=== PATIENT | male | born 1965 | race Caucasian/White ===

== ENCOUNTER → 2017-01-09 | Outpatient (CLI) | payer MEDICARE, OTHER ==
--- NOTE | 2017-01-10 13:53 | XR ---
EXAMINATION TYPE: XR chest 2V DATE OF EXAM: 01/09/2017 COMPARISON: NONE HISTORY: Shortness of breath TECHNIQUE: Frontal and lateral views of the chest are obtained. FINDINGS: Scattered senescent parenchymal changes noted. Hyperinflation compatible with COPD. No evidence for infiltrate. No evidence for atelectasis. Heart size is stable. Mediastinal structures are stable and grossly unremarkable. No evidence for hilar prominence. Degenerative changes dorsal spine. IMPRESSION: 1. No evidence for acute pulmonary disease.
== END | disposition home or self-care (01) ==
LOC: RADXRMAIN 16:45
PROVIDERS: ATTEND Physician Assistant
DX: R06.02 Shortness of breath (principal)
CPT/HCPCS: 71020

== ENCOUNTER → 2017-01-21 | Outpatient (CLI) | payer MEDICARE, OTHER ==
--- NOTE | 2017-01-21 09:43 | US ---
EXAMINATION TYPE: US carotid duplex BILAT DATE OF EXAM: 01/21/2017 COMPARISON: NONE CLINICAL HISTORY: G42.909 migraine. Borderline HTN EXAM MEASUREMENTS: RIGHT: Peak Systolic Velocity (PSV) cm/sec ----- Right CCA: 117.4 ----- Right ICA: 86.7 ----- Right ECA: 116.2 ICA/CCA ratio: 0.7 RIGHT: End Diastole cm/sec ----- Right CCA: 36.5 ----- Right ICA: 29.7 ----- Right ECA: 19.2 LEFT: Peak Systolic Velocity (PSV) cm/sec ----- Left CCA: 103.1 ----- Left ICA: 90.2 ----- Left ECA: 86.7 ICA/CCA ratio: 0.9 LEFT: End Diastole cm/sec ----- Left CCA: 24.1 ----- Left ICA: 30.7 ----- Left ECA: 19.3 VERTEBRALS (direction of flow): Right Vertebral: Antegrade Left Vertebral: Antegrade Rhythm: Normal No wall thickening, significant stenosis, elevated velocities or plaque seen. IMPRESSION: 1. No evidence of hemodynamically significant stenosis within either carotid system. 2. Symmetrically prominent peak systolic velocities likely relate to underlying hypertension.
--- NOTE | 2017-01-21 10:25 | ECHOS ---
STRESS ECHOCARDIOGRAM INDICATIONS: Palpitations. MEDICATIONS:: Metformin, BP medications. BASELINE HEART RATE: 81 BASELINE BLOOD PRESSURE: 105/61 MAXIMUM HEART RATE: 145 MAXIMUM BLOOD PRESSURE: 189/69 85% MPHR: 145 100% MPHR: 170 METS: 9.1 MAXIMUM STAGE REACHED: 3 TOTAL EXERCISE TIME: 7:30 CLINICAL INFORMATION: Baseline EKG showed sinus rhythm, normal axis, normal intervals. Patient exercised on Jam protocol for a total of 7-1/2 minutes achieving 9 METs, 85% of predicted maximum heart rate without chest pain or diagnostic ST-segment depression. Baseline echo shows normal left ventricular size, wall motion, and systolic function. Post-exercise, there is normal hypodynamic response to all segments of myocardium noted. CONCLUSION: 1. Above average exercise tolerance. 2. Negative stress test by EKG criteria. 3. Negative stress echo. MMODL / IJN: [id number] /
== END | disposition home or self-care (01) ==
LOC: RADUSMAIN 08:55
PROVIDERS: ATTEND Family Medicine
DX: R00.2 Palpitations (principal); G43.909 Migraine, unspecified, not intractable, without status migrainosus
CPT/HCPCS: 93017; 93350; 93880

== ENCOUNTER → 2017-01-24 | Outpatient (CLI) | payer MEDICARE, OTHER ==
--- NOTE | 2017-01-24 13:46 | MR ---
EXAMINATION TYPE: MR brain wo/w con DATE OF EXAM: 01/24/2017 COMPARISON: NONE HISTORY: migraine TECHNIQUE: Multiplanar, multisequence images of the brain and brainstem is performed without and with IV contras t, utilizing 9.5 mL intravenous Gadavist . FINDINGS: Diffusion weighted images demonstrate no evidence of a recent infarct or other diffusion ab normality. There is no extra-axial fluid collection or significant white matter signal abnormality. The ventricular system and cisternal spaces are normal in size and appearance. The brain volume is age appropriate. Midline structures demonstrate normal morphology. The craniocervical junction appears within normal limits. Post contrast images demonstrate no abnormal enhancement. 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 White matter: There are couple areas of abnormal signal within the white matter which are nonspecific and measure less than 5 mm. IMPRESSION: 1. Minimal nonspecific white matter changes can be seen with migraine headaches. Other etiologies inc luding remote microvascular ischemia or demyelinating disease not entirely excluded correlate clinica lly. 2. No enhancing mass. Small pineal gland cyst measuring 1 cm.
== END | disposition home or self-care (01) ==
LOC: RADMRIMAIN 12:19
PROVIDERS: ATTEND Physician Assistant
DX: R90.82 White matter disease, unspecified (principal); E34.8 Other specified endocrine disorders
CPT/HCPCS: 70553; A9581

== ENCOUNTER → 2017-01-30 | Outpatient (CLI) | payer MEDICARE, OTHER ==
--- NOTE | 2017-01-30 12:31 | XR ---
Cervical spine HISTORY: Neck pain, migraine headaches Excuse of the cervical spine correlated to prior exam 12/14/2014 There is no significant interval change. Cervical vertebral bodies show stable height, alignment, and bone mineralization. There is multilevel spondylosis. Loss of lordosis may be due to muscle spasm. P revertebral soft tissues are normal. Loss of disc height C3-4, C6-7. Foraminal encroachment not hickey ed significantly. IMPRESSION: Stable degenerative disc disease. MRI may be of benefit.
== END | disposition home or self-care (01) ==
LOC: RADXRMAIN 10:23
PROVIDERS: ATTEND Physician Assistant
DX: M50.30 Other cervical disc degeneration, unspecified cervical region (principal)
CPT/HCPCS: 72050

== ENCOUNTER → 2017-02-27 | Outpatient (CLI) | payer MEDICARE, OTHER ==
--- NOTE | 2017-02-27 10:20 | XR ---
EXAMINATION TYPE: XR knee complete LT DATE OF EXAM: 02/27/2017 COMPARISON: NONE HISTORY: Knee pain TECHNIQUE: Three-view left knee FINDINGS: No radiopaque foreign bodies are evident. Joint spaces are preserved. No joint effusion is evident. There is an anterior superior patellar spur. Superficial soft tissues are unremarkable. IMPRESSION: 1. Normal three-view left knee
== END ==
LOC: RADXRMAIN 08:49
PROVIDERS: ATTEND Physician Assistant
DX: M25.562 Pain in left knee (principal)

== ENCOUNTER → 2017-06-08 | Outpatient (CLI) | payer MEDICARE, OTHER | END | disposition home or self-care (01) | LOC: LABWHC1 12:36 | PROVIDERS: ATTEND Physician Assistant | DX: Z01.818 Encounter for other preprocedural examination (principal) | CPT/HCPCS: 93005 ==

== ENCOUNTER → 2017-08-25 | Outpatient (CLI) | payer MEDICARE, OTHER ==
--- NOTE | 2017-08-25 14:20 | MR ---
EXAMINATION TYPE: MR lumbar spine wo con DATE OF EXAM: 08/25/2017 1:48 PM COMPARISON: NONE HISTORY: Low back pain Multiplanar, MultiSpin echo imaging of the lumbar spine was performed. L1-L2: Normal disc appearance without desiccation. No herniation, protrusion or disc bulging. No ca nal stenosis is present. Foramina are patent bilaterally. L2-L3: There is evidence of mild disc desiccation. Posterocentral disc bulge without herniation. Mild effacement ventral thecal sac. No evidence for central stenosis or foraminal encroachment. Ventral a nd dorsal spur formation noted. L3-L4: There is evidence of mild disc desiccation. Posterocentral disc bulge without herniation. Mild effacement ventral thecal sac. No evidence for central stenosis or foraminal encroachment. L4-L5: There is evidence of mild disc desiccation. Posterocentral disc bulge without herniation. Mild effacement ventral thecal sac. No evidence for central stenosis or foraminal encroachment. L5-S1: Extensive artifact from prior surgical intervention. There is limited evaluation of this level . Lumbar segments are intact. No paraspinal masses are identified. Conus medullaris has a normal appe arance. IMPRESSION: 1. Postoperative change at L5-S1 with extensive artifact resulting in nondiagnostic evaluation at thi s level. 2. Degenerative disc disease as discussed with disc bulging. No susanna herniation or central stenosis.
== END | disposition home or self-care (01) ==
LOC: RADMRIMAIN 13:08
PROVIDERS: ATTEND Psychiatry & Neurology Neurology
DX: M51.36 Other intervertebral disc degeneration, lumbar region (principal); M51.26 Other intervertebral disc displacement, lumbar region; Z98.890 Other specified postprocedural states
CPT/HCPCS: 72148

== ENCOUNTER → 2017-09-28 | Outpatient (CLI) | payer MEDICARE, OTHER ==
--- NOTE | 2017-09-28 14:45 | XR ---
EXAMINATION TYPE: XR cervical spine limited DATE OF EXAM: 09/28/2017 COMPARISON: NONE HISTORY: Spondylosis with radiculopathy TECHNIQUE: 4 view cervical spine. Odontoid is limited with overlying occiput. FINDINGS: Anterior cervical fusion C3-C7 is evident. Disc space place. Posterior spinal lamellar line is intact. Vertebral body alignment is normal. Vertebral body heights appear preserved. IMPRESSION: 1. Postsurgical changes.
== END | disposition home or self-care (01) ==
LOC: RADXRMAIN 14:21
PROVIDERS: ATTEND Neurological Surgery
DX: M47.22 Other spondylosis with radiculopathy, cervical region (principal)
CPT/HCPCS: 72040

== ENCOUNTER → 2017-10-07 | Outpatient (CLI) | payer MEDICARE, OTHER ==
--- NOTE | 2017-10-07 10:35 | CT ---
EXAMINATION TYPE: CT lumbar spine wo con DATE OF EXAM: 10/07/2017 COMPARISON: Correlation MRI 09/04/2017 HISTORY: 52-year-old male Low back pain TECHNIQUE: Contiguous axial scanning of the lumbar spine without IV contrast. Coronal and sagittal re constructions performed. CT DLP: 1030.5 mGycm Automated exposure control for dose reduction was used. FINDINGS: Low density of the liver compatible with fatty infiltration. No prevertebral or paravertebral soft ti ssue abnormality otherwise seen. Vertebral body heights are preserved. Trace grade 1 retrolisthesis at L4-L5. Mild multilevel degenerative disc disease characterized by romero iable minimal disc interspace narrowing and endplate spondylosis. Bulging disks are better demonstrat ed on the patient's recent MRI. L5-S1 intervertebral disc prosthesis is present. The prosthesis appears appropriately positioned. Mild facet arthropathy mid to lower lumbar spine. At L4-L5 and L5-S1, there is bilateral moderate neuroforaminal stenosis suggested. Assessment of the spinal canal at the L5-S1 level is limited due to extensive streak artifact from th e patient's prosthesis. Otherwise, no susanna canal compromise appreciated at the other levels. IMPRESSION: 1. NO VERTEBRAL COMPRESSION COLLAPSE. THERE IS MILD FACET ARTHROPATHY MID TO LOWER LUMBAR SPINE WITH TRACE GRADE 1 RETROLISTHESIS AT L4-L5. 2. INTERVERTEBRAL DISC PROSTHESIS AT L5-S1 APPEARS APPROPRIATELY POSITIONED. 3. MILD MULTILEVEL DEGENERATIVE DISC DISEASE. BULGING DISCS WERE BETTER DEMONSTRATED ON THE PATIENT'S RECENT MRI. 4. MODERATE BILATERAL NEUROFORAMINAL NARROWING AT L4-L5 AND L5-S1.
== END | disposition home or self-care (01) ==
LOC: RADCTMAIN 09:19
PROVIDERS: ATTEND Psychiatry & Neurology Pain Medicine
DX: M99.73 Connective tissue and disc stenosis of intervertebral foramina of lumbar region (principal); M51.26 Other intervertebral disc displacement, lumbar region; M51.36 Other intervertebral disc degeneration, lumbar region; M46.96 Unspecified inflammatory spondylopathy, lumbar region
CPT/HCPCS: 72131

== ENCOUNTER → 2017-10-14 | Outpatient (CLI) | payer MEDICARE, OTHER ==
--- NOTE | 2017-10-14 13:12 | US ---
EXAMINATION TYPE: US abdomen complete DATE OF EXAM: 10/14/2017 COMPARISON: CT lumbar spine one week ago. CLINICAL HISTORY: R10.84 ABD PAIN,RUQ PAIN R10.11. Difficult and limited exam due to overlying bowel gas EXAM MEASUREMENTS: Liver Length: 18.2 cm Gallbladder Wall: 0.2 cm CBD: 0.4 cm Spleen: 10.7 cm Right Kidney: 11.4 x 5.1 x 5.6 cm Left Kidney: 11.5 x 5.2 x 5.0 cm Pancreas: Obscured by bowel gas Liver: Enlarged, attenuating. Coarse echotexture Gallbladder: Two echogenic, non-shadowing areas visualized. These do not move upon rolling patient- possible polyps vs other. Largest measuring 0.3 cm Evidence for sonographic Jeffers's sign: No CBD: wnl as visualized, distal portion obscured by bowel gas Spleen: wnl Right Kidney: No hydronephrosis or masses seen Left Kidney: No hydronephrosis or masses seen Upper IVC: Limited visualization due to overlying bowel gas, visualized portions wnl Abd Aorta: Limited visualization due to overlying bowel gas, visualized portions show some atheroscl erotic changes without AAA. Visualized pancreas is heterogeneous without mass or ductal dilatation. Marked heterogeneous hyperech oic appearance of liver consistent with fatty infiltration correlates with recent CT. No ductal dilat ation is seen. Evaluation for focal masses suboptimal due to marked heterogeneity. Gallbladder is seen without shadowing mobile gallstones. There are suspected 2 3 mm polyps along the periphery. Visualized portion of both kidneys show no hydronephrosis or suspicious masses. Spleen is normal in size. IMPRESSION: Suboptimal study, marked diffuse fatty infiltration of liver is redemonstrated. No suspic ious acute finding is seen to account for patient's symptoms.
== END | disposition home or self-care (01) ==
LOC: RADUSWWP 11:17
PROVIDERS: ATTEND Family Medicine
DX: K76.0 Fatty (change of) liver, not elsewhere classified (principal)
CPT/HCPCS: 76700

== ENCOUNTER → 2017-10-20 | Outpatient (CLI) | payer MEDICARE, OTHER ==
[2017-10-16 16:43] VITALS: BMI 32.5
[2017-10-20 14:05] VITALS: BP 137/89; PULSE 79; RESP 16
--- NOTE | 2017-10-20 15:13 | P.HPIM ---
History of Present Illness H&P Date: 10/20/17 52-year-old male who presents as a new patient to the [facility] pain clinic. Patient presents with a chief complaint of low back pain. Patient is currently status post an ACDF of C3 to C7 on 09/01/2017. Patient also has a history of an anterior disc replacement L5-S1. This was done by surgeon at [place]. R[facility]. Patient since his lumbar disc replacement has had pain in his left hip radiating into his groin and down his leg into his knee. He has not had any interventions with regards to the pain, and was sent to us by Dr. Uriel Beyer for a series of sacroiliac joint injections. I reviewed the patient's MRI that showed postsurgical changes at L5-S1, and artifact which makes it difficult to evaluate at that level. Patient is not take any pain medication, and states that he does not want to. Patient states that his pain is a 6 out of 10 in severity located in his left lower buttock area, radiating into his groin into his thigh into his knee he states that he is limited mobility because of the pain. States it's worse with prolonged sitting or standing. I discussed with the patient sacroiliac joint injection the risks and benefits. Patient understands and is willing to undergo the procedure the next available date. 14 point review of systems negative except as mentioned per HPI Physical exam Vital signs: Reviewed and stable Gen.: Alert and oriented 3 no acute distress HEENT: Atraumatic normocephalic Respiratory: Nonlabored X cardiac: Regular rate and rhythm no murmurs Lumber spine = normal moter stegnth lower extremities ,thigh and legs .4/5 deep tendon reflexes : Diminished bilaterally Knee Jerk , normal ankle Jerk . lumber facet Loading Test negative straight leg raising test negative bilaterally Derrick test positive on the left SI joint tenderness on the left Neurologic: Diminished sensation in the distal lower extremities digits 1 through 5 bilaterally Psychiatric: Mood and affect appropriate Past Medical History Past Medical History: Diabetes Mellitus, Hypertension, Musculoskeletal Disorder , Osteoarthritis (OA) Additional Past Medical History / Comment(s): lower back pain, herniated disc History of Any Multi-Drug Resistant Organisms: None Reported Past Surgical History: Back Surgery, Orthopedic Surgery Additional Past Surgical History / Comment(s): cervical fusion, rotator cuff repair right Past Anesthesia/Blood Transfusion Reactions: No Reported Reaction Past Psychological History: No Psychological Hx Reported Smoking Status: Never smoker Past Alcohol Use History: None Reported Past Drug Use History: None Reported - Past Family History Mother Family Medical History: No Reported History Medications and Allergies Home Medications Medication Instructions Recorded Confirmed Type Glimepiride [Amaryl] 2 mg PO AC-BRKFST 06/30/17 10/20/17 History sitaGLIPtin [Januvia] 100 mg PO DAILY 06/30/17 10/20/17 History Fenofibrate 160 mg PO DAILY 10/16/17 10/20/17 History Hydrochlorothiazide [Hydrodiuril] 25 mg PO DAILY 10/16/17 10/20/17 History QUEtiapine [SEROquel] 100 mg PO HS 10/16/17 10/20/17 History Sertraline [Zoloft] 25 mg PO DAILY 10/16/17 10/20/17 History metFORMIN HCL [Glucophage] 1,000 mg PO BID 10/16/17 10/20/17 History Allergies Allergy/AdvReac Type Severity Reaction Status Date / Time No Known Allergies Allergy Verified 10/16/17 16:46 Physical Exam Vitals: Vital Signs Pulse Resp BP Pulse Ox 10/20/17 13:55 79 16 137/89 94 L Assessment and Plan Assessment: Assessment: 1. Lumbar degenerative disc disease 2. Lumbosacral spondylosis 3. Cervical radiculopathy 4. Chronic postsurgical pain Plan: 1. Medications: No medications prescribed his visit 2. Investigation: maps reviewed and appropriate, no UDS required is no opiates are being prescribed today 3. Procedures: Will schedule for next available left sacroiliac joint steroid injection
== END | disposition home or self-care (01) ==
LOC: PNWHC3 13:00
PROVIDERS: ATTEND Anesthesiology
DX: M51.36 Other intervertebral disc degeneration, lumbar region (principal); M47.817 Spondylosis without myelopathy or radiculopathy, lumbosacral region; I10 Essential (primary) hypertension; E11.9 Type 2 diabetes mellitus without complications; M54.12 Radiculopathy, cervical region; G89.28 Other chronic postprocedural pain; Z79.899 Other long term (current) drug therapy; Z79.84 Long term (current) use of oral hypoglycemic drugs
CPT/HCPCS: 99211

== ENCOUNTER 2017-11-12 06:09 | Day surgery (SDC) | payer MEDICARE, OTHER ==
[2017-11-06 14:29] VITALS: BMI 32.3
[2017-11-12 06:34] VITALS: RESP 16; TEMP 97.9
[2017-11-12] MEDS: LACTATED RINGERS 1,000 ML IV SCH ×2 (06:47→07:03)
[2017-11-12 06:50] LABS: Glucose,Whole Blood 124 mg/dL (75-99)
--- NOTE | 2017-11-12 07:02 | P.PCN ---
Date of Procedure: 11/12/17 Surgeon: Silvano Eagle Description of Procedure: Preoperative diagnoses: left sacroilitis Postoperative diagnoses: left sacroilitis. Procedure: left sacroiliac joint steroid injection under fluoroscopic guidance. Surgeon: Silvano Eagle MD Anesthesia: IV sedation per hospital guidelines EBL: None Procedure indication: The patient had a history of severe chronic low back pain , diagnosed with sacroiliitis and sacroiliac joint pain who presents today for left sacroiliac joint injection. Procedure description: The patient was seen and identified in the preoperative holding area, risks and benefits and alternative of the procedure and possible complications discussed with the patient, and he agreed with the preceding, patient signed the consent, an IV was started, and vital signs were monitored and were stable throughout the procedure, patient was placed in the prone position or table and the lumbosacral area was prepped and draped with a sterile fashion, vital signs were closely monitored during the procedure, the fluoroscopy camera was placed in the contralateral oblique view on the right sacroiliac joint and the lower part of the joint was identified a 2 mL then a 25 -gauge Quincke-type spinal needle advanced slowly under fluoroscopy and placed in the posterior and inferior border of the right sacroiliac joint, placement confirmed with AP and lateral view, and after appropriate needle placement confirmed and after negative aspiration for heme and CSF and there was , 3 ml of Marcaine 0.5% and 40 mg of Kenalog injected after negative aspiration, no paresthesia during the injection, no resistance to injection, and the needle was removed. The entire same procedure was repeated for the left sacroiliac joint Patient tolerated the procedure well without any complication. The patient returned to supine position after the back was cleaned and a Band- Aid applied, the patient transported to recovery room in stable condition and he was monitored for 30 minutes before he was discharged home and then patient was reexamined before going home and patient was discharged in stable condition and patient will follow up with the pain clinic in a few weeks. The patient is a diabetic. I've counseled him that his blood sugar may elevate after this procedure. He should monitor this closely and make appropriate changes to his medical management. He has questions regarding this should contact his managing physician.
[2017-11-12] MEDS ORDERED: IV FLUID CONTINUATION 1,000 ML IV ONE (07:22)
[2017-11-12 07:25] VITALS: PULSE 69
[2017-11-12 07:46] VITALS: BP 119/84
--- NOTE | 2017-11-12 08:08 | FL ---
EXAMINATION TYPE: FL guided pain mgmt statistic DATE OF EXAM: 11/12/2017 HISTORY: Pain Dr. Eagle supervised use of sandra for a lt side si joint steroid inj. 1 sec fluoro and 1 paper images
== END 2017-11-12 07:58 | disposition home or self-care (01) ==
LOC: ORPAIN 06:09
PROVIDERS: ATTEND Pain Medicine Pain Medicine
DX: G89.28 Other chronic postprocedural pain (principal); M46.1 Sacroiliitis, not elsewhere classified; M51.36 Other intervertebral disc degeneration, lumbar region; M47.817 Spondylosis without myelopathy or radiculopathy, lumbosacral region; M54.12 Radiculopathy, cervical region; E11.9 Type 2 diabetes mellitus without complications; I10 Essential (primary) hypertension; M19.90 Unspecified osteoarthritis, unspecified site; Z79.84 Long term (current) use of oral hypoglycemic drugs; Z79.899 Other long term (current) drug therapy; Z98.1 Arthrodesis status
CPT/HCPCS: G0260; J3301; 27096

== ENCOUNTER 2017-11-24 06:23 | Day surgery (SDC) | payer MEDICARE, OTHER ==
[2017-11-17 09:45] VITALS: BMI 32.3
[~2017-11-24 06:23] MED LIST: LACTATED RINGERS 1,000 ML IV SCH
[2017-11-24 07:37] VITALS: RESP 16; TEMP 98.2
[2017-11-24] MEDS ORDERED: LIDOCAINE 1% 20 ML VIAL (10MG/ML) FOR IV START INTRADERMA ONE (07:53)
[2017-11-24 07:59] LABS: Glucose,Whole Blood 143 mg/dL (75-99)
--- NOTE | 2017-11-24 08:18 | P.PCN ---
Date of Procedure: 11/24/17 Surgeon: Hui Shukla Pathology: none sent Condition: stable Disposition: PACU Description of Procedure: Preoperative diagnoses= 1-left sacroiliitis. 2 left sacroiliac joint dysfunction. Postoperative diagnoses= same as preoperative diagnosis. Procedure= bilateral sacroiliac joint steroid injection under fluoroscopic guidance. 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 Procedure description= the patient was seen and identified in the preoperative holding area, risks and benefits and alternative of the procedure and possible complications discussed with the patient, patient signed the consent. an IV was started, and vital signs were monitored and were stable throughout the procedure , patient was placed in the prone position or table and the lumbosacral area was prepped and draped with a sterile fashion, vital signs were closely monitored during the procedure.The left sacroiliac joint was identified on the AP view of fluoroscopy then the C-arm was tilted to the right oblique position to superimpose the anterior and posterior joint lines on each other and to have a unified joint line with the target point at the inferior one third of this line. I used 22-gauge 3-1/2 inch Quincke spinal needle for this procedure and after getting into the sacroiliac joint I injected 40 mg of Depo-Medrol +2.5 MLS of Ropivacaine 0.5%. The patient tolerated procedure well. The patient returned to supine position after the back was cleaned and a Band- Aid applied, the patient transported to recovery room in stable condition and he was monitored for 30 minutes before he was discharged home and then patient was reexamined before going home and patient was discharged in stable condition and patient will follow up with the pain clinic in a few weeks
[2017-11-24] MEDS ORDERED: IV FLUID CONTINUATION 1,000 ML IV ONE (08:19)
[2017-11-24 08:33] VITALS: BP 137/81; PULSE 60
--- NOTE | 2017-11-24 13:55 | FL ---
Fluoroscopy HISTORY: Pain 6 seconds fluoroscopy time supplied to the referring clinician. 1 intraoperative C-arm images docume nt the procedure. See dictated report from anesthesia.
== END 2017-11-24 08:46 | disposition home or self-care (01) ==
LOC: ORPAIN 06:23
PROVIDERS: ATTEND Anesthesiology
DX: G89.29 Other chronic pain (principal); M46.1 Sacroiliitis, not elsewhere classified; M46.97 Unspecified inflammatory spondylopathy, lumbosacral region; M96.1 Postlaminectomy syndrome, not elsewhere classified; E11.9 Type 2 diabetes mellitus without complications; I10 Essential (primary) hypertension
CPT/HCPCS: G0260; J1030; 27096

== ENCOUNTER → 2018-01-01 | Outpatient (CLI) | payer MEDICARE, OTHER | END | disposition home or self-care (01) | LOC: LABWHC1 09:26 | PROVIDERS: ATTEND Psychiatry & Neurology Pain Medicine | DX: R51 Headache (principal) | CPT/HCPCS: 36415; 82565; 84520 ==

== ENCOUNTER → 2018-01-21 | Outpatient (CLI) | payer MEDICARE, OTHER ==
--- NOTE | 2018-01-21 21:40 | MR ---
EXAMINATION TYPE: MR brain wo/w con DATE OF EXAM: 01/21/2018 COMPARISON: 01/24/2017 HISTORY: MS, headache CONTRAST: Performed utilizing 9 mL intravenous Gadavist gadolinium contrast. TECHNIQUE: Multiplanar, multisequence imaging of the brain is performed on a 3.0 Lilia magnet. Demye linating disease protocol with additional Sagittal Flair sequence is performed. Study is performed wi thin 24 hours of arrival to the hospital. FINDINGS: T2 White Matter Lesions Present : Yes Approximate Number of Lesions: Multiple scattered, probably on the right. Locations Identified : There is a new lesion within the right posterior lateral centrum semiovale thi s may be pulsation artifact. Series 501 image 7. Faint increased signal is near the right cerebral peduncle. There are several uptake white matter changes through the subcortical right temporal lobe, inferior r ight parietal lobe, within the lateral aspect of the right basal ganglion within subcortical trilobar region and within subcortical parietal occipital and frontal lobes on the right. Few scattered punct ate areas are on the left. Size of Largest Lesion(s): 1. 0.5 x 0.3 x 0.3 cm. Location: Right frontal lobe subcortical white matter Sequence 501 Image 18 ( axial) and Sequence 601 Image 25 (sagittal). Enhancing Lesion(s) Present: No Change from Prior: Punctate subcortical white matter changes are increased from comparison. The largest subcortical righ t frontal lobe changes stable. Diffusion-weighted imaging is performed. No abnormal hyperintensity is present to suggest an acute i ntracranial infarct or acute ischemic change. Ventricles and sulci are appropriate for the patient age. There are no abnormal extra-axial fluid collections. The ventricular system and cisternal spaces are normal in size and appearance. The brain volume is age appropriate. The craniocervical junction edin ears within normal limits. The dural venous sinuses appear patent. No abnormal enhancement is present on post contrast images. . Paranasal sinuses and mild mucosal thickening within ethmoid air cells. Remaining paranasal sinuses a nd mastoid air cells are clear. IMPRESSION: 1. A few punctate white matter changes in the subcortical regions predominantly on the right are new . The largest subcortical white matter change in the right frontal lobe is stable in size from prior study discussed above.
== END ==
LOC: RADMRIMAIN 06:25
PROVIDERS: ATTEND Psychiatry & Neurology Neurology
DX: R90.89 Other abnormal findings on diagnostic imaging of central nervous system (principal); R51 Headache
CPT/HCPCS: 70553; A9581

== ENCOUNTER 2018-02-13 11:54 | Observation (INO) | payer MEDICARE, OTHER ==
[2018-02-13] MEDS ORDERED: MORPHINE SULFATE 4 MG/ML SYRINGE IVP STA (13:00)
[2018-02-13] MEDS ORDERED: SODIUM CHLORIDE 0.9% 1,000 ML IV ONE (13:00)
--- NOTE | 2018-02-13 13:06 | ED ---
Chest Pain HPI - General Chief Complaint: Chest Pain Stated Complaint: Migraine, dementia Time Seen by Provider: 02/13/18 12:44 Source: patient, family Mode of arrival: ambulatory Limitations: no limitations - History of Present Illness Initial Comments: 52-year-old male presenting with chest pain, headache, incontinence. Patient states he was hunting at 9:30 AM this morning when he developed severe sharp chest pressure radiating down his left arm and up the left side of his neck that was accompanied by generalized severe headache and diaphoresis. He states he then had incontinence of his bladder in his bowels. Denies any saddle anesthesia. He states currently the VUONG has resolved but the chest pain is still present. He denies any history of aortic aneurysm or dissection. He denies any history of NE and states he had a normal stress test last year. Patient and significant other states that he was recently diagnosed with dementia and started on Aricept. They state for the past one week he has had VUONG that are worse than his normal VUONG. They are accompanied by blurry vision, occur spontaneously, resolve spontaneously, and are exacerbated by light. - Related Data Home Medications Medication Instructions Recorded Confirmed sitaGLIPtin [Januvia] 100 mg PO DAILY 06/30/17 02/13/18 Fenofibrate 160 mg PO BID 10/16/17 02/13/18 Hydrochlorothiazide [Hydrodiuril] 25 mg PO DAILY 10/16/17 02/13/18 metFORMIN HCL [Glucophage] 1,000 mg PO BID 10/16/17 02/13/18 Bisoprolol-Hctz 5-6.25 mg [Ziac 1 tab PO DAILY 02/13/18 02/13/18 5-6.25 MG] Donepezil [Aricept] 5 mg PO DAILY 02/13/18 02/13/18 Glimepiride [Amaryl] 4 mg PO BID 02/13/18 02/13/18 QUEtiapine [SEROquel] 150 mg PO HS 02/13/18 02/13/18 Sertraline HCl [Zoloft] 50 mg PO TID 02/13/18 02/13/18 Allergies Allergy/AdvReac Type Severity Reaction Status Date / Time No Known Allergies Allergy Verified 02/13/18 14:15 Review of Systems ROS Statement: Those systems with pertinent positive or pertinent negative responses have been documented in the HPI. Review of Systems Constitutional: Denies fever, chills Eyes: Denies change in vision, Denies pain Ears, nose, mouth, throat: Denies headaches, Denies sore throat Cardiovascular: Positive chest pain. Denies palpitations Respiratory: Denies shortness of breath, Denies cough Gastrointestinal: Denies abdominal pain. Denies nausea, vomiting, diarrhea. Positive incontinence Genitourinary: Denies hematuria, Denies infections Musculoskeletal: Denies pain, Denies swelling Integumentary: Denies rash Neurological: Positive headache, focal weakness, focal numbness Psychiatric: Denies anxiety, Denies depression Hematologic/Lymphatic: Denies easy bleeding or bruising ROS Other: All systems not noted in ROS Statement are negative. Past Medical History Past Medical History: Dementia, Diabetes Mellitus, Hyperlipidemia, Hypertension Additional Past Medical History / Comment(s): back pain History of Any Multi-Drug Resistant Organisms: None Reported Past Surgical History: Back Surgery, Cholecystectomy, Orthopedic Surgery Additional Past Surgical History / Comment(s): C3-C7 WITH HARDWARE. DISC REPLACED IN LOWER BACK. RT ROTATOR CUFF REPAIR Past Anesthesia/Blood Transfusion Reactions: No Reported Reaction Past Psychological History: No Psychological Hx Reported, Anxiety, Depression Smoking Status: Never smoker Past Alcohol Use History: None Reported Past Drug Use History: None Reported - Past Family History Mother Family Medical History: No Reported History Father Family Medical History: Cancer, Deep Vein Thrombosis (DVT) General Exam - General Exam Comments Initial Comments: General: Awake, alert, No acute Distress HENT: Normocephalic. Atraumatic Eyes: PERRL. EOMI. No scleral icterus. Visual treviño intact. No injected conjunctiva Neck: Full ROM Chest/Lungs: Clear to auscultation bilaterally. No wheezing, rhonchi, or rales Cardiac: Regular rate, rhythm. No murmurs or rubs. 2+ radial pulses bilaterally. No abdominal or carotid bruit. Abdomen/GI: Soft, nontender, nondistended. No rebound, guarding, or rigidity. Musculoskeletal: Full ROM Skin: Warm, dry, intact Neurologic: A/Ox3, no weakness, no abnormal gait, no coordination deficit. Finger to nose intact. No pronator drift. Decreased sensation of left trigeminal nerve Limitations: no limitations Course Vital Signs 02/13/18 02/13/18 02/13/18 12:23 14:27 15:17 Temperature 98.4 F Pulse Rate 69 67 67 Respiratory 16 18 16 Rate Blood Pressure 124/80 123/81 130/72 O2 Sat by Pulse 95 98 96 Oximetry Chest Pain MDM - MDM 52 yoM presenting with chest pain, incontinence and near syncope. On initial exam the patient is awake, alert, and in NAD. VSS. His laboratory workup reveals elevated kidney function but otherwise was negative. CT head and CTA negative for acute process. On reevaluation the chest pain had resolved. She was having no worsening back pain, trouble urinating, saddle anesthesia. Low likelihood the patient's symptoms are secondary to cauda equina syndrome. Patient did have a negative stress test last year however his HEART score is 4. At this time he requires telemetry observation and evaluation by cardiology. I spoke with Dr. Huang who is agreeable to admission with cardiology on consult. Patient is currently stable for transfer to floor. Disposition Clinical Impression: Chest pain at rest Disposition: ADMITTED IP TO THIS HOSP Referrals: Kvng Huang Jr, [Primary Care Provider] - 1-2 days Decision Date: 02/13/18 Decision Time: 15:37
[2018-02-13 13:26] LABS: Basophils # (A) 0.1 k/uL (0-0.2); Basophils % (A) 1 %; Eosinophils # (A) 0.4 k/uL (0-0.7); Eosinophils % (A) 4 %; HCT 38.3 % (39.0-53.0); HGB 12.4 gm/dL (13.0-17.5); Lymphocytes # (A) 1.5 k/uL (1.0-4.8); Lymphocytes % (A) 16 %; MCH 27.8 pg (25.0-35.0); MCHC 32.5 g/dL (31.0-37.0); MCV 85.5 fL (80.0-100.0); Mean Platelet Volume 7.5; Monocytes # (A) 0.5 k/uL (0-1.0); Monocytes % (A) 5 %; Neutrophils % (A) 74 %; Platelet Count 334 k/uL (150-450); RBC 4.48 m/uL (4.30-5.90); RDW 13.4 % (11.5-15.5); WBC 9.5 k/uL (3.8-10.6)
[2018-02-13 13:34] LABS: Calcium 9.5 mg/dL (8.4-10.2); Potassium 3.6 mmol/L (3.5-5.1)
--- NOTE | 2018-02-13 13:40 | XR ---
EXAMINATION TYPE: XR chest 2V DATE OF EXAM: 02/13/2018 HISTORY: Pain. REFERENCE: Previous study dated 01/09/2017. FINDINGS: There has been an interval ACDF in the lower cervical spine. The heart is mildly enlarged. The lungs are clear. Pleural spaces are clear. IMPRESSION: 1. NO ACUTE INTRATHORACIC ABNORMALITY. 2. MILD CARDIOMEGALY. 3. POSTSURGICAL CHANGE.
--- NOTE | 2018-02-13 14:13 | CT ---
EXAMINATION TYPE: CT brain wo con DATE OF EXAM: 02/13/2018 COMPARISON: None HISTORY: Papilledema CT DLP: 1152.4 mGycm Automated exposure control for dose reduction was used. FINDINGS: Ventricles of normal size. There is no mass effect nor midline shift. There is no sign of intracrania l hemorrhage. Calvarium is intact. There is no evidence of cerebral edema. IMPRESSION: NEGATIVE CT SCAN OF THE BRAIN.
[2018-02-13 14:53] LABS: Appearance,Urine Clear (Clear); Bilirubin,Urine Negative (Negative); Blood,Urine Negative (Negative); Color,Urine Yellow; Glucose,Urine (UA) Negative (Negative); Ketones,Urine Negative (Negative); Leukocyte Esterase,Urine Negative (Negative); Nitrite,Urine Negative (Negative); PH, Urine 6.5 (5.0-8.0); Protein,Urine Negative (Negative); Specific Gravity,Urine 1.033 (1.001-1.035); Urobilinogen,Urine <2.0 mg/dL (<2.0)
--- NOTE | 2018-02-13 15:17 | CT ---
EXAMINATION TYPE: CT angio thor/abd pel aorta DATE OF EXAM: 02/13/2018 COMPARISON: None HISTORY: Chest pain, syncope and incontinence CT DLP: 1951.7 mGycm. Automated Exposure Control for Dose Reduction was Utilized. CONTRAST: CT scan of the thorax, abdomen and pelvis is performed without and with IV Contrast, patient injected with 100 ml mL of Isovue 370. FINDINGS: There are 3-D post processed images. The lungs are clear of infiltrate. There is no pleural effusion. There is no pericardial effusion. Th ere is fatty infiltration of the liver. There is no renal calculus. There is no intestinal wall thick ening. There are no dilated loops. There is no mesenteric edema or adenopathy. There is no retroperit butler adenopathy. There are clips from cholecystectomy. Thoracic aorta has normal size. There is no aneurysm or dissection. There is patency of the celiac ar geena and the superior mesenteric artery. There is bilateral patency of the renal arteries. There is b ilateral patency of the common internal and external iliac arteries. There is metal artifact from rupali temo at L5-S1. There is bilateral patency of the femoral arteries. There is no evidence of aneurysm o r dissection. There is no evidence of stenosis. Bladder distends smoothly. There is no pelvic mass. Thoracic and lumbar vertebra appear intact. There is no inguinal hernia. Stomach appears normal. IMPRESSION: Normal CT angiogram of the chest abdomen pelvis. Fatty infiltration of the liver.
[2018-02-13 15:30] LABS: Amphetamine Screen,Urine Not Detected (NotDetected); Barbiturate Screen,Urine Not Detected (NotDetected); Benzodiazepines Screen,Urine Not Detected (NotDetected); Cocaine Screen,Urine Not Detected (NotDetected); Methadone Screen, Urine Not Detected (NotDetected); Opiate Screen,Urine Not Detected (NotDetected); Oxycodone Screen, Urine Not Detected (NotDetected); Phencyclidine Screen,Urine Not Detected (NotDetected); Tricyclic Antidepressant,Urine Not Detected (NotDetected); Urn Cannabinoid Scrn Not Detected (NotDetected)
[2018-02-13] MEDS ORDERED: IBUPROFEN 400 MG TAB PO PRN (15:37)
[2018-02-13] MEDS ORDERED: ACETAMINOPHEN TAB 325 MG TAB PO PRN (15:37)
[2018-02-13] MEDS ORDERED: traMADol 50 MG TAB PO PRN (15:37)
[2018-02-13] MEDS ORDERED: BISACODYL 5 MG TABLET.DR PO PRN (15:37)
[2018-02-13] MEDS ORDERED: NALOXONE 0.4 MG/ML 1 ML VIAL IV PRN (15:37)
[2018-02-13] MEDS ORDERED: ONDANSETRON 4 MG/2 ML VIAL IVP PRN (15:37)
[2018-02-13] MEDS ORDERED: ASPIRIN 325 MG TAB PO STA (15:43)
[2018-02-13] MEDS: SERTRALINE 50 MG TAB PO SCH ×2 (16:51→22:45)
[2018-02-13 16:52] LABS: Glucose,Whole Blood 75 mg/dL (75-99)
[2018-02-13] MEDS: GLIMEPIRIDE 4 MG TAB PO SCH (18:17)
[2018-02-13] MEDS: metFORMIN 500 MG TAB PO SCH (18:59)
[2018-02-13] MEDS: MORPHINE SULFATE 4 MG/ML SYRINGE IV PRN (19:03)
[2018-02-13] MEDS: QUEtiapine 50 MG TAB PO SCH (21:38)
[2018-02-14 03:09] LABS: Basophils % (A) 1 %; Eosinophils # (A) 0.4 k/uL (0-0.7); Eosinophils % (A) 6 %; HCT 37.5 % (39.0-53.0); HGB 12.2 gm/dL (13.0-17.5); Lymphocytes % (A) 30 %; MCH 28.6 pg (25.0-35.0); MCHC 32.5 g/dL (31.0-37.0); MCV 87.9 fL (80.0-100.0); Mean Platelet Volume 8.3; Monocytes # (A) 0.5 k/uL (0-1.0); Monocytes % (A) 7 %; Neutrophils # (A) 3.6 k/uL (1.3-7.7); Neutrophils % (A) 55 %; Platelet Count 285 k/uL (150-450); RBC 4.27 m/uL (4.30-5.90); RDW 13.6 % (11.5-15.5); WBC 6.6 k/uL (3.8-10.6)
[2018-02-14 03:31] LABS: Calcium 8.9 mg/dL (8.4-10.2); Potassium 3.7 mmol/L (3.5-5.1)
[2018-02-14] MEDS: MORPHINE SULFATE 4 MG/ML SYRINGE IV PRN ×3 (06:39→20:54)
[2018-02-14] MEDS: SERTRALINE 50 MG TAB PO SCH ×3 (08:47→20:54)
[2018-02-14] MEDS: DONEPEZIL 5 MG TAB PO SCH (08:47)
[2018-02-14] MEDS: metFORMIN 500 MG TAB PO SCH (08:47)
[2018-02-14] MEDS: FENOFIBRATE 160 MG TAB PO SCH (08:47)
[2018-02-14] MEDS: LINAGLIPTIN 5 MG TABLET PO SCH (08:47)
[2018-02-14] MEDS: GLIMEPIRIDE 4 MG TAB PO SCH ×2 (08:47→20:24)
[2018-02-14] MEDS: BISOPROLOL-HCTZ 5-6.25 MG 1 EACH TAB PO SCH (08:47)
[2018-02-14] MEDS ORDERED: ALPRAZolam 0.25 MG TAB PO PRN (08:48)
[2018-02-14] MEDS ORDERED: NITROGLYCERIN SL TABS 0.4 MG TAB SUBLINGUAL PRN (08:48)
[2018-02-14] MEDS ORDERED: ALPRAZolam 0.5 MG TAB PO PRN (08:48)
[2018-02-14] MEDS ORDERED: SODIUM CHLORIDE 0.9% 1,000 ML in EMPTY BAG 1 BAG IV ONE (08:48)
[2018-02-14] MEDS ORDERED: HEPARIN SODIUM,PORCINE 5,000 UNIT/ML 1 ML VIAL IV PRN (08:49)
[2018-02-14] MEDS ORDERED: HEPARIN SODIUM,PORCINE 5,000 UNIT/ML 1 ML VIAL IV ONE (08:49)
[2018-02-14] MEDS ORDERED: HEPARIN SOD,PORK IN 0.45% NACL 25,000 UNIT in 0.45% NACL 1 500ML.BAG IV SCH (09:00)
[2018-02-14] MEDS ORDERED: HYDROCHLOROTHIAZIDE 25 MG TAB PO SCH (09:00)
--- NOTE | 2018-02-14 09:21 | CONS ---
CONSULTATION ATTENDING DOCTOR: Dr. Huang Mr. Menezes is a 52-year-old male with no prior documented history of coronary artery disease who presented to the emergency room with symptoms of headache, subsequent neck, left side of the chest and left arm discomfort that occurred while he was walking back from his [place]. His discomfort persisted. At the time of my evaluation, he has minimal discomfort that is worse at times with palpation of the chest. He has occasional dizziness. No palpitation. Occasional peripheral edema. He has a history of cervical fusion done in August. He has no prior documented history of coronary disease or recent cardiac workup. His coronary risk factors are remarkable for the history of diabetes, hypertension, hyperlipidemia, family history of premature coronary disease. He is usually active physically and has no similar symptoms. MEDICATION: At home include: Ziac 5-6.5 mg daily, Aricept, fenofibrate 160 mg daily, glimepiride, hydrochlorothiazide 25 mg daily, Seroquel, Zoloft, metformin 1 gram twice a day and Januvia. REVIEW OF SYSTEMS: RESPIRATORY system: He has dyspnea on exertion. No recent wheezing or cough. GI system: No recent GI bleeding. No peptic ulcer disease. system: No dysuria or hematuria. Nervous system: No history of stroke or seizure. PHYSICAL EXAMINATION: 52-year-old male, alert, oriented, in no apparent distress. Blood pressure 115/80 with a heart rate in 60s. HEAD: Normocephalic. Eyes: Sclerae anicteric. Neck: Good carotid upstroke. No bruit. No jugular venous distension. Lungs clear to auscultation. Heart is regular rate and rhythm S1, S2. No S3. No S4. No murmur or rub. ABDOMEN: Soft, nontender. Positive bowel sounds. No megaly. EXTREMITIES: No edema. Intact distal pulses. LAB DATA: BUN and creatinine 26 and 1.29, hemoglobin 12.2. Potassium 3.7. Troponin less than 0.012 for 3 samples. NT proBNP of 34. EKG revealed a sinus mechanism with no acute ST-segment changes. Chest x-ray shows no evidence of infiltrate. IMPRESSION: 1. Chest discomfort of unclear etiology in a patient with multiple risk factors. The possibility of coronary artery disease cannot be excluded. 2. Hypertension. 3. Hyperlipidemia. 4. Diabetes mellitus. 5. Abnormal renal function of unknown duration. RECOMMENDATION: I will heparinize the patient. An echocardiogram with Doppler will be obtained. I will recommend to proceed with coronary angiography that will be done tomorrow. We will hydrate the patient and depending on his progress, further recommendations will be made. Those findings and recommendations were discussed with the patient and his family and are in full understanding and agreement. MMFARAZL / IJN: [id number] /
[2018-02-14] MEDS: ATORVASTATIN 40 MG TAB PO SCH (09:42)
[2018-02-14] MEDS: ASPIRIN 81 MG PO SCH (09:42)
--- NOTE | 2018-02-14 09:44 | P.HPIM ---
History of Present Illness H&P Date: 02/14/18 Chief Complaint: Chest pain 52-year-old male presenting with chest pain headache incontinence well-known to the practice. Patient said it was hunting approximately 9:30 AM this yesterday morning developed sharp chest pressure rating down is left arm and upper left side of the neck accompanied with generalized severe headache and diaphoresis. He stated then he had incontinence of bladder and bowel sounds. Patient stated on evaluation in the emergency room he still had chest pain and headache but denied any history of nausea vomiting. Patient was recently diagnosed with early dementia and started on low-dose Aricept did complain of blurred vision occasional headache exacerbated by light Review of Systems Constitutional: Reports as per HPI, Reports sweats Ears, nose, mouth and throat: Reports as per HPI, Reports headache, Reports vertigo Cardiovascular: Reports chest pain, Reports high blood pressure Respiratory: Reports as per HPI Gastrointestinal: Reports nausea Genitourinary: Reports as per HPI, Reports incontinence Musculoskeletal: Reports as per HPI Integumentary: Reports as per HPI Neurological: Reports memory loss Psychiatric: Reports as per HPI, Reports difficulty concentrating, Reports memory loss Past Medical History Past Medical History: Dementia, Diabetes Mellitus, Hyperlipidemia, Hypertension Additional Past Medical History / Comment(s): back pain History of Any Multi-Drug Resistant Organisms: None Reported Past Surgical History: Back Surgery, Cholecystectomy, Orthopedic Surgery Additional Past Surgical History / Comment(s): C3-C7 WITH HARDWARE. DISC REPLACED IN LOWER BACK. RT ROTATOR CUFF REPAIR Past Anesthesia/Blood Transfusion Reactions: No Reported Reaction Past Psychological History: No Psychological Hx Reported, Anxiety, Depression Smoking Status: Never smoker Past Alcohol Use History: None Reported Past Drug Use History: None Reported - Past Family History Mother Family Medical History: No Reported History Father Family Medical History: Cancer, Deep Vein Thrombosis (DVT) Medications and Allergies Home Medications Medication Instructions Recorded Confirmed Type sitaGLIPtin [Januvia] 100 mg PO DAILY 06/30/17 02/13/18 History Fenofibrate 160 mg PO BID 10/16/17 02/13/18 History Hydrochlorothiazide [Hydrodiuril] 25 mg PO DAILY 10/16/17 02/13/18 History metFORMIN HCL [Glucophage] 1,000 mg PO BID 10/16/17 02/13/18 History Bisoprolol-Hctz 5-6.25 mg [Ziac 1 tab PO DAILY 02/13/18 02/13/18 History 5-6.25 MG] Donepezil [Aricept] 5 mg PO DAILY 02/13/18 02/13/18 History Glimepiride [Amaryl] 4 mg PO BID 02/13/18 02/13/18 History QUEtiapine [SEROquel] 150 mg PO HS 02/13/18 02/13/18 History Sertraline HCl [Zoloft] 50 mg PO TID 02/13/18 02/13/18 History Allergies Allergy/AdvReac Type Severity Reaction Status Date / Time No Known Allergies Allergy Verified 02/13/18 14:15 Physical Exam Osteopathic Statement: *. No significant issues noted on an osteopathic structural exam other than those noted in the History and Physical/Consult. Vitals: Vital Signs Temp Pulse Resp BP Pulse Ox 02/14/18 08:00 63 116/81 95 02/14/18 07:00 70 119/92 93 L 02/14/18 06:30 97.7 F 71 16 119/92 94 L 02/14/18 05:00 53 L 16 115/81 96 02/14/18 04:30 60 115/81 93 L 02/14/18 04:00 53 L 108/73 94 L 02/14/18 03:30 56 L 108/73 96 02/14/18 03:00 55 L 108/76 89 L 02/14/18 02:30 55 L 16 108/76 96 02/14/18 02:00 54 L 110/74 97 02/14/18 01:30 55 L 110/74 92 L 02/14/18 01:00 58 L 111/80 94 L 02/14/18 00:30 110/69 02/14/18 00:00 58 L 12 114/71 90 L 02/13/18 23:46 62 18 114/71 95 02/13/18 23:30 63 15 114/71 95 02/13/18 23:00 60 14 118/74 95 02/13/18 22:30 59 L 12 118/74 93 L 02/13/18 22:00 60 11 L 133/90 95 02/13/18 21:30 25 H 133/90 93 L 02/13/18 21:00 56 L 12 126/91 96 02/13/18 20:56 98.3 F 71 18 126/91 97 10/27/18 20:30 59 L 10 L 126/91 93 L 02/13/18 20:00 62 16 123/87 96 02/13/18 19:30 64 16 123/87 94 L 02/13/18 19:00 58 L 18 125/89 96 02/13/18 18:59 97.7 F 60 18 125/89 97 02/13/18 18:30 64 15 125/89 95 02/13/18 18:00 61 16 122/102 96 02/13/18 17:30 65 19 122/102 96 02/13/18 17:05 63 18 117/73 97 02/13/18 17:00 73 14 117/78 95 02/13/18 16:30 61 15 123/87 96 02/13/18 16:00 61 134/95 97 02/13/18 15:30 64 130/78 97 02/13/18 15:17 67 16 130/72 96 02/13/18 15:00 63 119/76 94 L 02/13/18 14:30 123/81 96 02/13/18 14:27 67 18 123/81 98 02/13/18 13:30 68 121/77 98 02/13/18 13:00 64 123/79 98 02/13/18 12:58 13 96 02/13/18 12:23 98.4 F 69 16 124/80 95 General: [Patient awake, alert and oriented times 3. Patient in no acute distress.] HEENT: [PERRL. EOMI. No pharyngeal erythema or exudate.] Neck: [No adenopathy.] Cardiac: [Heart regular in rate and rhythm. No S3. No S4. No clicks, rubs. No murmur.] Lungs: [Clear to auscultation bilaterally.] Abdomen: [No mass. No organomegaly. Bowel sounds presnt and normoactive in all 4 quadrants.] Extremes: [No edema no cyanosis no claudication normal pulses] : [] Musculoskeletal: [No joint erythema, edema or tenderness.] Skin: [No rash.] Neurologic: [No lateralizing deficits. CN II - XII grossly intact.] Lymphatic: [No adenopathy.] Results CBC & Chem 7: 02/14/18 01:30 02/14/18 01:30 Labs: Abnormal Lab Results - Last 24 Hours (Table) 02/13/18 02/13/18 02/14/18 Range/Units 13:10 13:10 01:30 RBC 4.27 L (4.30-5.90) m/uL Hgb 12.4 L 12.2 L (13.0-17.5) gm/dL Hct 38.3 L 37.5 L (39.0-53.0) % BUN 29 H (9-20) mg/dL Creatinine 1.33 H (0.66-1.25) mg/dL Glucose 165 H (74-99) mg/dL 02/14/18 Range/Units 01:30 RBC (4.30-5.90) m/uL Hgb (13.0-17.5) gm/dL Hct (39.0-53.0) % BUN 26 H (9-20) mg/dL Creatinine 1.29 H (0.66-1.25) mg/dL Glucose 146 H (74-99) mg/dL Thrombosis Risk Factor Assmnt - DVT/VTE Prophylaxis DVT/VTE Prophylaxis: Pharmacologic Prophylaxis ordered Assessment and Plan (1) Incontinence of urine Current Visit: Yes Status: Acute Code(s): R32 - UNSPECIFIED URINARY INCONTINENCE SNOMED Code(s): 353637587 (2) Incontinence of bowel Current Visit: Yes Status: Acute Code(s): R15.9 - FULL INCONTINENCE OF FECES SNOMED Code(s): 38995735 (3) Chest pain at rest Current Visit: Yes Status: Acute Code(s): R07.9 - CHEST PAIN, UNSPECIFIED SNOMED Code(s): 5030341 Plan: Cardiology consult for chest pain Hypertension controlled Type 2 diabetes controlled Negative stress test 1 year ago, waiting on cardiology evaluation Troponins 2 negative Time with Patient: Greater than 30
[2018-02-14 10:00] LABS: Basophils # (A) 0.1 k/uL (0-0.2); Basophils % (A) 1 %; Eosinophils # (A) 0.4 k/uL (0-0.7); Eosinophils % (A) 6 %; HCT 37.2 % (39.0-53.0); HGB 11.9 gm/dL (13.0-17.5); Lymphocytes # (A) 1.4 k/uL (1.0-4.8); Lymphocytes % (A) 22 %; MCV 87.5 fL (80.0-100.0); Monocytes # (A) 0.3 k/uL (0-1.0); Monocytes % (A) 4 %; Neutrophils # (A) 4.2 k/uL (1.3-7.7); Neutrophils % (A) 66 %; Platelet Count 291 k/uL (150-450); RBC 4.25 m/uL (4.30-5.90); RDW 13.7 % (11.5-15.5); WBC 6.3 k/uL (3.8-10.6)
[2018-02-14 10:13] LABS: INR 1.1 (<1.2); Prothrombin Time 10.6 sec (9.0-12.0)
[2018-02-14 10:14] LABS: Cholesterol 195 mg/dL (<200); HDL Cholesterol 35 mg/dL (40-60); LDL Cholesterol,Calculated 100 mg/dL (0-99); Triglycerides 300 mg/dL (<150)
[2018-02-14 10:30] LABS: Partial Thromboplastin Time 21.6 sec (22.0-30.0)
[2018-02-14 11:56] LABS: Glucose,Whole Blood 112 mg/dL (75-99)
[2018-02-14 17:28] LABS: Glucose,Whole Blood 99 mg/dL (75-99)
[2018-02-14 20:23] LABS: Glucose,Whole Blood 143 mg/dL (75-99)
[2018-02-14] MEDS: QUEtiapine 50 MG TAB PO SCH (21:51)
[2018-02-15] MEDS ORDERED: ASPIRIN 325 MG TAB PO ONE (06:00)
[2018-02-15] MEDS ORDERED: ATORVASTATIN 80 MG TAB PO ONE (06:00)
[2018-02-15] MEDS: MORPHINE SULFATE 4 MG/ML SYRINGE IV PRN ×2 (06:07→10:31)
[2018-02-15 06:40] LABS: Glucose,Whole Blood 105 mg/dL (75-99)
[2018-02-15 07:17] VITALS: TEMP 98.2
[2018-02-15] MEDS: ATORVASTATIN 40 MG TAB PO SCH (08:30)
[2018-02-15] MEDS: ASPIRIN 81 MG PO SCH (08:30)
[2018-02-15] MEDS ORDERED: VERAPAMIL 2.5 MG/ML 2 ML AMP ONE (08:50)
[2018-02-15] MEDS ORDERED: LIDOCAINE 1% INJ 10MG/ML (20 ML MDV) ONE (08:50)
[2018-02-15] MEDS ORDERED: fentaNYL (PF) 50 MCG/ML 2 ML AMP ONE (08:51)
[2018-02-15] MEDS ORDERED: HEPARIN SODIUM 1,000 UN/ML (10ML VL) ONE (08:56)
[2018-02-15] MEDS ORDERED: fentaNYL (PF) 50 MCG/ML 2 ML AMP IVP ONE (09:26)
[2018-02-15] MEDS ORDERED: LIDOCAINE 1% (PF) 10MG/ML VIAL SQ ONE (09:30)
[2018-02-15] MEDS ORDERED: VERAPAMIL SYRINGE (5 MG/10 ML) INTRAARTER ONE (09:32)
--- NOTE | 2018-02-15 09:32 | ECHOF ---
Referral Reason:cp MEASUREMENTS -------- HEIGHT: 175.3 cm WEIGHT: 99.3 kg BP: 112/73 RVIDd: 2.7 cm (< 3.3) IVSd: 1.4 cm (0.6 - 1.1) LVIDd: 3.9 cm (3.9 - 5.3) LVPWd: 1.3 cm (0.6 - 1.1) IVSs: 1.8 cm LVIDs: 2.5 cm LVPWs: 1.6 cm LA Diam: 3.7 cm (2.7 - 3.8) LAESV Index (A-L): 33.91 ml/m Ao Diam: 3.5 cm (2.0 - 3.7) AV Cusp: 2.4 cm (1.5 - 2.6) EPSS: 0.4 cm MV E Tom: 0.80 m/s MV DecT: 253 ms MV A Tom: 0.77 m/s MV E/A Ratio: 1.05 RAP: 5.00 mmHg RVSP: 32.11 mmHg MV EF SLOPE: 87.40 mm/s (70 - 150) MV EXCURSION: 1.97 cm (> 18.000) FINDINGS -------- Sinus rhythm. This was a technically adequate study. The left ventricular size is normal. There is moderate concentric left ventricular hypertrophy. O verall left ventricular systolic function is normal with, an EF between 55 - 60 %. The right ventricle is normal in size. LA is midly dilated 29-33ml/m2. The right atrium is normal in size. There is mild aortic valve sclerosis. Mild mitral annular calcification present. There is trace mitral regurgitation. Mild tricuspid regurgitation present. Right ventricular systolic pressure is normal at < 35 mmHg. There is no pulmonic regurgitation present. The aortic root size is normal. Normal inferior vena cava with normal inspiratory collapse consistent with estimated right atrial pre ssure of 5 mmHg. There is no pericardial effusion. CONCLUSIONS -------- 1. Sinus rhythm. 2. This was a technically adequate study. 3. The left ventricular size is normal. 4. There is moderate concentric left ventricular hypertrophy. 5. Overall left ventricular systolic function is normal with, an EF between 55 - 60 %. 6. The right ventricle is normal in size. 7. LA is midly dilated 29-33ml/m2. 8. The right atrium is normal in size. 9. There is mild aortic valve sclerosis. 10. Mild mitral annular calcification present. 11. There is trace mitral regurgitation. 12. Mild tricuspid regurgitation present. 13. Right ventricular systolic pressure is normal at < 35 mmHg. 14. There is no pulmonic regurgitation present. 15. The aortic root size is normal. 16. Normal inferior vena cava with normal inspiratory collapse consistent with estimated right atrial pressure of 5 mmHg. 17. There is no pericardial effusion. THERAPEUTIC RADIOLOGIST: CLARI Cintron
[2018-02-15] MEDS ORDERED: IV FLUID CONTINUATION 1,000 ML IV ONE (09:33)
[2018-02-15] MEDS ORDERED: IOPAMIDOL-370 125ML BTL INJ ONE (09:44)
[2018-02-15] MEDS ORDERED: RX INFO: IV CONTRAST WAS GIVEN 1 EACH MISC MISCELLANE PRN (09:52)
[2018-02-15 09:55] LABS: Basophils # (A) 0.1 k/uL (0-0.2); Basophils % (A) 1 %; Eosinophils # (A) 0.4 k/uL (0-0.7); Eosinophils % (A) 6 %; HCT 34.4 % (39.0-53.0); HGB 11.6 gm/dL (13.0-17.5); Lymphocytes # (A) 1.6 k/uL (1.0-4.8); Lymphocytes % (A) 25 %; MCH 29.4 pg (25.0-35.0); MCHC 33.9 g/dL (31.0-37.0); MCV 86.8 fL (80.0-100.0); Mean Platelet Volume 7.5; Monocytes # (A) 0.4 k/uL (0-1.0); Monocytes % (A) 6 %; Neutrophils # (A) 3.9 k/uL (1.3-7.7); Neutrophils % (A) 61 %; Platelet Count 289 k/uL (150-450); RBC 3.96 m/uL (4.30-5.90); RDW 13.4 % (11.5-15.5); WBC 6.4 k/uL (3.8-10.6)
[2018-02-15 09:56] LABS: Calcium 8.6 mg/dL (8.4-10.2)
[2018-02-15] MEDS ORDERED: SODIUM CHLORIDE 0.9% 1,000 ML IV SCH (10:00)
[2018-02-15] MEDS: GLIMEPIRIDE 4 MG TAB PO SCH (10:23)
[2018-02-15] MEDS: SERTRALINE 50 MG TAB PO SCH ×2 (10:23→16:07)
[2018-02-15] MEDS: FENOFIBRATE 160 MG TAB PO SCH (10:23)
[2018-02-15] MEDS: LINAGLIPTIN 5 MG TABLET PO SCH (10:23)
[2018-02-15] MEDS: BISOPROLOL-HCTZ 5-6.25 MG 1 EACH TAB PO SCH (10:23)
[2018-02-15] MEDS: DONEPEZIL 5 MG TAB PO SCH (10:23)
[2018-02-15 10:31] VITALS: RESP 14
[2018-02-15 11:57] LABS: Glucose,Whole Blood 151 mg/dL (75-99)
[2018-02-15 13:55] VITALS: BP 111/69
[2018-02-15 13:56] VITALS: PULSE 85
--- NOTE | 2018-02-15 14:08 | P.DS ---
Providers Date of admission: 02/13/18 15:38 Expected date of discharge: 02/15/18 Attending physician: Kvng Huang Consults: 02/13/18 15:39 Consult Physician Routine Consulting Provider: Steffen Reis Consult Reason/Comments: chest pain Do you want consulting provider notified?: Yes Primary care physician: [facility] Course: 52-year-old male who presented to the emergency room with a chief complaint of chest pain. The patient was admitted to the observation unit and cardiology was consulted. Troponins were negative 3. Lipid panel revealed triglycerides 300. Cholesterol 195. LDL 100. HDL 35. Echocardiogram was completed revealing ejection fraction between 55 and 60%, mild tricuspid regurgitation, and trace mitral regurgitation. CT of the brain was completed which was negative. Chest x-ray was negative for an acute process. It did reveal mild cardiomegaly. CTA of the chest, abdomen, and pelvis was normal per radiology dictation. The patient underwent cardiac catheterization on 2017. No intervention was performed. The patient was cleared for discharge from a cardiac standpoint. He is to follow up on an outpatient basis. He was started on aspirin 81 mg daily and Lipitor 40 mg daily per cardiology. DISCHARGE DIAGNOSIS: Chest pain, present on admission, troponins negative 3, status post cardiac catheterization with no intervention performed Diabetes mellitus, type II Hypertension Hyperlipidemia History of dementia Obesity: BMI 32.4 Nurse practitioner note has been reviewed by physician. Signing provider agrees with the documented findings, assessment, and plan of care. Plan - Discharge Summary Discharge Rx Participant: No New Discharge Prescriptions: New Aspirin 81 mg PO DAILY #30 chew Atorvastatin [Lipitor] 40 mg PO DAILY #30 tab Continue sitaGLIPtin [Januvia] 100 mg PO DAILY metFORMIN HCL [Glucophage] 1,000 mg PO BID Hydrochlorothiazide [Hydrodiuril] 25 mg PO DAILY Fenofibrate 160 mg PO DAILY QUEtiapine [SEROquel] 150 mg PO HS Glimepiride [Amaryl] 4 mg PO BID Sertraline HCl [Zoloft] 50 mg PO TID Donepezil [Aricept] 5 mg PO DAILY Bisoprolol-Hctz 5-6.25 mg [Ziac 5-6.25 MG] 1 tab PO DAILY Discharge Medication List sitaGLIPtin [Januvia] 100 mg PO DAILY 06/30/17 [History] Fenofibrate 160 mg PO DAILY 10/16/17 [History] Hydrochlorothiazide [Hydrodiuril] 25 mg PO DAILY 10/16/17 [History] metFORMIN HCL [Glucophage] 1,000 mg PO BID 10/16/17 [History] Bisoprolol-Hctz 5-6.25 mg [Ziac 5-6.25 MG] 1 tab PO DAILY 02/13/18 [History] Donepezil [Aricept] 5 mg PO DAILY 02/13/18 [History] Glimepiride [Amaryl] 4 mg PO BID 02/13/18 [History] QUEtiapine [SEROquel] 150 mg PO HS 02/13/18 [History] Sertraline HCl [Zoloft] 50 mg PO TID 02/13/18 [History] Aspirin 81 mg PO DAILY #30 chew 02/15/18 [Rx] Atorvastatin [Lipitor] 40 mg PO DAILY #30 tab 02/15/18 [Rx] Follow up Appointment(s)/Referral(s): Nusrat Johnson MD [STAFF PHYSICIAN] - 02/24/18 3:30 pm Kvng Huang Jr, DO [Primary Care Provider] - 1 Week Discharge Disposition: HOME SELF-CARE
--- NOTE | 2018-02-15 15:30 | CC ---
CARDIAC CATHETERIZATION REPORT Mr. Menezes is a 52-year-old male with known history of hypertension, hyperlipidemia, diabetes mellitus, strong family history of premature coronary artery disease who has been complaining of episode of chest discomfort radiating to the left arm that persisted. His EKG and cardiac enzyme were unremarkable. Because of his multiple risk factors and presentation, recommendation made regarding cardiac catheterization. The procedure, risks and complications were discussed with the patient who is in full understanding and agreement. PROCEDURE: Patient was brought to the lab director in a fasting semi-sedated state after receiving fentanyl and Benadryl and achieving moderate conscious sedated state. Using Xylocaine anesthesia and Seldinger technique, a 6-Afghan sheath was introduced in the right radial artery. Selective right and left coronary angiography were performed using 5- Afghan 3.5 bend right and left Christiano catheter, multiple views of the coronary artery including michelle-axial views were obtained. Following that, a 5-Afghan tight pigtail catheter was introduced in the left ventricle and a 30 degree CARBONE view of the left ventricle was obtained. Following that, catheter and sheaths were removed. Hemostasis was obtained with deployment of an TR band. There was no immediate complication. Patient is returned to his room in stable condition. Of note, patient received 5000 units of intravenous heparin as well as intra-arterial verapamil. FINDINGS: LEFT MAIN: This is a large-sized vessel, bifurcating into left circumflex, left anterior descending artery. Left main coronary artery has no evidence of high-grade stenosis. LEFT ANTERIOR DESCENDING ARTERY: This is a large-sized vessel, reaching toward the apex with a wraparound apex segment, giving rise to a large proximal diagonal branch. The left anterior descending artery and its branches have no evidence of obstructive coronary artery disease. LEFT CIRCUMFLEX: This is a nondominant vessel, giving rise to a small obtuse marginal branch. The left circumflex as well as branches have no evidence of obstructive coronary artery disease. RIGHT CORONARY ARTERY: This is a large dominant vessel, bifurcating distally into PDA and posterolateral segment branches. The right coronary artery as well as it branches have no evidence of obstructive coronary disease. LEFT VENTRICULOGRAM: Left ventriculogram was performed in 30 degree CARBONE view and revealed normal left ventricular size and systolic function, ejection fraction 60%. There was arrhythmia induced mitral regurgitation. HEMODYNAMICS: There was no gradient across the aortic valve. The left ventricular end- diastolic pressure was 26-30 mmHg. CONCLUSION: 1. Normal coronary arteries. 2. Elevated left ventricular end-diastolic pressure with normal left ventricular size and systolic function. RECOMMENDATION: In view of finding anatomy, I recommend continue medical therapy with aggressive risk modification that has been initiated. Those findings and recommendation were discussed with the patient, who is in full understanding and agreement. Duration of procedure is 21 minutes. MMODL / IJN: [id number] /
== END 2018-02-15 16:06 | disposition home or self-care (01) ==
LOC: EC 11:54 → 1SOBS 15:38
PROVIDERS: ADMIT Family Medicine; ATTEND Family Medicine
DX: R07.89 Other chest pain (principal); E78.5 Hyperlipidemia, unspecified; R15.9 Full incontinence of feces; H53.8 Other visual disturbances; R94.4 Abnormal results of kidney function studies; R06.00 Dyspnea, unspecified; R60.0 Localized edema; R42 Dizziness and giddiness; R61 Generalized hyperhidrosis; R55 Syncope and collapse; R51 Headache; F03.90 Unspecified dementia, unspecified severity, without behavioral disturbance, psychotic disturbance, mood disturbance, and anxiety; E66.9 Obesity, unspecified; E11.9 Type 2 diabetes mellitus without complications; Z68.32 Body mass index [BMI] 32.0-32.9, adult; I11.9 Hypertensive heart disease without heart failure; R32 Unspecified urinary incontinence; M54.9 Dorsalgia, unspecified; Z79.84 Long term (current) use of oral hypoglycemic drugs; Z79.899 Other long term (current) drug therapy; Z90.49 Acquired absence of other specified parts of digestive tract; Z80.9 Family history of malignant neoplasm, unspecified; Z82.49 Family history of ischemic heart disease and other diseases of the circulatory system; Z98.1 Arthrodesis status
CPT/HCPCS: 99285; 96375 ×2; 96361 ×2; 96376 ×7; 96365; 96366 ×2; 36415; 93005; 93306; 93458; 85379; 83880; 80061; 80048 ×3; 84484 ×2; 85025 ×3; 85610; 85730; 81003; 80306; 71046; 70450; 71275; 74174; G0378 ×3; C1894; C1769; J2270 ×3; J1644 ×3; J3010; J2001; Q9967 ×2

== ENCOUNTER 2018-03-01 17:35 | Emergency (ER) | payer MEDICARE, OTHER ==
[2018-03-01 17:56] VITALS: RESP 18
[2018-03-01] MEDS ORDERED: SODIUM CHLORIDE 0.9% 1,000 ML IV STA (18:22)
[2018-03-01] MEDS ORDERED: FAMOTIDINE 20 MG/2 ML VIAL IV STA (18:38)
[2018-03-01] MEDS ORDERED: ONDANSETRON 4 MG/2 ML VIAL IVP STA (18:38)
--- NOTE | 2018-03-01 18:39 | ED ---
Nausea/Vomiting/Diarrhea HPI - General Chief complaint: Nausea/Vomiting/Diarrhea Stated complaint: abd pain Time Seen by Provider: 03/01/18 18:22 Source: patient, RN notes reviewed Mode of arrival: ambulatory Limitations: no limitations - History of Present Illness Initial comments: 52-year-old male presents emergency Department with multiple complaints. Patient primary complaint nausea vomiting abdominal pain. Patient states that every time he eats he vomits it feels like it's in her vomit. Patient states he has pain epigastric region. Patient did admit that he had his cold or taken out in October. Patient states that he's had no change in bowel habits denies any diarrhea, constipation, melena and she is a. Patient states that he was recently hospitalized for chest pain and which she had a full evaluation with cardiology and told that he had no blockages. Patient denies any current shortness of breath. Patient also complains of ongoing chronic headaches. Patient states that he has been referred to Dr. Solitario neurology for possible dementia has had recent memory changes. Patient states that he did fall on his head 5 days ago and is concerned because he has worsening headaches. Patient states that he also has been having' blackout spells" . Patient states that he usually stands up states he starts walking and gets very dizzy and states that "but never completely passes out. - Related Data Home Medications Medication Instructions Recorded Confirmed sitaGLIPtin [Januvia] 100 mg PO DAILY 06/30/17 03/01/18 Fenofibrate 160 mg PO DAILY 10/16/17 03/01/18 Hydrochlorothiazide [Hydrodiuril] 25 mg PO DAILY 10/16/17 03/01/18 metFORMIN HCL [Glucophage] 1,000 mg PO BID 10/16/17 03/01/18 Bisoprolol-Hctz 5-6.25 mg [Ziac 1 tab PO DAILY 02/13/18 03/01/18 5-6.25 MG] Donepezil [Aricept] 5 mg PO DAILY 02/13/18 03/01/18 Glimepiride [Amaryl] 4 mg PO BID 02/13/18 03/01/18 QUEtiapine [SEROquel] 150 mg PO HS 02/13/18 03/01/18 Atorvastatin [Lipitor] 40 mg PO HS 03/01/18 03/01/18 Sertraline [Zoloft] 200 mg PO DAILY 03/01/18 03/01/18 Previous Rx's Medication Instructions Recorded Aspirin 81 mg PO DAILY #30 chew 02/15/18 Ondansetron Odt [Zofran Odt] 4 mg PO Q8HR PRN #10 tab 03/01/18 Allergies Allergy/AdvReac Type Severity Reaction Status Date / Time No Known Allergies Allergy Verified 03/01/18 21:15 Review of Systems ROS Statement: Those systems with pertinent positive or pertinent negative responses have been documented in the HPI. ROS Other: All systems not noted in ROS Statement are negative. Past Medical History Past Medical History: Dementia, Diabetes Mellitus, Hyperlipidemia, Hypertension Additional Past Medical History / Comment(s): back pain History of Any Multi-Drug Resistant Organisms: None Reported Past Surgical History: Back Surgery, Cholecystectomy, Orthopedic Surgery Additional Past Surgical History / Comment(s): C3-C7 WITH HARDWARE. DISC REPLACED IN LOWER BACK. RT ROTATOR CUFF REPAIR Past Anesthesia/Blood Transfusion Reactions: No Reported Reaction Past Psychological History: Anxiety, Depression Smoking Status: Never smoker Past Alcohol Use History: None Reported Past Drug Use History: None Reported - Past Family History Mother Family Medical History: No Reported History Father Family Medical History: Cancer, Deep Vein Thrombosis (DVT) General Exam Limitations: no limitations General appearance: alert, in no apparent distress Head exam: Present: atraumatic, normocephalic, normal inspection Eye exam: Present: normal appearance, PERRL, EOMI. Absent: scleral icterus, conjunctival injection, periorbital swelling ENT exam: Present: normal exam, normal oropharynx, mucous membranes moist, TM's normal bilaterally, normal external ear exam Neck exam: Present: normal inspection, full ROM. Absent: tenderness, meningismus, lymphadenopathy Respiratory exam: Present: normal lung sounds bilaterally. Absent: respiratory distress, wheezes, rales, rhonchi, stridor Cardiovascular Exam: Present: regular rate, normal rhythm, normal heart sounds. Absent: systolic murmur, diastolic murmur, rubs, gallop, clicks GI/Abdominal exam: Present: soft, tenderness (Mild epigastric), normal bowel sounds. Absent: distended, guarding, rebound, rigid Extremities exam: Present: normal inspection, full ROM, normal capillary refill. Absent: tenderness, pedal edema, joint swelling, calf tenderness Neurological exam: Present: alert, oriented X3, CN II-XII intact, reflexes normal, other (Finger to nose intact bilaterally without over shooting). Absent : motor sensory deficit Skin exam: Present: warm, dry, intact, normal color. Absent: rash Course Vital Signs 03/01/18 03/01/18 03/01/18 17:54 18:53 20:00 Temperature 98.5 F Pulse Rate 78 67 Pulse Rate [ 78 Sitting] Pulse Rate [ 87 Standing] Pulse Rate [ 72 Supine] Respiratory 18 Rate Blood Pressure 133/86 125/79 Blood Pressure 133/98 [Sitting] Blood Pressure 138/102 [Standing] Blood Pressure 133/94 [Supine] O2 Sat by Pulse 96 99 Oximetry Medical Decision Making - Medical Decision Making 52-year-old male presented for multiple complaints. Patient has acute pancreatitis he was hydrated pain is improved at this time. We discussed clear liquid diet and follow-up with GI. Patient also has had chronic headaches, recent fall CT was obtained which showed no abnormality. Patient also complained of near syncopal episodes no he's had extensive cardiac workup, CT was negative for his fall he has no electrolyte imbalances. He was hydrated in feels better he has no current symptoms here. - Lab Data Result diagrams: 03/01/18 18:44 03/01/18 18:44 Lab Results 03/01/18 03/01/18 03/01/18 Range/Units 18:44 18:44 18:44 WBC 11.6 H (3.8-10.6) k/uL RBC 4.70 (4.30-5.90) m/uL Hgb 13.2 (13.0-17.5) gm/dL Hct 40.3 (39.0-53.0) % MCV 85.6 (80.0-100.0) fL MCH 28.1 (25.0-35.0) pg MCHC 32.8 (31.0-37.0) g/dL RDW 13.5 (11.5-15.5) % Plt Count 388 (150-450) k/uL Neutrophils % 70 % Lymphocytes % 19 % Monocytes % 5 % Eosinophils % 3 % Basophils % 1 % Neutrophils # 8.2 H (1.3-7.7) k/uL Lymphocytes # 2.2 (1.0-4.8) k/uL Monocytes # 0.6 (0-1.0) k/uL Eosinophils # 0.4 (0-0.7) k/uL Basophils # 0.1 (0-0.2) k/uL PT 10.1 (9.0-12.0) sec INR 1.0 (<1.2) APTT 21.4 L (22.0-30.0) sec Sodium 139 (137-145) mmol/L Potassium 3.7 (3.5-5.1) mmol/L Chloride 100 (98-107) mmol/L Carbon Dioxide 28 (22-30) mmol/L Anion Gap 11 mmol/L BUN 28 H (9-20) mg/dL Creatinine 1.38 H (0.66-1.25) mg/dL Est GFR (CKD-EPI)AfAm 68 (>60 ml/min/1.73 sqM) Est GFR (CKD-EPI)NonAf 59 (>60 ml/min/1.73 sqM) Glucose 199 H (74-99) mg/dL Calcium 9.8 (8.4-10.2) mg/dL Total Bilirubin 0.3 (0.2-1.3) mg/dL AST 38 (17-59) U/L ALT 41 (21-72) U/L Alkaline Phosphatase 44 (38-126) U/L Troponin I (0.000-0.034) ng/mL Total Protein 7.6 (6.3-8.2) g/dL Albumin 4.5 (3.5-5.0) g/dL Amylase 39 (30-110) U/L Lipase 664 H (23-300) U/L Urine Color Urine Appearance (Clear) Urine pH (5.0-8.0) Ur Specific Karval (1.001-1.035) Urine Protein (Negative) Urine Glucose (UA) (Negative) Urine Ketones (Negative) Urine Blood (Negative) Urine Nitrite (Negative) Urine Bilirubin (Negative) Urine Urobilinogen (<2.0) mg/dL Ur Leukocyte Esterase (Negative) 03/01/18 03/01/18 Range/Units 18:44 19:05 WBC (3.8-10.6) k/uL RBC (4.30-5.90) m/uL Hgb (13.0-17.5) gm/dL Hct (39.0-53.0) % MCV (80.0-100.0) fL MCH (25.0-35.0) pg MCHC (31.0-37.0) g/dL RDW (11.5-15.5) % Plt Count (150-450) k/uL Neutrophils % % Lymphocytes % % Monocytes % % Eosinophils % % Basophils % % Neutrophils # (1.3-7.7) k/uL Lymphocytes # (1.0-4.8) k/uL Monocytes # (0-1.0) k/uL Eosinophils # (0-0.7) k/uL Basophils # (0-0.2) k/uL PT (9.0-12.0) sec INR (<1.2) APTT (22.0-30.0) sec Sodium (137-145) mmol/L Potassium (3.5-5.1) mmol/L Chloride (98-107) mmol/L Carbon Dioxide (22-30) mmol/L Anion Gap mmol/L BUN (9-20) mg/dL Creatinine (0.66-1.25) mg/dL Est GFR (CKD-EPI)AfAm (>60 ml/min/1.73 sqM) Est GFR (CKD-EPI)NonAf (>60 ml/min/1.73 sqM) Glucose (74-99) mg/dL Calcium (8.4-10.2) mg/dL Total Bilirubin (0.2-1.3) mg/dL AST (17-59) U/L ALT (21-72) U/L Alkaline Phosphatase (38-126) U/L Troponin I <0.012 (0.000-0.034) ng/mL Total Protein (6.3-8.2) g/dL Albumin (3.5-5.0) g/dL Amylase (30-110) U/L Lipase (23-300) U/L Urine Color Yellow Urine Appearance Clear (Clear) Urine pH 6.0 (5.0-8.0) Ur Specific Karval 1.023 (1.001-1.035) Urine Protein Trace H (Negative) Urine Glucose (UA) Trace H (Negative) Urine Ketones Negative (Negative) Urine Blood Negative (Negative) Urine Nitrite Negative (Negative) Urine Bilirubin Negative (Negative) Urine Urobilinogen 2.0 (<2.0) mg/dL Ur Leukocyte Esterase Negative (Negative) - EKG Data EKG Comments: EKG performed at 18:50 normal sinus rhythm with rate of 76 MI 184 QRS 96 QTC is QTC 44/454 Disposition Clinical Impression: Acute pancreatitis, Frequent headaches Disposition: HOME SELF-CARE Condition: Stable Instructions: Pancreatitis (ED) Additional Instructions: Please return to the Emergency Department if symptoms worsen or any other concerns. Prescriptions: Ondansetron Odt [Zofran Odt] 4 mg PO Q8HR PRN #10 tab PRN Reason: Nausea Is patient prescribed a controlled substance at d/c from ED?: No Referrals: Kvng Huang Jr, [Primary Care Provider] - 1-2 days Time of Disposition: 21:31
[2018-03-01 19:13] LABS: Albumin 4.5 g/dL (3.5-5.0); Calcium 9.8 mg/dL (8.4-10.2); Potassium 3.7 mmol/L (3.5-5.1); Total Bilirubin 0.3 mg/dL (0.2-1.3); Total Protein 7.6 g/dL (6.3-8.2)
[2018-03-01 19:18] LABS: Appearance,Urine Clear (Clear); Bilirubin,Urine Negative (Negative); Blood,Urine Negative (Negative); Color,Urine Yellow; Glucose,Urine (UA) Trace (Negative); Ketones,Urine Negative (Negative); Leukocyte Esterase,Urine Negative (Negative); Nitrite,Urine Negative (Negative); Protein,Urine Trace (Negative); Specific Gravity,Urine 1.023 (1.001-1.035)
[2018-03-01 19:18] LABS: Prothrombin Time 10.1 sec (9.0-12.0)
[2018-03-01 19:21] LABS: Basophils # (A) 0.1 k/uL (0-0.2); Basophils % (A) 1 %; Eosinophils # (A) 0.4 k/uL (0-0.7); Eosinophils % (A) 3 %; HCT 40.3 % (39.0-53.0); HGB 13.2 gm/dL (13.0-17.5); Lymphocytes # (A) 2.2 k/uL (1.0-4.8); Lymphocytes % (A) 19 %; MCH 28.1 pg (25.0-35.0); MCHC 32.8 g/dL (31.0-37.0); MCV 85.6 fL (80.0-100.0); Mean Platelet Volume 7.4; Monocytes # (A) 0.6 k/uL (0-1.0); Monocytes % (A) 5 %; Neutrophils # (A) 8.2 k/uL (1.3-7.7); Neutrophils % (A) 70 %; Platelet Count 388 k/uL (150-450); RDW 13.5 % (11.5-15.5); WBC 11.6 k/uL (3.8-10.6)
[2018-03-01 19:54] LABS: Partial Thromboplastin Time 21.4 sec (22.0-30.0)
--- NOTE | 2018-03-01 20:49 | CT ---
EXAMINATION TYPE: CT brain wo con DATE OF EXAM: 03/01/2018 COMPARISON: Prior CT brain 02/13/2018 HISTORY: Headache and dizziness. CT DLP: 1214.4 mGycm Automated exposure control for dose reduction was used. Helical imaging through the brain. FINDINGS: There is no hemorrhage or hydrocephalus. Brain density is normal. Mild cortical atrophy is stable. Ca lvarium is intact. Paranasal sinuses and mastoid air cells as visualized are normal. IMPRESSION: NO ACUTE ABNORMALITY.
[2018-03-01 21:46] VITALS: BP 120/83; PULSE 70; TEMP 98.1
== END 2018-03-01 21:45 | disposition home or self-care (01) ==
LOC: EC 17:35
DX: K85.90 Acute pancreatitis without necrosis or infection, unspecified (principal); R51 Headache; R42 Dizziness and giddiness; R55 Syncope and collapse; E11.9 Type 2 diabetes mellitus without complications; E78.5 Hyperlipidemia, unspecified; I10 Essential (primary) hypertension; F03.90 Unspecified dementia, unspecified severity, without behavioral disturbance, psychotic disturbance, mood disturbance, and anxiety; F32.9 Major depressive disorder, single episode, unspecified; F41.9 Anxiety disorder, unspecified; Z79.84 Long term (current) use of oral hypoglycemic drugs; Z79.899 Other long term (current) drug therapy; Z90.49 Acquired absence of other specified parts of digestive tract
CPT/HCPCS: 36415; 93005; 80053; 82150; 83690; 84484; 85025; 85610; 85730; 81003; 70450; 99284; 96374; 96375; 96361; J2405

== ENCOUNTER 2018-12-19 13:21 | Emergency (ER) | payer MEDICARE, OTHER ==
[2018-12-19 13:31] VITALS: RESP 18
--- NOTE | 2018-12-19 13:46 | ED ---
General Adult HPI - General Chief complaint: Extremity Injury, Upper Stated complaint: Shoulder pain Time Seen by Provider: 12/19/18 13:32 Source: patient, RN notes reviewed Mode of arrival: ambulatory Limitations: no limitations - History of Present Illness Initial comments: Patient is a pleasant 53-year-old male presenting to the emergency Department with complaints of left shoulder discomfort. Onset of symptoms was 2 months ago. Symptoms started after raking. Symptoms have slowly progressed since that time. Patient states it is now becoming difficult to even raise his arm senior care to the head. Discomfort is greatly increased with movement. No weakness. No loss of sensation. No other area of pain or concern. Patient denies any chest discomfort or difficulty in breathing. Patient does have history of rotator cuff problems of his right shoulder many years ago however that felt somewhat different. - Related Data Home Medications Medication Instructions Recorded Confirmed sitaGLIPtin [Januvia] 100 mg PO DAILY 06/30/17 12/19/18 Fenofibrate 160 mg PO DAILY 10/16/17 12/19/18 Hydrochlorothiazide [Hydrodiuril] 25 mg PO DAILY 10/16/17 12/19/18 metFORMIN HCL [Glucophage] 1,000 mg PO BID 10/16/17 12/19/18 Bisoprolol-Hctz 5-6.25 mg [Ziac 1 tab PO DAILY 02/13/18 12/19/18 5-6.25 MG] Glimepiride [Amaryl] 4 mg PO BID 02/13/18 12/19/18 QUEtiapine [SEROquel] 150 mg PO HS 02/13/18 12/19/18 Atorvastatin [Lipitor] 40 mg PO HS 03/01/18 12/19/18 Sertraline [Zoloft] 200 mg PO DAILY 03/01/18 12/19/18 Previous Rx's Medication Instructions Recorded Aspirin 81 mg PO DAILY #30 chew 02/15/18 Ibuprofen [Motrin] 600 mg PO Q6HR PRN #20 tab 12/19/18 Allergies Allergy/AdvReac Type Severity Reaction Status Date / Time No Known Allergies Allergy Verified 12/19/18 13:57 Review of Systems ROS Statement: Those systems with pertinent positive or pertinent negative responses have been documented in the HPI. ROS Other: All systems not noted in ROS Statement are negative. Constitutional: Denies: fever Eyes: Denies: eye pain ENT: Denies: ear pain Respiratory: Denies: cough, dyspnea Cardiovascular: Denies: chest pain Endocrine: Denies: fatigue Gastrointestinal: Denies: abdominal pain Genitourinary: Denies: dysuria Musculoskeletal: Reports: as per HPI, arthralgia. Denies: back pain Skin: Denies: rash Neurological: Denies: weakness Past Medical History Past Medical History: Dementia, Diabetes Mellitus, Hyperlipidemia, Hypertension Additional Past Medical History / Comment(s): back pain History of Any Multi-Drug Resistant Organisms: None Reported Past Surgical History: Back Surgery, Cholecystectomy, Orthopedic Surgery Additional Past Surgical History / Comment(s): C3-C7 WITH HARDWARE. DISC REPLACED IN LOWER BACK. RT ROTATOR CUFF REPAIR Past Anesthesia/Blood Transfusion Reactions: No Reported Reaction Past Psychological History: Anxiety, Depression Smoking Status: Never smoker Past Alcohol Use History: None Reported Past Drug Use History: None Reported - Past Family History Mother Family Medical History: No Reported History Father Family Medical History: Cancer, Deep Vein Thrombosis (DVT) General Exam Limitations: no limitations General appearance: alert, in no apparent distress Head exam: Present: atraumatic Eye exam: Present: normal appearance Neck exam: Present: normal inspection. Absent: tenderness Respiratory exam: Present: normal lung sounds bilaterally Cardiovascular Exam: Present: regular rate, normal rhythm Expanded Peripheral pulses: 2+: Radial (L) GI/Abdominal exam: Present: soft. Absent: tenderness Extremities exam: Present: tenderness (Mild tenderness left shoulder), normal capillary refill, other (No arm swelling. No color change.). Absent: full ROM (Pain with active and passive range of motion. Patient is able to abduct only to 90.) Back exam: Present: normal inspection Neurological exam: Present: alert. Absent: motor sensory deficit (Limited by range of motion testing the left shoulder due to pain) Psychiatric exam: Present: normal affect, normal mood Skin exam: Present: normal color. Absent: rash Course Vital Signs 12/19/18 13:28 Temperature 97.9 F Pulse Rate 97 Respiratory 18 Rate Blood Pressure 154/80 O2 Sat by Pulse 98 Oximetry Medical Decision Making - Medical Decision Making Patient reevaluated and updated. - Radiology Data Radiology results: image reviewed (Shoulder x-ray reveals no acute process) Disposition Clinical Impression: Shoulder pain Disposition: HOME SELF-CARE Condition: Stable Instructions (If sedation given, give patient instructions): Arthralgia (ED), Shoulder Pain (ED) Additional Instructions: Please follow-up with orthopedics in the next couple days for recheck. U will need further evaluation, possible MRI, possible physical therapy. Continue Motrin as needed. Return for increased pain, weakness, arm swelling, chest pain or difficulty breathing, worsening symptoms or other concerns. Motrin 600 prescription sent to [facility] Prescriptions: Ibuprofen [Motrin] 600 mg PO Q6HR PRN #20 tab PRN Reason: Pain Is patient prescribed a controlled substance at d/c from ED?: No Referrals: Kvng Huang Jr, DO [Primary Care Provider] - 1-2 days Ravi Rodríguez MD [STAFF PHYSICIAN] - 1-2 days Time of Disposition: 14:45
--- NOTE | 2018-12-19 14:34 | XR ---
EXAMINATION TYPE: XR shoulder complete LT DATE OF EXAM: 12/19/2018 1:51 PM CLINICAL HISTORY: Pain TECHNIQUE: 3 views of the left shoulder. COMPARISON: None. FINDINGS: No fracture. Glenohumeral and acromioclavicular joints are congruent. Mild to moderate acromioclavicu lar joint degenerative changes. The joint space is maintained. Incidental postsurgical changes consistent with cervical ACDF. IMPRESSION: No fracture or malalignment.
[2018-12-19] MEDS ORDERED: ACET/COD 300 MG/30 MG STARTER PACK 6 TAB BTL PO STA (14:38)
[2018-12-19] MEDS ORDERED: KETOROLAC 60 MG/2 ML VIAL IM STA (14:39)
[2018-12-19 15:06] VITALS: BP 145/89; PULSE 76; TEMP 98.9
== END 2018-12-19 15:06 | disposition home or self-care (01) ==
LOC: EC 13:21
DX: M25.512 Pain in left shoulder (principal); S49.92XA Unspecified injury of left shoulder and upper arm, initial encounter; E11.9 Type 2 diabetes mellitus without complications; E78.5 Hyperlipidemia, unspecified; I10 Essential (primary) hypertension; F41.9 Anxiety disorder, unspecified; F31.9 Bipolar disorder, unspecified; Z79.84 Long term (current) use of oral hypoglycemic drugs; Z79.899 Other long term (current) drug therapy; Z98.890 Other specified postprocedural states; X58.XXXA Exposure to other specified factors, initial encounter; Y93.H1 Activity, digging, shoveling and raking
CPT/HCPCS: 73030; 96372; 99283; J1885

== ENCOUNTER 2019-03-13 16:50 | Emergency (ER) | payer MEDICARE, OTHER ==
[2019-03-13 17:38] VITALS: RESP 18; TEMP 98.2
[2019-03-13] MEDS ORDERED: KETOROLAC 30 MG/ML 1 ML VIAL IM STA (17:50)
--- NOTE | 2019-03-13 17:57 | ED ---
General Adult HPI - General Chief complaint: Extremity Problem,Nontraumatic Stated complaint: left shoulder pain Time Seen by Provider: 03/13/19 17:47 Source: patient, RN notes reviewed Mode of arrival: ambulatory Limitations: no limitations - History of Present Illness Initial comments: 53-year-old male with a past medical history of diabetes mellitus, hyperlipidemia, hypertension, back surgery presents to the emergency department for left shoulder pain. Patient has had the shoulder pain for months. States he injured his shoulder when he was using a rake several months ago. States that it seems to be worsening and it is now painful to the move or lift. Denies weakness in the arm or hand. States he has not spoken with his doctor about this.Patient has no other complaints at this time including shortness of breath, chest pain, abdominal pain, nausea or vomiting, headache, or visual changes. - Related Data Home Medications Medication Instructions Recorded Confirmed sitaGLIPtin [Januvia] 100 mg PO DAILY 06/30/17 12/19/18 Fenofibrate 160 mg PO DAILY 10/16/17 12/19/18 Hydrochlorothiazide [Hydrodiuril] 25 mg PO DAILY 10/16/17 12/19/18 metFORMIN HCL [Glucophage] 1,000 mg PO BID 10/16/17 12/19/18 Bisoprolol-Hctz 5-6.25 mg [Ziac 1 tab PO DAILY 02/13/18 12/19/18 5-6.25 MG] Glimepiride [Amaryl] 4 mg PO BID 02/13/18 12/19/18 QUEtiapine [SEROquel] 150 mg PO HS 02/13/18 12/19/18 Atorvastatin [Lipitor] 40 mg PO HS 03/01/18 12/19/18 Sertraline [Zoloft] 200 mg PO DAILY 03/01/18 12/19/18 Previous Rx's Medication Instructions Recorded Aspirin 81 mg PO DAILY #30 chew 02/15/18 Ibuprofen [Motrin] 600 mg PO Q6HR PRN #20 tab 12/19/18 Allergies Allergy/AdvReac Type Severity Reaction Status Date / Time No Known Allergies Allergy Verified 03/13/19 17:39 Review of Systems ROS Statement: Those systems with pertinent positive or pertinent negative responses have been documented in the HPI. ROS Other: All systems not noted in ROS Statement are negative. Past Medical History Past Medical History: Dementia, Diabetes Mellitus, Hyperlipidemia, Hypertension Additional Past Medical History / Comment(s): back pain History of Any Multi-Drug Resistant Organisms: None Reported Past Surgical History: Back Surgery, Cholecystectomy, Orthopedic Surgery Additional Past Surgical History / Comment(s): C3-C7 WITH HARDWARE. DISC REPLACED IN LOWER BACK. RT ROTATOR CUFF REPAIR Past Anesthesia/Blood Transfusion Reactions: No Reported Reaction Past Psychological History: Anxiety, Depression Smoking Status: Never smoker Past Alcohol Use History: None Reported Past Drug Use History: None Reported - Past Family History Mother Family Medical History: No Reported History Father Family Medical History: Cancer, Deep Vein Thrombosis (DVT) General Exam Limitations: no limitations General appearance: alert, in no apparent distress Head exam: Present: atraumatic, normocephalic, normal inspection Eye exam: Present: normal appearance, PERRL, EOMI. Absent: scleral icterus, conjunctival injection, periorbital swelling ENT exam: Present: normal exam, normal oropharynx, mucous membranes moist, TM's normal bilaterally, normal external ear exam (She has a polyp noted in the right external auditory canal with cerumen impaction. States he has an appointment with his doctor to discuss this in one week.) Neck exam: Present: normal inspection, full ROM. Absent: tenderness, meningismus, lymphadenopathy Respiratory exam: Present: normal lung sounds bilaterally. Absent: respiratory distress, wheezes, rales, rhonchi, stridor Cardiovascular Exam: Present: regular rate, normal rhythm, normal heart sounds. Absent: systolic murmur, diastolic murmur, rubs, gallop, clicks Extremities exam: Present: tenderness (Tenderness over the generalized left shoulder worse along the superior aspect.), normal capillary refill (cap refill less than 2 seconds in the left upper extremity, radial pulse 2+.), other (And station intact the left upper extremity. Playground Official strength 5 out of 5.). Absent: full ROM (She has about 30 flexion and abduction of the left shoulder.), joint swelling (No significant edema noted of the left shoulder.) Course Vital Signs 03/13/19 17:35 Temperature 98.2 F Pulse Rate 89 Respiratory 18 Rate Blood Pressure 143/88 O2 Sat by Pulse 96 Oximetry Medical Decision Making - Medical Decision Making X-ray of the left shoulder did show acromioclavicular joint arthropathy without interval change. She does have tenderness over the before meals joint. Patient however is having increased limitation in range of motion. I discussed with patient that he needs to see orthopedics. Discussed risk of frozen shoulder and that he needs to keep moving his shoulder to loosen it up. Discussed that he may need physical therapy. Patient was not given a sling because of this. He will return here if he has any worsening symptoms. Disposition Clinical Impression: AC joint arthropathy, Shoulder pain, left Disposition: HOME SELF-CARE Condition: Good Instructions (If sedation given, give patient instructions): Shoulder Pain (ED) Additional Instructions: 50 Tylenol for pain. Make sure to keep moving shoulder to try to increase range of motion. Follow-up with orthopedics as soon as possible. Return here to the emergency department if you have any worsening symptoms. Is patient prescribed a controlled substance at d/c from ED?: No Referrals: Kvng Huang Jr, DO [Primary Care Provider] - 1-2 days Norman Jeffers MD [STAFF PHYSICIAN] - 1-2 days Time of Disposition: 19:01
--- NOTE | 2019-03-13 18:14 | XR ---
Left shoulder HISTORY: Pain 3 views of left shoulder correlated prior exam 12/19/2018 There is no interval change. IMPRESSION: Acromioclavicular joint arthropathy.
[2019-03-13 19:11] VITALS: BP 142/97; PULSE 83
== END 2019-03-13 19:11 | disposition home or self-care (01) ==
LOC: EC 16:50
DX: M19.012 Primary osteoarthritis, left shoulder (principal); E11.9 Type 2 diabetes mellitus without complications; E78.5 Hyperlipidemia, unspecified; I10 Essential (primary) hypertension; F03.90 Unspecified dementia, unspecified severity, without behavioral disturbance, psychotic disturbance, mood disturbance, and anxiety; F41.9 Anxiety disorder, unspecified; F32.9 Major depressive disorder, single episode, unspecified; Z79.84 Long term (current) use of oral hypoglycemic drugs; Z79.899 Other long term (current) drug therapy
CPT/HCPCS: 73030; 99283; 96372; J1885

== ENCOUNTER 2019-03-24 13:40 | Observation (INO) | payer MEDICARE, OTHER ==
--- NOTE | 2019-03-24 14:39 | ED ---
General Adult HPI - General Chief complaint: Chest Pain Stated complaint: Chest pain, arm & neck pain Time Seen by Provider: 03/24/19 14:31 Source: patient, RN notes reviewed Mode of arrival: ambulatory Limitations: no limitations - History of Present Illness Initial comments: 53-year-old male with a past medical history of dementia, diabetes, hyperlipi demia, hypertension presents to the emergency department for left sided anterior chest pain. Patient states that this happened at approximately 12:30 or about 2 hours prior to arrival. Patient states there is a sharp pain in his chest that radiates to his back and his left shoulder. Patient states he has had shoulder pain for the past few months but this feels different. Patient states that he has also felt lightheaded on and off for the past month and has been getting "black spots" in his vision. States that about 3 days ago he passed out while in the shower. Patient denies headache. Denies shortness of breath. Does state that the sharp chest pain worsens with deep breathing. Denies any recent cough. Patient has no other complaints at this time including shortness of breath,abdominal pain, nausea or vomiting, headache, or visual changes. - Related Data Home Medications Medication Instructions Recorded Confirmed sitaGLIPtin [Januvia] 100 mg PO DAILY 06/30/17 12/19/18 Fenofibrate 160 mg PO DAILY 10/16/17 12/19/18 Hydrochlorothiazide [Hydrodiuril] 25 mg PO DAILY 10/16/17 12/19/18 metFORMIN HCL [Glucophage] 1,000 mg PO BID 10/16/17 12/19/18 Bisoprolol-Hctz 5-6.25 mg [Ziac 1 tab PO DAILY 02/13/18 12/19/18 5-6.25 MG] Glimepiride [Amaryl] 4 mg PO BID 02/13/18 12/19/18 QUEtiapine [SEROquel] 150 mg PO HS 02/13/18 12/19/18 Atorvastatin [Lipitor] 40 mg PO HS 03/01/18 12/19/18 Sertraline [Zoloft] 200 mg PO DAILY 03/01/18 12/19/18 Previous Rx's Medication Instructions Recorded Aspirin 81 mg PO DAILY #30 chew 02/15/18 Ibuprofen [Motrin] 600 mg PO Q6HR PRN #20 tab 12/19/18 Allergies Allergy/AdvReac Type Severity Reaction Status Date / Time No Known Allergies Allergy Verified 03/24/19 13:44 Review of Systems ROS Statement: Those systems with pertinent positive or pertinent negative responses have been documented in the HPI. ROS Other: All systems not noted in ROS Statement are negative. Past Medical History Past Medical History: Dementia, Diabetes Mellitus, Hyperlipidemia, Hypertension Additional Past Medical History / Comment(s): back pain History of Any Multi-Drug Resistant Organisms: None Reported Past Surgical History: Back Surgery, Cholecystectomy, Orthopedic Surgery Additional Past Surgical History / Comment(s): C3-C7 WITH HARDWARE. DISC REPLACED IN LOWER BACK. RT ROTATOR CUFF REPAIR Past Anesthesia/Blood Transfusion Reactions: No Reported Reaction Past Psychological History: Anxiety, Depression Smoking Status: Never smoker Past Alcohol Use History: None Reported Past Drug Use History: None Reported - Past Family History Mother Family Medical History: No Reported History Father Family Medical History: Cancer, Deep Vein Thrombosis (DVT) General Exam Limitations: no limitations General appearance: alert, in no apparent distress Head exam: Present: atraumatic, normocephalic, normal inspection Eye exam: Present: normal appearance, PERRL, EOMI. Absent: scleral icterus, conjunctival injection, periorbital swelling ENT exam: Present: normal exam, mucous membranes moist Neck exam: Present: normal inspection, full ROM. Absent: tenderness, meningismus, lymphadenopathy Respiratory exam: Present: normal lung sounds bilaterally. Absent: respiratory distress, wheezes, rales, rhonchi, stridor Cardiovascular Exam: Present: regular rate, normal rhythm, normal heart sounds. Absent: systolic murmur, diastolic murmur, rubs, gallop, clicks GI/Abdominal exam: Present: soft, normal bowel sounds. Absent: distended, tenderness, guarding, rebound, rigid Extremities exam: Present: normal capillary refill (Radial pulses 2+ in upper extremities bilaterally, equal bilaterally.) Neurological exam: Present: alert Course Vital Signs 03/24/19 03/24/19 13:43 14:35 Temperature 98.1 F Pulse Rate 93 83 Respiratory 20 18 Rate Blood Pressure 161/94 140/93 O2 Sat by Pulse 98 98 Oximetry - Reevaluation(s) Reevaluation #1: 03/24/19 14:39 Patient had a cardiac catheterization on 02/04/2019 that showed elevated left ventricular end diastolic pressure with normal left ventricular ventricular size. Normal coronary arteries. EKG Findings - EKG Comments: EKG Findings:: 88 ventricular rate, MS interval 164, QRS duration 92, QTC 452, normal sinus rhythm Medical Decision Making - Medical Decision Making Patient had a thoracic aorta CT on January 2018 that showed a normal CT of the chest abdomen and pelvis. 53-year-old male with a past medical history of hyperlipidemia, hypertension, NIDDM presents to the emergency department for sharp left sided chest pain. This does radiate to the left shoulder and back. Patient states this started just prior to arrival. Patient states breathing worsens this pain. Seems pleuritic in nature. Vitals are stable. CBC unremarkable. CMP does show evidence of dehydration with mild hyperglycemia. Troponin is negative. X-ray shows no acute cardiopulmonary process. EKG unremarkable, compared to previous EKG from 2018. Patient is noted to have had a negative heart catheterization and CT angios in January 2018 for similar symptoms. Patient initially presented with a 9 out of 10 pain, was given morphine and pain did improve to a 4. Dr. Miller spoke with Dr. Hogan about keeping patient for trending troponin and ACS rule out does agree to admit patient. - Lab Data Result diagrams: 03/24/19 14:30 03/24/19 14:30 Lab Results 03/24/19 03/24/19 03/24/19 Range/Units 14:30 14:30 14:30 WBC 10.6 (3.8-10.6) k/uL RBC 4.94 (4.30-5.90) m/uL Hgb 14.5 (13.0-17.5) gm/dL Hct 40.8 (39.0-53.0) % MCV 82.6 (80.0-100.0) fL MCH 29.3 (25.0-35.0) pg MCHC 35.5 (31.0-37.0) g/dL RDW 13.4 (11.5-15.5) % Plt Count 283 (150-450) k/uL Neutrophils % 68 % Lymphocytes % 24 % Monocytes % 5 % Eosinophils % 1 % Basophils % 1 % Neutrophils # 7.2 (1.3-7.7) k/uL Lymphocytes # 2.5 (1.0-4.8) k/uL Monocytes # 0.5 (0-1.0) k/uL Eosinophils # 0.2 (0-0.7) k/uL Basophils # 0.1 (0-0.2) k/uL PT 10.2 (9.0-12.0) sec INR 0.9 (<1.2) APTT 23.4 (22.0-30.0) sec D-Dimer 0.34 (<0.60) mg/L FEU Sodium 139 (137-145) mmol/L Potassium 4.2 (3.5-5.1) mmol/L Chloride 104 (98-107) mmol/L Carbon Dioxide 25 (22-30) mmol/L Anion Gap 10 mmol/L BUN 23 H (9-20) mg/dL Creatinine 0.99 (0.66-1.25) mg/dL Est GFR (CKD-EPI)AfAm >90 (>60 ml/min/1.73 sqM) Est GFR (CKD-EPI)NonAf 87 (>60 ml/min/1.73 sqM) Glucose 162 H (74-99) mg/dL Calcium 9.7 (8.4-10.2) mg/dL Total Bilirubin 0.8 (0.2-1.3) mg/dL AST 31 (17-59) U/L ALT 39 (21-72) U/L Alkaline Phosphatase 85 (38-126) U/L Troponin I (0.000-0.034) ng/mL Total Protein 8.0 (6.3-8.2) g/dL Albumin 4.7 (3.5-5.0) g/dL 03/24/19 Range/Units 14:30 WBC (3.8-10.6) k/uL RBC (4.30-5.90) m/uL Hgb (13.0-17.5) gm/dL Hct (39.0-53.0) % MCV (80.0-100.0) fL MCH (25.0-35.0) pg MCHC (31.0-37.0) g/dL RDW (11.5-15.5) % Plt Count (150-450) k/uL Neutrophils % % Lymphocytes % % Monocytes % % Eosinophils % % Basophils % % Neutrophils # (1.3-7.7) k/uL Lymphocytes # (1.0-4.8) k/uL Monocytes # (0-1.0) k/uL Eosinophils # (0-0.7) k/uL Basophils # (0-0.2) k/uL PT (9.0-12.0) sec INR (<1.2) APTT (22.0-30.0) sec D-Dimer (<0.60) mg/L FEU Sodium (137-145) mmol/L Potassium (3.5-5.1) mmol/L Chloride (98-107) mmol/L Carbon Dioxide (22-30) mmol/L Anion Gap mmol/L BUN (9-20) mg/dL Creatinine (0.66-1.25) mg/dL Est GFR (CKD-EPI)AfAm (>60 ml/min/1.73 sqM) Est GFR (CKD-EPI)NonAf (>60 ml/min/1.73 sqM) Glucose (74-99) mg/dL Calcium (8.4-10.2) mg/dL Total Bilirubin (0.2-1.3) mg/dL AST (17-59) U/L ALT (21-72) U/L Alkaline Phosphatase (38-126) U/L Troponin I <0.012 (0.000-0.034) ng/mL Total Protein (6.3-8.2) g/dL Albumin (3.5-5.0) g/dL When compared to previous EKG there are: no significant change (03/01/18) Disposition Clinical Impression: Chest pain, Hyperglycemia Disposition: ADMITTED IP TO THIS HOSP Condition: Fair Is patient prescribed a controlled substance at d/c from ED?: No Referrals: Kvng Huang Jr, DO [Primary Care Provider] - 1-2 days Time of Disposition: 16:25
[2019-03-24] MEDS ORDERED: MORPHINE SULFATE 4 MG/ML SYRINGE IVP STA (14:43)
[2019-03-24] MEDS ORDERED: ASPIRIN 81 MG PO STA (14:43)
[2019-03-24] MEDS ORDERED: SODIUM CHLORIDE 0.9% 500 ML 500 ML IV STA (14:43)
[2019-03-24 15:05] LABS: ALT 39 U/L (21-72); AST 31 U/L (17-59); African American GFR (CKD) >90 (>60 ml/min/1.73 sqM); Albumin 4.7 g/dL (3.5-5.0); Alkaline Phosphatase 85 U/L (38-126); Anion Gap 10 mmol/L; Blood Urea Nitrogen 23 mg/dL (9-20); Calcium 9.7 mg/dL (8.4-10.2); Carbon Dioxide 25 mmol/L (22-30); Chloride 104 mmol/L (98-107); Glucose 162 mg/dL (74-99); Non-African American GFR(CKD) 87 (>60 ml/min/1.73 sqM); Potassium 4.2 mmol/L (3.5-5.1); Sodium 139 mmol/L (137-145); Total Bilirubin 0.8 mg/dL (0.2-1.3)
[2019-03-24 15:07] LABS: D-Dimer 0.34 mg/L FEU (<0.60); INR 0.9 (<1.2); Partial Thromboplastin Time 23.4 sec (22.0-30.0); Prothrombin Time 10.2 sec (9.0-12.0)
[2019-03-24 15:09] LABS: Basophils # (A) 0.1 k/uL (0-0.2); Basophils % (A) 1 %; Eosinophils # (A) 0.2 k/uL (0-0.7); Eosinophils % (A) 1 %; HCT 40.8 % (39.0-53.0); HGB 14.5 gm/dL (13.0-17.5); Lymphocytes # (A) 2.5 k/uL (1.0-4.8); Lymphocytes % (A) 24 %; MCH 29.3 pg (25.0-35.0); MCHC 35.5 g/dL (31.0-37.0); MCV 82.6 fL (80.0-100.0); Mean Platelet Volume 8.2; Monocytes # (A) 0.5 k/uL (0-1.0); Monocytes % (A) 5 %; Neutrophils # (A) 7.2 k/uL (1.3-7.7); Neutrophils % (A) 68 %; Platelet Count 283 k/uL (150-450); RBC 4.94 m/uL (4.30-5.90); RDW 13.4 % (11.5-15.5); WBC 10.6 k/uL (3.8-10.6)
--- NOTE | 2019-03-24 15:44 | XR ---
EXAMINATION TYPE: XR chest 2V DATE OF EXAM: 03/24/2019 COMPARISON: 02/13/2018 HISTORY: Left-sided chest pain and arm pain TECHNIQUE: Frontal and lateral views of the chest are obtained. FINDINGS: There is no focal air space opacity, pleural effusion, or pneumothorax seen. The cardiac silhouette size is enlarged although appears smaller than the prior, likely technique. The osseous structures are intact. Cervical fusion device is partially visualized. IMPRESSION: No acute cardiopulmonary process.
[2019-03-24] MEDS ORDERED: NITROGLYCERIN SL TABS 0.4 MG TAB SUBLINGUAL PRN (16:19)
[2019-03-24] MEDS ORDERED: MORPHINE SULFATE 4 MG/ML SYRINGE IVP PRN (16:21)
[2019-03-24 20:58] LABS: Glucose,Whole Blood 175 mg/dL (75-99)
[2019-03-24] MEDS ORDERED: ATORVASTATIN 20 MG TAB PO SCH (21:15)
[2019-03-24] MEDS ORDERED: QUEtiapine 200 MG TAB PO SCH (21:15)
[2019-03-24] MEDS: LINAGLIPTIN 5 MG TABLET PO SCH (22:07)
[2019-03-24] MEDS: SERTRALINE 100 MG TAB PO SCH (22:25)
[2019-03-24] MEDS: METHOCARBAMOL 500 MG TAB PO SCH (22:26)
[2019-03-24] MEDS: ACETAMINOPHEN TAB 325 MG TAB PO PRN (22:26)
[2019-03-24] MEDS: INSULIN ASPART (NovoLOG) 100 UNIT/ML VIAL SQ SCH (23:13)
[2019-03-24] MEDS: amLODIPine 5 MG TAB PO SCH (23:13)
[2019-03-25 05:42] LABS: Cholesterol 285 mg/dL (<200); HDL Cholesterol 37 mg/dL (40-60); LDL Cholesterol,Calculated 176 mg/dL (0-99); Triglycerides 362 mg/dL (<150)
[2019-03-25 06:32] LABS: Glucose,Whole Blood 135 mg/dL (75-99)
[2019-03-25] MEDS: GLIMEPIRIDE 4 MG TAB PO SCH (07:19)
[2019-03-25] MEDS: LEVOTHYROXINE 25 MCG TAB PO SCH (07:19)
[2019-03-25] MEDS: INSULIN ASPART (NovoLOG) 100 UNIT/ML VIAL SQ SCH ×4 (07:19→20:44)
[2019-03-25] MEDS: metFORMIN 500 MG TAB PO SCH ×2 (07:19→17:41)
[2019-03-25] MEDS ORDERED: INSULIN ASPART (NovoLOG) 100 UNIT/ML VIAL SQ SCH (07:30)
--- NOTE | 2019-03-25 08:13 | P.CRDCN ---
History of Present Illness Consult date: 03/25/19 Requesting physician: Kvng Huang Jr Consult reason: chest pain Chief complaint: Chest pain, syncope History of present illness: This is a 53-year-old gentleman with history of hypertension, diabetes, hyperlipidemia, nonsmoker, who underwent a cardiac catheterization one year ago which did not reveal any obstructive coronary artery disease. He presents to the hospital on this occasion with symptoms that started as cramping in his left hand with pain radiating up the left arm, and into his chest. He does state that he was short of breath, diaphoretic, nauseated at the time. He continues his morning to complain of it helped pressure in his chest. Patient also states that over the past one month he has had 4 episodes where he sees black spots and then passes out. He gets extremely dizzy before these episodes. He did not go to seek medical attention for any of these episodes. Blood pressure 140/78 with a heart rate of 70, 96 on room air. White blood cell count 10.6, hemoglobin 14.5, platelet count 283. D-dimer 0.34. Sodium 139, potassium 4.2, BUN 23, creatinine 0.9. Troponins have been negative 3. Cholesterol 285, triglycerides 362, LDL 176, HDL 37. EKG shows normal sinus rhythm acute changes. Chest x-ray does not reveal any acute pulmonary process. Past Medical History Past Medical History: Chest Pain / Angina, Dementia, Diabetes Mellitus, Hyperlipidemia, Hypertension, Syncope Additional Past Medical History / Comment(s): back pain History of Any Multi-Drug Resistant Organisms: None Reported Past Surgical History: Back Surgery, Cholecystectomy, Orthopedic Surgery Additional Past Surgical History / Comment(s): C3-C7 WITH HARDWARE. DISC REPLACED IN LOWER BACK. RT ROTATOR CUFF REPAIR Past Anesthesia/Blood Transfusion Reactions: No Reported Reaction Smoking Status: Never smoker - Past Family History Mother Family Medical History: No Reported History Father Family Medical History: Coronary Artery Disease (CAD), Diabetes Mellitus, Deep Vein Thrombosis (DVT) Additional Family Medical History / Comment(s): paternal grandmother also had diabetes Sister(s) Family Medical History: Congestive Heart Failure (CHF) Medications and Allergies Home Medications Medication Instructions Recorded Confirmed Type sitaGLIPtin [Januvia] 100 mg PO DAILY 06/30/17 03/24/19 History metFORMIN HCL [Glucophage] 1,000 mg PO BID 10/16/17 03/24/19 History Bisoprolol-Hctz 5-6.25 mg [Ziac 1 tab PO DAILY 02/13/18 03/24/19 History 5-6.25 MG] Glimepiride [Amaryl] 8 mg PO DAILY 02/13/18 03/24/19 History Sertraline [Zoloft] 200 mg PO DAILY 03/01/18 03/24/19 History Ibuprofen [Motrin] 600 mg PO Q6HR PRN #20 tab 12/19/18 03/24/19 Rx Atorvastatin [Lipitor] 20 mg PO HS 03/24/19 03/24/19 History Ergocalciferol [Vitamin D2] 50,000 unit PO WE 03/24/19 03/24/19 History Insulin Glargine [Lantus] 20 unit SQ HS 03/24/19 03/24/19 History Levothyroxine Sodium [Synthroid] 25 mcg PO DAILY 03/24/19 03/24/19 History Methocarbamol [Robaxin] 500 mg PO TID 03/24/19 03/24/19 History QUEtiapine [SEROquel] 200 mg PO HS 03/24/19 03/24/19 History Allergies Allergy/AdvReac Type Severity Reaction Status Date / Time No Known Allergies Allergy Verified 03/24/19 22:47 Physical Exam Vitals: Vital Signs Temp Pulse Pulse Resp BP BP Pulse Ox 03/25/19 04:00 98.4 F 77 17 141/79 96 03/25/19 00:00 98.6 F 81 17 138/80 95 03/24/19 20:10 98.5 F 78 18 157/75 95 03/24/19 18:48 98.2 F 77 18 142/84 94 L 03/24/19 18:25 98.0 F 87 18 139/89 100 03/24/19 16:26 98.1 F 75 17 141/90 98 03/24/19 14:35 83 18 140/93 98 03/24/19 13:43 98.1 F 93 20 161/94 98 Intake and Output 03/24/19 03/25/19 03/25/19 22:59 06:59 14:59 Other: Voiding Method Toilet Toilet # Voids 1 1 Weight 92.533 kg 91.4 kg PHYSICAL EXAMINATION: GENERAL: 53-year-old gentleman in no acute distress at the time of my examination HEENT: Head is atraumatic, normocephalic. Pupils equal, round. Sclera anicteric. Conjunctiva are clear. Mucous membranes of the mouth are moist. Neck is supple. There is no elevated jugular venous pressure. No carotid bruit is heard. HEART EXAMINATION: Heart S1, S2 normal. No murmur or gallop heard. CHEST EXAMINATION: Lungs are clear to auscultation and precussion. No chest wall tenderness is noted on palpation or with deep breathing. ABDOMEN: Soft, nontender. Bowel sounds are heard. No organomegaly noted. EXTREMITIES: 2+ peripheral pulses with no evidence of peripheral edema and no calf tenderness noted. NEUROLOGIC patient is awake, alert and oriented 3 . . Results 03/24/19 14:30 03/24/19 14:30 Cardiac Enzymes 03/24/19 03/24/19 03/24/19 Range/Units 14:30 14:30 21:09 AST 31 (17-59) U/L Troponin I <0.012 <0.012 (0.000-0.034) ng/mL 03/25/19 Range/Units 05:19 AST (17-59) U/L Troponin I <0.012 (0.000-0.034) ng/mL Coagulation 03/24/19 Range/Units 14:30 PT 10.2 (9.0-12.0) sec APTT 23.4 (22.0-30.0) sec Lipids 03/25/19 Range/Units 05:19 Triglycerides 362 H (<150) mg/dL Cholesterol 285 H (<200) mg/dL HDL Cholesterol 37 L (40-60) mg/dL CBC 03/24/19 Range/Units 14:30 WBC 10.6 (3.8-10.6) k/uL RBC 4.94 (4.30-5.90) m/uL Hgb 14.5 (13.0-17.5) gm/dL Hct 40.8 (39.0-53.0) % Plt Count 283 (150-450) k/uL Comprehensive Metabolic Panel 03/24/19 Range/Units 14:30 Sodium 139 (137-145) mmol/L Potassium 4.2 (3.5-5.1) mmol/L Chloride 104 (98-107) mmol/L Carbon Dioxide 25 (22-30) mmol/L BUN 23 H (9-20) mg/dL Creatinine 0.99 (0.66-1.25) mg/dL Glucose 162 H (74-99) mg/dL Calcium 9.7 (8.4-10.2) mg/dL AST 31 (17-59) U/L ALT 39 (21-72) U/L Alkaline Phosphatase 85 (38-126) U/L Total Protein 8.0 (6.3-8.2) g/dL Albumin 4.7 (3.5-5.0) g/dL Current Medications Generic Name Dose Route Start Last Admin Trade Name Freq PRN Reason Stop Dose Admin Acetaminophen 650 mg 03/24/19 21:17 03/24/19 22:26 Tylenol Tab PO 650 mg Q6HR PRN Administration Fever and/ or Pain Amlodipine Besylate 5 mg 03/24/19 22:30 03/24/19 23:13 Norvasc PO 5 mg DAILY MAREN Administration Aspirin 325 mg 03/25/19 09:00 Aspirin PO DAILY [facility] Atorvastatin Calcium 20 mg 03/24/19 21:15 03/24/19 22:25 Lipitor PO 20 mg HS MAREN Administration Bisoprolol Fumarate 1 each 03/25/19 09:00 Ziac 5-6.25 PO DAILY [facility] Ergocalciferol 50,000 unit 03/30/19 09:00 Vitamin D2 PO WE [facility] Glimepiride 8 mg 03/25/19 07:30 03/25/19 07:19 Amaryl PO Not Given AC-BRKFST [facility] Insulin Aspart 0 unit 03/24/19 22:29 03/25/19 07:19 Novolog SQ Not Given ACHS [facility] Protocol Insulin Detemir 20 unit 03/25/19 21:00 Levemir SQ HS [facility] Levothyroxine Sodium 25 mcg 03/25/19 06:30 03/25/19 07:19 Synthroid PO Not Given DAILY@0630 [facility] Linagliptin 5 mg 03/24/19 21:15 03/24/19 22:07 Tradjenta PO Not Given DAILY [facility] Metformin HCl 1,000 mg 03/25/19 07:30 03/25/19 07:19 Glucophage PO Not Given BID-W/MEALS [facility] Methocarbamol 500 mg 03/24/19 22:00 12/05/19 22:26 Robaxin PO 500 mg TID MAREN Administration Nitroglycerin 0.4 mg 03/24/19 16:19 Nitrostat SUBLINGUAL Q5M PRN Chest Pain Quetiapine Fumarate 200 mg 03/24/19 21:15 03/24/19 22:25 Seroquel PO 200 mg HS MAREN Administration Sertraline HCl 200 mg 03/24/19 21:15 03/24/19 22:25 Zoloft PO 200 mg DAILY MAREN Administration Intake and Output 03/24/19 03/25/19 03/25/19 22:59 06:59 14:59 Other: Voiding Method Toilet Toilet # Voids 1 1 Weight 92.533 kg 91.4 kg 03/24/19 14:30 03/24/19 14:30 EKG Interpretations (text) EKG shows normal sinus rhythm with no acute changes. Assessment and Plan Plan: Assessment and plan #1 atypical chest pain, troponins negative 3, EKG shows normal sinus rhythm with no acute changes. Patient did undergo a cardiac catheterization in January 2018 which revealed normal coronary arteries. #2 hypertension #3 diabetes #4 hyperlipidemia #5 syncopal episodes preceded by dizziness and black spots in the eyes Plan We will obtain an echocardiogram with Doppler study. Decrease aspirin to 81 mg daily, increase Lipitor to 80 mg daily, add lisinopril to his medication regime. We may recommend a monitor on discharge. We will also check orthostatic heart rate and blood pressure every shift. From our perspective he should be able to be discharged home later today to follow-up with Dr. Johnson in the office post discharge. DNP note has been reviewed, I agree with a documented findings and plan of care. Patient was seen and examined.
[2019-03-25 08:37] VITALS: RESP 18
[2019-03-25] MEDS ORDERED: ASPIRIN 325 MG TAB PO SCH (09:00)
[2019-03-25] MEDS: BISOPROLOL-HCTZ 5-6.25 MG 1 EACH TAB PO SCH (10:03)
[2019-03-25] MEDS: LISINOPRIL 5 MG TAB PO SCH (10:03)
[2019-03-25] MEDS: METHOCARBAMOL 500 MG TAB PO SCH ×3 (10:03→20:43)
[2019-03-25] MEDS: LINAGLIPTIN 5 MG TABLET PO SCH (10:04)
[2019-03-25] MEDS: amLODIPine 5 MG TAB PO SCH (10:04)
[2019-03-25] MEDS: ASPIRIN 81 MG PO SCH (10:04)
[2019-03-25] MEDS: SERTRALINE 100 MG TAB PO SCH (10:04)
--- NOTE | 2019-03-25 10:53 | ECHOF ---
Referral Reason:chest pain MEASUREMENTS -------- HEIGHT: 175.3 cm WEIGHT: 91.2 kg BP: 123/83 RVIDd: 2.8 cm (< 3.3) IVSd: 1.2 cm (0.6 - 1.1) LVIDd: 4.3 cm (3.9 - 5.3) LVPWd: 1.3 cm (0.6 - 1.1) IVSs: 1.9 cm LVIDs: 2.7 cm LVPWs: 1.7 cm LA Diam: 3.3 cm (2.7 - 3.8) LAESV Index (A-L): 16.78 ml/m Ao Diam: 3.3 cm (2.0 - 3.7) AV Cusp: 2.3 cm (1.5 - 2.6) MV EXCURSION: 17.310 mm (> 18.000) MV EF SLOPE: 60 mm/s (70 - 150) EPSS: 0.4 cm MV E Tom: 0.71 m/s MV DecT: 273 ms MV A Tom: 0.81 m/s MV E/A Ratio: 0.87 RAP: 5.00 mmHg RVSP: 23.88 mmHg FINDINGS -------- Sinus rhythm. This was a technically good study. The left ventricular size is normal. There is mild concentric left ventricular hypertrophy. Overa ll left ventricular systolic function is normal with, an EF between 60 - 65 %. The right ventricle is normal in size. Normal LA size by volume 22+/-6 ml/m2. The right atrium is normal in size. Interatrial and interventricular septum intact. The aortic valve is trileaflet and appears structurally normal. There is trace mitral regurgitation. Mild tricuspid regurgitation present. Right ventricular systolic pressure is normal at < 35 mmHg. Trace/mild (physiologic) pulmonic regurgitation. The aortic root size is normal. Normal inferior vena cava with normal inspiratory collapse consistent with estimated right atrial pre ssure of 5 mmHg. There is no pericardial effusion. CONCLUSIONS -------- 1. Sinus rhythm. 2. This was a technically good study. 3. The left ventricular size is normal. 4. There is mild concentric left ventricular hypertrophy. 5. Overall left ventricular systolic function is normal with, an EF between 60 - 65 %. 6. The right ventricle is normal in size. 7. Normal LA size by volume 22+/-6 ml/m2. 8. The right atrium is normal in size. 9. Interatrial and interventricular septum intact. 10. The aortic valve is trileaflet and appears structurally normal. 11. There is trace mitral regurgitation. 12. Mild tricuspid regurgitation present. 13. Right ventricular systolic pressure is normal at < 35 mmHg. 14. Trace/mild (physiologic) pulmonic regurgitation. 15. The aortic root size is normal. 16. Normal inferior vena cava with normal inspiratory collapse consistent with estimated right atrial pressure of 5 mmHg. 17. There is no pericardial effusion. PROFESSOR OF THEATRE: Tiffanie Mann RDCS
[2019-03-25 12:26] LABS: Glucose,Whole Blood 178 mg/dL (75-99)
[2019-03-25] MEDS: ACETAMINOPHEN TAB 325 MG TAB PO PRN (16:29)
[2019-03-25 16:54] LABS: Glucose,Whole Blood 136 mg/dL (75-99)
--- NOTE | 2019-03-25 18:17 | P.HPIM ---
History of Present Illness H&P Date: 03/25/19 Chief Complaint: Chest pain, lightheadedness Marty is a 53-year-old male well-known to the practice was a history of diabetes hyperlipidemia hypertension who presented to the ER with complaint of anterior wall chest pain patient states it happened about 12:30 about 2 hours prior to arrival. Patient also complains of feeling lightheaded off and on for the past month is getting black spots in his vision. States about 3 days ago he passed out in the shower patient denies headache shortness of breath does have a sharp dressed pain. However patient has undergone cardiac catheterization approximately one year ago that was completely normal Review of Systems Constitutional: Reports as per HPI Eyes: bilateral diplopia, bilateral tunnel vision/blind spots (Has been happening for approximately 2 months) Ears, nose, mouth and throat: Reports headache Cardiovascular: Reports chest pain Respiratory: Reports as per HPI Gastrointestinal: Reports as per HPI Genitourinary: Reports as per HPI Musculoskeletal: Reports as per HPI Integumentary: Reports as per HPI Neurological: Reports headaches (Patient currently taking 3 medications Seroquel for sleep, Amaryl type 2 diabetes, and Tradjenta) Psychiatric: Reports as per HPI Endocrine: Reports as per HPI Hematologic/Lymphatic: Reports as per HPI Past Medical History Past Medical History: Chest Pain / Angina, Dementia, Diabetes Mellitus, Hyperl ipidemia, Hypertension, Syncope Additional Past Medical History / Comment(s): back pain History of Any Multi-Drug Resistant Organisms: None Reported Past Surgical History: Back Surgery, Cholecystectomy, Orthopedic Surgery Additional Past Surgical History / Comment(s): C3-C7 WITH HARDWARE. DISC REPL ACED IN LOWER BACK. RT ROTATOR CUFF REPAIR Past Anesthesia/Blood Transfusion Reactions: No Reported Reaction Smoking Status: Never smoker - Past Family History Mother Family Medical History: No Reported History Father Family Medical History: Coronary Artery Disease (CAD), Diabetes Mellitus, Deep Vein Thrombosis (DVT) Additional Family Medical History / Comment(s): paternal grandmother also had diabetes Sister(s) Family Medical History: Congestive Heart Failure (CHF) Medications and Allergies Home Medications Medication Instructions Recorded Confirmed Type RX: sitaGLIPtin [Januvia] 100 mg PO DAILY 06/30/17 03/24/19 History RX: metFORMIN HCL [Glucophage] 1,000 mg PO BID 10/16/17 03/24/19 History RX: Bisoprolol-Hctz 5-6.25 mg 1 tab PO DAILY 02/13/18 03/24/19 History [Ziac 5-6.25 MG] Sertraline [Zoloft] 200 mg PO DAILY 03/01/18 03/24/19 History RX: Ibuprofen [Motrin] 600 mg PO Q6HR PRN #20 tab 12/19/18 03/24/19 Rx Atorvastatin [Lipitor] 20 mg PO HS 03/24/19 03/24/19 History Ergocalciferol [Vitamin D2] 50,000 unit PO WE 03/24/19 03/24/19 History Insulin Glargine [Lantus] 20 unit SQ HS 03/24/19 03/24/19 History Levothyroxine Sodium [Synthroid] 25 mcg PO DAILY 03/24/19 03/24/19 History Methocarbamol [Robaxin] 500 mg PO TID 03/24/19 03/24/19 History QUEtiapine [SEROquel] 200 mg PO HS 03/24/19 03/24/19 History Allergies Allergy/AdvReac Type Severity Reaction Status Date / Time No Known Allergies Allergy Verified 03/24/19 22:47 Physical Exam Osteopathic Statement: *. No significant issues noted on an osteopathic structural exam other than those noted in the History and Physical/Consult. Vitals: Vital Signs Temp Pulse Pulse Pulse Pulse Pulse Resp 03/25/19 11:20 98.3 F 73 18 03/25/19 09:52 81 87 70 18 03/25/19 08:05 97.5 F L 73 80 18 03/25/19 04:00 98.4 F 77 17 03/25/19 00:00 98.6 F 81 17 03/24/19 20:10 98.5 F 78 18 03/24/19 18:48 98.2 F 77 18 03/24/19 18:25 98.0 F 87 18 BP BP BP BP BP Pulse Ox 03/25/19 11:20 118/63 94 L 03/25/19 09:52 129/87 132/90 127/80 93 L 03/25/19 08:05 123/83 03/25/19 04:00 141/79 96 03/25/19 00:00 138/80 95 03/24/19 20:10 157/75 95 03/24/19 18:48 142/84 94 L 03/24/19 18:25 139/89 100 Intake and Output 03/25/19 03/25/19 03/25/19 06:59 14:59 22:59 Intake Total 600 Balance 600 Intake: Oral 600 Other: Voiding Method Toilet # Voids 1 Weight 91.4 kg General: [Patient awake, alert and oriented times 3. Patient in no acute distress.] HEENT: [PERRL. EOMI. No pharyngeal erythema or exudate.] Neck: [No adenopathy.] Cardiac: [Heart regular in rate and rhythm. No S3. No S4. No clicks, rubs. No murmur.] Lungs: [Clear to auscultation bilaterally.] Abdomen: [No mass. No organomegaly. Bowel sounds presnt and normoactive in all 4 quadrants.] Extremes: [No edema no cyanosis no claudication normal pulses] : Normal male genitalia Musculoskeletal: [No joint erythema, edema or tenderness.] Skin: [No rash.] Neurologic: [No lateralizing deficits. CN II - XII grossly intact.] Lymphatic: [No adenopathy.] Results CBC & Chem 7: 03/24/19 14:30 03/24/19 14:30 Labs: Abnormal Lab Results - Last 24 Hours (Table) 03/24/19 03/25/19 03/25/19 Range/Units 20:56 05:19 06:31 POC Glucose (mg/dL) 175 H 135 H (75-99) mg/dL Triglycerides 362 H (<150) mg/dL Cholesterol 285 H (<200) mg/dL LDL Cholesterol, Calc 176 H (0-99) mg/dL HDL Cholesterol 37 L (40-60) mg/dL 03/25/19 03/25/19 Range/Units 12:04 16:52 POC Glucose (mg/dL) 178 H 136 H (75-99) mg/dL Triglycerides (<150) mg/dL Cholesterol (<200) mg/dL LDL Cholesterol, Calc (0-99) mg/dL HDL Cholesterol (40-60) mg/dL Thrombosis Risk Factor Assmnt - Choose All That Apply Any of the Below Risk Factors Present?: Yes Each Factor Represents 1 point: Age 41-60 years, Obesity (BMI >25) Other Risk Factors: Yes Each Risk Factor Represents 3 Points: Family history of DVT/PE Other congenital or acquired thrombophilia - If yes, enter type in comment: No Thrombosis Risk Factor Assessment Total Risk Factor Score: 5 Thrombosis Risk Factor Assessment Level: High Risk Assessment and Plan (1) Visual disturbances Current Visit: Yes Status: Acute Code(s): H53.9 - UNSPECIFIED VISUAL DISTURBANCE SNOMED Code(s): 12817789 (2) Medication side effects Current Visit: Yes Status: Acute Code(s): T88.7XXA - UNSP ADVERSE EFFECT OF DRUG OR MEDICAMENT, INIT ENCNTR SNOMED Code(s): 262573347 (3) Chest pain Current Visit: Yes Status: Acute Code(s): R07.9 - CHEST PAIN, UNSPECIFIED SNOMED Code(s): 16537014 Plan: Patient complains of chest pain troponins are within normal limits Idea cath 1 year ago was completely normal Patient also complains of lightheadedness and passing out and visual disturbances all potentially side effects of Seroquel which she states he's been on for approximately 1 year for sleep He also states that his counselor increased it recently from 100 mg at night to 200 mg to help with sleeping We will obtain carotid Dopplers to assess integrity of carotids, amaurosis fugax as opposed to side effect of medication Will stop Seroquel, and carotid Dopplers are normal will dose stop permanently and reevaluate patient in the office within the next 3-5 days
[2019-03-25 20:27] LABS: Glucose,Whole Blood 192 mg/dL (75-99)
[2019-03-25] MEDS ORDERED: ATORVASTATIN 80 MG TAB PO SCH (21:00)
[2019-03-25] MEDS ORDERED: INSULIN DETEMIR (LEVEMIR) 100 UNIT/ML SYR SQ SCH (21:00)
[2019-03-26 06:24] LABS: Glucose,Whole Blood 140 mg/dL (75-99)
[2019-03-26] MEDS: INSULIN ASPART (NovoLOG) 100 UNIT/ML VIAL SQ SCH ×2 (06:26→11:58)
[2019-03-26] MEDS: metFORMIN 500 MG TAB PO SCH (06:35)
[2019-03-26] MEDS: GLIMEPIRIDE 4 MG TAB PO SCH (06:35)
[2019-03-26] MEDS: LEVOTHYROXINE 25 MCG TAB PO SCH (06:35)
[2019-03-26] MEDS: ASPIRIN 81 MG PO SCH (08:37)
[2019-03-26] MEDS: LINAGLIPTIN 5 MG TABLET PO SCH (08:37)
[2019-03-26] MEDS: METHOCARBAMOL 500 MG TAB PO SCH (08:37)
[2019-03-26] MEDS: LISINOPRIL 5 MG TAB PO SCH (08:37)
[2019-03-26] MEDS: amLODIPine 5 MG TAB PO SCH (08:37)
[2019-03-26] MEDS: SERTRALINE 100 MG TAB PO SCH (08:37)
[2019-03-26] MEDS: BISOPROLOL-HCTZ 5-6.25 MG 1 EACH TAB PO SCH (08:38)
[2019-03-26 09:14] VITALS: TEMP 98
[2019-03-26 11:26] VITALS: BP 142/82; PULSE 82
[2019-03-26 11:49] LABS: Glucose,Whole Blood 117 mg/dL (75-99)
--- NOTE | 2019-03-26 12:21 | US ---
EXAMINATION TYPE: US carotid duplex BILAT DATE OF EXAM: 03/26/2019 COMPARISON: US 01/21/2017 CLINICAL HISTORY: syncope. EXAM MEASUREMENTS: RIGHT: Peak Systolic Velocity (PSV) cm/sec ----- Right CCA: 76.9 ----- Right ICA: 54.2 ----- Right ECA: 100.8 ICA/CCA ratio: 0.7 RIGHT: End Diastole cm/sec ----- Right CCA: 15.8 ----- Right ICA: 23.2 ----- Right ECA: 7.6 LEFT: Peak Systolic Velocity (PSV) cm/sec ----- Left CCA: 91.9 ----- Left ICA: 73.6 ----- Left ECA: 90.5 ICA/CCA ratio: 0.8 LEFT: End Diastole cm/sec ----- Left CCA: 20.8 ----- Left ICA: 73.6 ----- Left ECA: 14.1 VERTEBRALS (direction of flow): Right Vertebral: Antegrade Left Vertebral: Antegrade Rhythm: Normal Minimal plaque visualized, no elevated velocities, no significant stenosis. IMPRESSION: I DO NOT SEE EVIDENCE OF A HEMODYNAMICALLY SIGNIFICANT STENOSIS IN EITHER CAROTID SYSTEM. Criteria for Assigning % of Stenosis / Diameter reduction (Estimation based on the indirect measurements of the internal carotid artery velocities (ICA PSV). 1. Normal (no stenosis)=ICA PSV < 125 cm/s: ratio < 2.0: ICA EDV<40 cm/s. 2. Less than 50% stenosis=ICA PSV < 125 cm/s: ratio < 2.0: ICA EDV<40 cm/s. 3. 50 to 69% stenosis=ICA PSV of 125 to 230 cm/s: ration 2.0 ? 4.0: ICA EDV 40-100 cm/s. 4. Greater than 70% stenosis to near occlusion= ICA PSV > 230 cm/s: ratio > 4.0: ICA EDV > 100 cm/s. 5. Near occlusion= ICA PSV velocities may be low or undetectable: variable ratio and ICA EDV. 6. Total occlusion=unable to detect flow.
--- NOTE | 2019-03-26 12:37 | P.DS ---
Providers Date of admission: 03/24/19 16:15 Expected date of discharge: 03/26/19 Attending physician: Kvng Huang Consults: 03/24/19 16:19 Consult Physician Routine Consulting Provider: [facility] Consult Reason/Comments: CP, Do you want consulting provider notified?: Yes Primary care physician: Kvng Huang - Discharge Diagnosis(es) (1) Visual disturbances Creatinine is within normal limits no hemodynamically significant stenosis I suspect visual disturbances or eye side effect Seroquel patient used for sleep Current Visit: Yes Status: Acute (2) Medication side effects I believe the Seroquel was causing blackout spells visual disturbances This med was stopped Current Visit: Yes Status: Acute (3) Chest pain Patient had a normal coronary angiogram 1 year ago EKG ,2-D echo were within normal limits Troponins were all normal Current Visit: Yes Status: Acute Hospital Course: Patient was admitted to the hospital cardiac workup ensued currently no evidence that patient was undergoing acute coronary syndrome is evident Suspects side effects of meds specifically Seroquel General: [Patient awake, alert and oriented times 3. Patient in no acute distress.] HEENT: [PERRL. EOMI. No pharyngeal erythema or exudate.] Neck: [No adenopathy.] Cardiac: [Heart regular in rate and rhythm. No S3. No S4. No clicks, rubs. No murmur.] Lungs: [Clear to auscultation bilaterally.] Abdomen: [No mass. No organomegaly. Bowel sounds presnt and normoactive in all 4 quadrants.] Extremes: [No edema no cyanosis no claudication normal pulses] : [] Musculoskeletal: [No joint erythema, edema or tenderness.] Skin: [No rash.] Neurologic: [No lateralizing deficits. CN II - XII grossly intact.] Lymphatic: [No adenopathy.] Patient Condition at Discharge: Fair Plan - Discharge Summary Discharge Rx Participant: No New Discharge Prescriptions: Discontinued QUEtiapine [SEROquel] 200 mg PO HS No Action sitaGLIPtin [Januvia] 100 mg PO DAILY metFORMIN HCL [Glucophage] 1,000 mg PO BID Bisoprolol-Hctz 5-6.25 mg [Ziac 5-6.25 MG] 1 tab PO DAILY Sertraline [Zoloft] 200 mg PO DAILY Ibuprofen [Motrin] 600 mg PO Q6HR PRN #20 tab PRN Reason: Pain Methocarbamol [Robaxin] 500 mg PO TID Levothyroxine Sodium [Synthroid] 25 mcg PO DAILY Ergocalciferol [Vitamin D2] 50,000 unit PO WE Insulin Glargine [Lantus] 20 unit SQ HS Atorvastatin [Lipitor] 20 mg PO HS Discharge Medication List sitaGLIPtin [Januvia] 100 mg PO DAILY 06/30/17 [History] metFORMIN HCL [Glucophage] 1,000 mg PO BID 10/16/17 [History] Bisoprolol-Hctz 5-6.25 mg [Ziac 5-6.25 MG] 1 tab PO DAILY 02/13/18 [History] Sertraline [Zoloft] 200 mg PO DAILY 03/01/18 [History] Ibuprofen [Motrin] 600 mg PO Q6HR PRN #20 tab 12/19/18 [Rx] Atorvastatin [Lipitor] 20 mg PO HS 03/24/19 [History] Ergocalciferol [Vitamin D2] 50,000 unit PO WE 03/24/19 [History] Insulin Glargine [Lantus] 20 unit SQ HS 03/24/19 [History] Levothyroxine Sodium [Synthroid] 25 mcg PO DAILY 03/24/19 [History] Methocarbamol [Robaxin] 500 mg PO TID 03/24/19 [History] Follow up Appointment(s)/Referral(s): Kvng Huang Jr, DO [Primary Care Provider] - 1-2 days
[2019-03-30] MEDS ORDERED: ERGOCALCIFEROL 50,000 UNIT CAP PO SCH (09:00)
== END 2019-03-26 13:44 | disposition home or self-care (01) ==
LOC: EC 13:40 → 3SCARD 16:15
PROVIDERS: ADMIT Family Medicine; ATTEND Family Medicine
DX: R07.89 Other chest pain (principal); T43.595A Adverse effect of other antipsychotics and neuroleptics, initial encounter; H53.8 Other visual disturbances; H53.483 Generalized contraction of visual field, bilateral; H53.2 Diplopia; R55 Syncope and collapse; R42 Dizziness and giddiness; E11.65 Type 2 diabetes mellitus with hyperglycemia; F03.90 Unspecified dementia, unspecified severity, without behavioral disturbance, psychotic disturbance, mood disturbance, and anxiety; E78.5 Hyperlipidemia, unspecified; I10 Essential (primary) hypertension; F41.9 Anxiety disorder, unspecified; F32.9 Major depressive disorder, single episode, unspecified; E66.9 Obesity, unspecified; Z68.29 Body mass index [BMI] 29.0-29.9, adult; Z79.4 Long term (current) use of insulin; Z79.899 Other long term (current) drug therapy; Z79.890 Hormone replacement therapy; Z98.890 Other specified postprocedural states; Z90.49 Acquired absence of other specified parts of digestive tract; Z82.49 Family history of ischemic heart disease and other diseases of the circulatory system; Z83.3 Family history of diabetes mellitus; Y92.9 Unspecified place or not applicable
CPT/HCPCS: 96361; 96374; 99285; 36415; 93005; 93306; 85379; 80061; 80053; 84484 ×2; 85025; 85610; 85730; 71046; 93880; G0378 ×3; J2270

== ENCOUNTER → 2019-04-06 | Outpatient (CLI) | payer MEDICARE, OTHER ==
--- NOTE | 2019-04-06 14:05 | ECHOS ---
STRESS ECHOCARDIOGRAM INDICATIONS: Chest pain. BASELINE HEART RATE: 83 BASELINE BLOOD PRESSURE: 125/75 MAXIMUM HEART RATE: 144 MAXIMUM BLOOD PRESSURE: 177/67 85% MPHR: 143 100% MPHR: 168 METS: 8.3 MAXIMUM STAGE REACHED: 3 TOTAL EXERCISE TIME: 7:30 CLINICAL INFORMATION: STRESS DATA: Heart rate 83, blood pressure is 125/75 mmHg. Baseline EKG showed sinus mechanism. The patient exercised on the treadmill according to Jam protocol for a total of 7 minutes and achieved 8.3 METS. Max heart rate was 144, which is about 85% of maximum predicted heart rate. Maximum blood pressure was 177/67 mmHg. Clinically, the patient did not have any symptoms. The EKG did not show any significant ST or T- wave abnormalities concerning for ischemia. ECHOCARDIOGRAM IMAGES: On echocardiogram images from parasternal long axis view, parasternal short axis view, apical 4 chamber and apical 2 chamber view, were obtained as the baseline images, at the peak heart rate as well as on recovery. The echocardiogram images revealed good augmentation in the left ventricular systolic function without any evidence of wall motion abnormalities concerning for ischemia. CONCLUSION: 1. Good exercise tolerance. 2. Normal EKG in response to exercise. 3. Normal echocardiogram in response to exercise. 4. Essentially normal stress echocardiogram for the patient. MMODL / IJN: [id number] /
== END | disposition home or self-care (01) ==
LOC: RADNMMAIN 08:53
PROVIDERS: ATTEND Family Medicine
DX: R55 Syncope and collapse (principal)
CPT/HCPCS: 93351

== ENCOUNTER 2019-04-14 15:18 | Emergency (ER) | payer MEDICARE, OTHER ==
[2019-04-14 15:40] VITALS: TEMP 98
--- NOTE | 2019-04-14 16:15 | ED ---
General Adult HPI - General Chief complaint: Psychiatric Symptoms Stated complaint: Mental health Time Seen by Provider: 04/14/19 15:49 Source: patient Mode of arrival: ambulatory Limitations: no limitations - History of Present Illness Initial comments: Dictation was produced using [employer] dictation software. please excuse any grammatical, word or spelling errors. Chief Complaint: 53-year-old male presents with suicidal ideation. History of Present Illness: 3-year-old male who presents today with suicidal ideation. Patient does not have a specific plan. Patient reports that he feels depressed because his finances. He is also depressed because he can't get a job because of his recent surgery. Denies any auditory or visual hallucinations. Patient is on depression medications. He is in counseling however this against not working The ROS documented in this emergency department record has been reviewed and confirmed by me. Those systems with pertinent positive or negative responses have been documented in the HPI. All other systems are other negative and/or noncontributory. PHYSICAL EXAM: General Impression: Alert and oriented x3, not in acute distress HEENT: Normocephalic atraumatic, extra-ocular movements intact, pupils equal and reactive to light bilaterally, mucous membranes moist. Cardiovascular: Heart regular rate and rhythm, S1&S2 audible, no murmurs, rubs or gallops Chest: Lungs clear to auscultation bilaterally, no rhonchi, no wheeze, no rales Abdomen: Bowel sounds present, abdomen soft, non-tender, non-distended, no organomegaly Musculoskeletal: Pulses present and equal in all extremities, no peripheral edema Motor: no focal deficits noted Neurological: CN II-XII grossly intact, no focal motor or sensory deficits noted Skin: Intact with no visualized rashes Psych: Normal affect and mood ED course: 53-year-old male presents with depression and suicidal ideation. Level are within acceptable limits. Physical examination is benign. Patient medically cleared for EPS evaluation. Patient is observed in emergency department stable medical condition. He was advised by EPS. Patient will be discharged. Patient agreeable with plan. Safety plan discussed patient was agreeable. Patient will follow-up with mobile crisis outpatient. - Related Data Home Medications Medication Instructions Recorded Confirmed sitaGLIPtin [Januvia] 100 mg PO DAILY 06/30/17 03/24/19 metFORMIN HCL [Glucophage] 1,000 mg PO BID 10/16/17 03/24/19 Bisoprolol-Hctz 5-6.25 mg [Ziac 1 tab PO DAILY 02/13/18 03/24/19 5-6.25 MG] Sertraline [Zoloft] 200 mg PO DAILY 03/01/18 03/24/19 Atorvastatin [Lipitor] 20 mg PO HS 03/24/19 03/24/19 Ergocalciferol [Vitamin D2] 50,000 unit PO WE 03/24/19 03/24/19 Insulin Glargine [Lantus] 20 unit SQ HS 03/24/19 03/24/19 Levothyroxine Sodium [Synthroid] 25 mcg PO DAILY 03/24/19 03/24/19 Methocarbamol [Robaxin] 500 mg PO TID 03/24/19 03/24/19 Previous Rx's Medication Instructions Recorded Ibuprofen [Motrin] 600 mg PO Q6HR PRN #20 tab 12/19/18 Allergies Allergy/AdvReac Type Severity Reaction Status Date / Time No Known Allergies Allergy Verified 03/24/19 22:47 Review of Systems ROS Statement: Those systems with pertinent positive or pertinent negative responses have been documented in the HPI. ROS Other: All systems not noted in ROS Statement are negative. Past Medical History Past Medical History: Chest Pain / Angina, Dementia, Diabetes Mellitus, Hyperlipidemia, Hypertension, Syncope Additional Past Medical History / Comment(s): back pain History of Any Multi-Drug Resistant Organisms: None Reported Past Surgical History: Back Surgery, Cholecystectomy, Orthopedic Surgery Additional Past Surgical History / Comment(s): C3-C7 WITH HARDWARE. DISC REPLACED IN LOWER BACK. RT ROTATOR CUFF REPAIR Past Anesthesia/Blood Transfusion Reactions: No Reported Reaction Past Psychological History: Anxiety, Depression Smoking Status: Never smoker Past Alcohol Use History: None Reported Past Drug Use History: None Reported - Past Family History Mother Family Medical History: No Reported History Father Family Medical History: Coronary Artery Disease (CAD), Diabetes Mellitus, Deep Vein Thrombosis (DVT) Additional Family Medical History / Comment(s): paternal grandmother also had diabetes Sister(s) Family Medical History: Congestive Heart Failure (CHF) General Exam Limitations: no limitations Course Vital Signs 04/14/19 15:36 Temperature 98 F Pulse Rate 110 H Respiratory 20 Rate Blood Pressure 178/109 O2 Sat by Pulse 96 Oximetry Disposition Clinical Impression: Depression Disposition: HOME SELF-CARE Condition: Good Instructions (If sedation given, give patient instructions): Depression (ED) Is patient prescribed a controlled substance at d/c from ED?: No Referrals: Kvng Huang Jr, DO [Primary Care Provider] - 1-2 days Time of Disposition: 19:02
[2019-04-14 19:25] LABS: Amphetamine Screen,Urine Not Detected (NotDetected); Barbiturate Screen,Urine Not Detected (NotDetected); Benzodiazepines Screen,Urine Not Detected (NotDetected); Cocaine Screen,Urine Not Detected (NotDetected); Methadone Screen, Urine Not Detected (NotDetected); Opiate Screen,Urine Not Detected (NotDetected); Oxycodone Screen, Urine Not Detected (NotDetected); Phencyclidine Screen,Urine Not Detected (NotDetected); Tricyclic Antidepressant,Urine Not Detected (NotDetected); Urn Cannabinoid Scrn Not Detected (NotDetected)
[2019-04-14 20:33] VITALS: BP 146/72; PULSE 88; RESP 18
== END 2019-04-14 19:50 | disposition home or self-care (01) ==
LOC: EC 15:18
DX: F32.9 Major depressive disorder, single episode, unspecified (principal); R45.851 Suicidal ideations; F03.90 Unspecified dementia, unspecified severity, without behavioral disturbance, psychotic disturbance, mood disturbance, and anxiety; E11.9 Type 2 diabetes mellitus without complications; E78.5 Hyperlipidemia, unspecified; I10 Essential (primary) hypertension; F41.9 Anxiety disorder, unspecified; Z79.4 Long term (current) use of insulin; Z79.890 Hormone replacement therapy; Z79.899 Other long term (current) drug therapy; Z87.39 Personal history of other diseases of the musculoskeletal system and connective tissue
CPT/HCPCS: 80306; 82075; 99285

== ENCOUNTER → 2019-04-29 | Outpatient (CLI) | payer MEDICARE, OTHER ==
--- NOTE | 2019-04-29 13:45 | XR ---
EXAMINATION TYPE: XR abdomen 1V DATE OF EXAM: 04/29/2019 11:01 AM CLINICAL HISTORY: Nausea vomiting and diarrhea with upper abdominal pain for one month. TECHNIQUE: Two supine KUB images of the abdomen are obtained. COMPARISON: CT February 13, 2018. FINDINGS: Gas seen in nondistended stomach. Some paucity of small bowel gas. Gas and fecal material i s seen in non-distended colon along the periphery. Surgical change lumbosacral junction redemonstrate d. Cholecystectomy clips. Displaced clips into upper pelvis. Lung bases not included. 6 mm triangular density near right T11-T12 disc space of uncertain etiology. Cannot exclude ingested foreign body. IMPRESSION: Overall nonspecific but favor nonobstructive bowel gas pattern.
== END | disposition home or self-care (01) ==
LOC: RADXRMAIN 10:38
PROVIDERS: ATTEND Family Medicine
DX: R10.9 Unspecified abdominal pain (principal); R11.2 Nausea with vomiting, unspecified
CPT/HCPCS: 74018

== ENCOUNTER 2019-05-26 23:20 | Emergency (ER) | payer MEDICARE, OTHER ==
[2019-05-26] MEDS ORDERED: MORPHINE SULFATE 4 MG/ML SYRINGE IV STA (23:43)
[2019-05-26] MEDS ORDERED: SODIUM CHLORIDE 0.9% 1,000 ML IV STA ×2 (23:43)
[2019-05-26] MEDS ORDERED: ONDANSETRON 4 MG/2 ML VIAL IVP STA (23:43)
--- NOTE | 2019-05-26 23:45 | ED ---
Abdominal Pain HPI - General Chief Complaint: Abdominal Pain Stated Complaint: Nausea/Abd Pain Time Seen by Provider: 05/26/19 23:35 Source: patient, RN notes reviewed, old records reviewed Mode of arrival: ambulatory Limitations: no limitations - History of Present Illness Initial Comments: This is a 53-year-old male here today presents today for evaluation regards to pain nausea vomiting month maybe 2 months. Multiple ER visits as well as outpatient evaluation. Patient has no recent travel history or sick contacts symptoms are persistent with active vomiting here in the ER patient also complains of diffuse abdominal pain. No recent GI evaluation of the patient has been requesting GI evaluation. She is denying any fevers. Patient does have ER visits for mental health in the past. No prior surgical history MD Complaint: abdominal pain -: days(s) Location: diffuse Radiation: none Migration to: no migration Severity: moderate Severity scale (1-10): 4 Quality: aching Consistency: constant Improves With: nothing Worsens With: nothing Context: sick contacts Associated Symptoms: nausea - Related Data Home Medications Medication Instructions Recorded Confirmed sitaGLIPtin [Januvia] 100 mg PO DAILY 06/30/17 03/24/19 metFORMIN HCL [Glucophage] 1,000 mg PO BID 10/16/17 03/24/19 Bisoprolol-Hctz 5-6.25 mg [Ziac 1 tab PO DAILY 02/13/18 03/24/19 5-6.25 MG] Sertraline [Zoloft] 200 mg PO DAILY 03/01/18 03/24/19 Atorvastatin [Lipitor] 20 mg PO HS 03/24/19 03/24/19 Ergocalciferol [Vitamin D2] 50,000 unit PO WE 03/24/19 03/24/19 Insulin Glargine [Lantus] 20 unit SQ HS 03/24/19 03/24/19 Levothyroxine Sodium [Synthroid] 25 mcg PO DAILY 03/24/19 03/24/19 Methocarbamol [Robaxin] 500 mg PO TID 03/24/19 03/24/19 Previous Rx's Medication Instructions Recorded Ibuprofen [Motrin] 600 mg PO Q6HR PRN #20 tab 12/19/18 Allergies Allergy/AdvReac Type Severity Reaction Status Date / Time No Known Allergies Allergy Verified 05/26/19 23:30 Review of Systems ROS Statement: Those systems with pertinent positive or pertinent negative responses have been documented in the HPI. ROS Other: All systems not noted in ROS Statement are negative. Past Medical History Past Medical History: Chest Pain / Angina, Dementia, Diabetes Mellitus, Hyperlipidemia, Hypertension, Syncope Additional Past Medical History / Comment(s): back pain History of Any Multi-Drug Resistant Organisms: None Reported Past Surgical History: Back Surgery, Cholecystectomy, Orthopedic Surgery Additional Past Surgical History / Comment(s): C3-C7 WITH HARDWARE. DISC REPLACED IN LOWER BACK. RT ROTATOR CUFF REPAIR Past Anesthesia/Blood Transfusion Reactions: No Reported Reaction Past Psychological History: Anxiety, Depression Smoking Status: Never smoker Past Alcohol Use History: None Reported Past Drug Use History: None Reported - Past Family History Mother Family Medical History: No Reported History Father Family Medical History: Coronary Artery Disease (CAD), Diabetes Mellitus, Deep Vein Thrombosis (DVT) Additional Family Medical History / Comment(s): paternal grandmother also had diabetes Sister(s) Family Medical History: Congestive Heart Failure (CHF) General Exam Limitations: no limitations General appearance: alert, in no apparent distress, anxious Head exam: Present: atraumatic, normocephalic, normal inspection Eye exam: Present: normal appearance, PERRL, EOMI. Absent: scleral icterus, conjunctival injection, periorbital swelling ENT exam: Present: normal exam, mucous membranes moist Neck exam: Present: normal inspection. Absent: tenderness, meningismus, lym phadenopathy Respiratory exam: Present: normal lung sounds bilaterally. Absent: respiratory distress, wheezes, rales, rhonchi, stridor Cardiovascular Exam: Present: normal rhythm, tachycardia, normal heart sounds. Absent: systolic murmur, diastolic murmur, rubs, gallop, clicks GI/Abdominal exam: Present: soft, tenderness, normal bowel sounds. Absent: distended, guarding, rebound, rigid Extremities exam: Present: normal inspection, full ROM, normal capillary refill. Absent: tenderness, pedal edema, joint swelling, calf tenderness Back exam: Present: normal inspection Neurological exam: Present: alert, oriented X3, CN II-XII intact Psychiatric exam: Present: normal affect, normal mood Skin exam: Present: warm, dry, intact, normal color. Absent: rash Course Vital Signs 05/26/19 05/27/19 23:26 01:55 Temperature 97.7 F 97.9 F Pulse Rate 104 H 96 Respiratory 20 16 Rate Blood Pressure 159/99 134/91 O2 Sat by Pulse 97 96 Oximetry - Reevaluation(s) Reevaluation #1: 05/27/19 00:48 Medical records reviewed Reevaluation #2: 05/27/19 00:48 Improves are resolved here in the ER pain is controlled no active vomiting spoke w Dr Barfield will see patient this week Medical Decision Making - Medical Decision Making 53 male to the ER for evaluation of nonspecific abdominal nausea vomiting patient will continue outpatient treatment, follow-up with Dr. Barfield or Reina - Lab Data Result diagrams: 05/27/19 00:20 05/27/19 00:20 Lab Results 05/27/19 05/27/19 05/27/19 Range/Units 00:20 00:20 00:20 WBC 10.7 H (3.8-10.6) k/uL RBC 4.74 (4.30-5.90) m/uL Hgb 13.6 (13.0-17.5) gm/dL Hct 40.0 (39.0-53.0) % MCV 84.4 (80.0-100.0) fL MCH 28.8 (25.0-35.0) pg MCHC 34.1 (31.0-37.0) g/dL RDW 14.0 (11.5-15.5) % Plt Count 281 (150-450) k/uL Neutrophils % 58 % Lymphocytes % 30 % Monocytes % 7 % Eosinophils % 3 % Basophils % 1 % Neutrophils # 6.2 (1.3-7.7) k/uL Lymphocytes # 3.2 (1.0-4.8) k/uL Monocytes # 0.8 (0-1.0) k/uL Eosinophils # 0.3 (0-0.7) k/uL Basophils # 0.1 (0-0.2) k/uL Sodium 143 (137-145) mmol/L Potassium 3.6 (3.5-5.1) mmol/L Chloride 106 (98-107) mmol/L Carbon Dioxide 25 (22-30) mmol/L Anion Gap 12 mmol/L BUN 21 H (9-20) mg/dL Creatinine 1.06 (0.66-1.25) mg/dL Est GFR (CKD-EPI)AfAm >90 (>60 ml/min/1.73 sqM) Est GFR (CKD-EPI)NonAf 81 (>60 ml/min/1.73 sqM) Glucose 127 H (74-99) mg/dL Plasma Lactic Acid Leonel 1.8 (0.7-2.0) mmol/L Calcium 9.7 (8.4-10.2) mg/dL Total Bilirubin 0.4 (0.2-1.3) mg/dL AST 29 (17-59) U/L ALT 24 (4-49) U/L Alkaline Phosphatase 81 (38-126) U/L Total Protein 7.7 (6.3-8.2) g/dL Albumin 4.6 (3.5-5.0) g/dL Amylase 50 (30-110) U/L Lipase 300 (23-300) U/L Urine Color Urine Appearance (Clear) Urine pH (5.0-8.0) Ur Specific [place] (1.001-1.035) Urine Protein (Negative) Urine Glucose (UA) (Negative) Urine Ketones (Negative) Urine Blood (Negative) Urine Nitrite (Negative) Urine Bilirubin (Negative) Urine Urobilinogen (<2.0) mg/dL Ur Leukocyte Esterase (Negative) 05/27/19 Range/Units 00:20 WBC (3.8-10.6) k/uL RBC (4.30-5.90) m/uL Hgb (13.0-17.5) gm/dL Hct (39.0-53.0) % MCV (80.0-100.0) fL MCH (25.0-35.0) pg MCHC (31.0-37.0) g/dL RDW (11.5-15.5) % Plt Count (150-450) k/uL Neutrophils % % Lymphocytes % % Monocytes % % Eosinophils % % Basophils % % Neutrophils # (1.3-7.7) k/uL Lymphocytes # (1.0-4.8) k/uL Monocytes # (0-1.0) k/uL Eosinophils # (0-0.7) k/uL Basophils # (0-0.2) k/uL Sodium (137-145) mmol/L Potassium (3.5-5.1) mmol/L Chloride (98-107) mmol/L Carbon Dioxide (22-30) mmol/L Anion Gap mmol/L BUN (9-20) mg/dL Creatinine (0.66-1.25) mg/dL Est GFR (CKD-EPI)AfAm (>60 ml/min/1.73 sqM) Est GFR (CKD-EPI)NonAf (>60 ml/min/1.73 sqM) Glucose (74-99) mg/dL Plasma Lactic Acid Leonel (0.7-2.0) mmol/L Calcium (8.4-10.2) mg/dL Total Bilirubin (0.2-1.3) mg/dL AST (17-59) U/L ALT (4-49) U/L Alkaline Phosphatase (38-126) U/L Total Protein (6.3-8.2) g/dL Albumin (3.5-5.0) g/dL Amylase (30-110) U/L Lipase (23-300) U/L Urine Color Yellow Urine Appearance Clear (Clear) Urine pH 7.0 (5.0-8.0) Ur Specific [place] 1.021 (1.001-1.035) Urine Protein Trace H (Negative) Urine Glucose (UA) Negative (Negative) Urine Ketones Negative (Negative) Urine Blood Negative (Negative) Urine Nitrite Negative (Negative) Urine Bilirubin Negative (Negative) Urine Urobilinogen <2.0 (<2.0) mg/dL Ur Leukocyte Esterase Negative (Negative) - Radiology Data Radiology results: report reviewed (CT abdpelvis negative for acute disease), image reviewed Disposition Clinical Impression: Abdominal pain, Nausea & vomiting Disposition: HOME SELF-CARE Condition: Good Instructions (If sedation given, give patient instructions): Acute Nausea and Vomiting (ED), Abdominal Pain (ED) Is patient prescribed a controlled substance at d/c from ED?: No Referrals: Ender Barfield MD [Primary Care Provider] - 1-2 days
--- NOTE | 2019-05-27 00:18 | XR ---
EXAMINATION TYPE: XR chest 2V DATE OF EXAM: 05/27/2019 COMPARISON: 03/24/2019 HISTORY: Abdominal pain. Chest pain TECHNIQUE: FINDINGS: Heart and mediastinum are normal. Lungs are clear of infiltrate. There is no pleural effusi on. Bony thorax is intact. IMPRESSION: No active cardiopulmonary disease. Normal heart. No change.
[2019-05-27 00:50] LABS: Basophils # (A) 0.1 k/uL (0-0.2); Basophils % (A) 1 %; Eosinophils # (A) 0.3 k/uL (0-0.7); Eosinophils % (A) 3 %; HGB 13.6 gm/dL (13.0-17.5); Lymphocytes # (A) 3.2 k/uL (1.0-4.8); Lymphocytes % (A) 30 %; MCH 28.8 pg (25.0-35.0); MCHC 34.1 g/dL (31.0-37.0); MCV 84.4 fL (80.0-100.0); Mean Platelet Volume 8.2; Monocytes # (A) 0.8 k/uL (0-1.0); Monocytes % (A) 7 %; Neutrophils # (A) 6.2 k/uL (1.3-7.7); Neutrophils % (A) 58 %; Platelet Count 281 k/uL (150-450); RBC 4.74 m/uL (4.30-5.90); WBC 10.7 k/uL (3.8-10.6)
[2019-05-27 00:59] LABS: ALT 24 U/L (4-49); AST 29 U/L (17-59); African American GFR (CKD) >90 (>60 ml/min/1.73 sqM); Albumin 4.6 g/dL (3.5-5.0); Alkaline Phosphatase 81 U/L (38-126); Amylase 50 U/L (30-110); Anion Gap 12 mmol/L; Appearance,Urine Clear (Clear); Bilirubin,Urine Negative (Negative); Blood Urea Nitrogen 21 mg/dL (9-20); Blood,Urine Negative (Negative); Calcium 9.7 mg/dL (8.4-10.2); Carbon Dioxide 25 mmol/L (22-30); Chloride 106 mmol/L (98-107); Color,Urine Yellow; Glucose 127 mg/dL (74-99); Glucose,Urine (UA) Negative (Negative); Ketones,Urine Negative (Negative); Leukocyte Esterase,Urine Negative (Negative); Nitrite,Urine Negative (Negative); Non-African American GFR(CKD) 81 (>60 ml/min/1.73 sqM); Potassium 3.6 mmol/L (3.5-5.1); Protein,Urine Trace (Negative); Sodium 143 mmol/L (137-145); Specific Gravity,Urine 1.021 (1.001-1.035); Total Bilirubin 0.4 mg/dL (0.2-1.3); Total Protein 7.7 g/dL (6.3-8.2); Urobilinogen,Urine <2.0 mg/dL (<2.0)
--- NOTE | 2019-05-27 01:31 | CT ---
EXAMINATION TYPE: CT abdomen pelvis w con DATE OF EXAM: 05/27/2019 COMPARISON: None HISTORY: ABd pain CT DLP: 1547.2 mGycm Automated exposure control for dose reduction was used. CONTRAST: Performed with IV Contrast, patient injected with 100 mL of Isovue 300. Multiple axial sections were obtained from the diaphragm to the floor the pelvis with intravenous con trast Isovue 100 mL. FINDINGS: Lung bases are clear. There is no pleural effusion. Heart appears normal. There is distended stomach. Liver shows no focal defect. There are clips from cholecystectomy. Spleen is intact. Spleen has normal size. There is no pancreatic mass. There is no adrenal mass. Kidneys show satisfactory contrast opacification. There is no hydronephrosi s. Ureters are not dilated. Delayed images show normal renal excretion. There is no retroperitoneal a denopathy. There is metal artifact from back surgery with disc material at the L5-S1 level. Bladder d istends smoothly. There is no inguinal hernia. There is no free fluid in the pelvis. Appendix is medi al and crosses the midline to the left side. There is no mesenteric edema. There is no ascites or free air. There is no sign of a bowel obstructio n. Lumbar vertebra have normal alignment. There is disc surgery at L5-S1. There is no compression fractu re. Posterior elements are intact. Bony pelvis is intact. IMPRESSION: No acute abnormality of the abdomen pelvis. Normal appendix.
[2019-05-27 01:56] VITALS: BP 134/91; PULSE 96; RESP 16; TEMP 97.9
== END 2019-05-27 02:05 | disposition home or self-care (01) ==
LOC: EC 23:20
DX: R10.84 Generalized abdominal pain (principal); R11.2 Nausea with vomiting, unspecified; R00.0 Tachycardia, unspecified; F03.90 Unspecified dementia, unspecified severity, without behavioral disturbance, psychotic disturbance, mood disturbance, and anxiety; E11.9 Type 2 diabetes mellitus without complications; E78.5 Hyperlipidemia, unspecified; I10 Essential (primary) hypertension; F32.9 Major depressive disorder, single episode, unspecified; F41.9 Anxiety disorder, unspecified; Z79.4 Long term (current) use of insulin; Z79.890 Hormone replacement therapy; Z79.899 Other long term (current) drug therapy; Z87.39 Personal history of other diseases of the musculoskeletal system and connective tissue; Z90.49 Acquired absence of other specified parts of digestive tract; Z96.698 Presence of other orthopedic joint implants; Z82.49 Family history of ischemic heart disease and other diseases of the circulatory system
CPT/HCPCS: 36415; 80053; 82150; 83605; 83690; 85025; 81003; 71046; 74177; 99285; 96374; 96375; 96361 ×2; J2270; J2405; Q9967

== ENCOUNTER 2019-12-21 18:55 | Inpatient (IN) | payer MEDICARE, MEDICAID ==
--- NOTE | 2019-12-21 19:11 | ED ---
General Adult HPI - General Chief complaint: Psychiatric Symptoms Stated complaint: EPS eval Time Seen by Provider: 12/21/19 19:02 Source: patient Mode of arrival: ambulatory Limitations: no limitations - History of Present Illness Initial comments: Dictation was produced using [employer] dictation software. please excuse any grammatical, word or spelling errors. This patient was cared for during a federal and state declared state of emergency secondary to Covid 19 Chief Complaint: 54-year-old male with past medical history depression presents with suicidal ideation. History of Present Illness: 54-year-old male he is a patient of [facility]. Patient states he's been feeling suicidal for the last several days. Patient does not have a specific plan however he does plan to cut his wrists or jump off a bridge or overdose. Patient states he's been agitated with everyone and feels like he might hurt somebody. He called the crisis hotline is told to come to the emergency Department with [facility] also recommended patient to be admitted to inpatient psychiatry. Denies any auditory or visual hallucinations.Patient has no other medical complaints. The ROS documented in this emergency department record has been reviewed and confirmed by me. Those systems with pertinent positive or negative responses have been documented in the HPI. All other systems are other negative and/or noncontributory. PHYSICAL EXAM: General Impression: Alert and oriented x3, not in acute distress HEENT: Normocephalic atraumatic, extra-ocular movements intact, pupils equal and reactive to light bilaterally, mucous membranes moist. Cardiovascular: Heart regular rate and rhythm Chest: Able to complete full sentences, no retractions, no tachypnea Abdomen: abdomen soft, non-tender, non-distended, no organomegaly Musculoskeletal: Pulses present and equal in all extremities, no peripheral edema Motor: no focal deficits noted Neurological: CN II-XII grossly intact, no focal motor or sensory deficits noted Skin: Intact with no visualized rashes Psych: Agitated ED course: 54-year-old male presents with suicidal ideation. Vital signs upon arrival are within acceptable limits. Patient physical examination is benign. Patient medically cleared for EPS evaluation. Patient care is signed out to oncoming physician. Patient was evaluated by EPS and patient will be discharged to inpatient psychiatry. - Related Data Home Medications Medication Instructions Recorded Confirmed sitaGLIPtin [Januvia] 100 mg PO DAILY 06/30/17 12/22/19 metFORMIN HCL [Glucophage] 1,000 mg PO BID 10/16/17 12/22/19 Atorvastatin [Lipitor] 20 mg PO HS 03/24/19 12/22/19 Insulin Glargine [Lantus] 20 unit SQ HS 03/24/19 12/22/19 DULoxetine HCL [Cymbalta] 30 mg PO DAILY 12/21/19 12/22/19 DULoxetine HCL [Cymbalta] 60 mg PO HS 12/21/19 12/22/19 Metoclopramide HCl [Reglan] 10 mg PO AC-TID PRN 12/21/19 12/22/19 Omeprazole 20 mg PO BID 12/21/19 12/22/19 SUMAtriptan SUCCINATE [Imitrex] 100 mg PO DAILY PRN 12/21/19 12/22/19 Topiramate 50 mg PO BID 12/21/19 12/22/19 Allergies Allergy/AdvReac Type Severity Reaction Status Date / Time No Known Allergies Allergy Verified 12/22/19 03:04 Review of Systems ROS Statement: Those systems with pertinent positive or pertinent negative responses have been documented in the HPI. ROS Other: All systems not noted in ROS Statement are negative. Past Medical History Past Medical History: Chest Pain / Angina, Dementia, Diabetes Mellitus, Hyperlipidemia, Hypertension, Syncope Additional Past Medical History / Comment(s): back pain History of Any Multi-Drug Resistant Organisms: None Reported Past Surgical History: Back Surgery, Cholecystectomy, Orthopedic Surgery Additional Past Surgical History / Comment(s): C3-C7 WITH HARDWARE. DISC REPLACED IN LOWER BACK. RT ROTATOR CUFF REPAIR Past Anesthesia/Blood Transfusion Reactions: No Reported Reaction Past Psychological History: Anxiety, Depression Smoking Status: Current every day smoker Past Alcohol Use History: None Reported Past Drug Use History: None Reported - Past Family History Mother Family Medical History: No Reported History Father Family Medical History: Coronary Artery Disease (CAD), Diabetes Mellitus, Deep Vein Thrombosis (DVT) Additional Family Medical History / Comment(s): paternal grandmother also had diabetes Sister(s) Family Medical History: Congestive Heart Failure (CHF) General Exam Limitations: no limitations Course Vital Signs 12/21/19 12/22/19 18:55 00:30 Temperature 98.1 F 97.9 F Pulse Rate 102 H 86 Respiratory 18 18 Rate Blood Pressure 131/90 136/83 O2 Sat by Pulse 97 95 Oximetry Medical Decision Making - Lab Data Result diagrams: 12/21/19 23:09 12/21/19 23:09 Lab Results 12/21/19 12/21/19 12/21/19 Range/Units 19:09 20:48 21:41 WBC (3.8-10.6) k/uL RBC (4.30-5.90) m/uL Hgb (13.0-17.5) gm/dL Hct (39.0-53.0) % MCV (80.0-100.0) fL MCH (25.0-35.0) pg MCHC (31.0-37.0) g/dL RDW (11.5-15.5) % Plt Count (150-450) k/uL Neutrophils % % Lymphocytes % % Monocytes % % Eosinophils % % Basophils % % Neutrophils # (1.3-7.7) k/uL Lymphocytes # (1.0-4.8) k/uL Monocytes # (0-1.0) k/uL Eosinophils # (0-0.7) k/uL Basophils # (0-0.2) k/uL Sodium (137-145) mmol/L Potassium (3.5-5.1) mmol/L Chloride (98-107) mmol/L Carbon Dioxide (22-30) mmol/L Anion Gap mmol/L BUN (9-20) mg/dL Creatinine (0.66-1.25) mg/dL Est GFR (CKD-EPI)AfAm (>60 ml/min/1.73 sqM) Est GFR (CKD-EPI)NonAf (>60 ml/min/1.73 sqM) Glucose (74-99) mg/dL POC Glucose (mg/dL) 463 H 456 H (75-99) mg/dL POC Glu Registered Nurse Teacher ID Heft, Daisy Heft, Daisy Calcium (8.4-10.2) mg/dL Magnesium (1.6-2.3) mg/dL Total Bilirubin (0.2-1.3) mg/dL Conjugated Bilirubin (0.0-0.3) mg/dL Unconjugated Bilirubin (0.0-1.1) mg/dL Delta Bilirubin (0.0-0.2) mg/dL AST (17-59) U/L ALT (4-49) U/L Alkaline Phosphatase (38-126) U/L Total Protein (6.3-8.2) g/dL Albumin (3.5-5.0) g/dL Triglycerides (<150) mg/dL Cholesterol (<200) mg/dL LDL Cholesterol, Calc (0-99) mg/dL HDL Cholesterol (40-60) mg/dL TSH (0.465-4.680) mIU/L Urine Opiates Screen Not Detected (NotDetected) Ur Oxycodone Screen Not Detected (NotDetected) Urine Methadone Screen Not Detected (NotDetected) Ur Propoxyphene Screen Not Detected (NotDetected) Ur Barbiturates Screen Not Detected (NotDetected) U Tricyclic Antidepress Not Detected (NotDetected) Ur Phencyclidine Scrn Not Detected (NotDetected) Ur Amphetamines Screen Detected H (NotDetected) U Methamphetamines Scrn Detected H (NotDetected) U Benzodiazepines Scrn Not Detected (NotDetected) Urine Cocaine Screen Not Detected (NotDetected) U Marijuana (THC) Screen Not Detected (NotDetected) 12/21/19 12/21/19 12/21/19 Range/Units 22:25 23:09 23:09 WBC 11.2 H (3.8-10.6) k/uL RBC 5.19 (4.30-5.90) m/uL Hgb 14.2 (13.0-17.5) gm/dL Hct 43.8 (39.0-53.0) % MCV 84.4 (80.0-100.0) fL MCH 27.3 (25.0-35.0) pg MCHC 32.4 (31.0-37.0) g/dL RDW 13.4 (11.5-15.5) % Plt Count 320 (150-450) k/uL Neutrophils % 65 % Lymphocytes % 26 % Monocytes % 5 % Eosinophils % 2 % Basophils % 1 % Neutrophils # 7.3 (1.3-7.7) k/uL Lymphocytes # 2.9 (1.0-4.8) k/uL Monocytes # 0.5 (0-1.0) k/uL Eosinophils # 0.2 (0-0.7) k/uL Basophils # 0.1 (0-0.2) k/uL Sodium 133 L (137-145) mmol/L Potassium 4.0 (3.5-5.1) mmol/L Chloride 98 (98-107) mmol/L Carbon Dioxide 27 (22-30) mmol/L Anion Gap 8 mmol/L BUN 22 H (9-20) mg/dL Creatinine 0.76 (0.66-1.25) mg/dL Est GFR (CKD-EPI)AfAm >90 (>60 ml/min/1.73 sqM) Est GFR (CKD-EPI)NonAf >90 (>60 ml/min/1.73 sqM) Glucose 381 H (74-99) mg/dL POC Glucose (mg/dL) 457 H (75-99) mg/dL POC Glu Registered Nurse Teacher ID Grace See Calcium 9.7 (8.4-10.2) mg/dL Magnesium 1.7 (1.6-2.3) mg/dL Total Bilirubin 0.4 (0.2-1.3) mg/dL Conjugated Bilirubin (0.0-0.3) mg/dL Unconjugated Bilirubin (0.0-1.1) mg/dL Delta Bilirubin (0.0-0.2) mg/dL AST 24 (17-59) U/L ALT 17 (4-49) U/L Alkaline Phosphatase 126 (38-126) U/L Total Protein 7.1 (6.3-8.2) g/dL Albumin 4.2 (3.5-5.0) g/dL Triglycerides (<150) mg/dL Cholesterol (<200) mg/dL LDL Cholesterol, Calc (0-99) mg/dL HDL Cholesterol (40-60) mg/dL TSH (0.465-4.680) mIU/L Urine Opiates Screen (NotDetected) Ur Oxycodone Screen (NotDetected) Urine Methadone Screen (NotDetected) Ur Propoxyphene Screen (NotDetected) Ur Barbiturates Screen (NotDetected) U Tricyclic Antidepress (NotDetected) Ur Phencyclidine Scrn (NotDetected) Ur Amphetamines Screen (NotDetected) U Methamphetamines Scrn (NotDetected) U Benzodiazepines Scrn (NotDetected) Urine Cocaine Screen (NotDetected) U Marijuana (THC) Screen (NotDetected) 12/21/19 12/22/19 12/22/19 Range/Units 23:09 00:29 01:25 WBC (3.8-10.6) k/uL RBC (4.30-5.90) m/uL Hgb (13.0-17.5) gm/dL Hct (39.0-53.0) % MCV (80.0-100.0) fL MCH (25.0-35.0) pg MCHC (31.0-37.0) g/dL RDW (11.5-15.5) % Plt Count (150-450) k/uL Neutrophils % % Lymphocytes % % Monocytes % % Eosinophils % % Basophils % % Neutrophils # (1.3-7.7) k/uL Lymphocytes # (1.0-4.8) k/uL Monocytes # (0-1.0) k/uL Eosinophils # (0-0.7) k/uL Basophils # (0-0.2) k/uL Sodium (137-145) mmol/L Potassium (3.5-5.1) mmol/L Chloride (98-107) mmol/L Carbon Dioxide (22-30) mmol/L Anion Gap mmol/L BUN (9-20) mg/dL Creatinine (0.66-1.25) mg/dL Est GFR (CKD-EPI)AfAm (>60 ml/min/1.73 sqM) Est GFR (CKD-EPI)NonAf (>60 ml/min/1.73 sqM) Glucose (74-99) mg/dL POC Glucose (mg/dL) 245 H 217 H (75-99) mg/dL POC Glu Registered Nurse Teacher ID Heft, Daisy Heft, Daisy Calcium (8.4-10.2) mg/dL Magnesium (1.6-2.3) mg/dL Total Bilirubin 0.4 (0.2-1.3) mg/dL Conjugated Bilirubin 0.0 (0.0-0.3) mg/dL Unconjugated Bilirubin 0.1 (0.0-1.1) mg/dL Delta Bilirubin 0.3 H (0.0-0.2) mg/dL AST 20 (17-59) U/L ALT 17 (4-49) U/L Alkaline Phosphatase 125 (38-126) U/L Total Protein 7.1 (6.3-8.2) g/dL Albumin 4.0 (3.5-5.0) g/dL Triglycerides 1106 H (<150) mg/dL Cholesterol 266 H (<200) mg/dL LDL Cholesterol, Calc (0-99) mg/dL HDL Cholesterol 34 L (40-60) mg/dL TSH 0.699 (0.465-4.680) mIU/L Urine Opiates Screen (NotDetected) Ur Oxycodone Screen (NotDetected) Urine Methadone Screen (NotDetected) Ur Propoxyphene Screen (NotDetected) Ur Barbiturates Screen (NotDetected) U Tricyclic Antidepress (NotDetected) Ur Phencyclidine Scrn (NotDetected) Ur Amphetamines Screen (NotDetected) U Methamphetamines Scrn (NotDetected) U Benzodiazepines Scrn (NotDetected) Urine Cocaine Screen (NotDetected) U Marijuana (THC) Screen (NotDetected) Disposition Clinical Impression: Suicidal ideation Disposition: ADMITTED IP TO THIS [facility] Condition: Fair Decision Time: 11:59
[2019-12-21 19:40] LABS: Amphetamine Screen,Urine Detected (NotDetected); Barbiturate Screen,Urine Not Detected (NotDetected); Benzodiazepines Screen,Urine Not Detected (NotDetected); Cocaine Screen,Urine Not Detected (NotDetected); Methadone Screen, Urine Not Detected (NotDetected); Opiate Screen,Urine Not Detected (NotDetected); Oxycodone Screen, Urine Not Detected (NotDetected); Phencyclidine Screen,Urine Not Detected (NotDetected); Tricyclic Antidepressant,Urine Not Detected (NotDetected); Urn Cannabinoid Scrn Not Detected (NotDetected)
[2019-12-21 21:01] LABS: Glucose,Whole Blood 463 mg/dL (75-99)
[2019-12-21] MEDS ORDERED: INSULIN REGULAR 100 UNIT/ML VIAL SQ ONE (21:05)
[2019-12-21 21:44] LABS: Glucose,Whole Blood 456 mg/dL (75-99)
[2019-12-21] MEDS ORDERED: INSULIN ASPART (NovoLOG) 100 UNIT/ML VIAL SQ ONE (21:50)
[2019-12-21 22:27] LABS: Glucose,Whole Blood 457 mg/dL (75-99)
[2019-12-21] MEDS ORDERED: SODIUM CHLORIDE 0.9% 1,000 ML IV ONE (23:00)
[2019-12-21 23:18] LABS: Basophils # (A) 0.1 k/uL (0-0.2); Basophils % (A) 1 %; Eosinophils # (A) 0.2 k/uL (0-0.7); Eosinophils % (A) 2 %; HCT 43.8 % (39.0-53.0); HGB 14.2 gm/dL (13.0-17.5); Lymphocytes # (A) 2.9 k/uL (1.0-4.8); Lymphocytes % (A) 26 %; MCH 27.3 pg (25.0-35.0); MCHC 32.4 g/dL (31.0-37.0); MCV 84.4 fL (80.0-100.0); Mean Platelet Volume 8.4; Monocytes # (A) 0.5 k/uL (0-1.0); Monocytes % (A) 5 %; Neutrophils # (A) 7.3 k/uL (1.3-7.7); Neutrophils % (A) 65 %; Platelet Count 320 k/uL (150-450); RBC 5.19 m/uL (4.30-5.90); RDW 13.4 % (11.5-15.5); WBC 11.2 k/uL (3.8-10.6)
[2019-12-21 23:42] LABS: ALT 17 U/L (4-49); AST 24 U/L (17-59); African American GFR (CKD) >90 (>60 ml/min/1.73 sqM); Albumin 4.2 g/dL (3.5-5.0); Alkaline Phosphatase 126 U/L (38-126); Anion Gap 8 mmol/L; Blood Urea Nitrogen 22 mg/dL (9-20); Calcium 9.7 mg/dL (8.4-10.2); Carbon Dioxide 27 mmol/L (22-30); Chloride 98 mmol/L (98-107); Glucose 381 mg/dL (74-99); Magnesium 1.7 mg/dL (1.6-2.3); Non-African American GFR(CKD) >90 (>60 ml/min/1.73 sqM); Sodium 133 mmol/L (137-145); Total Bilirubin 0.4 mg/dL (0.2-1.3); Total Protein 7.1 g/dL (6.3-8.2)
[2019-12-21] MEDS ORDERED: INSULIN REGULAR 100 UNIT/ML VIAL IV ONE (23:49)
[2019-12-22 00:34] LABS: Glucose,Whole Blood 245 mg/dL (75-99)
[2019-12-22 01:26] LABS: Glucose,Whole Blood 217 mg/dL (75-99)
[2019-12-22] MEDS ORDERED: LORazepam 1 MG TAB PO PRN (02:56)
[2019-12-22] MEDS ORDERED: ZIPRASIDONE 20 MG VIAL IM PRN (02:56)
[2019-12-22] MEDS ORDERED: MAG HYDROX/AL HYDROX/SIMETH 30 ML CUP PO PRN (02:56)
[2019-12-22] MEDS ORDERED: MAGNESIUM HYDROXIDE 2,400 MG/10 ML CUP PO PRN (02:56)
[2019-12-22] MEDS ORDERED: LORazepam 2 MG/ML INJ IM PRN (03:00)
[2019-12-22 05:59] LABS: Bilirubin, Delta 0.3 mg/dL (0.0-0.2); Bilirubin,Unconjugated 0.1 mg/dL (0.0-1.1); Total Bilirubin 0.4 mg/dL (0.2-1.3); Total Protein 7.1 g/dL (6.3-8.2)
[2019-12-22] MEDS: INSULIN ASPART (NovoLOG) 100 UNIT/ML VIAL SQ SCH ×4 (08:00→20:26)
[2019-12-22 08:04] LABS: Glucose,Whole Blood 339 mg/dL (75-99)
[2019-12-22 08:04] LABS: Glucose,Whole Blood 309 mg/dL (75-99)
[2019-12-22] MEDS: metFORMIN 500 MG TAB PO SCH ×2 (09:39→20:26)
[2019-12-22] MEDS: LINAGLIPTIN 5 MG TABLET PO SCH (09:39)
[2019-12-22 13:48] LABS: Glucose,Whole Blood 286 mg/dL (75-99)
[2019-12-22 14:49] LABS: Hemoglobin A1C 12.9 % (4.0-6.0)
--- NOTE | 2019-12-22 14:49 | HP ---
HISTORY AND PHYSICAL DATE WAS ADMITTED: 12/21/2019 DATE OF EVALUATION: 12/22/2019 IDENTIFYING DATA: Patient is 54, male who is currently living with his fiancee of 5 years. Patient is on social security disability. He is his own guardian. CHIEF COMPLAINT: The patient presented to the emergency room with depression, anger issues and suicidal ideation. HISTORY OF PRESENT ILLNESS: The patient stated that he has been having a lot of anger issue especially over the last couple of months since he was started on Cymbalta prescribed by his primary care physician. He describes low frustration tolerance, screaming and yelling to his children, grandchildren and his fiancee for minor stuff, but he denied any physical aggression. Patient stated that he has been struggling with a lot of chronic pain as he did hurt his back in 2007 and since then he has not been able to work also his social security income is not enough even to meet co-pay for his doctor visits. He stated that he has been tired most of the daytime and staying in his bed. However, at night he has trouble sleeping at night. The patient stated that he does wake up in the middle of night with nightmares and starts screaming and yelling at his fiancee. Patient stated that he started therapy at [facility] in April or May of this year as he was having lot of issues with his fiancee of 5 years. He does feel helpless, hopeless, not able to help himself, even he did contact his therapist yesterday and his therapist did recommend that he will come to the hospital to be admitted. Patient stated that he has been struggling with a lot of chronic pain and migraine headache and not able to handle the pain. He did verbalize suicidal ideation, but he did not give me any specific plan. He stated that he has been neglecting his medical condition, his diabetes and also his basic hygiene. Patient stated that he has been feeling worthless and he did rate his depression and anxiety both 10/10, 10 being the worst. Also, he did rate his back pain 10/10, 10 being the worst. PAST PSYCHIATRIC HISTORY: There is no previous inpatient treatment,, the patient started outpatient at [facility] in April or May of this year. However, he was not seen by psychiatrist, just he saw a therapist, Eduar. He has been getting Cymbalta from his primary care physician and started 2 months ago, but according to the patient, he stopped it last week because he did feel that he has been getting more angry. SUBSTANCE ABUSE HISTORY: The patient stated that he was heavy drinker until 2009 and he denied any of alcohol use since then. He has 4 drunk driving tickets. He never had been in any substance rehab. In early twenties he used use mescaline, cocaine and PCP. LEGAL PROBLEMS: He stated that he was arrested many times, at least 3 times for domestic violence. The last one it was 3 years ago towards his fiancee. Also, there are four drunk driving tickets. He had a couple of felony for property destruction, but currently he denied any probation,. denied any current legal issue. MEDICAL HISTORY: Status post neck surgery in 2018. He had fusion at C3 and C4, also status post lower back surgery. History of migraine headache. History of chronic back pain. History of diabetes, hypertension, hyperlipidemia, syncopal attack. He stated that 3 months ago he did have a partial resection of his colon as he did have a lot of polyps. He stated that he has memory problem and he has been going to a neurologist to rule out seizures activity and dementia. However, he did not follow through with the neurologist because "I cannot afford the deductible that I have to pay." I did review all his medical records from previous admission to the medical floor and the brain MRI in 2007 shows that there are a few white matter changes in the subcortical lobe, but the largest change is in the right frontal region. ALLERGIES: There is no drug allergy. HOME MEDICATIONS: Januvia, Glucophage, Lipitor, insulin, Cymbalta 90 mg, Reglan, omeprazole, Imitrex, Topamax 50 mg twice a day. Patient stated that he stopped taking Cymbalta and Topamax. FAMILY HISTORY OF PSYCHIATRIC ILLNESS: Mother was alcoholic. He had one brother who from alcoholic liver cirrhosis. BRIEF SOCIAL HISTORY: The patient has 2 living brothers and 5 sisters. He stated that he dropped out of school at 10th grade and later on he did get his GED. 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 Since then, he has been on disability. He was once for 15 years, ended by divorce. He has twin daughters from a relationship he had at age 18. . Currently, he has been living with his fiancee for the last 5 years and he stated that his fiancee is his ex-'s sister. The patient has good relationship with his twins daughters MENTAL STATUS EXAMINATION: Patient is a male, wearing hospital gown. He looks much older than stated age. Not shaved, disheveled, unkempt. He kept his eyes closed throughout the interview. He was tearful at times. Speech is coherent, normal in rhythm and productivity. He denied any auditory or visual hallucination. However, he stated that he has been paranoia around crowds and "it is like having panic attack if I am around people." He endorses depression and anxiety, both rated 10/10, 10 being the worst. Patient reported that his mood is very depressed and anxious. His affect is appropriate to thought content. He denied having any homicidal ideation, intent, or plan. He stated that he has suicidal ideation, but he did not give me any specific plan and is able to contract for safety in the hospital. He denied any idea of reference or delusional thinking. His memory::, he was alert, oriented to place and person, but he could not remember the exact today's date. He could not do simple calculations and also he could not spell world backward. His insight and judgment are limited. INTELLECTUAL: Average. STRENGTH AND WEAKNESS: STRENGTHS: The patient has good support system. He has income. WEAKNESSES: He has multiple medical issue ,poor impulse control IMPRESSION: 1. Depressive disorder, rule out organic mood disorder due to CHI versus bipolar disorder, type 2 depressed episode. 2. Anxiety disorder, unspecified. 3. History of closed head injury. 4. History of alcohol use disorder. PLAN: The patient is admitted under voluntary status due to mental health unit for stabilization of his psychiatric symptoms and safety is the patient did sign a voluntary admission form and medication consent. I will start the patient on Tegretol for his anger outburst and also due to the change in his MRI, it seems that he has changed mainly in the frontal lobe. Will check the Tegretol level and white blood cells in 4 to 5 days. I will start the patient on _Lexapro____10 mg for depression and anxiety. Also I will add Seroquel 50 mg at bedtime for mood stabilization and insomnia. Will continue Ativan and Geodon p.r.n. for agitation and aggression. Internal Medicine consult to perform medical evaluation and physical. Encourage patient to participate in group to work on coping skills. domestic laundry worker on board for discharge planning. MMFARAZL / ANYN: [id number] / MTDD
--- NOTE | 2019-12-22 15:32 | P.CONS ---
History of Present Illness - Reason for Consult Consult date: 12/22/19 diabetes treatment - History of Present Illness This is a 54 you type 2 diabetic c/o depression presents with suicidal ideation.He was admitted to the psych floor for further tx. I kayla been asked top see him regarding DM2. Home med list reviewed. he denies any chest pain pressure sob nausea vomiting. C/o headache and h/o migraine. Review of Systems All systems: negative Past Medical History Past Medical History: Chest Pain / Angina, Dementia, Diabetes Mellitus, Hyperlipidemia, Hypertension, Neurologic Disorder (Migraines), Syncope Additional Past Medical History / Comment(s): back pain History of Any Multi-Drug Resistant Organisms: None Reported Past Surgical History: Back Surgery, Cholecystectomy, Orthopedic Surgery Additional Past Surgical History / Comment(s): C3-C7 WITH HARDWARE. DISC REPLACED IN LOWER BACK. RT ROTATOR CUFF REPAIR Past Anesthesia/Blood Transfusion Reactions: No Reported Reaction Past Psychological History: Anxiety, Depression Smoking Status: Current every day smoker Past Alcohol Use History: None Reported Past Drug Use History: None Reported - Past Family History Mother Family Medical History: No Reported History Father Family Medical History: Coronary Artery Disease (CAD), Diabetes Mellitus, Deep Vein Thrombosis (DVT) Additional Family Medical History / Comment(s): paternal grandmother also had diabetes Sister(s) Family Medical History: Congestive Heart Failure (CHF) Medications and Allergies Home Medications Medication Instructions Recorded Confirmed Type sitaGLIPtin [Januvia] 100 mg PO DAILY 06/30/17 12/22/19 History metFORMIN HCL [Glucophage] 1,000 mg PO BID 10/16/17 12/22/19 History Atorvastatin [Lipitor] 20 mg PO HS 03/24/19 12/22/19 History Insulin Glargine [Lantus] 20 unit SQ HS 03/24/19 12/22/19 History DULoxetine HCL [Cymbalta] 30 mg PO DAILY 12/21/19 12/22/19 History DULoxetine HCL [Cymbalta] 60 mg PO HS 12/21/19 12/22/19 History Metoclopramide HCl [Reglan] 10 mg PO AC-TID PRN 12/21/19 12/22/19 History Omeprazole 20 mg PO BID 12/21/19 12/22/19 History SUMAtriptan SUCCINATE [Imitrex] 100 mg PO DAILY PRN 12/21/19 12/22/19 History Topiramate 50 mg PO BID 12/21/19 12/22/19 History Allergies Allergy/AdvReac Type Severity Reaction Status Date / Time No Known Allergies Allergy Verified 12/22/19 03:04 Physical Exam Vitals: Vital Signs Temp Pulse Pulse Resp BP BP Pulse Ox 12/22/19 02:02 97.7 F 88 18 135/97 97 12/22/19 00:30 97.9 F 86 18 136/83 95 12/21/19 18:55 98.1 F 102 H 18 131/90 97 Intake and Output 12/22/19 12/22/19 12/22/19 06:59 14:59 22:59 Other: Weight 85.842 kg - Constitutional General appearance: average body habitus - EENT Eyes: PERRLA ENT: normal oropharynx - Neck Neck: no lymphadenopathy, no thyromegaly Carotids: bilateral: bruit absent - Respiratory Respiratory: bilateral: CTA - Cardiovascular Rhythm: regular Heart sounds: normal: S1, S2 Abnormal Heart Sounds: no systolic murmur - Gastrointestinal General gastrointestinal: normal bowel sounds, no organomegaly - Neurologic Neurologic: CNII-XII intact - Musculoskeletal Musculoskeletal: gait normal - Psychiatric Psychiatric: A&O x's 3, appropriate affect (depressed mood) Results CBC & Chem 7: 12/21/19 23:09 12/21/19 23:09 Labs: Abnormal Lab Results - Last 24 Hours (Table) 12/21/19 12/21/19 12/21/19 Range/Units 19:09 20:48 21:41 WBC (3.8-10.6) k/uL Sodium (137-145) mmol/L BUN (9-20) mg/dL Glucose (74-99) mg/dL POC Glucose (mg/dL) 463 H 456 H (75-99) mg/dL Hemoglobin A1c (4.0-6.0) % Delta Bilirubin (0.0-0.2) mg/dL Triglycerides (<150) mg/dL Cholesterol (<200) mg/dL HDL Cholesterol (40-60) mg/dL Ur Amphetamines Screen Detected H (NotDetected) U Methamphetamines Scrn Detected H (NotDetected) 12/21/19 12/21/19 12/21/19 Range/Units 22:25 23:09 23:09 WBC 11.2 H (3.8-10.6) k/uL Sodium 133 L (137-145) mmol/L BUN 22 H (9-20) mg/dL Glucose 381 H (74-99) mg/dL POC Glucose (mg/dL) 457 H (75-99) mg/dL Hemoglobin A1c (4.0-6.0) % Delta Bilirubin (0.0-0.2) mg/dL Triglycerides (<150) mg/dL Cholesterol (<200) mg/dL HDL Cholesterol (40-60) mg/dL Ur Amphetamines Screen (NotDetected) U Methamphetamines Scrn (NotDetected) 12/21/19 12/21/19 12/22/19 Range/Units 23:09 23:09 00:29 WBC (3.8-10.6) k/uL Sodium (137-145) mmol/L BUN (9-20) mg/dL Glucose (74-99) mg/dL POC Glucose (mg/dL) 245 H (75-99) mg/dL Hemoglobin A1c 12.9 H (4.0-6.0) % Delta Bilirubin 0.3 H (0.0-0.2) mg/dL Triglycerides 1106 H (<150) mg/dL Cholesterol 266 H (<200) mg/dL HDL Cholesterol 34 L (40-60) mg/dL Ur Amphetamines Screen (NotDetected) U Methamphetamines Scrn (NotDetected) 12/22/19 12/22/19 12/22/19 Range/Units 01:25 07:41 07:42 WBC (3.8-10.6) k/uL Sodium (137-145) mmol/L BUN (9-20) mg/dL Glucose (74-99) mg/dL POC Glucose (mg/dL) 217 H 339 H 309 H (75-99) mg/dL Hemoglobin A1c (4.0-6.0) % Delta Bilirubin (0.0-0.2) mg/dL Triglycerides (<150) mg/dL Cholesterol (<200) mg/dL HDL Cholesterol (40-60) mg/dL Ur Amphetamines Screen (NotDetected) U Methamphetamines Scrn (NotDetected) 12/22/19 Range/Units 13:06 WBC (3.8-10.6) k/uL Sodium (137-145) mmol/L BUN (9-20) mg/dL Glucose (74-99) mg/dL POC Glucose (mg/dL) 286 H (75-99) mg/dL Hemoglobin A1c (4.0-6.0) % Delta Bilirubin (0.0-0.2) mg/dL Triglycerides (<150) mg/dL Cholesterol (<200) mg/dL HDL Cholesterol (40-60) mg/dL Ur Amphetamines Screen (NotDetected) U Methamphetamines Scrn (NotDetected) Assessment and Plan (1) Type 2 diabetes mellitus without complications Current Visit: Yes Status: Acute Code(s): E11.9 - TYPE 2 DIABETES MELLITUS WITHOUT COMPLICATIONS SNOMED Code(s): 379045378 (2) Hyperlipidemia, unspecified Current Visit: Yes Status: Acute Code(s): E78.5 - HYPERLIPIDEMIA, UNSPECIFIED SNOMED Code(s): 96709059 (3) Depression Current Visit: Yes Status: Acute Code(s): F32.9 - MAJOR DEPRESSIVE DISORDER, SINGLE EPISODE, UNSPECIFIED SNOMED Code(s): 70578114 (4) Migraine Current Visit: Yes Status: Acute Code(s): G43.909 - MIGRAINE, UNSP, NOT INTRACTABLE, WITHOUT STATUS MIGRAINOSUS SNOMED Code(s): 59615382 (5) Suicidal ideation Current Visit: Yes Status: Acute Code(s): R45.851 - SUICIDAL IDEATIONS SNOMED Code(s): 1920060 Plan: restart home meds accuchecks qac +HS sliding scale insulin hypertiglceridemia add Fenofibrate check HBA1C we will f/u with the pt as needed during his stay thank you for allowing me to participate in his care
[2019-12-22 16:18] LABS: Glucose,Whole Blood 273 mg/dL (75-99)
[2019-12-22 17:55] LABS: Glucose,Whole Blood 281 mg/dL (75-99)
[2019-12-22] MEDS: PANTOPRAZOLE 40 MG TABLET PO SCH (18:07)
[2019-12-22] MEDS: ACETAMINOPHEN TAB 325 MG TAB PO PRN (19:42)
[2019-12-22] MEDS: ATORVASTATIN 20 MG TAB PO SCH (19:42)
[2019-12-22] MEDS: QUEtiapine 50 MG TAB PO SCH (20:27)
[2019-12-22] MEDS: TOPIRAMATE 25 MG TAB PO SCH (20:27)
[2019-12-22 20:43] LABS: Glucose,Whole Blood 290 mg/dL (75-99)
[2019-12-22] MEDS ORDERED: INSULIN DETEMIR (LEVEMIR) 100 UNIT/ML SYR SQ SCH (21:00)
[2019-12-23 08:05] LABS: Glucose,Whole Blood 281 mg/dL (75-99)
[2019-12-23] MEDS: INSULIN ASPART (NovoLOG) 100 UNIT/ML VIAL SQ SCH ×4 (08:49→20:46)
[2019-12-23] MEDS: PANTOPRAZOLE 40 MG TABLET PO SCH (08:53)
[2019-12-23] MEDS: FENOFIBRATE 160 MG TAB PO SCH (08:53)
[2019-12-23] MEDS: LINAGLIPTIN 5 MG TABLET PO SCH (08:53)
[2019-12-23] MEDS: TOPIRAMATE 25 MG TAB PO SCH ×2 (08:53→20:55)
[2019-12-23] MEDS: ESCITALOPRAM 5 MG TAB PO SCH (08:53)
[2019-12-23] MEDS: metFORMIN 500 MG TAB PO SCH ×2 (08:54→20:56)
[2019-12-23 12:48] LABS: Glucose,Whole Blood 300 mg/dL (75-99)
--- NOTE | 2019-12-23 15:19 | P.PN ---
Progress Note - Text Progress Note Date: 12/23/19 I did review medical records ,I discussed case in team meeting ,I did interview patient as he was laying in bed and refused to come to office According to RN note patient slept 7 hours ,did not participate in any groups Interim history: Patient was laying in bed ,reluctant to follow me to office as he is feeling tired ,stated that he slept better last night ,no nightmares ,reports that he is still feeling anxious to be around people and he is avoiding groups ,when I asked him if he is paranoia around people ,he stated "No I just get anxious",he rates his depression 3/10 ,10 being the worst Mental status exam: patient was dressed in hospital gown ,not shaved ,marginal grooming ,non spontaneous but coherent ,avoiding eyes contact,denies any suicidal or homicidal ideation denies any hallucination or delusion ,insight and judgement are fair Clinical Problems: 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 Continue Lexapro,Tegretol and Seroquel ,will check tegretol level and CBC on Thursday. Encourage participation in therapeutic groups and activities Evaluate clinical status and response to treatment on daily basis
[2019-12-23] MEDS: PIOGLITAZONE 30 MG TAB PO SCH (17:22)
[2019-12-23] MEDS: ACETAMINOPHEN TAB 325 MG TAB PO PRN ×2 (17:22→20:50)
[2019-12-23] MEDS: SUMAtriptan succinate 50 MG TAB PO PRN (17:48)
[2019-12-23 17:58] LABS: Glucose,Whole Blood 260 mg/dL (75-99)
[2019-12-23 19:59] LABS: Glucose,Whole Blood 349 mg/dL (75-99)
[2019-12-23] MEDS: INSULIN DETEMIR (LEVEMIR) 100 UNIT/ML SYR SQ SCH (20:47)
[2019-12-23] MEDS: ATORVASTATIN 20 MG TAB PO SCH (20:56)
[2019-12-23] MEDS: QUEtiapine 50 MG TAB PO SCH (20:56)
[2019-12-24 06:55] VITALS: RESP 16
[2019-12-24 07:47] LABS: Glucose,Whole Blood 245 mg/dL (75-99)
[2019-12-24] MEDS: PANTOPRAZOLE 40 MG TABLET PO SCH (07:52)
[2019-12-24] MEDS: INSULIN ASPART (NovoLOG) 100 UNIT/ML VIAL SQ SCH ×4 (07:52→21:00)
[2019-12-24] MEDS: FENOFIBRATE 160 MG TAB PO SCH (07:52)
[2019-12-24] MEDS: PIOGLITAZONE 30 MG TAB PO SCH (07:53)
[2019-12-24] MEDS: ACETAMINOPHEN TAB 325 MG TAB PO PRN ×2 (07:53→12:41)
[2019-12-24] MEDS: TOPIRAMATE 25 MG TAB PO SCH ×2 (07:53→21:01)
[2019-12-24] MEDS: LINAGLIPTIN 5 MG TABLET PO SCH (07:53)
[2019-12-24] MEDS: ESCITALOPRAM 5 MG TAB PO SCH (07:53)
[2019-12-24] MEDS: metFORMIN 500 MG TAB PO SCH ×2 (07:53→21:01)
[2019-12-24] MEDS: SUMAtriptan succinate 50 MG TAB PO PRN (07:57)
--- NOTE | 2019-12-24 10:16 | P.PN ---
Progress Note - Text Progress Note Date: 12/24/19 Interval history: Patient was seen laying down in his bed this morning and was directable and a greeable to speak with short story writer. Patient appeared to be somewhat anxious today and endorsed mild depression however did state that overall he is improving mildly. Patient was agreeable to have his Lexapro increased today. He claims that he has been mainly isolating in his room and interacts with some people however feels that she doesn't want it "said people back" and gave an example of another patient who was bragging about being on methadone when he believes that that is not being clean and does not want to "hurt his feelings". He states that he was able sleep better last night on Seroquel and has a fair appetite. At this time patient denies any suicidal or homicidal ideations intent or plan. Denies any Auditory or visual hallucinations. Patient denies any side effects from the medications and has been compliant with meds. Mental status exam: General Appearance: Patient appears to be stated age is alert, directable yet is anxious, and cooperative. Behavior: No agitated behavior. Patient is calm and directable Speech: Patient's speech is fluent and nonpressured. Hesitant. Mood/Affect: Mood is improving mildly, affect is congruent and constricted. Suicidality/Homicidality: Patient denies having any suicidal or homicidal ideation intent or plan. Perceptions: Patient denies any auditory or visual hallucinations. Though content/process: There is no evidence of any delusional thought content and thought process is linear, preoccupied with other people on the unit. Memory and concentration: AOX3, grossly intact for the purposes of this session Judgment and insight: improving mildly Assessment/Plan: Continue with current diagnosis. Patient continues to meet criteria for inpatient psychiatric admission for symptom stabilization and safety.Patient will be maintained on current psychotropic medication regimen with the exception of an increase in Lexapro to 10 mg daily for mood/anxiety. Monitor for medication compliance and for any psychotropic medication side effects. Will continue to monitor ongoing response to treatment. Encouraged participation in milieu.
[2019-12-24 12:55] LABS: Glucose,Whole Blood 363 mg/dL (75-99)
[2019-12-24 17:33] LABS: Glucose,Whole Blood 185 mg/dL (75-99)
[2019-12-24 20:16] LABS: Glucose,Whole Blood 249 mg/dL (75-99)
[2019-12-24] MEDS: INSULIN DETEMIR (LEVEMIR) 100 UNIT/ML SYR SQ SCH (21:00)
[2019-12-24] MEDS: QUEtiapine 50 MG TAB PO SCH (21:01)
[2019-12-24] MEDS: ATORVASTATIN 20 MG TAB PO SCH (21:01)
[2019-12-25 08:26] LABS: Glucose,Whole Blood 195 mg/dL (75-99)
[2019-12-25] MEDS: INSULIN ASPART (NovoLOG) 100 UNIT/ML VIAL SQ SCH ×5 (08:26→20:29)
[2019-12-25] MEDS: SUMAtriptan succinate 50 MG TAB PO PRN (08:26)
[2019-12-25] MEDS: PANTOPRAZOLE 40 MG TABLET PO SCH (08:27)
[2019-12-25] MEDS: metFORMIN 500 MG TAB PO SCH ×2 (08:27→20:05)
[2019-12-25] MEDS: PIOGLITAZONE 30 MG TAB PO SCH (08:27)
[2019-12-25] MEDS: ESCITALOPRAM 10 MG TAB PO SCH (08:27)
[2019-12-25] MEDS: ACETAMINOPHEN TAB 325 MG TAB PO PRN ×2 (08:27→13:12)
[2019-12-25] MEDS: TOPIRAMATE 25 MG TAB PO SCH ×2 (08:27→20:39)
[2019-12-25] MEDS: FENOFIBRATE 160 MG TAB PO SCH (08:27)
[2019-12-25] MEDS: LINAGLIPTIN 5 MG TABLET PO SCH (08:27)
--- NOTE | 2019-12-25 11:12 | P.PN ---
Progress Note - Text Progress Note Date: 12/25/19 Interval history: Patient was seen wandering the hallways this morning and was directable and a greeable to speak with machine sign writer in the office today. Patient appeared to be calmer today however did speak about his girlfriend calling him yesterday and states that she is not sure if she wants to be with him any longer. She states that "my condition could be explosive and I could hurt her it's what she sad". He claims that he feels a lot calmer when speaking with her however does not want to hear from her at this time as it will "set me back". He claims that he has been mainly isolating in his room however has been interacting with other people on the unit at times. He states that he did go to 2 groups yesterday however generally does not like going to groups. He states that he was able not able to sleep well last night and was agreeable to have the Seroquel increased. At this time patient denies any suicidal or homicidal ideations intent or plan. Denies any Auditory or visual hallucinations. Patient denies any side effects from the medications and has been compliant with meds. Mental status exam: General Appearance: Patient appears to be stated age is alert, directable yet is anxious, and cooperative. Behavior: No agitated behavior. Patient is calm and directable Speech: Patient's speech is fluent and nonpressured. Hesitant. Mood/Affect: Mood is improving mildly, affect is congruent and constricted. Suicidality/Homicidality: Patient denies having any suicidal or homicidal ideation intent or plan. Perceptions: Patient denies any auditory or visual hallucinations. Though content/process: There is no evidence of any delusional thought content and thought process is linear, preoccupied with his relationship with his girlfriend. Memory and concentration: AOX3, grossly intact for the purposes of this session Judgment and insight: improving mildly Assessment/Plan: Continue with current diagnosis. Patient continues to meet criteria for inpatient psychiatric admission for symptom stabilization and safety.Patient will be maintained on current psychotropic medication regimen with the exception of an increase in seroquel to 100 HS for mood stabilization/insomnia. Monitor for medication compliance and for any psychotropic medication side effects. Will continue to monitor ongoing response to treatment. Encouraged participation in milieu.
[2019-12-25 13:01] LABS: Glucose,Whole Blood 322 mg/dL (75-99)
[2019-12-25 17:37] LABS: Glucose,Whole Blood 241 mg/dL (75-99)
[2019-12-25 20:02] LABS: Glucose,Whole Blood 199 mg/dL (75-99)
[2019-12-25] MEDS: QUEtiapine 100 MG TAB PO SCH (20:05)
[2019-12-25] MEDS: ATORVASTATIN 20 MG TAB PO SCH (20:05)
[2019-12-25] MEDS: INSULIN DETEMIR (LEVEMIR) 100 UNIT/ML SYR SQ SCH (20:36)
[2019-12-26 07:16] VITALS: TEMP 98.2
[2019-12-26 07:54] LABS: Glucose,Whole Blood 213 mg/dL (75-99)
[2019-12-26] MEDS: ESCITALOPRAM 10 MG TAB PO SCH (08:00)
[2019-12-26] MEDS: metFORMIN 500 MG TAB PO SCH ×2 (08:00→20:22)
[2019-12-26] MEDS: INSULIN ASPART (NovoLOG) 100 UNIT/ML VIAL SQ SCH ×7 (08:00→20:22)
[2019-12-26] MEDS: PANTOPRAZOLE 40 MG TABLET PO SCH (08:00)
[2019-12-26] MEDS: LINAGLIPTIN 5 MG TABLET PO SCH (08:01)
[2019-12-26] MEDS: FENOFIBRATE 160 MG TAB PO SCH (08:02)
[2019-12-26] MEDS: PIOGLITAZONE 30 MG TAB PO SCH (08:02)
[2019-12-26] MEDS: TOPIRAMATE 25 MG TAB PO SCH ×2 (09:09→20:22)
[2019-12-26 12:45] LABS: Glucose,Whole Blood 210 mg/dL (75-99)
--- NOTE | 2019-12-26 13:05 | P.PN ---
Progress Note - Text Progress Note Date: 12/26/19 I did review medical records ,I discussed case in team meeting ,I did interview patient as he was laying in bed and refused to come to office Slept better since Seroquel was increased to 100 mg on weekend Started to participate in groups Interim history: Patient was walking in [place] and agreed to follow me to office,stated that he is feeling better ,his anxiety and depression are better since Lexapro was increased ,stated that he called his fiancee to tell her about MRI of his brain and "She was scarred that I will hurt her saying if I have brain damage and I will not be able to control my temper ",patient reports that he has been able to tolerate people Mental status exam: patient was dressed in street cloth ,not shaved ,marginal grooming ,non spontaneous but coherent ,avoiding eyes contact,denies any suicidal or homicidal ideation denies any hallucination or delusion ,insight and judgement are fair Clinical Problems: 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 Continue Lexapro,Tegretol and Seroquel ,will check tegretol level . Encourage participation in therapeutic groups and activities Evaluate clinical status and response to treatment on daily basis SW to contact his melodiee for collateral information
[2019-12-26] MEDS: ACETAMINOPHEN TAB 325 MG TAB PO PRN (15:55)
[2019-12-26] MEDS: SUMAtriptan succinate 50 MG TAB PO PRN (16:30)
[2019-12-26 17:48] LABS: Glucose,Whole Blood 240 mg/dL (75-99)
[2019-12-26 20:13] LABS: Glucose,Whole Blood 184 mg/dL (75-99)
[2019-12-26] MEDS: QUEtiapine 100 MG TAB PO SCH (20:22)
[2019-12-26] MEDS: ATORVASTATIN 20 MG TAB PO SCH (20:23)
[2019-12-26] MEDS: INSULIN DETEMIR (LEVEMIR) 100 UNIT/ML SYR SQ SCH (20:24)
[2019-12-27 06:37] VITALS: BP 117/68; PULSE 72
[2019-12-27 07:46] LABS: Glucose,Whole Blood 201 mg/dL (75-99)
[2019-12-27] MEDS: INSULIN ASPART (NovoLOG) 100 UNIT/ML VIAL SQ SCH ×4 (08:16→12:49)
[2019-12-27] MEDS: PANTOPRAZOLE 40 MG TABLET PO SCH (08:17)
[2019-12-27] MEDS: ESCITALOPRAM 10 MG TAB PO SCH (08:17)
[2019-12-27] MEDS: metFORMIN 500 MG TAB PO SCH (08:18)
[2019-12-27] MEDS: FENOFIBRATE 160 MG TAB PO SCH (08:18)
[2019-12-27] MEDS: PIOGLITAZONE 30 MG TAB PO SCH (08:18)
[2019-12-27] MEDS: TOPIRAMATE 25 MG TAB PO SCH (08:18)
[2019-12-27] MEDS: LINAGLIPTIN 5 MG TABLET PO SCH (08:18)
[2019-12-27 12:58] LABS: Glucose,Whole Blood 203 mg/dL (75-99)
--- NOTE | 2019-12-27 13:12 | DS ---
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 Barfield for history and physical and medical management. DISCHARGE DIAGNOSES: 1. 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 2. Hyperlipidemia. 3. Diabetes. 4. Migraine. 5. Abnormal lab. His fasting blood glucose today was [address] Barfield added Actos to his medication. HISTORY OF PRESENT ILLNESS: Patient was admitted to the mental health unit on voluntary basis as he was complaining of having anger issue for a couple of months since he was started on Cymbalta prescribed by his primary care physician. The patient stated that he has low frustration tolerance, screaming, yelling to his children and grandchildren. Waking up in the middle of night, yelling and screaming in addition that he has been having trouble sleeping at night and he was staying in bed most of the daytime. For complete history and physical, please refer to my dictation. HOSPITAL COURSE: Patient was admitted to the inpatient unit on voluntary basis. I did review with him the MRI brain done in 2007 less bizarre does show white matter change, especially in the frontal area, so I did discuss with him to discontinue Cymbalta and put him on Tegretol in addition to Seroquel at bedtime for sleep as the patient was complaining of high anxiety due to his closed head injury. He stated that he has been having memory problems since he fell down. He hurt his back and his head. I started him on Lexapro 10 mg in the morning. Patient was complaining of chronic pain as he did have multiple surgery on his back and his neck and he was not given opiate pain medication. He was taking Motrin as needed. The patient was participating in some group and we did check his Tegretol level. It was 5.1 on 200 mg twice a day, so I increased it to 300 twice a day. Our family welfare social work professor had a did contact the patient and her fianceAngela. Scruggs who stated that the patient can come home and she will monitor his medication. She will give it to him as he has memory problem. She stated that she did visit him the night before discharge and she stated that "he looks good. glueline worker did confirm that there is no gun in the house at the time of the discharge. Patient was able to sleep between 6-7 hours at night with the Seroquel. He denied any suicidal or homicidal ideation. The patient did agree to follow up with the outpatient appointment at [facility] in addition he has to follow up with his primary care physician for medical management of his multiple medical issues. I did discuss with him that he needs to go to a neurologist regarding his memory issues. MENTAL STATUS EXAMINATION: At the time of the discharge, the patient appears older than stated age. He is alert, cooperative, fair hygiene and grooming. He was able to sit without any agitation. His speech is spontaneous and coherent. He reported that his mood is better and his affect is constricted. He denied having any suicidal or homicidal ideation, intent, or plan. He denied any auditory or visual hallucination. There is no evidence of any delusional thinking. He was alert, oriented to place, person, but not to the exact date. His insight and judgment improving. DISCHARGE DIAGNOSES: 1. 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 2. Nicotine dependence and multiple medical issue. PLAN: The patient will be discharged today and he will be referred to [facility]. The patient is not currently an imminent threat to himself or other. Continue psychotropic medications that including Tegretol 300 mg twice a day, Seroquel 100 mg at bedtime and Lexapro 10 mg in the morning for anxiety and depression. The patient has to follow up with his primary care physician regarding his medical problems. The patient was instructed to return to the hospital or seek immediate medical care if there is any issue or any symptoms that may reoccur. MMODL / IJN: [id number] /
[2019-12-27 13:45] VITALS: BMI 28.2
[2019-12-27] MEDS: SUMAtriptan succinate 50 MG TAB PO PRN (14:36)
[2019-12-27] MEDS ORDERED: carBAMazepine 100 MG TAB.ER.12H PO SCH (21:00)
== END 2019-12-27 14:55 | disposition home or self-care (01) | DRG 881 ==
LOC: EC 18:55 → 3MHU 12-22 01:46
PROVIDERS: ADMIT Psychiatry & Neurology Psychiatry; ATTEND Psychiatry & Neurology Psychiatry
DX: F32.9 Major depressive disorder, single episode, unspecified (principal); R45.851 Suicidal ideations; F03.90 Unspecified dementia, unspecified severity, without behavioral disturbance, psychotic disturbance, mood disturbance, and anxiety; E11.9 Type 2 diabetes mellitus without complications; F41.9 Anxiety disorder, unspecified; F06.30 Mood disorder due to known physiological condition, unspecified; E78.5 Hyperlipidemia, unspecified; S09.90XS Unspecified injury of head, sequela; F17.200 Nicotine dependence, unspecified, uncomplicated; G43.909 Migraine, unspecified, not intractable, without status migrainosus; G47.00 Insomnia, unspecified; G89.29 Other chronic pain; I10 Essential (primary) hypertension; M54.9 Dorsalgia, unspecified; Z79.4 Long term (current) use of insulin; Z79.899 Other long term (current) drug therapy; Z65.3 Problems related to other legal circumstances; Z90.49 Acquired absence of other specified parts of digestive tract; Z98.890 Other specified postprocedural states; Z83.3 Family history of diabetes mellitus; Z82.49 Family history of ischemic heart disease and other diseases of the circulatory system; Z83.79 Family history of other diseases of the digestive system
CPT/HCPCS: 36415; 80053; 80061; 80076; 80156; 80306; 82075; 83036; 83735; 84443; 85025; 96360; 99284

== ENCOUNTER 2020-02-28 18:26 | Emergency (ER) | payer MEDICARE, OTHER ==
[2020-02-28 18:52] VITALS: BP 139/81; PULSE 108; RESP 18; TEMP 99.4
[2020-02-28 18:55] LABS: Glucose,Whole Blood 448 mg/dL (75-99)
== END 2020-02-28 20:04 | disposition left against medical advice (07) ==
LOC: EC 18:26
DX: R07.9 Chest pain, unspecified (principal); R06.02 Shortness of breath; R73.9 Hyperglycemia, unspecified
CPT/HCPCS: 36415; 99499

== ENCOUNTER 2020-10-23 18:24 | Emergency (ER) | payer MEDICARE, OTHER ==
[2020-10-23 18:42] VITALS: TEMP 98.2
--- NOTE | 2020-10-23 19:53 | ED ---
General Adult HPI - General Chief complaint: Skin/Abscess/Foreign Body Stated complaint: knee, injury & swelling Time Seen by Provider: 10/23/20 19:03 Source: patient, RN notes reviewed Mode of arrival: ambulatory Limitations: no limitations - History of Present Illness Initial comments: 55-year-old male presents emergency Department chief complaint of left knee infection, flank pain. Patient states he's had some recurrent issues with his knee with infections states started a few days ago. Patient states he noticed some drainage and also some redness has not spread down his leg. Patient any chest pain shortness breath no fevers chills no night sweats. Patient states it does not hurt to move his knee is tender a few press over the area. - Related Data Home Medications Medication Instructions Recorded Confirmed metFORMIN HCL [Glucophage] 1,000 mg PO BID 10/16/17 12/22/19 Atorvastatin [Lipitor] 20 mg PO HS 03/24/19 12/22/19 Insulin Glargine [Lantus] 20 unit SQ HS 03/24/19 12/22/19 Omeprazole 20 mg PO BID 12/21/19 12/22/19 SUMAtriptan SUCCINATE [Imitrex] 100 mg PO DAILY PRN 12/21/19 12/22/19 Topiramate 50 mg PO BID 12/21/19 12/22/19 sitaGLIPtin PHOSPHATE [Januvia] 100 mg PO DAILY 12/27/19 12/27/19 Previous Rx's Medication Instructions Recorded Escitalopram [Lexapro] 10 mg PO DAILY 14 Days tab 12/27/19 Fenofibrate [Lofibra] 160 mg PO DAILY 14 Days tab 12/27/19 INSULIN ASPART (NovoLOG) [NovoLOG 5 unit SQ AC-TID #0 vial 12/27/19 (formulary)] Pioglitazone [Actos] 30 mg PO DAILY 30 Days tab 12/27/19 QUEtiapine [SEROquel] 100 mg PO HS 14 Days tab 12/27/19 carBAMazepine [TEGretol XR] 300 mg PO BID 14 Days tab.er.12h 12/27/19 Cephalexin [Keflex] 500 mg PO Q6HR #40 cap 10/23/20 Sulfamethox-Tmp 800-160Mg [Bactrim 1 each PO Q12HR #20 tab 10/23/20 Ds] Allergies Allergy/AdvReac Type Severity Reaction Status Date / Time No Known Allergies Allergy Verified 10/23/20 18:42 Review of Systems ROS Statement: Those systems with pertinent positive or pertinent negative responses have been documented in the HPI. ROS Other: All systems not noted in ROS Statement are negative. Past Medical History Past Medical History: Chest Pain / Angina, Dementia, Diabetes Mellitus, Hyperlipidemia, Hypertension, Neurologic Disorder, Syncope Additional Past Medical History / Comment(s): back pain History of Any Multi-Drug Resistant Organisms: None Reported Past Surgical History: Back Surgery, Cholecystectomy, Orthopedic Surgery Additional Past Surgical History / Comment(s): C3-C7 WITH HARDWARE. DISC REPLACED IN LOWER BACK. RT ROTATOR CUFF REPAIR Past Anesthesia/Blood Transfusion Reactions: No Reported Reaction Past Psychological History: Anxiety, Depression Smoking Status: Former smoker Past Alcohol Use History: None Reported Past Drug Use History: None Reported - Past Family History Mother Family Medical History: No Reported History Father Family Medical History: Coronary Artery Disease (CAD), Diabetes Mellitus, Deep Vein Thrombosis (DVT) Additional Family Medical History / Comment(s): paternal grandmother also had diabetes Sister(s) Family Medical History: Congestive Heart Failure (CHF) General Exam Limitations: no limitations General appearance: alert, in no apparent distress Head exam: Present: atraumatic, normocephalic, normal inspection Respiratory exam: Present: normal lung sounds bilaterally. Absent: respiratory distress, wheezes, rales, rhonchi, stridor Cardiovascular Exam: Present: regular rate, normal rhythm, normal heart sounds. Absent: systolic murmur, diastolic murmur, rubs, gallop, clicks Extremities exam: Present: other (Left knee just over the tibial tuberosity region there is a slightly open with purulent drainage, there is erythema that extends down to the distal leg pedal pulses equal bilaterally, there is increase d warmth with the left leg patient has full range motion left knee with no pain) Course Vital Signs 10/23/20 10/23/20 10/23/20 18:40 19:11 21:00 Temperature 98.2 F Pulse Rate 106 H 102 H 104 H Respiratory 20 18 20 Rate Blood Pressure 154/84 127/95 112/79 O2 Sat by Pulse 100 98 98 Oximetry Medical Decision Making - Medical Decision Making 55-year-old presented for left leg wound. Patient does have left leg cellulitis is mild hyperglycemia, leukocytosis at 11 he has no joint pain. Patient prefers to go home at this time he'll be given dose of IV antibiotics, stool antibiotics at home with close follow-up and strict return parameters. - Lab Data Result diagrams: 10/23/20 19:44 10/23/20 19:44 Lab Results 10/23/20 10/23/20 10/23/20 Range/Units 19:44 19:44 19:44 WBC 11.1 H (3.8-10.6) k/uL RBC 4.35 (4.30-5.90) m/uL Hgb 12.7 L (13.0-17.5) gm/dL Hct 37.3 L (39.0-53.0) % MCV 85.8 (80.0-100.0) fL MCH 29.3 (25.0-35.0) pg MCHC 34.2 (31.0-37.0) g/dL RDW 12.1 (11.5-15.5) % Plt Count 328 (150-450) k/uL MPV 7.7 Neutrophils % 72 % Lymphocytes % 19 % Monocytes % 6 % Eosinophils % 1 % Basophils % 1 % Neutrophils # 8.0 H (1.3-7.7) k/uL Lymphocytes # 2.1 (1.0-4.8) k/uL Monocytes # 0.7 (0-1.0) k/uL Eosinophils # 0.1 (0-0.7) k/uL Basophils # 0.1 (0-0.2) k/uL Sodium 135 L (137-145) mmol/L Potassium 4.0 (3.5-5.1) mmol/L Chloride 98 (98-107) mmol/L Carbon Dioxide 27 (22-30) mmol/L Anion Gap 10 mmol/L BUN 12 (9-20) mg/dL Creatinine 0.81 (0.66-1.25) mg/dL Est GFR (CKD-EPI)AfAm >90 (>60 ml/min/1.73 sqM) Est GFR (CKD-EPI)NonAf >90 (>60 ml/min/1.73 sqM) Glucose 299 H (74-99) mg/dL Plasma Lactic Acid Leonel 1.4 (0.7-2.0) mmol/L Calcium 9.3 (8.4-10.2) mg/dL Total Bilirubin 0.5 (0.2-1.3) mg/dL AST 19 (17-59) U/L ALT 27 (4-49) U/L Alkaline Phosphatase 149 H (38-126) U/L C-Reactive Protein 8.8 H (<1.0) mg/dL Total Protein 6.8 (6.3-8.2) g/dL Albumin 4.0 (3.5-5.0) g/dL Disposition Clinical Impression: Left leg cellulitis Disposition: HOME SELF-CARE Condition: Stable Instructions (If sedation given, give patient instructions): Cellulitis (ED) Additional Instructions: Please return to the Emergency Department if symptoms worsen or any other concerns. Prescriptions: Sulfamethox-Tmp 800-160Mg [Bactrim Ds] 1 each PO Q12HR #20 tab Cephalexin [Keflex] 500 mg PO Q6HR #40 cap Is patient prescribed a controlled substance at d/c from ED?: No Referrals: Kvng Huang Jr, [Primary Care Provider] - 1-2 days Time of Disposition: 21:45
[2020-10-23 20:00] LABS: Basophils # (A) 0.1 k/uL (0-0.2); Basophils % (A) 1 %; Eosinophils # (A) 0.1 k/uL (0-0.7); Eosinophils % (A) 1 %; HCT 37.3 % (39.0-53.0); HGB 12.7 gm/dL (13.0-17.5); Lymphocytes # (A) 2.1 k/uL (1.0-4.8); Lymphocytes % (A) 19 %; MCH 29.3 pg (25.0-35.0); MCHC 34.2 g/dL (31.0-37.0); MCV 85.8 fL (80.0-100.0); Mean Platelet Volume 7.7; Monocytes # (A) 0.7 k/uL (0-1.0); Monocytes % (A) 6 %; Neutrophils % (A) 72 %; Platelet Count 328 k/uL (150-450); RBC 4.35 m/uL (4.30-5.90); RDW 12.1 % (11.5-15.5); WBC 11.1 k/uL (3.8-10.6)
[2020-10-23 20:16] LABS: ALT 27 U/L (4-49); AST 19 U/L (17-59); African American GFR (CKD) >90 (>60 ml/min/1.73 sqM); Alkaline Phosphatase 149 U/L (38-126); Anion Gap 10 mmol/L; Blood Urea Nitrogen 12 mg/dL (9-20); C Reactive Protein 8.8 mg/dL (<1.0); Calcium 9.3 mg/dL (8.4-10.2); Carbon Dioxide 27 mmol/L (22-30); Chloride 98 mmol/L (98-107); Glucose 299 mg/dL (74-99); Non-African American GFR(CKD) >90 (>60 ml/min/1.73 sqM); Sodium 135 mmol/L (137-145); Total Bilirubin 0.5 mg/dL (0.2-1.3); Total Protein 6.8 g/dL (6.3-8.2)
--- NOTE | 2020-10-23 20:45 | XR ---
EXAMINATION TYPE: XR tibia fibula LT DATE OF EXAM: 10/23/2020 COMPARISON: NONE HISTORY: Infection. Pain. TECHNIQUE: 4 views FINDINGS: Ankle mortise is anatomic. The knee joint is intact. There is minor spurring on the patella . I see no fracture nor dislocation. There is no sign of focal bone destruction. There is plantar and Achilles calcaneal spurring. IMPRESSION: No fracture. No sign of osteomyelitis. Calcaneal spurring.
[2020-10-23] MEDS ORDERED: cefTRIAXone IN SWFI 1,000 MG/10 ML SYRINGE IVP STA ×2 (21:43→21:55)
[2020-10-23] MEDS ORDERED: ACET/COD 300 MG/30 MG STARTER PACK 6 TAB BTL PO STA (21:45)
[2020-10-23 22:08] VITALS: BP 140/80; PULSE 100; RESP 18
== END 2020-10-23 22:25 | disposition home or self-care (01) ==
LOC: EC 18:24
DX: L03.116 Cellulitis of left lower limb (principal); R10.9 Unspecified abdominal pain; I10 Essential (primary) hypertension; E78.5 Hyperlipidemia, unspecified; E11.9 Type 2 diabetes mellitus without complications; F03.90 Unspecified dementia, unspecified severity, without behavioral disturbance, psychotic disturbance, mood disturbance, and anxiety; F41.9 Anxiety disorder, unspecified; F32.9 Major depressive disorder, single episode, unspecified; Z87.891 Personal history of nicotine dependence; Z79.4 Long term (current) use of insulin
CPT/HCPCS: 36415; 80053; 83605; 85025; 86140; 87040; 73590; 99284; 96374; J0696

== ENCOUNTER 2020-12-05 18:00 | Emergency (ER) | payer MEDICARE, OTHER ==
--- NOTE | 2020-12-05 19:09 | XR ---
EXAMINATION TYPE: XR chest 2V DATE OF EXAM: 12/05/2020 COMPARISON: 05/27/2019 HISTORY: Short of breath TECHNIQUE: FINDINGS: Heart and mediastinum are normal. There are small patches of infiltrate in the lateral righ t lung field. Costophrenic angles are clear. There are no hilar masses. There is cervical spine fusio n surgery. Bony thorax is intact. IMPRESSION: There are some new mild lateral infiltrates in the right lung compared to old exam. Jemima l heart.
--- NOTE | 2020-12-05 22:35 | ED ---
General Adult HPI - General Chief complaint: Upper Respiratory Infection Stated complaint: Covid+/cough/sob Time Seen by Provider: 12/05/20 21:28 Source: patient Mode of arrival: ambulatory Limitations: no limitations - History of Present Illness Initial comments: 55-year-old male patient presents to the emergency department today for evaluation of increased cough, shortness of breath, body aches. Patient states he was diagnosed with COVID-19 on 11/28/20. Patient states that he is not feeling any better so presented here for further evaluation. Patient reports nausea and vomiting. States he is able to tolerate food and fluid. Denies any leg swelling. Denies chest pain. Patient denies any recent rash, fever, chills, cough, diarrhea, constipation, back pain, numbness, tingling, dizziness, weakness, hematuria, dysuria, urinary urgency, urinary frequency, headache, visual changes, or any other complaints. - Related Data Home Medications Medication Instructions Recorded Confirmed metFORMIN HCL [Glucophage] 1,000 mg PO BID 10/16/17 12/22/19 Atorvastatin [Lipitor] 20 mg PO HS 03/24/19 12/22/19 Insulin Glargine [Lantus] 20 unit SQ HS 03/24/19 12/22/19 Omeprazole 20 mg PO BID 12/21/19 12/22/19 SUMAtriptan SUCCINATE [Imitrex] 100 mg PO DAILY PRN 12/21/19 12/22/19 Topiramate 50 mg PO BID 12/21/19 12/22/19 sitaGLIPtin PHOSPHATE [Januvia] 100 mg PO DAILY 12/27/19 12/27/19 Previous Rx's Medication Instructions Recorded Escitalopram [Lexapro] 10 mg PO DAILY 14 Days tab 12/27/19 Fenofibrate [Lofibra] 160 mg PO DAILY 14 Days tab 12/27/19 INSULIN ASPART (NovoLOG) [NovoLOG 5 unit SQ AC-TID #0 vial 12/27/19 (formulary)] Pioglitazone [Actos] 30 mg PO DAILY 30 Days tab 12/27/19 QUEtiapine [SEROquel] 100 mg PO HS 14 Days tab 12/27/19 carBAMazepine [TEGretol XR] 300 mg PO BID 14 Days tab.er.12h 12/27/19 Cephalexin [Keflex] 500 mg PO Q6HR #40 cap 10/23/20 Sulfamethox-Tmp 800-160Mg [Bactrim 1 each PO Q12HR #20 tab 10/23/20 Ds] Ondansetron [Zofran ODT] 4 mg PO Q8HR PRN #10 tab 12/05/20 guaiFENesin-DM 600/30MG [Mucinex 2 each PO Q12HR PRN #20 tab.er.12h 12/05/20 Dm] Allergies Allergy/AdvReac Type Severity Reaction Status Date / Time No Known Allergies Allergy Verified 12/05/20 18:51 Review of Systems ROS Statement: Those systems with pertinent positive or pertinent negative responses have been documented in the HPI. ROS Other: All systems not noted in ROS Statement are negative. Past Medical History Past Medical History: Chest Pain / Angina, Dementia, Diabetes Mellitus, Hype rlipidemia, Hypertension, Neurologic Disorder, Syncope Additional Past Medical History / Comment(s): back pain History of Any Multi-Drug Resistant Organisms: None Reported Past Surgical History: Back Surgery, Cholecystectomy, Orthopedic Surgery Additional Past Surgical History / Comment(s): C3-C7 WITH HARDWARE. DISC REPLACED IN LOWER BACK. RT ROTATOR CUFF REPAIR Past Anesthesia/Blood Transfusion Reactions: No Reported Reaction Past Psychological History: Anxiety, Depression Smoking Status: Former smoker Past Alcohol Use History: None Reported Past Drug Use History: None Reported - Past Family History Mother Family Medical History: No Reported History Father Family Medical History: Coronary Artery Disease (CAD), Diabetes Mellitus, Deep Vein Thrombosis (DVT) Additional Family Medical History / Comment(s): paternal grandmother also had diabetes Sister(s) Family Medical History: Congestive Heart Failure (CHF) General Exam Limitations: no limitations General appearance: alert, in no apparent distress, other (Physical well- developed, well-nourished adult male patient in no acute distress. Vital signs upon presentation are temperature 98.5F, pulse 101, respirations 20, blood pressure 138/84, pulse ox 97% on room air.) ENT exam: Present: normal exam, normal oropharynx, mucous membranes moist Respiratory exam: Present: normal lung sounds bilaterally. Absent: respiratory distress, wheezes, rales, rhonchi, stridor Cardiovascular Exam: Present: regular rate, normal rhythm, normal heart sounds. Absent: systolic murmur, diastolic murmur, rubs, gallop, clicks GI/Abdominal exam: Present: soft, normal bowel sounds. Absent: distended, tenderness, guarding, rebound, rigid Neurological exam: Present: alert, oriented X3, CN II-XII intact Psychiatric exam: Present: normal affect, normal mood Skin exam: Present: warm, dry, intact, normal color. Absent: rash Course Vital Signs 12/05/20 12/05/20 12/05/20 18:48 22:00 22:30 Temperature 98.5 F Pulse Rate 101 H 78 82 Respiratory 20 24 24 Rate Blood Pressure 138/84 133/65 140/88 O2 Sat by Pulse 97 94 L 98 Oximetry 12/05/20 12/06/20 12/06/20 23:45 01:15 02:40 Temperature 97.8 F Pulse Rate 89 71 89 Respiratory 18 18 18 Rate Blood Pressure 165/89 117/82 124/91 O2 Sat by Pulse 97 97 97 Oximetry EKG Findings - EKG Comments: EKG Findings:: EKG obtained at 2229 shows normal sinus rhythm with a ventricular rate of 82, MI interval 158, QRS duration 86, QT 376, QTc 439. No evidence of ST elevation or depression. Medical Decision Making - Medical Decision Making 55 year-old male patient presents to the emergency department for evaluation of increased shortness of breath and cough after being diagnosed with COVID. Labs reviewed and show mildly elevated CRP and LDH. WBC count normal. D-dimer negative. He was given IV fluids and nausea medication. He does meet criteria for regeneron infusion. We did discuss risks versus benefits of the medication. He is agreeable to receive it. He did receive the infusion without difficulty. He is discharged after one hour monitoring. He is instructed to follow-up with his primary care physician for recheck in 1-2 days. Return parameters discussed in detail. He verbalizes understanding and agrees with this plan. Case discussed with my attending Dr. Mederos. - Lab Data Result diagrams: 12/05/20 22:32 12/05/20 22:32 Lab Results 12/05/20 12/05/20 12/05/20 Range/Units 22:32 22:32 22:32 WBC 9.2 (3.8-10.6) k/uL RBC 4.78 (4.30-5.90) m/uL Hgb 14.3 (13.0-17.5) gm/dL Hct 41.2 (39.0-53.0) % MCV 86.3 (80.0-100.0) fL MCH 29.9 (25.0-35.0) pg MCHC 34.7 (31.0-37.0) g/dL RDW 14.3 (11.5-15.5) % Plt Count 417 (150-450) k/uL MPV 8.1 Neutrophils % 58 % Lymphocytes % 31 % Monocytes % 6 % Eosinophils % 2 % Basophils % 1 % Neutrophils # 5.4 (1.3-7.7) k/uL Lymphocytes # 2.9 (1.0-4.8) k/uL Monocytes # 0.5 (0-1.0) k/uL Eosinophils # 0.2 (0-0.7) k/uL Basophils # 0.1 (0-0.2) k/uL Poikilocytosis Slight PT 9.6 (9.0-12.0) sec INR 0.9 (<1.2) APTT 20.9 L (22.0-30.0) sec D-Dimer 0.32 (<0.60) mg/L FEU Sodium 136 L (137-145) mmol/L Potassium 4.0 (3.5-5.1) mmol/L Chloride 104 (98-107) mmol/L Carbon Dioxide 24 (22-30) mmol/L Anion Gap 8 mmol/L BUN 18 (9-20) mg/dL Creatinine 0.73 (0.66-1.25) mg/dL Est GFR (CKD-EPI)AfAm >90 (>60 ml/min/1.73 sqM) Est GFR (CKD-EPI)NonAf >90 (>60 ml/min/1.73 sqM) Glucose 298 H (74-99) mg/dL Plasma Lactic Acid Leonel (0.7-2.0) mmol/L Calcium 9.6 (8.4-10.2) mg/dL Magnesium 1.7 (1.6-2.3) mg/dL Total Bilirubin 0.2 (0.2-1.3) mg/dL AST 23 (17-59) U/L ALT 21 (4-49) U/L Alkaline Phosphatase 127 H (38-126) U/L Lactate Dehydrogenase 384 (313-618) U/L C-Reactive Protein 1.3 H (<1.0) mg/dL Total Protein 7.0 (6.3-8.2) g/dL Albumin 4.1 (3.5-5.0) g/dL 12/05/20 Range/Units 22:32 WBC (3.8-10.6) k/uL RBC (4.30-5.90) m/uL Hgb (13.0-17.5) gm/dL Hct (39.0-53.0) % MCV (80.0-100.0) fL MCH (25.0-35.0) pg MCHC (31.0-37.0) g/dL RDW (11.5-15.5) % Plt Count (150-450) k/uL MPV Neutrophils % % Lymphocytes % % Monocytes % % Eosinophils % % Basophils % % Neutrophils # (1.3-7.7) k/uL Lymphocytes # (1.0-4.8) k/uL Monocytes # (0-1.0) k/uL Eosinophils # (0-0.7) k/uL Basophils # (0-0.2) k/uL Poikilocytosis PT (9.0-12.0) sec INR (<1.2) APTT (22.0-30.0) sec D-Dimer (<0.60) mg/L FEU Sodium (137-145) mmol/L Potassium (3.5-5.1) mmol/L Chloride (98-107) mmol/L Carbon Dioxide (22-30) mmol/L Anion Gap mmol/L BUN (9-20) mg/dL Creatinine (0.66-1.25) mg/dL Est GFR (CKD-EPI)AfAm (>60 ml/min/1.73 sqM) Est GFR (CKD-EPI)NonAf (>60 ml/min/1.73 sqM) Glucose (74-99) mg/dL Plasma Lactic Acid Leonel 1.4 (0.7-2.0) mmol/L Calcium (8.4-10.2) mg/dL Magnesium (1.6-2.3) mg/dL Total Bilirubin (0.2-1.3) mg/dL AST (17-59) U/L ALT (4-49) U/L Alkaline Phosphatase (38-126) U/L Lactate Dehydrogenase (313-618) U/L C-Reactive Protein (<1.0) mg/dL Total Protein (6.3-8.2) g/dL Albumin (3.5-5.0) g/dL - Radiology Data Radiology results: report reviewed, image reviewed Two-view x-ray of the chest is obtained. Report was reviewed in its entirety. Impression by Dr. Phillip shows some new mild lateral infiltrates in the right lung compared to old exam. Normal heart. Disposition Clinical Impression: COVID-19 Disposition: HOME SELF-CARE Condition: Good Instructions (If sedation given, give patient instructions): Coronavirus Disease 2019 (COVID-19) Additional Instructions: Increase fluids to take medications as directed. Follow-up through primary care physician for recheck in 1-2 days. Return to the emergency department for any new, worsening, or concerning symptoms. Prescriptions: guaiFENesin-DM 600/30MG [Mucinex Dm] 2 each PO Q12HR PRN #20 tab.er.12h PRN Reason: Cough Ondansetron [Zofran ODT] 4 mg PO Q8HR PRN #10 tab PRN Reason: Nausea Is patient prescribed a controlled substance at d/c from ED?: No Referrals: Kvng Huang Jr, [Primary Care Provider] - 1-2 days Time of Disposition: 02:47
[2020-12-05 22:53] LABS: Basophils # (A) 0.1 k/uL (0-0.2); Basophils % (A) 1 %; Eosinophils # (A) 0.2 k/uL (0-0.7); Eosinophils % (A) 2 %; HCT 41.2 % (39.0-53.0); HGB 14.3 gm/dL (13.0-17.5); Lymphocytes # (A) 2.9 k/uL (1.0-4.8); Lymphocytes % (A) 31 %; MCH 29.9 pg (25.0-35.0); MCHC 34.7 g/dL (31.0-37.0); MCV 86.3 fL (80.0-100.0); Mean Platelet Volume 8.1; Monocytes # (A) 0.5 k/uL (0-1.0); Monocytes % (A) 6 %; Neutrophils # (A) 5.4 k/uL (1.3-7.7); Neutrophils % (A) 58 %; Platelet Count 417 k/uL (150-450); Poikilocytosis Slight; RBC 4.78 m/uL (4.30-5.90); RDW 14.3 % (11.5-15.5); WBC 9.2 k/uL (3.8-10.6)
[2020-12-05 23:04] LABS: ALT 21 U/L (4-49); AST 23 U/L (17-59); African American GFR (CKD) >90 (>60 ml/min/1.73 sqM); Albumin 4.1 g/dL (3.5-5.0); Alkaline Phosphatase 127 U/L (38-126); Anion Gap 8 mmol/L; Blood Urea Nitrogen 18 mg/dL (9-20); C Reactive Protein 1.3 mg/dL (<1.0); Calcium 9.6 mg/dL (8.4-10.2); Carbon Dioxide 24 mmol/L (22-30); Chloride 104 mmol/L (98-107); Glucose 298 mg/dL (74-99); LDH 384 U/L (313-618); Magnesium 1.7 mg/dL (1.6-2.3); Non-African American GFR(CKD) >90 (>60 ml/min/1.73 sqM); Sodium 136 mmol/L (137-145); Total Bilirubin 0.2 mg/dL (0.2-1.3)
[2020-12-05 23:21] LABS: INR 0.9 (<1.2); Prothrombin Time 9.6 sec (9.0-12.0)
[2020-12-05 23:23] LABS: Partial Thromboplastin Time 20.9 sec (22.0-30.0)
[2020-12-05] MEDS ORDERED: ONDANSETRON 4 MG/2 ML VIAL IVP STA (23:41)
[2020-12-05] MEDS ORDERED: SODIUM CHLORIDE 0.9% 1,000 ML IV ONE (23:41)
[2020-12-05] MEDS ORDERED: guaiFENesin-DM 600/30MG 1 EACH TAB.ER.12H PO ONE (23:45)
[2020-12-05 23:55] VITALS: RESP 18
[2020-12-06] MEDS ORDERED: CASIRIVIMAB (REGN10933) (EUA) 600 MG, IMDEVIMAB (REGN10987) (EUA) 600 MG in SODIUM CHLO... IVPB ONE (00:15)
[2020-12-06] MEDS: SODIUM CHLORIDE 0.9% 50 ML IVPB ONE (00:38)
[2020-12-06 02:59] VITALS: BP 124/91; PULSE 89; TEMP 97.8
[2020-12-06 22:25] LABS: Ferritin 167.3 ng/mL (22.0-322.0)
== END 2020-12-06 02:40 | disposition home or self-care (01) ==
LOC: EC 18:00
DX: U07.1 COVID-19 (principal); I10 Essential (primary) hypertension; E11.9 Type 2 diabetes mellitus without complications; E78.5 Hyperlipidemia, unspecified; F03.90 Unspecified dementia, unspecified severity, without behavioral disturbance, psychotic disturbance, mood disturbance, and anxiety; F41.9 Anxiety disorder, unspecified; F32.9 Major depressive disorder, single episode, unspecified; Z79.4 Long term (current) use of insulin; Z87.891 Personal history of nicotine dependence; Z90.49 Acquired absence of other specified parts of digestive tract
CPT/HCPCS: 99285; 96365; 96375; 96361; 36415; 93005; 85379; 80053; 82728; 83605; 83615; 83735; 85025; 85610; 85730; 86140; 87040; 84145; 71046; J2405; Q0243

== ENCOUNTER 2021-01-05 07:54 | Inpatient (IN) | payer MEDICARE, OTHER ==
[2021-01-05] MEDS ORDERED: SODIUM CHLORIDE 0.9% 1,000 ML IV STA ×2 (07:57→10:19)
[2021-01-05 09:22] LABS: ALT 30 U/L (4-49); AST 64 U/L (17-59); Acetaminophen <10.0 ug/mL; African American GFR (CKD) >90 (>60 ml/min/1.73 sqM); Albumin 4.3 g/dL (3.5-5.0); Alcohol <10 mg/dL; Alkaline Phosphatase 114 U/L (38-126); Anion Gap 13 mmol/L; Blood Urea Nitrogen 18 mg/dL (9-20); Calcium 9.7 mg/dL (8.4-10.2); Carbon Dioxide 27 mmol/L (22-30); Chloride 97 mmol/L (98-107); Glucose 435 mg/dL (74-99); Lipase 218 U/L (23-300); Non-African American GFR(CKD) 85 (>60 ml/min/1.73 sqM); Potassium 4.6 mmol/L (3.5-5.1); Salicylate <1.0 mg/dL; Sodium 137 mmol/L (137-145); Total Bilirubin 0.7 mg/dL (0.2-1.3); Total Protein 7.4 g/dL (6.3-8.2)
[2021-01-05 09:24] LABS: Prothrombin Time 10.4 sec (9.0-12.0)
[2021-01-05 09:27] LABS: Appearance,Urine Turbid (Clear); Bilirubin,Urine Negative (Negative); Blood,Urine Negative (Negative); Color,Urine Yellow; Glucose,Urine (UA) 4+ (Negative); Hyaline Casts,Urine 1 /lpf (0-2); Ketones,Urine Trace (Negative); Leukocyte Esterase,Urine Negative (Negative); Nitrite,Urine Negative (Negative); Protein,Urine 1+ (Negative); RBC,Urine 1 /hpf (0-5); Uric Acid Crystals,Urine Occasional /hpf; Urobilinogen,Urine <2.0 mg/dL (<2.0); WBC,Urine 2 /hpf (0-5)
[2021-01-05 09:28] LABS: Partial Thromboplastin Time 20.1 sec (22.0-30.0)
[2021-01-05 09:36] LABS: Basophils % (A) 0 %; Eosinophils % (A) 0 %; HCT 42.5 % (39.0-53.0); HGB 13.9 gm/dL (13.0-17.5); Lymphocytes % (A) 6 %; MCH 28.9 pg (25.0-35.0); MCHC 32.8 g/dL (31.0-37.0); MCV 88.2 fL (80.0-100.0); Mean Platelet Volume 8.6; Monocytes # (A) 0.9 k/uL (0-1.0); Monocytes % (A) 6 %; Neutrophils % (A) 87 %; Platelet Count 251 k/uL (150-450); RBC 4.82 m/uL (4.30-5.90); RDW 13.4 % (11.5-15.5); WBC 14.9 k/uL (3.8-10.6)
--- NOTE | 2021-01-05 09:47 | ED ---
Altered Mental Status HPI - General Chief Complaint: Altered Mental Status Stated Complaint: overdose Source: police, EMS Mode of arrival: EMS - History of Present Illness Initial Comments: 55-year-old male with past medical history of diabetes, dementia, depression presents to the emergency department with reported overdose. EMS were called to the house by the patient's significant other. She woke up this morning and found the patient to be acting odd. She told EMS that he likely overdosed on Seroquel. He had 20 tablets and his prescription bottle yesterday. She noted today that there was only one left. Dosage is 100 mg and he normally takes it at night. Unknown if he overdosed on any other medications. EMS found that his glucose was high. He is a diabetic and is insulin-dependent however girlfriend states that he has been out of several of his medications. Unknown if the patient overdosed intentionally. The remainder of the HPI is limited at this time - Related Data Home Medications Medication Instructions Recorded Confirmed metFORMIN HCL [Glucophage] 1,000 mg PO BID 10/16/17 01/05/21 Atorvastatin [Lipitor] 20 mg PO HS 03/24/19 01/05/21 sitaGLIPtin PHOSPHATE [Januvia] 100 mg PO DAILY 12/27/19 01/05/21 Bisoprolol-Hctz 5-6.25 mg [Ziac 1 tab PO DAILY 01/05/21 01/05/21 5-6.25 MG] Insulin Glargine,Hum.rec.anlog 35 unit SQ DAILY 01/05/21 01/05/21 [Lantus Solostar Pen] Insulin Lispro 10 units SQ AC-TID 01/05/21 01/05/21 buPROPion XL [Wellbutrin XL] 150 mg PO DAILY 01/05/21 01/05/21 guanFACINE HCL [Intuniv] 1 mg PO HS 01/05/21 01/05/21 hydrOXYzine pamoate [Vistaril] 50 mg PO TID PRN 01/05/21 01/05/21 Previous Rx's Medication Instructions Recorded QUEtiapine [SEROquel] 100 mg PO HS 14 Days tab 12/27/19 Allergies Allergy/AdvReac Type Severity Reaction Status Date / Time No Known Allergies Allergy Verified 01/05/21 10:38 Review of Systems ROS Statement: Those systems with pertinent positive or pertinent negative responses have been documented in the HPI. ROS Other: All systems not noted in ROS Statement are negative. Past Medical History Past Medical History: Chest Pain / Angina, Dementia, Diabetes Mellitus, Hyperlipidemia, Hypertension, Neurologic Disorder, Syncope Additional Past Medical History / Comment(s): back pain History of Any Multi-Drug Resistant Organisms: None Reported Past Surgical History: Back Surgery, Cholecystectomy, Orthopedic Surgery Additional Past Surgical History / Comment(s): C3-C7 WITH HARDWARE. DISC REPLACED IN LOWER BACK. RT ROTATOR CUFF REPAIR Past Anesthesia/Blood Transfusion Reactions: No Reported Reaction Past Psychological History: Anxiety, Depression Smoking Status: Former smoker Past Alcohol Use History: Abuse, Daily Past Drug Use History: None Reported - Past Family History Mother Family Medical History: No Reported History Father Family Medical History: Coronary Artery Disease (CAD), Diabetes Mellitus, Deep Vein Thrombosis (DVT) Additional Family Medical History / Comment(s): paternal grandmother also had diabetes Sister(s) Family Medical History: Congestive Heart Failure (CHF) Course Vital Signs 01/05/21 01/05/21 01/05/21 07:54 08:05 08:12 Temperature 97.6 F Pulse Rate 119 H Respiratory 20 Rate Blood Pressure 143/110 169/110 O2 Sat by Pulse 87 L 97 87 L Oximetry 01/05/21 01/05/21 01/05/21 08:30 09:00 09:30 Temperature Pulse Rate 124 H 133 H 117 H Respiratory Rate Blood Pressure 169/110 170/124 142/113 O2 Sat by Pulse 95 Oximetry 01/05/21 01/05/21 01/05/21 10:30 10:51 11:00 Temperature Pulse Rate 125 H 115 H Respiratory 20 18 Rate Blood Pressure 158/108 146/101 146/101 O2 Sat by Pulse 97 Oximetry 01/05/21 01/05/21 01/05/21 11:30 12:00 14:52 Temperature Pulse Rate 122 H 117 H 104 H Respiratory 18 18 20 Rate Blood Pressure 113/90 113/90 144/94 O2 Sat by Pulse 94 L Oximetry Medical Decision Making - Medical Decision Making Upon arrival the patient is placed in room 12. There are history of physical exam was performed. Patient placed on continuous pulse ox and cardiac monitoring. 12-lead EKG was performed. IV is established the patient is given 1 L bolus of normal saline. We did call poison control for further recommendations. Review the patient's labs demonstrated with blood cell count of 14.9. Lactic acid is 3. Glucose 435. CK 4305. Urine is positive for TCA, methamphetamines and cocaine. Carbamazepine level is less than 3. Patient was given 10 units of insulin for his hyperglycemia. Did recommend hospitalization. Spoke with Dr. Barfield who agreed to admit the patient. I will place I can consult to evaluate whether this was an intentional overdose. Patient did receive 1 mg of Ativan agitation. He is currently awaiting a bed on the floor - Lab Data Result diagrams: 01/05/21 08:26 01/05/21 08:26 Lab Results 01/05/21 01/05/21 01/05/21 Range/Units 08:26 08:26 08:26 WBC 14.9 H (3.8-10.6) k/uL RBC 4.82 (4.30-5.90) m/uL Hgb 13.9 (13.0-17.5) gm/dL Hct 42.5 (39.0-53.0) % MCV 88.2 (80.0-100.0) fL MCH 28.9 (25.0-35.0) pg MCHC 32.8 (31.0-37.0) g/dL RDW 13.4 (11.5-15.5) % Plt Count 251 (150-450) k/uL MPV 8.6 Neutrophils % 87 % Lymphocytes % 6 % Monocytes % 6 % Eosinophils % 0 % Basophils % 0 % Neutrophils # 13.0 H (1.3-7.7) k/uL Lymphocytes # 1.0 (1.0-4.8) k/uL Monocytes # 0.9 (0-1.0) k/uL Eosinophils # 0.0 (0-0.7) k/uL Basophils # 0.0 (0-0.2) k/uL Manual Slide Review Performed RBC Morphology Normal PT (9.0-12.0) sec INR (<1.2) APTT (22.0-30.0) sec Sodium 137 (137-145) mmol/L Potassium 4.6 (3.5-5.1) mmol/L Chloride 97 L (98-107) mmol/L Carbon Dioxide 27 (22-30) mmol/L Anion Gap 13 mmol/L BUN 18 (9-20) mg/dL Creatinine 1.00 (0.66-1.25) mg/dL Est GFR (CKD-EPI)AfAm >90 (>60 ml/min/1.73 sqM) Est GFR (CKD-EPI)NonAf 85 (>60 ml/min/1.73 sqM) Glucose 435 H (74-99) mg/dL Lactic Ac Sepsis Rflx Plasma Lactic Acid Leonel (0.7-2.0) mmol/L Calcium 9.7 (8.4-10.2) mg/dL Total Bilirubin 0.7 (0.2-1.3) mg/dL AST 64 H (17-59) U/L ALT 30 (4-49) U/L Alkaline Phosphatase 114 (38-126) U/L Creatine Kinase 4305 H* (55-170) U/L Total Protein 7.4 (6.3-8.2) g/dL Albumin 4.3 (3.5-5.0) g/dL Lipase 218 (23-300) U/L Urine Color Urine Appearance (Clear) Urine pH (5.0-8.0) Ur Specific [place] (1.001-1.035) Urine Protein (Negative) Urine Glucose (UA) (Negative) Urine Ketones (Negative) Urine Blood (Negative) Urine Nitrite (Negative) Urine Bilirubin (Negative) Urine Urobilinogen (<2.0) mg/dL Ur Leukocyte Esterase (Negative) Urine RBC (0-5) /hpf Urine WBC (0-5) /hpf Uric Acid Crystals (None) /hpf Hyaline Casts (0-2) /lpf Salicylates <1.0 mg/dL Urine Opiates Screen Not Detected (NotDetected) Ur Oxycodone Screen Not Detected (NotDetected) Urine Methadone Screen Not Detected (NotDetected) Ur Propoxyphene Screen Not Detected (NotDetected) Acetaminophen <10.0 ug/mL Ur Barbiturates Screen Not Detected (NotDetected) U Tricyclic Antidepress Detected H (NotDetected) Ur Phencyclidine Scrn Not Detected (NotDetected) Ur Amphetamines Screen Not Detected (NotDetected) U Methamphetamines Scrn Detected H (NotDetected) U Benzodiazepines Scrn Not Detected (NotDetected) Urine Cocaine Screen Detected H (NotDetected) U Marijuana (THC) Screen Not Detected (NotDetected) Serum Alcohol <10 mg/dL Coronavirus (PCR) (Not Detectd) 01/05/21 01/05/21 01/05/21 Range/Units 08:26 08:26 08:26 WBC (3.8-10.6) k/uL RBC (4.30-5.90) m/uL Hgb (13.0-17.5) gm/dL Hct (39.0-53.0) % MCV (80.0-100.0) fL MCH (25.0-35.0) pg MCHC (31.0-37.0) g/dL RDW (11.5-15.5) % Plt Count (150-450) k/uL MPV Neutrophils % % Lymphocytes % % Monocytes % % Eosinophils % % Basophils % % Neutrophils # (1.3-7.7) k/uL Lymphocytes # (1.0-4.8) k/uL Monocytes # (0-1.0) k/uL Eosinophils # (0-0.7) k/uL Basophils # (0-0.2) k/uL Manual Slide Review RBC Morphology PT 10.4 (9.0-12.0) sec INR 1.0 (<1.2) APTT 20.1 L (22.0-30.0) sec Sodium (137-145) mmol/L Potassium (3.5-5.1) mmol/L Chloride (98-107) mmol/L Carbon Dioxide (22-30) mmol/L Anion Gap mmol/L BUN (9-20) mg/dL Creatinine (0.66-1.25) mg/dL Est GFR (CKD-EPI)AfAm (>60 ml/min/1.73 sqM) Est GFR (CKD-EPI)NonAf (>60 ml/min/1.73 sqM) Glucose (74-99) mg/dL Lactic Ac Sepsis Rflx Plasma Lactic Acid Leonel 3.0 H* (0.7-2.0) mmol/L Calcium (8.4-10.2) mg/dL Total Bilirubin (0.2-1.3) mg/dL AST (17-59) U/L ALT (4-49) U/L Alkaline Phosphatase (38-126) U/L Creatine Kinase (55-170) U/L Total Protein (6.3-8.2) g/dL Albumin (3.5-5.0) g/dL Lipase (23-300) U/L Urine Color Yellow Urine Appearance Turbid (Clear) Urine pH 5.0 (5.0-8.0) Ur Specific [place] 1.040 H (1.001-1.035) Urine Protein 1+ H (Negative) Urine Glucose (UA) 4+ H (Negative) Urine Ketones Trace H (Negative) Urine Blood Negative (Negative) Urine Nitrite Negative (Negative) Urine Bilirubin Negative (Negative) Urine Urobilinogen <2.0 (<2.0) mg/dL Ur Leukocyte Esterase Negative (Negative) Urine RBC 1 (0-5) /hpf Urine WBC 2 (0-5) /hpf Uric Acid Crystals Occasional H (None) /hpf Hyaline Casts 1 (0-2) /lpf Salicylates mg/dL Urine Opiates Screen (NotDetected) Ur Oxycodone Screen (NotDetected) Urine Methadone Screen (NotDetected) Ur Propoxyphene Screen (NotDetected) Acetaminophen ug/mL Ur Barbiturates Screen (NotDetected) U Tricyclic Antidepress (NotDetected) Ur Phencyclidine Scrn (NotDetected) Ur Amphetamines Screen (NotDetected) U Methamphetamines Scrn (NotDetected) U Benzodiazepines Scrn (NotDetected) Urine Cocaine Screen (NotDetected) U Marijuana (THC) Screen (NotDetected) Serum Alcohol mg/dL Coronavirus (PCR) (Not Detectd) 01/05/21 01/05/21 Range/Units 08:28 09:35 WBC (3.8-10.6) k/uL RBC (4.30-5.90) m/uL Hgb (13.0-17.5) gm/dL Hct (39.0-53.0) % MCV (80.0-100.0) fL MCH (25.0-35.0) pg MCHC (31.0-37.0) g/dL RDW (11.5-15.5) % Plt Count (150-450) k/uL MPV Neutrophils % % Lymphocytes % % Monocytes % % Eosinophils % % Basophils % % Neutrophils # (1.3-7.7) k/uL Lymphocytes # (1.0-4.8) k/uL Monocytes # (0-1.0) k/uL Eosinophils # (0-0.7) k/uL Basophils # (0-0.2) k/uL Manual Slide Review RBC Morphology PT (9.0-12.0) sec INR (<1.2) APTT (22.0-30.0) sec Sodium (137-145) mmol/L Potassium (3.5-5.1) mmol/L Chloride (98-107) mmol/L Carbon Dioxide (22-30) mmol/L Anion Gap mmol/L BUN (9-20) mg/dL Creatinine (0.66-1.25) mg/dL Est GFR (CKD-EPI)AfAm (>60 ml/min/1.73 sqM) Est GFR (CKD-EPI)NonAf (>60 ml/min/1.73 sqM) Glucose (74-99) mg/dL Lactic Ac Sepsis Rflx Y Plasma Lactic Acid Leonel (0.7-2.0) mmol/L Calcium (8.4-10.2) mg/dL Total Bilirubin (0.2-1.3) mg/dL AST (17-59) U/L ALT (4-49) U/L Alkaline Phosphatase (38-126) U/L Creatine Kinase (55-170) U/L Total Protein (6.3-8.2) g/dL Albumin (3.5-5.0) g/dL Lipase (23-300) U/L Urine Color Urine Appearance (Clear) Urine pH (5.0-8.0) Ur Specific [place] (1.001-1.035) Urine Protein (Negative) Urine Glucose (UA) (Negative) Urine Ketones (Negative) Urine Blood (Negative) Urine Nitrite (Negative) Urine Bilirubin (Negative) Urine Urobilinogen (<2.0) mg/dL Ur Leukocyte Esterase (Negative) Urine RBC (0-5) /hpf Urine WBC (0-5) /hpf Uric Acid Crystals (None) /hpf Hyaline Casts (0-2) /lpf Salicylates mg/dL Urine Opiates Screen (NotDetected) Ur Oxycodone Screen (NotDetected) Urine Methadone Screen (NotDetected) Ur Propoxyphene Screen (NotDetected) Acetaminophen ug/mL Ur Barbiturates Screen (NotDetected) U Tricyclic Antidepress (NotDetected) Ur Phencyclidine Scrn (NotDetected) Ur Amphetamines Screen (NotDetected) U Methamphetamines Scrn (NotDetected) U Benzodiazepines Scrn (NotDetected) Urine Cocaine Screen (NotDetected) U Marijuana (THC) Screen (NotDetected) Serum Alcohol mg/dL Coronavirus (PCR) Not Detected (Not Detectd) - EKG Data EKG Comments: EKG demonstrates sinus tachycardia with a ventricular rate of 122. SC interval 162. QRS 80. QTC of 453. Q wave with an inverted T-wave in lead 3. No acute ST segment elevations Disposition Clinical Impression: Acute metabolic encephalopathy, Antipsychotic overdose, Rhabdomyolysis, Tachycardia, Lactic acidosis, Hyperglycemia Disposition: ADMITTED IP TO THIS [facility] Condition: Fair Is patient prescribed a controlled substance at d/c from ED?: No Decision to Admit Reason: Admit from EC Decision Date: 01/05/21 Decision Time: 10:51
[2021-01-05 09:57] LABS: Creatine Kinase 4305 U/L (55-170)
--- NOTE | 2021-01-05 10:03 | CT ---
EXAMINATION TYPE: CT brain wo con DATE OF EXAM: 01/05/2021 COMPARISON: 03/01/2018 HISTORY: AMS TECHNIQUE: CT scan of the brain performed without contrast CT DLP: 1074.4 mGycm Automated exposure control for dose reduction was used. FINDINGS: No acute intracranial hemorrhage, midline shift or mass effect. Chapman-white matter differentiation is preserved. CSF and ventricular spaces are normal in appearance. Posterior fossa contents are within n ormal limit. No acute orbital, osseous or soft tissue abnormality. Paranasal sinuses and mastoid air cells are adequately aerated. IMPRESSION: NO EVIDENCE FOR ACUTE INTRACRANIAL HEMORRHAGE, MIDLINE SHIFT OR MASS EFFECT.
[2021-01-05] MEDS ORDERED: INSULIN REGULAR 100 UNIT/ML VIAL (IM/SQ) SQ ONE (10:49)
[2021-01-05] MEDS ORDERED: LORazepam 2 MG/ML INJ IV STA ×2 (10:54→14:56)
[2021-01-05] MEDS ORDERED: NALOXONE 0.4 MG/ML 1 ML VIAL IV PRN (10:54)
[2021-01-05 11:14] LABS: Phencyclidine Screen,Urine Not Detected (NotDetected); Urn Cannabinoid Scrn Not Detected (NotDetected)
[2021-01-05 11:15] LABS: Amphetamine Screen,Urine Not Detected (NotDetected); Barbiturate Screen,Urine Not Detected (NotDetected); Benzodiazepines Screen,Urine Not Detected (NotDetected); Cocaine Screen,Urine Detected (NotDetected); Methadone Screen, Urine Not Detected (NotDetected); Opiate Screen,Urine Not Detected (NotDetected); Oxycodone Screen, Urine Not Detected (NotDetected); Tricyclic Antidepressant,Urine Detected (NotDetected)
[2021-01-05 12:44] LABS: Glucose,Whole Blood 295 mg/dL (75-99)
[2021-01-05 17:54] LABS: Glucose,Whole Blood 211 mg/dL (75-99)
[2021-01-05] MEDS: INSULIN ASPART (NovoLOG) 100 UNIT/ML VIAL SQ SCH ×3 (18:38→23:53)
[2021-01-05 20:37] LABS: Glucose,Whole Blood 542 mg/dL (75-99)
[2021-01-05 20:37] LABS: Glucose,Whole Blood 213 mg/dL (75-99)
[2021-01-05 20:41] LABS: Glucose,Whole Blood 214 mg/dL (75-99)
[2021-01-05] MEDS ORDERED: ATORVASTATIN 20 MG TAB PO SCH (21:00)
[2021-01-05 22:40] LABS: ABG Base Excess 7.5 mmol/L; ABG HCO3 32 mmol/L (21-25); ABG Oxygen Saturation 97.7 % (94-97); ABG PCO2 49 mmHg (35-45); ABG PH 7.42 (7.35-7.45); ABG PO2 93 mmHg (83-108); ABG TCO2 34 mmol/L (19-24); Allen Test Performed? Yes
[2021-01-05] MEDS ORDERED: LORazepam 2 MG/ML INJ IV PRN (22:42)
[2021-01-05 23:06] LABS: African American GFR (CKD) >90 (>60 ml/min/1.73 sqM); Anion Gap 6 mmol/L; Basophils # (A) 0.1 k/uL (0-0.2); Basophils % (A) 1 %; Blood Urea Nitrogen 18 mg/dL (9-20); Carbon Dioxide 30 mmol/L (22-30); Chloride 103 mmol/L (98-107); Eosinophils # (A) 0.1 k/uL (0-0.7); Eosinophils % (A) 1 %; Glucose 173 mg/dL (74-99); HCT 38.3 % (39.0-53.0); HGB 12.3 gm/dL (13.0-17.5); Lymphocytes # (A) 2.1 k/uL (1.0-4.8); Lymphocytes % (A) 17 %; MCH 28.3 pg (25.0-35.0); MCHC 32.1 g/dL (31.0-37.0); MCV 87.9 fL (80.0-100.0); Mean Platelet Volume 8.2; Monocytes # (A) 0.8 k/uL (0-1.0); Monocytes % (A) 6 %; Neutrophils % (A) 74 %; Non-African American GFR(CKD) >90 (>60 ml/min/1.73 sqM); Platelet Count 262 k/uL (150-450); Potassium 3.9 mmol/L (3.5-5.1); RBC 4.35 m/uL (4.30-5.90); RDW 13.5 % (11.5-15.5); Sodium 139 mmol/L (137-145); WBC 12.2 k/uL (3.8-10.6)
[2021-01-05 23:20] LABS: Glucose,Whole Blood 397 mg/dL (75-99)
[2021-01-05] MEDS: SODIUM CHLORIDE 0.9% 1,000 ML IV SCH (23:56)
[2021-01-06 00:41] LABS: Creatine Kinase 4887 U/L (55-170)
[2021-01-06 04:20] LABS: Basophils % (A) 0 %; Eosinophils # (A) 0.2 k/uL (0-0.7); Eosinophils % (A) 2 %; HCT 36.6 % (39.0-53.0); HGB 11.7 gm/dL (13.0-17.5); Lymphocytes % (A) 20 %; MCH 27.9 pg (25.0-35.0); MCHC 31.9 g/dL (31.0-37.0); MCV 87.5 fL (80.0-100.0); Mean Platelet Volume 8.3; Monocytes # (A) 0.6 k/uL (0-1.0); Monocytes % (A) 6 %; Neutrophils # (A) 7.1 k/uL (1.3-7.7); Neutrophils % (A) 70 %; Platelet Count 262 k/uL (150-450); RBC 4.19 m/uL (4.30-5.90); RDW 13.6 % (11.5-15.5)
[2021-01-06 04:43] LABS: African American GFR (CKD) >90 (>60 ml/min/1.73 sqM); Anion Gap 9 mmol/L; Blood Urea Nitrogen 19 mg/dL (9-20); Calcium 8.8 mg/dL (8.4-10.2); Carbon Dioxide 26 mmol/L (22-30); Chloride 105 mmol/L (98-107); Glucose 98 mg/dL (74-99); Magnesium 1.7 mg/dL (1.6-2.3); Non-African American GFR(CKD) >90 (>60 ml/min/1.73 sqM); Potassium 3.5 mmol/L (3.5-5.1); Sodium 140 mmol/L (137-145)
[2021-01-06 06:43] LABS: Glucose,Whole Blood 172 mg/dL (75-99)
[2021-01-06] MEDS: INSULIN DETEMIR (LEVEMIR) 100 UNIT/ML SYR SQ SCH (06:50)
[2021-01-06] MEDS: SODIUM CHLORIDE 0.9% 1,000 ML IV SCH ×3 (06:50→21:21)
[2021-01-06] MEDS: INSULIN ASPART (NovoLOG) 100 UNIT/ML VIAL SQ SCH ×4 (06:50→21:20)
[2021-01-06] MEDS: BISOPROLOL-HCTZ 5-6.25 MG 1 EACH TAB PO SCH (09:13)
--- NOTE | 2021-01-06 09:22 | P.HPIM ---
History of Present Illness H&P Date: 01/05/21 Chief Complaint: overdose This is a 55 year old male patient of our practice with past medical history ofuncontrolled diabetes, dementia, depression presents to the emergency department with reported overdose by family. Per ER staff, EMS were called to the house by the patient's significant other. The patient was acting odd. She told EMS that he likely overdosed on Seroquel. He had 20 tablets and his prescription bottle yesterday. She noted today that there was only one left. Dosage is 100 mg and he normally takes it at night. Unknown if he overdosed on any other medications. He is aan uncontrolled diabetic, last in our office 12/27/2020 and his Hba1c at that time was 10.8% He recently had COIVD19 approximately 4 weeks ago Patient was seen in the [facility] room in the ER. Case discussed with ER doc in person. Patient was asleep with eyes open. He aroused quickly to try and urinate before quickly falling asleep again. Staff report elevated BP, but otherwis stable vitals. CPK was elevated. He states while awake that he did not try to hurt himself, but has liltte memory of events and quickly fell asleep again. rest of history per office chart. Review of Systems ROS unobtainable: due to mental status Past Medical History Past Medical History: Chest Pain / Angina, Dementia, Diabetes Mellitus, Hyperlipidemia, Hypertension, Neurologic Disorder, Syncope Additional Past Medical History / Comment(s): back pain, recemnt COVID 19 History of Any Multi-Drug Resistant Organisms: None Reported Past Surgical History: Back Surgery, Cholecystectomy, Orthopedic Surgery Additional Past Surgical History / Comment(s): C3-C7 WITH HARDWARE. DISC REPLACED IN LOWER BACK. RT ROTATOR CUFF REPAIR Past Anesthesia/Blood Transfusion Reactions: No Reported Reaction Past Psychological History: Anxiety, Depression Smoking Status: Former smoker Past Alcohol Use History: Abuse, Daily Past Drug Use History: None Reported - Past Family History Mother Family Medical History: No Reported History Father Family Medical History: Coronary Artery Disease (CAD), Diabetes Mellitus, Deep Vein Thrombosis (DVT) Additional Family Medical History / Comment(s): paternal grandmother also had diabetes Sister(s) Family Medical History: Congestive Heart Failure (CHF) Medications and Allergies Home Medications Medication Instructions Recorded Confirmed Type metFORMIN HCL [Glucophage] 1,000 mg PO BID 10/16/17 01/05/21 History Atorvastatin [Lipitor] 20 mg PO HS 03/24/19 01/05/21 History QUEtiapine [SEROquel] 100 mg PO HS 14 Days tab 12/27/19 01/05/21 Rx sitaGLIPtin PHOSPHATE [Januvia] 100 mg PO DAILY 12/27/19 01/05/21 History Bisoprolol-Hctz 5-6.25 mg [Ziac 1 tab PO DAILY 01/05/21 01/05/21 History 5-6.25 MG] Insulin Glargine,Hum.rec.anlog 35 unit SQ DAILY 01/05/21 01/05/21 History [Lantus Solostar Pen] Insulin Lispro 10 units SQ AC-TID 01/05/21 01/05/21 History buPROPion XL [Wellbutrin XL] 150 mg PO DAILY 01/05/21 01/05/21 History guanFACINE HCL [Intuniv] 1 mg PO HS 01/05/21 01/05/21 History hydrOXYzine pamoate [Vistaril] 50 mg PO TID PRN 01/05/21 01/05/21 History Allergies Allergy/AdvReac Type Severity Reaction Status Date / Time No Known Allergies Allergy Verified 01/05/21 10:38 Physical Exam Vitals: Vital Signs Temp Pulse Pulse Pulse Pulse Resp BP 01/06/21 08:00 98.3 F 90 14 01/06/21 04:00 98.5 F 90 12 01/06/21 00:00 117 H 18 01/05/21 20:05 97.6 F 110 H 17 01/05/21 17:45 72 18 135/100 01/05/21 16:20 106 H 146/104 01/05/21 14:52 104 H 20 144/94 01/05/21 12:00 117 H 18 113/90 01/05/21 11:30 122 H 18 113/90 01/05/21 11:00 115 H 18 146/101 01/05/21 10:51 125 H 20 146/101 01/05/21 10:30 158/108 01/05/21 09:30 117 H 142/113 01/05/21 09:00 133 H 170/124 BP Pulse Ox 01/06/21 08:00 134/90 95 01/06/21 04:00 109/68 95 01/06/21 00:00 137/97 95 01/05/21 20:05 153/97 92 L 01/05/21 17:45 95 01/05/21 16:20 95 01/05/21 14:52 94 L 01/05/21 12:00 01/05/21 11:30 01/05/21 11:00 01/05/21 10:51 97 01/05/21 10:30 01/05/21 09:30 95 01/05/21 09:00 Intake and Output 01/05/21 01/06/21 01/06/21 22:59 06:59 14:59 Intake Total 125 1125 Output Total 0 0 Balance 125 1125 Intake: IV 125 1125 0.9 125 1125 Output: Urine 0 0 Other: Voiding Method Toilet Toilet Urinal Urinal # Voids 0 Weight 90.2 kg - Constitutional General appearance: average body habitus - EENT Eyes: EOMI, PERRLA - Neck Neck: no lymphadenopathy, normal ROM, no thyromegaly Carotids: bilateral: upstroke normal Thyroid: bilateral: normal size - Respiratory Respiratory: bilateral: CTA - Cardiovascular Rhythm: other (tachcardic) Heart sounds: normal: S1, S2 Abnormal Heart Sounds: no systolic murmur - Gastrointestinal General gastrointestinal: no hepatomegaly, normal bowel sounds - Neurologic Neurologic: CNII-XII intact (no focal deficits noted) - Psychiatric patient is sedated due to overdose suspect, he is arousable and agitated. communicates with a few words befroe loosing cionciousness Results CBC & Chem 7: 01/06/21 03:25 01/06/21 03:25 Labs: Abnormal Lab Results - Last 24 Hours (Table) 01/05/21 01/05/21 01/05/21 Range/Units 08:26 08:26 08:26 WBC 14.9 H (3.8-10.6) k/uL RBC (4.30-5.90) m/uL Hgb (13.0-17.5) gm/dL Hct (39.0-53.0) % Neutrophils # 13.0 H (1.3-7.7) k/uL APTT (22.0-30.0) sec ABG pCO2 (35-45) mmHg ABG HCO3 (21-25) mmol/L ABG Total CO2 (19-24) mmol/L ABG O2 Saturation (94-97) % Chloride 97 L (98-107) mmol/L Glucose 435 H (74-99) mg/dL POC Glucose (mg/dL) (75-99) mg/dL Plasma Lactic Acid Leonel (0.7-2.0) mmol/L AST 64 H (17-59) U/L Creatine Kinase 4305 H* (55-170) U/L Ur Specific [place] (1.001-1.035) Urine Protein (Negative) Urine Glucose (UA) (Negative) Urine Ketones (Negative) Uric Acid Crystals (None) /hpf U Tricyclic Antidepress Detected H (NotDetected) U Methamphetamines Scrn Detected H (NotDetected) Urine Cocaine Screen Detected H (NotDetected) 01/05/21 01/05/21 01/05/21 Range/Units 08:26 08:26 08:26 WBC (3.8-10.6) k/uL RBC (4.30-5.90) m/uL Hgb (13.0-17.5) gm/dL Hct (39.0-53.0) % Neutrophils # (1.3-7.7) k/uL APTT 20.1 L (22.0-30.0) sec ABG pCO2 (35-45) mmHg ABG HCO3 (21-25) mmol/L ABG Total CO2 (19-24) mmol/L ABG O2 Saturation (94-97) % Chloride (98-107) mmol/L Glucose (74-99) mg/dL POC Glucose (mg/dL) (75-99) mg/dL Plasma Lactic Acid Leonel 3.0 H* (0.7-2.0) mmol/L AST (17-59) U/L Creatine Kinase (55-170) U/L Ur Specific [place] 1.040 H (1.001-1.035) Urine Protein 1+ H (Negative) Urine Glucose (UA) 4+ H (Negative) Urine Ketones Trace H (Negative) Uric Acid Crystals Occasional H (None) /hpf U Tricyclic Antidepress (NotDetected) U Methamphetamines Scrn (NotDetected) Urine Cocaine Screen (NotDetected) 01/05/21 01/05/21 01/05/21 Range/Units 12:37 12:41 15:48 WBC (3.8-10.6) k/uL RBC (4.30-5.90) m/uL Hgb (13.0-17.5) gm/dL Hct (39.0-53.0) % Neutrophils # (1.3-7.7) k/uL APTT (22.0-30.0) sec ABG pCO2 (35-45) mmHg ABG HCO3 (21-25) mmol/L ABG Total CO2 (19-24) mmol/L ABG O2 Saturation (94-97) % Chloride (98-107) mmol/L Glucose (74-99) mg/dL POC Glucose (mg/dL) 295 H (75-99) mg/dL Plasma Lactic Acid Leonel 2.3 H* 2.2 H* (0.7-2.0) mmol/L AST (17-59) U/L Creatine Kinase (55-170) U/L Ur Specific [place] (1.001-1.035) Urine Protein (Negative) Urine Glucose (UA) (Negative) Urine Ketones (Negative) Uric Acid Crystals (None) /hpf U Tricyclic Antidepress (NotDetected) U Methamphetamines Scrn (NotDetected) Urine Cocaine Screen (NotDetected) 01/05/21 01/05/21 01/05/21 Range/Units 17:53 20:33 20:36 WBC (3.8-10.6) k/uL RBC (4.30-5.90) m/uL Hgb (13.0-17.5) gm/dL Hct (39.0-53.0) % Neutrophils # (1.3-7.7) k/uL APTT (22.0-30.0) sec ABG pCO2 (35-45) mmHg ABG HCO3 (21-25) mmol/L ABG Total CO2 (19-24) mmol/L ABG O2 Saturation (94-97) % Chloride (98-107) mmol/L Glucose (74-99) mg/dL POC Glucose (mg/dL) 211 H 542 H 213 H (75-99) mg/dL Plasma Lactic Acid Leonel (0.7-2.0) mmol/L AST (17-59) U/L Creatine Kinase (55-170) U/L Ur Specific [place] (1.001-1.035) Urine Protein (Negative) Urine Glucose (UA) (Negative) Urine Ketones (Negative) Uric Acid Crystals (None) /hpf U Tricyclic Antidepress (NotDetected) U Methamphetamines Scrn (NotDetected) Urine Cocaine Screen (NotDetected) 01/05/21 01/05/21 01/05/21 Range/Units 20:40 22:25 22:25 WBC 12.2 H (3.8-10.6) k/uL RBC (4.30-5.90) m/uL Hgb 12.3 L (13.0-17.5) gm/dL Hct 38.3 L (39.0-53.0) % Neutrophils # 9.0 H (1.3-7.7) k/uL APTT (22.0-30.0) sec ABG pCO2 (35-45) mmHg ABG HCO3 (21-25) mmol/L ABG Total CO2 (19-24) mmol/L ABG O2 Saturation (94-97) % Chloride (98-107) mmol/L Glucose 173 H (74-99) mg/dL POC Glucose (mg/dL) 214 H (75-99) mg/dL Plasma Lactic Acid Leonel (0.7-2.0) mmol/L AST (17-59) U/L Creatine Kinase 4887 H* (55-170) U/L Ur Specific [place] (1.001-1.035) Urine Protein (Negative) Urine Glucose (UA) (Negative) Urine Ketones (Negative) Uric Acid Crystals (None) /hpf U Tricyclic Antidepress (NotDetected) U Methamphetamines Scrn (NotDetected) Urine Cocaine Screen (NotDetected) 01/05/21 01/05/21 01/06/21 Range/Units 22:35 23:17 03:25 WBC (3.8-10.6) k/uL RBC 4.19 L (4.30-5.90) m/uL Hgb 11.7 L (13.0-17.5) gm/dL Hct 36.6 L (39.0-53.0) % Neutrophils # (1.3-7.7) k/uL APTT (22.0-30.0) sec ABG pCO2 49 H (35-45) mmHg ABG HCO3 32 H (21-25) mmol/L ABG Total CO2 34 H (19-24) mmol/L ABG O2 Saturation 97.7 H (94-97) % Chloride (98-107) mmol/L Glucose (74-99) mg/dL POC Glucose (mg/dL) 397 H (75-99) mg/dL Plasma Lactic Acid Leonel (0.7-2.0) mmol/L AST (17-59) U/L Creatine Kinase (55-170) U/L Ur Specific [place] (1.001-1.035) Urine Protein (Negative) Urine Glucose (UA) (Negative) Urine Ketones (Negative) Uric Acid Crystals (None) /hpf U Tricyclic Antidepress (NotDetected) U Methamphetamines Scrn (NotDetected) Urine Cocaine Screen (NotDetected) 01/06/21 Range/Units 06:42 WBC (3.8-10.6) k/uL RBC (4.30-5.90) m/uL Hgb (13.0-17.5) gm/dL Hct (39.0-53.0) % Neutrophils # (1.3-7.7) k/uL APTT (22.0-30.0) sec ABG pCO2 (35-45) mmHg ABG HCO3 (21-25) mmol/L ABG Total CO2 (19-24) mmol/L ABG O2 Saturation (94-97) % Chloride (98-107) mmol/L Glucose (74-99) mg/dL POC Glucose (mg/dL) 172 H (75-99) mg/dL Plasma Lactic Acid Leonel (0.7-2.0) mmol/L AST (17-59) U/L Creatine Kinase (55-170) U/L Ur Specific [place] (1.001-1.035) Urine Protein (Negative) Urine Glucose (UA) (Negative) Urine Ketones (Negative) Uric Acid Crystals (None) /hpf U Tricyclic Antidepress (NotDetected) U Methamphetamines Scrn (NotDetected) Urine Cocaine Screen (NotDetected) Thrombosis Risk Factor Assmnt - DVT/VTE Prophylaxis DVT/VTE Prophylaxis: Mechanical Prophylaxis ordered - Choose All That Apply Each Factor Represents 1 point: Age 41-60 years Thrombosis Risk Factor Assessment Total Risk Factor Score: 1 Thrombosis Risk Factor Assessment Level: Low Risk Assessment and Plan (1) Antipsychotic overdose Current Visit: Yes Status: Acute Code(s): T43.501A - POISONING BY UNSP ANTIPSYCHOT/NEUROLEPT, ACCIDENTAL, INIT SNOMED Code(s): 93921522 (2) Acute metabolic encephalopathy Current Visit: Yes Status: Acute Code(s): G93.41 - METABOLIC ENCEPHALOPATHY SNOMED Code(s): 11537306 (3) Type 2 diabetes mellitus with hyperglycemia Current Visit: Yes Status: Acute Code(s): E11.65 - TYPE 2 DIABETES MELLITUS WITH HYPERGLYCEMIA SNOMED Code(s): 280357615030911 (4) Essential (primary) hypertension Current Visit: Yes Status: Acute Code(s): I10 - ESSENTIAL (PRIMARY) HYPERTENSION SNOMED Code(s): 78294918 (5) Mixed hyperlipidemia Current Visit: Yes Status: Acute Code(s): E78.2 - MIXED HYPERLIPIDEMIA SNOMED Code(s): 305199775 (6) Hyperglycemia Current Visit: Yes Status: Acute Code(s): R73.9 - HYPERGLYCEMIA, UNSPECIFIED SNOMED Code(s): 66008005 (7) Rhabdomyolysis Current Visit: Yes Status: Acute Code(s): M62.82 - RHABDOMYOLYSIS SNOMED Code(s): 028286721 (8) Tachycardia Current Visit: Yes Status: Acute Code(s): R00.0 - TACHYCARDIA, UNSPECIFIED SNOMED Code(s): 6306095 Plan: admit ot ICU or Stepdown repeat labs in 12 hours including CPK and BMP, CBC insulin scale and accuchecks qac and HS Sitter to monitor consult psych for overdose accidental vs purposeful repeat labs in am posion control he will be reevaluated in the next 24 hours
[2021-01-06 09:43] LABS: ALT 38 U/L (4-49); AST 83 U/L (17-59)
[2021-01-06 10:44] LABS: Creatine Kinase 4261 U/L (55-170)
[2021-01-06 11:56] LABS: Glucose,Whole Blood 128 mg/dL (75-99)
--- NOTE | 2021-01-06 15:21 | P.PN ---
Subjective This is a 55 year old male patient of our practice with past medical history ofuncontrolled diabetes, dementia, depression presents to the emergency department with reported overdose by family. Per ER staff, EMS were called to the house by the patient's significant other. The patient was acting odd. She told EMS that he likely overdosed on Seroquel. He had 20 tablets and his prescription bottle yesterday. She noted today that there was only one left. Dosage is 100 mg and he normally takes it at night. Unknown if he overdosed on any other medications. He is aan uncontrolled diabetic, last in our office 12/27/2020 and his Hba1c at that time was 10.8% He recently had COIVD19 approximately 4 weeks ago Patient was seen in the [facility] room in the ER. Case discussed with ER doc in person. Patient was asleep with eyes open. He aroused quickly to try and urinate before quickly falling asleep again. Staff report elevated BP, but otherwis stable vitals. CPK was elevated. He states while awake that he did not try to hurt himself, but has liltte memory of events and quickly fell asleep again. rest of history per office chart. 01/06/2021: Patient is in the stepdown service, in the intensive care unit as an overflow. He was originally admitted to [facility]. Complex in his care, he was transferred. Currently today he appears much more awake and alert, he is oriented 2 to self and location. Patch or the exact date. He denies taking an overdose of Seroquel, however the ER record does reflect that he had a bottle of 20 and only had to left. He tells me that he was trying to sleep and Taking Seroquel to help him. He denies any chest pains, pressures, sugars run. He complains of some abdominal pain indicates the suprapubic area. Vital signs today show a stable blood pressure and stable oxygen saturation 94% on room air. Labs show normal CBC with a minimal anemia with hemoglobin 11.7. Blood gases drawn yesterday were slightly abnormal with pH of 7.42 PCO2 of 49 PO2 of 93. The chemistries this morning were normal. Glucoses were slightly elevated last night but are improved today. CPK this morning is down to 4261. Admission CK was 4305 with a peak of 4887 last night. EKG showed sinus tachycardia last night. A repeat is pending he is on telemetry. Currently showing sinus rhythm. He's been restarted on Ziac. He continues on Levemir 35 units daily and NovoLog scale before meals and at bedtime. He has lorazepam ordered 1 mg every 4 hours when necessary for agitation which she was showing last night, which much improved today. There is a sitter present. He continues on IV fluid normal Cc 130 mL an hour. Staff report he is having some urinary urgency. Objective - Vital Signs Vital signs: Vital Signs Temp 98.0 F 01/06/21 11:47 Pulse 83 01/06/21 11:47 Resp 14 01/06/21 11:47 BP 124/78 01/06/21 11:47 Pulse Ox 94 L 01/06/21 11:47 Intake & Output 01/05/21 01/06/21 01/06/21 18:59 06:59 18:59 Intake Total 125 1125 Output Total 0 0 Balance 125 1125 Weight 86.183 kg 90.2 kg Intake: IV 125 1125 0.9 125 1125 Output: Urine 0 0 Other: Voiding Method Toilet Toilet Urinal Urinal # Voids 0 - Exam General: The patient is awake and alert, in no distress, and does not appear acutely ill. Neck: The neck is supple, there is no thyromegaly, lymphadenopathy, tenderness or JVD. Cardiovascular: S1S2 is normal, There is a regular rate and rhythm. No murmur, rub or gallop is appreciated. Respiratory: Lungs are minimally coarse to auscultation bilaterally, respirations are non-labored, breath sounds are equal. Gastrointestinal: Soft, non-distended, without masses or organomegaly noted. There is no rebound or guarding present. Bowel sounds are unremarkable. There is suprapubic tenderness to palpation Musculoskeletal: Normal ROM, no tenderness, There is no pedal edema. There is no calf tenderness or swelling. No cords were appreciated. Neurological: CN II-XII intact, there are no obvious motor or sensory deficits. Coordination appears grossly intact. Speech is normal. He is awake alert and oriented 2 to self and location. Skin: Skin is warm and dry and no rashes or lesions are noted. - Labs CBC & Chem 7: 01/06/21 03:25 01/06/21 03:25 Labs: Abnormal Lab Results - Last 24 Hours (Table) 01/05/21 01/05/21 01/05/21 Range/Units 15:48 17:53 20:33 WBC (3.8-10.6) k/uL RBC (4.30-5.90) m/uL Hgb (13.0-17.5) gm/dL Hct (39.0-53.0) % Neutrophils # (1.3-7.7) k/uL ABG pCO2 (35-45) mmHg ABG HCO3 (21-25) mmol/L ABG Total CO2 (19-24) mmol/L ABG O2 Saturation (94-97) % Glucose (74-99) mg/dL POC Glucose (mg/dL) 211 H 542 H (75-99) mg/dL Plasma Lactic Acid Leonel 2.2 H* (0.7-2.0) mmol/L AST (17-59) U/L Creatine Kinase (55-170) U/L 01/05/21 01/05/21 01/05/21 Range/Units 20:36 20:40 22:25 WBC (3.8-10.6) k/uL RBC (4.30-5.90) m/uL Hgb (13.0-17.5) gm/dL Hct (39.0-53.0) % Neutrophils # (1.3-7.7) k/uL ABG pCO2 (35-45) mmHg ABG HCO3 (21-25) mmol/L ABG Total CO2 (19-24) mmol/L ABG O2 Saturation (94-97) % Glucose 173 H (74-99) mg/dL POC Glucose (mg/dL) 213 H 214 H (75-99) mg/dL Plasma Lactic Acid Leonel (0.7-2.0) mmol/L AST (17-59) U/L Creatine Kinase 4887 H* (55-170) U/L 01/05/21 01/05/21 01/05/21 Range/Units 22:25 22:35 23:17 WBC 12.2 H (3.8-10.6) k/uL RBC (4.30-5.90) m/uL Hgb 12.3 L (13.0-17.5) gm/dL Hct 38.3 L (39.0-53.0) % Neutrophils # 9.0 H (1.3-7.7) k/uL ABG pCO2 49 H (35-45) mmHg ABG HCO3 32 H (21-25) mmol/L ABG Total CO2 34 H (19-24) mmol/L ABG O2 Saturation 97.7 H (94-97) % Glucose (74-99) mg/dL POC Glucose (mg/dL) 397 H (75-99) mg/dL Plasma Lactic Acid Leonel (0.7-2.0) mmol/L AST (17-59) U/L Creatine Kinase (55-170) U/L 01/06/21 01/06/21 01/06/21 Range/Units 03:25 03:25 06:42 WBC (3.8-10.6) k/uL RBC 4.19 L (4.30-5.90) m/uL Hgb 11.7 L (13.0-17.5) gm/dL Hct 36.6 L (39.0-53.0) % Neutrophils # (1.3-7.7) k/uL ABG pCO2 (35-45) mmHg ABG HCO3 (21-25) mmol/L ABG Total CO2 (19-24) mmol/L ABG O2 Saturation (94-97) % Glucose (74-99) mg/dL POC Glucose (mg/dL) 172 H (75-99) mg/dL Plasma Lactic Acid Leonel (0.7-2.0) mmol/L AST 83 H (17-59) U/L Creatine Kinase 4261 H* (55-170) U/L 01/06/21 Range/Units 11:55 WBC (3.8-10.6) k/uL RBC (4.30-5.90) m/uL Hgb (13.0-17.5) gm/dL Hct (39.0-53.0) % Neutrophils # (1.3-7.7) k/uL ABG pCO2 (35-45) mmHg ABG HCO3 (21-25) mmol/L ABG Total CO2 (19-24) mmol/L ABG O2 Saturation (94-97) % Glucose (74-99) mg/dL POC Glucose (mg/dL) 128 H (75-99) mg/dL Plasma Lactic Acid Leonel (0.7-2.0) mmol/L AST (17-59) U/L Creatine Kinase (55-170) U/L Assessment and Plan (1) Antipsychotic overdose Current Visit: Yes Status: Acute Code(s): T43.501A - POISONING BY UNSP ANTIPSYCHOT/NEUROLEPT, ACCIDENTAL, INIT SNOMED Code(s): 41685172 (2) Acute metabolic encephalopathy Current Visit: Yes Status: Acute Code(s): G93.41 - METABOLIC ENCEPHALOPATHY SNOMED Code(s): 92649294 (3) Type 2 diabetes mellitus with hyperglycemia Current Visit: Yes Status: Acute Code(s): E11.65 - TYPE 2 DIABETES MELLITUS WITH HYPERGLYCEMIA SNOMED Code(s): 782954889703219 (4) Essential (primary) hypertension Current Visit: Yes Status: Acute Code(s): I10 - ESSENTIAL (PRIMARY) HYPERTENSION SNOMED Code(s): 34194348 (5) Mixed hyperlipidemia Current Visit: Yes Status: Acute Code(s): E78.2 - MIXED HYPERLIPIDEMIA SNO MED Code(s): 213746011 (6) Hyperglycemia Current Visit: Yes Status: Acute Code(s): R73.9 - HYPERGLYCEMIA, UNSPECIFIED SNOMED Code(s): 74302902 (7) Rhabdomyolysis Current Visit: Yes Status: Acute Code(s): M62.82 - RHABDOMYOLYSIS SNOMED Code(s): 360772480 (8) Tachycardia Current Visit: Yes Status: Acute Code(s): R00.0 - TACHYCARDIA, UNSPECIFIED SNOMED Code(s): 0555450 (9) Suprapubic abdominal pain Current Visit: Yes Status: Acute Code(s): R10.2 - PELVIC AND PERINEAL PAIN SNOMED Code(s): 716592718 Plan: We'll repeat labs in a.m. Continue his current medications as reviewed. Continue sitter. Thomas catheter and urine culture and sensitivity results of suprapubic pain and urgency. We'll consult nephrology about his rhabdomyolysis. Continue his IV fluids Hold his antihyperlipidemics this time. he will be reevaluated in the next 24 hours
[2021-01-06 17:14] LABS: Glucose,Whole Blood 143 mg/dL (75-99)
[2021-01-06] MEDS ORDERED: HALOPERIDOL LACTATE 5 MG/ML 1 ML VIAL IM PRN (17:23)
--- NOTE | 2021-01-06 17:44 | P.CN ---
Psychiatric Consult - . Consult date: 01/06/21 Consult:: Reason for consultation: Possible suicidal act after the patient was found confused with altered mental status with an empty bottle of Seroquel beside him Identifying data: Patient is a 55-year-old male who has psychiatric history of depression, anxiety, chronic pain, and other medical comorbidities including diabetes. The patient was seen while he was at medical ICU. Chief complaint and history of present illness: According to H&P the patient presented to the ED with reported overdose by family. Per ER, EMS were called to the house by the patients significant other. Patient was acting odd, and she told EMS that he likely overdosed on Seroquel. Patient had 20 tablets and his prescription bottle the day before this incident and she noted at that time EMS came that the bottle had only one tablet left. Patient was very irritable, very guarded and superficial in his answers during psychiatric evaluation today. He explained that he took extra pill of Seroquel and he woke up groggy as per his report. According to nursing staff at the unit, ED reported that patient admits to them he had suicidal ideation. Patient was not cooperative with psychiatric evaluation or answering questions about his mood or the incident that he found with altered mental status. He became very angry, agitated, and yelling I dont know any of B.S report, but I would leave right now. Patient started to move out of his bed and wanted to leave immediately so nursing staff came to the room and security called to control the situation. Patient finally was able to control his behavior and no when necessary medications given, but he continued to be resistant sharing information about the incident that caused him to present with altered mental status other than what he reported I talked 2 pills of Seroquel and thats all. I spoke to his significant other and Romel who reported that she knows him for about 20 years and lives with him for the past 6 years. She reported that patient has very violent temper and she was told by ED staff that he admits to them had suicidal ideation. She reports 2 days before coming to the hospital, patient admitted to her having suicidal thoughts and doesnt want to live anymore. She reports the patient was constantly depressed and is severely angry with very bad temper as per her report. She added that he is always complaining of chronic pain and reporting that he doesnt want to live. He always talking about feeling miserable. According to his significant other report, he has history of anxiety and depression, but he is always resistant to get help and doesnt want to listen to anybody, nonstop screaming, and nobody wanted to be around him. She reports that one of his stepfathers recently and his was 2 days ago. I tried to talk to the patient again about his psychiatric symptoms and the concern about safety, but he was unable to engage in answering any questions or talking about his feelings and is started to yell and scream again about he would leave the hospital anyway. He was saying that I will never go to psych unit again, no body will help me. The patient was admitted to inpatient psychiatric unit 3N December of last year, diagnosed with depressive disorder versus mood disorder and discharged on medications of Lexapro, Tegretol, and Seroquel. According to patients home medications, he is prescribed Seroquel 100 mg at bedtime, Wellbutrin 150 mg daily, Intuniv 1 mg at bedtime, and Vistaril 50 mg 3 times a day as needed. Past psychiatric history: Patient reports he follows with [facility] and sees therapist Eduar. As per chart review, patient had previous treatment trials with Cymbalta. As reported in HPI, the patient was admitted to psych unit at this hospital December of last year. Substance use history: Patient was not cooperative to give any history. According to chart review, the patient had history of heavy alcohol drinking until 2009. No history of Substance use disorder treatment. Reported history of using cocaine and PCP in his early 20s. UDS results obtained while patient was in ED yesterday was positive for cocaine, methamphetamine, and TCA. UDS from visit December of last year was positive for amphetamine and methamphetamine. Family history of psychiatric illness: According to chart review, patients mother was alcoholic, and he had a brother who from alcoholic liver cirrhosis. Brief social history: As per chart review, the patient dropped out of school at 10th grade, but he got his GED. 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 He is once for 15 years which ended by divorce. He has a twin daughter. Currently the patient living with his significant other for the past 6 years. Mental status examination. Appearance: The patient appears very angry, agitated, disheveled, average body built, no specific features. Gait/posture: Pt was initially lying-in bed, and he appears having normal gait, normal arm swinging. No abnormal movements. Attitude and behavior: Not engaged, not cooperative, very poor eye contact. He was very agitated and at one point threatening. Motor activity: Increased psychomotor activity Speech: Loud, yelling, but coherent. Mood: Angry, agitated. Affect: Expansive. Thought form: Perseverant. Superficial, evasive. Thought content: Non-delusional, denies suicidal thoughts but clearly not able to explain the most recent incident of probably ingesting 20 tablets of Seroquel, denies homicidal thoughts, denies intentions or plans. Perception: Unable to assess because the patient was not cooperative. Attention: No impairment. Orientation: Unable to assess because the patient was not cooperative. Insight: Patient has very poor insight about his psychiatric disorder. Judgment: Patient has limited judgment about his psychiatric treatment. Assessment: Major depressive disorder recurrent, severe. Rule out methamphetamine use disorder. Rule out cocaine use disorder. Rule out substance induced mood disorder. Recommendations: Addressed and ensured patient's safety, even the patient denies suicidal ideation, but he couldnt explain the incident that he was found with altered mental status with an empty bottle of Seroquel besides him. According to collateral information, the patient was constantly depressed, hopeless, feeling miserable, and he continued to verbalize suicidal thoughts over the past year and last time was 2 days ago. Patient lost his stepfather recently and that could be triggering stressor for worsening of depression and suicidality. Also, the patient tested positive for drugs which could be contributing to his mental status and his state of depression. According to the current patients presentation, he has high risk for suicidality and is not psychiatrically stable. The patient does need further monitoring and stabilization, and for his safety he needs to be transferred to inpatient psychiatric unit. Considering the risk of suicidality is very high within the next few days from any suicidal attempt. The patient was petitioned and clinical certificate placed these on information obtained from his significant other, and his current presentation. Please transfer the patient to psychiatric unit after achieving medical stability. Continue one to one observation for suicidal risk and safety. Consider the patient is a high risk for elopement. Discussed the treatment plan with the requesting physician/service. Tired to provide brief supportive psychotherapy was provided regarding patient's acute and chronic stressors. Thank you for permitting me to assist in this patient's treatment. Please call psychiatry department if you have any question or need further help with this case.
[2021-01-06 19:02] LABS: Glucose,Whole Blood 288 mg/dL (75-99)
[2021-01-06 21:17] LABS: Glucose,Whole Blood 208 mg/dL (75-99)
[2021-01-06 21:49] LABS: Appearance,Urine Clear (Clear); Bilirubin,Urine Negative (Negative); Blood,Urine Negative (Negative); Color,Urine Light Yellow; Glucose,Urine (UA) 3+ (Negative); Ketones,Urine Negative (Negative); Leukocyte Esterase,Urine Negative (Negative); Nitrite,Urine Negative (Negative); PH, Urine 7.5 (5.0-8.0); Protein,Urine Negative (Negative); Specific Gravity,Urine 1.012 (1.001-1.035); Urobilinogen,Urine <2.0 mg/dL (<2.0)
[2021-01-07] MEDS: SODIUM CHLORIDE 0.9% 1,000 ML IV SCH ×3 (04:24→21:59)
[2021-01-07 05:08] LABS: ALT 31 U/L (4-49); AST 50 U/L (17-59); African American GFR (CKD) >90 (>60 ml/min/1.73 sqM); Albumin 3.3 g/dL (3.5-5.0); Alkaline Phosphatase 88 U/L (38-126); Anion Gap 6 mmol/L; Blood Urea Nitrogen 15 mg/dL (9-20); Calcium 8.3 mg/dL (8.4-10.2); Carbon Dioxide 24 mmol/L (22-30); Chloride 105 mmol/L (98-107); Glucose 196 mg/dL (74-99); Magnesium 1.7 mg/dL (1.6-2.3); Non-African American GFR(CKD) >90 (>60 ml/min/1.73 sqM); Potassium 3.9 mmol/L (3.5-5.1); Sodium 135 mmol/L (137-145); Total Bilirubin 0.6 mg/dL (0.2-1.3)
[2021-01-07 05:45] LABS: Creatine Kinase 1405 U/L (55-170)
[2021-01-07 06:15] LABS: Glucose,Whole Blood 202 mg/dL (75-99)
[2021-01-07] MEDS: INSULIN DETEMIR (LEVEMIR) 100 UNIT/ML SYR SQ SCH (06:38)
[2021-01-07] MEDS: INSULIN ASPART (NovoLOG) 100 UNIT/ML VIAL SQ SCH ×4 (06:38→21:45)
[2021-01-07] MEDS: BISOPROLOL-HCTZ 5-6.25 MG 1 EACH TAB PO SCH (08:28)
[2021-01-07 11:37] LABS: Glucose,Whole Blood 141 mg/dL (75-99)
[2021-01-07] MEDS ORDERED: Magnesium Replacement Protocol 1 EACH MISC MISCELLANE PRN (11:42)
--- NOTE | 2021-01-07 11:51 | P.DS ---
Providers Date of admission: 01/05/21 22:58 Expected date of discharge: 01/07/21 Attending physician: Ender Barfield Consults: 01/05/21 10:55 Consult Physician Urgent Consulting Provider: China Gutierrez Consult Reason/Comments: overdose Do you want consulting provider notified?: Yes 01/06/21 12:01 Consult Physician Urgent Consulting Provider: Dirk Reeves Consult Reason/Comments: suicidal ideation/OD Do you want consulting provider notified?: Already Contacted 01/06/21 15:23 Consult Physician Routine Consulting Provider: Eladia Calloway Consult Reason/Comments: Rhabdomyolysis Do you want consulting provider notified?: Yes Primary care physician: [facility] Course: Final Diagnoses: (1) Antipsychotic overdose Current Visit: Yes Status: Acute Code(s): T43.501A - POISONING BY UNSP ANTIPSYCHOT/NEUROLEPT, ACCIDENTAL, INIT SNOMED Code(s): 40077050 (2) Acute metabolic encephalopathy Current Visit: Yes Status: Acute Code(s): G93.41 - METABOLIC ENCEPHALOPATHY SNOMED Code(s): 11250223 (3) Type 2 diabetes mellitus with hyperglycemia Current Visit: Yes Status: Acute Code(s): E11.65 - TYPE 2 DIABETES MELLITUS WITH HYPERGLYCEMIA SNOMED Code(s): 001152793701499 (4) Essential (primary) hypertension Current Visit: Yes Status: Acute Code(s): I10 - ESSENTIAL (PRIMARY) HYPERTENSION SNOMED Code(s): 33775830 (5) Mixed hyperlipidemia Current Visit: Yes Status: Acute Code(s): E78.2 - MIXED HYPERLIPIDEMIA SNOMED Code(s): 000553402 (6) Hyperglycemia Current Visit: Yes Status: Acute Code(s): R73.9 - HYPERGLYCEMIA, UNSPECIFIED SNOMED Code(s): 78520196 (7) Rhabdomyolysis Current Visit: Yes Status: Acute Code(s): M62.82 - RHABDOMYOLYSIS SNOMED Code(s): 377419318 (8) Tachycardia Current Visit: Yes Status: Acute Code(s): R00.0 - TACHYCARDIA, UNSPECIFIED SNOMED Code(s): 4169724 (9) Suprapubic abdominal pain Current Visit: Yes Status: Acute Code(s): R10.2 - PELVIC AND PERINEAL PAIN SNOMED Code(s): 353373488 Hospital course:This is a 55 year old male patient of our practice with past medical history ofuncontrolled diabetes, dementia, depression presents to the emergency department with reported overdose by family. Per ER staff, EMS were called to the house by the patient's significant other. The patient was acting odd. She told EMS that he likely overdosed on Seroquel. He had 20 tablets and his prescription bottle yesterday. She noted today that there was only one left. Dosage is 100 mg and he normally takes it at night. Unknown if he overdosed on any other medications. He is aan uncontrolled diabetic, last in our office 12/27/2020 and his Hba1c at that time was 10.8% He recently had COIVD19 approximately 4 weeks ago Patient was seen in the [facility] room in the ER. Case discussed with ER doc in person. Patient was asleep with eyes open. He aroused quickly to try and urinate before quickly falling asleep again. Staff report elevated BP, but otherwis stable vitals. CPK was elevated. He states while awake that he did not try to hurt himself, but has liltte memory of events and quickly fell asleep again. rest of history per office chart. 01/06/2021: Patient is in the stepdown service, in the intensive care unit as an overflow. He was originally admitted to [facility] Complex in his care, he was transferred. Currently today he appears much more awake and alert, he is oriented 2 to self and location. Patch or the exact date. He denies taking an overdose of Seroquel, however the ER record does reflect that he had a bottle of 20 and only had to left. He tells me that he was trying to sleep and Taking Seroquel to help him. He denies any chest pains, pressures, sugars run. He complains of some abdominal pain indicates the suprapubic area. Vital signs today show a stable blood pressure and stable oxygen saturation 94% on room air. Labs show normal CBC with a minimal anemia with hemoglobin 11.7. Blood gases drawn yesterday were slightly abnormal with pH of 7.42 PCO2 of 49 PO2 of 93. The chemistries this morning were normal. Glucoses were slightly elevated last night but are improved today. CPK this morning is down to 4261. Admission CK was 4305 with a peak of 4887 last night. EKG showed sinus tachycardia last night. A repeat is pending he is on telemetry. Currently showing sinus rhythm. He's been restarted on Ziac. He continues on Levemir 35 units daily and NovoLog scale before meals and at bedtime. He has lorazepam ordered 1 mg every 4 hours when necessary for agitation which she was showing last night, which much improved today. There is a sitter present. He continues on IV fluid normal Cc 130 mL an hour. Staff report he is having some urinary urgency. 01/07/2021 Maintained on IV fluid hydration. CK continues trending down to 1405, LFTs within normal limits. Vital signs stable, maintaining O2 sats in the high 90s on room air. UA negative. Afebrile. Significant clinical improvement. Patient will be discharged to inpatient mental health unit today in a stable condition with guarded prognosis. The impression and plan of care has been dictated as directed. : I performed a history and examination of this patient, discussed the same with the dictator. I agree with the dictator's note ,documented as a scribe. Any additional findings or plans will be noted. Patient Condition at Discharge: Stable Plan - Discharge Summary Discharge Rx Participant: Yes New Discharge Prescriptions: New INSULIN ASPART (NovoLOG) [NovoLOG (formulary)] 0 unit SQ ACHS ml Pantoprazole [Protonix] 40 mg PO AC-BRKFST tab Continue Insulin Glargine,Hum.rec.anlog [Lantus Solostar Pen] 35 unit SQ DAILY Bisoprolol-Hctz 5-6.25 mg [Ziac 5-6.25 MG] 1 tab PO DAILY Discontinued metFORMIN HCL [Glucophage] 1,000 mg PO BID Atorvastatin [Lipitor] 20 mg PO HS QUEtiapine [SEROquel] 100 mg PO HS 14 Days tab sitaGLIPtin PHOSPHATE [Januvia] 100 mg PO DAILY hydrOXYzine pamoate [Vistaril] 50 mg PO TID PRN PRN Reason: Anxiety Insulin Lispro 10 units SQ AC-TID guanFACINE HCL [Intuniv] 1 mg PO HS buPROPion XL [Wellbutrin XL] 150 mg PO DAILY Discharge Medication List Bisoprolol-Hctz 5-6.25 mg [Ziac 5-6.25 MG] 1 tab PO DAILY 01/05/21 [History] Insulin Glargine,Hum.rec.anlog [Lantus Solostar Pen] 35 unit SQ DAILY 01/05/21 [History] INSULIN ASPART (NovoLOG) [NovoLOG (formulary)] 0 unit SQ ACHS ml 01/07/21 [Rx] Pantoprazole [Protonix] 40 mg PO AC-BRKFST tab 01/07/21 [Rx] Follow up Appointment(s)/Referral(s): China Gutierrez MD [Medical Doctor] - 1-2 Days Kvng Huang Jr, DO [Primary Care Provider] - 3 Days (After DC from mental health unit) Activity/Diet/Wound Care/Special Instructions: DC To [facility] Discharge Disposition: TRANSFER TO PSYCH HOSP/UNIT
[2021-01-07 16:38] LABS: Glucose,Whole Blood 246 mg/dL (75-99)
--- NOTE | 2021-01-07 16:51 | CONS ---
CONSULTATION REASON FOR CONSULT: Rhabdomyolysis. HISTORY OF PRESENT ILLNESS: The patient is a 55-year-old male who was admitted to the hospital on 01/05/2021 with overdose and suicidal ideation. He has a prior history of uncontrolled diabetes, depression. It looks like patient took about 20 tablets of Seroquel, dose was 100 mg per each tablet. Patient was noted to have a CK of 4305 on admission. His serum creatinine was 1.0, now down to 0.7. Patient is maintained on IV fluids. Blood pressure has not been significantly low. Lowest blood pressure was 104 mmHg systolic. At home patient was not on any statins. PAST MEDICAL HISTORY: Significant for depression, history of dementia, history of diabetes, hyperlipidemia, syncope. PAST SURGICAL HISTORY: Back surgery, cholecystectomy, rotator cuff repair. SOCIAL HISTORY: Patient is a former smoker. No history of drug abuse or alcohol abuse. MEDICATIONS: Medications prior to admission included Glucophage, Lipitor, Seroquel, Januvia, Wellbutrin, Vistaril, insulin. ALLERGIES: None. REVIEW OF SYSTEMS: As per HPI. Other systems negative. EXAMINATION: Patient is comfortable, awake. He is not in any acute distress. Blood pressure 134/83, heart rate 62 per minute. Patient is afebrile. Examination of the heart S1, S2. Examination of the lungs, bilateral breath sounds are heard. Abdomen is soft, nontender. Examination of lower extremities shows no evidence of edema. ANALYSIS ANALYST exam is grossly intact. LAB: Show sodium 135, potassium 3.9, chloride 105, BUN 15 serum creatinine 0.7. CK down to 1405, it was 4800 at peak. Albumin 3.3. UA shows 3+ glucose, no blood or protein noted. ASSESSMENT: 1. Rhabdomyolysis associated with Seroquel overdose. Check TSH if not done this admission and continue with IV fluids. The CK level is decreasing and his urine is not acidotic and urine pH is 7.5. I will continue with the current IV fluids. 2. Mild hyponatremia. Expect improvement with increased oral intake. Continue current IV fluids. 3. Seroquel overdose, possible purposeful and/suicidal ideation, being followed by psych. PLAN: Continue current IV fluids. Repeat labs in a.m. Encourage increased oral intake. Thank you for this consultation. Will continue to follow the patient with you during his hospitalization. MMODL / IJN: [id number] /
[2021-01-07] MEDS: PANTOPRAZOLE 40 MG TABLET PO SCH (17:39)
[2021-01-07 21:18] LABS: Glucose,Whole Blood 220 mg/dL (75-99)
[2021-01-08 04:09] LABS: African American GFR (CKD) >90 (>60 ml/min/1.73 sqM); Anion Gap 8 mmol/L; Blood Urea Nitrogen 13 mg/dL (9-20); Calcium 8.9 mg/dL (8.4-10.2); Carbon Dioxide 26 mmol/L (22-30); Chloride 101 mmol/L (98-107); Creatine Kinase 834 U/L (55-170); Glucose 285 mg/dL (74-99); Magnesium 1.8 mg/dL (1.6-2.3); Non-African American GFR(CKD) >90 (>60 ml/min/1.73 sqM); Potassium 4.1 mmol/L (3.5-5.1); Sodium 135 mmol/L (137-145)
[2021-01-08] MEDS: INSULIN ASPART (NovoLOG) 100 UNIT/ML VIAL SQ SCH ×2 (06:40→17:15)
[2021-01-08] MEDS: PANTOPRAZOLE 40 MG TABLET PO SCH (06:40)
[2021-01-08] MEDS: INSULIN DETEMIR (LEVEMIR) 100 UNIT/ML SYR SQ SCH (06:41)
[2021-01-08] MEDS: BISOPROLOL-HCTZ 5-6.25 MG 1 EACH TAB PO SCH (08:44)
[2021-01-08 11:16] LABS: Glucose,Whole Blood 221 mg/dL (75-99)
--- NOTE | 2021-01-08 11:47 | PN ---
PROGRESS NOTE Patient is seen for followup for rhabdomyolysis. Patient's CK is down to 1138. He has been maintained on IV fluids. Patient has been tolerating oral intake. It looks like the fluids are discontinued. The CK is down to 834 today. Patient will be transferred to mental health unit. On examination today, blood pressure 138/83, heart rate 63 per minute. He is afebrile. EXAMINATION OF THE HEART: S1 and S2. EXAMINATION OF LUNGS: Decreased breath sounds at the bases. ABDOMEN: Soft, nontender. LOWER EXTREMITIES: Examination of lower extremities shows no evidence of edema. DAMAGED FREIGHT INSPECTOR EXAM: Grossly intact. Labs show sodium 135, potassium 4.1, chloride 101, CO2 26, BUN 13, creatinine 0.8. CK 834. ASSESSMENT: 1. Rhabdomyolysis associated with Seroquel overdose, currently improving, maintained on IV fluids. CK level is down to 834. Patient is currently off off of IV fluids. He is encouraged to maintain good oral hydration and we can repeat the CK in 1 to 2 days. 2. Intentional overdose of Seroquel, status post evaluation by Psychiatry, and being transferred to mental health unit. PLAN: Continue to encourage increased oral intake. Repeat CK in 1 to 2 days. MMODL / IJN: [id number] /
[2021-01-08 17:14] VITALS: BP 155/98; PULSE 62; RESP 16; TEMP 98.2
== END 2021-01-08 17:33 | DRG 917 ==
LOC: EC 07:54 → 5NMEDONC 10:54 → OBSVTOIN 22:58 → 2SICU 23:28 → UNDODISIN 01-08 12:45
PROVIDERS: ADMIT Family Medicine; ATTEND Family Medicine
DX: T43.592A Poisoning by other antipsychotics and neuroleptics, intentional self-harm, initial encounter (principal); G93.41 Metabolic encephalopathy; E87.1 Hypo-osmolality and hyponatremia; E87.2 Acidosis; M62.82 Rhabdomyolysis; R45.851 Suicidal ideations; E11.65 Type 2 diabetes mellitus with hyperglycemia; E78.2 Mixed hyperlipidemia; F03.90 Unspecified dementia, unspecified severity, without behavioral disturbance, psychotic disturbance, mood disturbance, and anxiety; F32.9 Major depressive disorder, single episode, unspecified; F41.9 Anxiety disorder, unspecified; I10 Essential (primary) hypertension; Z20.822 Contact with and (suspected) exposure to COVID-19; Z79.4 Long term (current) use of insulin; Z79.899 Other long term (current) drug therapy; Z82.49 Family history of ischemic heart disease and other diseases of the circulatory system; Z83.3 Family history of diabetes mellitus; Z87.891 Personal history of nicotine dependence; R00.0 Tachycardia, unspecified; R10.2 Pelvic and perineal pain
CPT/HCPCS: 36415; 36600; 70450; 80048; 80053; 80143; 80156; 80179; 80306; 80320; 81001; 81003; 82550; 82805; 83605; 83690; 83735; 84450; 84460; 85025; 85610; 85730; 87635; 93005; 96360; 96361; 99285

== ENCOUNTER 2021-01-08 17:33 | Inpatient (IN) | payer MEDICARE, MEDICAID ==
[2021-01-08] MEDS ORDERED: LORazepam 1 MG TAB PO PRN (17:36)
[2021-01-08] MEDS ORDERED: MAG HYDROX/AL HYDROX/SIMETH 30 ML CUP PO PRN (17:36)
[2021-01-08] MEDS ORDERED: MAGNESIUM HYDROXIDE 2,400 MG/10 ML CUP PO PRN (17:36)
[2021-01-08] MEDS ORDERED: LORazepam 2 MG/ML INJ IM PRN (17:39)
[2021-01-08] MEDS ORDERED: HALOPERIDOL LACTATE 5 MG/ML 1 ML VIAL IM PRN (17:39)
[2021-01-08] MEDS ORDERED: haloperidoL 5 MG TAB PO PRN (17:39)
[2021-01-08 20:11] LABS: Glucose,Whole Blood 233 mg/dL (75-99)
[2021-01-08] MEDS: INSULIN ASPART (NovoLOG) 100 UNIT/ML VIAL SQ SCH (20:46)
[2021-01-09 06:49] VITALS: RESP 16
[2021-01-09 07:56] LABS: Glucose,Whole Blood 270 mg/dL (75-99)
[2021-01-09] MEDS: BISOPROLOL-HCTZ 5-6.25 MG 1 EACH TAB PO SCH (08:03)
[2021-01-09] MEDS: PANTOPRAZOLE 40 MG TABLET PO SCH (08:03)
[2021-01-09] MEDS: INSULIN ASPART (NovoLOG) 100 UNIT/ML VIAL SQ SCH ×4 (08:03→20:10)
[2021-01-09] MEDS: ACETAMINOPHEN TAB 325 MG TAB PO PRN (08:52)
[2021-01-09] MEDS ORDERED: INSULIN DETEMIR (LEVEMIR) 100 UNIT/ML SYR SQ SCH ×3 (09:00→21:00)
[2021-01-09 11:03] LABS: Chol/HDL Ratio 4.45; LDL Cholesterol,Calculated 96.6 mg/dL (0.0-131.0); VLDL Calculation 48.4 mg/dL (5.00-40.00)
[2021-01-09] MEDS ORDERED: DULoxetine HCL 30 MG CAPSULE.DR PO STA (11:12)
[2021-01-09] MEDS ORDERED: LIDOCAINE 4% CREAM 5 GM TUBE TOPICAL ONE (11:13)
[2021-01-09] MEDS ORDERED: LIDOCAINE 4% CREAM 5 GM TUBE TOPICAL PRN (11:16)
[2021-01-09] MEDS: LIDOCAINE 5% OINTMENT 50 GM JAR TOPICAL SCH (11:42)
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
[2021-01-09 12:46] LABS: Glucose,Whole Blood 216 mg/dL (75-99)
[2021-01-09] MEDS ORDERED: ARIPiprazole 5 MG TAB PO STA (12:47)
[2021-01-09 17:37] LABS: Glucose,Whole Blood 240 mg/dL (75-99)
[2021-01-09 20:05] LABS: Glucose,Whole Blood 307 mg/dL (75-99)
[2021-01-09] MEDS: DULoxetine HCL 30 MG CAPSULE.DR PO SCH (20:51)
[2021-01-10] MEDS: LIDOCAINE 5% OINTMENT 50 GM JAR TOPICAL SCH ×2 (01:06→08:03)
[2021-01-10 07:26] VITALS: TEMP 97.9
[2021-01-10 07:43] LABS: Glucose,Whole Blood 263 mg/dL (75-99)
[2021-01-10 08:00] VITALS: BP 123/91; PULSE 94
[2021-01-10] MEDS ORDERED: INSULIN DETEMIR (LEVEMIR) 100 UNIT/ML SYR SQ SCH (08:00)
[2021-01-10] MEDS: INSULIN ASPART (NovoLOG) 100 UNIT/ML VIAL SQ SCH (08:02)
[2021-01-10] MEDS: PANTOPRAZOLE 40 MG TABLET PO SCH (08:03)
[2021-01-10] MEDS: DULoxetine HCL 30 MG CAPSULE.DR PO SCH (08:03)
[2021-01-10] MEDS: BISOPROLOL-HCTZ 5-6.25 MG 1 EACH TAB PO SCH (08:03)
[2021-01-10] MEDS: ACETAMINOPHEN TAB 325 MG TAB PO PRN (08:04)
[2021-01-10] MEDS ORDERED: ARIPiprazole 10 MG TAB PO SCH (09:00)
--- NOTE | 2021-01-10 12:22 | P.DS ---
Providers Date of admission: 01/08/21 17:41 Expected date of discharge: 01/10/21 Attending physician: Dirk Reeves MD Consults: 01/08/21 17:36 Consult Physician Routine Consulting Provider: Kvng Huang Jr Consult Reason/Comments: H&P and medical Do you want consulting provider notified?: Yes Primary care physician: Kvng Huang - Discharge Diagnosis(es) (1) Major depressive disorder Status: Acute Priority: High (2) Anxiety disorder Status: Acute Priority: High Hospital Course: Admission HPI: Patient is an engaged, unemployed, 55-year-old male with a significant history of depression, anxiety, and chronic pain who is admitted to the psychiatric unit from the ICU after an intentional overdose on Seroquel. Patient presented to the hospital initially on 01/05/2021, brought in by EMS services were notified by the patient's fianc after the patient overdosed on 20 tablets of his Seroquel. The patient was evaluated in the ICU by Dr Gutierrez who noted that the patient was significantly altered, agitated, and quite combative. The patient did endorse that the time that he will did not want to live due to his chronic pain and became very angry. The patient was petitioned and certi fied. The patient relented eventually and signed himself voluntarily into the psychiatric unit for management of his depression. Upon evaluation on the unit, the patient endorses that he has been feeling increasingly depressed due to his chronic pain secondary to a back injury in 2007. 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 He states that he does not want to be on any opiate medications she does not want to be helped on these medications. He reports that his inability to function as the main reason why he is feeling depressed. He does acknowledge that he has been angry but attributes this to his frustration and his pain. He does state that he was able to speak with his fiance and that he regrets his actions stating that it was selfish and dangerous of him to overdose on the Seroquel. He reports that the Seroquel was on an old medication that was prescribed to him previously that he is not currently actively taking. the patient endorses significant symptoms of low mood, decreased energy, hopelessness, and helplessness. He is currently denying any suicidal ideation. He reports no homicidal ideation, intention, and/or plan. The patient states that prior to this overdose, he has been off both his psychotropic and his medical medications due to financial reasons. Review of the patient's chart revealed that he does have a significant history of low frustration tolerance. He has been noted to be yelling and screaming a lot in the middle of the night as well as yelling and screaming to his grandchildren. He reports no history of physical aggression. In regards to psychotic symptoms, the patient is not endorsing any auditory or visual hallucinations. He is denying any paranoia or other delusions. He is not endorsing any significant symptoms of yin. The patient currently denies any significant history of substance abuse. Despite this, the patient's urine drug screen did come back positive for methamphetamines and cocaine. The patient is uncertain as to what medication might have triggered this positive test. He reports that he has been "clean sin ce 2009." The patient also has a reported history of a closed head injury. Patient states that he follows with [facility] for management of his depression. He was last in an inpatient psychiatric unit December 2019 on [facility]. The patient was on a regimen of Lexapro, Seroquel, and Tegretol. The patient reports that he has felt suicidal before but has not attempted prior to this attempt. Hospital course: Upon admission to the unit patient was initially presenting as intense but agreeable with treatment. He does express that he was in a bad place and admits to attempting suicide. Patient was directable and agreeable to commence treatment. Patient got along well with other patients on the unit and followed unit protocol. Patient was compliant with the medications and denied any side effects throughout hospital course. Patient was started on Cymbalta for depression/pain, Abilify for mood stabilization, and lidocaine cream for pain management. Patient spoke of his stressors and engaged in therapy both group and individual. Patient was also seen by medical team for history and physical exam. The patient endorsed that it was primarily his issues regarding pain that led to his worsening mood. Throughout the course of the hospital physician, the patient was adherent with his medications and noted siginificant improvement on this regimen. He attended groups, was social with peers and presented with an increased range of affect. He developed better insight and judgment and became more future oriented. On the day of discharge, the patient is not endorsing any suicidal or homicidal ideation, intention, and/or plan. He is not endorsing any auditory or visual hallucinations. He is not reporting any paranoia or other delusions. The patient expresses a strong desire to live for his health and for his family. The patient denies any access to firearms other weapons. The patient does have a significant history of substance abuse and did test positive for methamphetamines and cocaine prior to this admission. The patient vehemently denies that he is any substances but agrees that he will continue to refrain from using any substances. The patient was counseled on his medications and the need for regular adherence as well as appropriate outpatient follow-up. Prior to discharge, family meeting will be arranged by social sciences lecturer to answer any questions and ensure safety. Mental status exam: General Appearance: Patient appears to be stated age is alert, pleasant, and cooperative. Patient is in no acute distress and has fair hygiene and grooming. Behavior: Patient is calmly seated without any agitated behavior. Speech: Patient's speech is fluent and nonpressured. Mood/Affect: Patient reports their mood is "much better", affect is congruent and euthymic to bright. Suicidality/Homicidality: Patient denies having any suicidal or homicidal ideation intent or plan. Perceptions: Patient denies any auditory or visual hallucinations. Though content/process: There is no evidence of any delusional thought content and thought process is linear and goal-directed. more future oriented Memory and concentration: AOX3, grossly intact for the purposes of this session. Can spell "WORLD" backwards correctly. Judgment and insight: Improved with guarded prognosis Vital Signs Temp 97.9 F 01/10/21 07:25 Pulse 94 01/10/21 07:59 Resp 16 01/10/21 07:25 BP 123/91 01/10/21 07:59 Pulse Ox 98 01/08/21 18:17 Impression: Major depressive disorder, recurrent, severe Anxiety disorder, unspecified Rule out substance induced mood disorder Rule out cocaine use disorder and methamphetamine use disorder Plan: -Continue with discharge today as patient has improved and stabilized psychiatrically and is not currently an imminent threat to himsel and/or others. Patient will remain at chronically elevated risk for harm to self and/or others due to his non-modifiable factors of age, gender, and prior suicide attempts. The patient also has modifiable risk factors including chronic pain and poor financial situation. -Continue medications: Cymbalta 30 mg by mouth twice a day for depression/anxiety/pain Abilify 10 mg by mouth daily for mood stabilization/augmentation Lidocaine ointment for pain management -Patient was counseled on the need for medication compliance and appropriate follow-up at mental health and also primary care for medical issues. Patient verbalized understanding and agreed. -Social work to arrange for and conduct family meeting to ensure safety upon discharge and answer any questions/concerns. Social work also to arrange for patients follow up appointments with [facility] for psychiatric care along with follow up with primary care provider. -Patient counseled on abstaining from recreational drugs and marijuana and alcohol. Was informed/educated on the adverse effects on their physical and mental health. Patient verbally agreed and understood. -Patient was instructed to return to the hospital or seek immediate medical care if their psychiatric or medical symptoms do worsen or reoccur. -Psychoeducation and supportive therapy provided to patient. Risks and benefits of pharmacological treatment versus the risks and benefits of nontreatment weight and discussed. Informed consent discussion held. Common side effects of psychotropics discussed such as, but not limited to headache, GI disturbance, sexual dysfunction, movement disorders, sedation, and orthostatic hypotension. Life threatening and blackbox warnings of prescribed medications also discussed. Potential risks of operating a vehicle or heavy machinery discussed with patient at length. Advised on importance of compliance and a reliable and responsible manner. Patient advised to review FDA consumer labeling of all medications prior to taking. Patient verbalized understanding of potential risks, and agrees with current treatment plan. Patient advised to medically contact physician/emergency personnel if any acute changes in condition occur. Allergies Allergy/AdvReac Type Severity Reaction Status Date / Time No Known Allergies Allergy Verified 01/08/21 18:07 Laboratory Results POC Glucose (mg/dL) 263 mg/dL (75-99) H 01/10/21 07:41 POC Glu Adult Manager ID Zoraida Rizo 01/10/21 07:[address] Glu mg/dL 269 01/08/21 03:25 Hemoglobin A1c 11.0 % (4.0-6.0) H 01/08/21 03:25 Triglycerides 242.0 mg/dL (0.0-149.0) H 01/08/21 03:25 Cholesterol 187 mg/dL (0-200) 01/08/21 03:25 LDL Cholesterol, Calc 96.6 mg/dL (0.0-131.0) 01/08/21 03:25 VLDL Cholesterol, Calc 48.40 mg/dL (5.00-40.00) H 01/08/21 03:25 HDL Cholesterol 42.0 mg/dL (40.0-60.0) 01/08/21 03:25 Cholesterol/HDL Ratio 4.45 01/08/21 03:25 TSH 2.580 mIU/L (0.465-4.680) 01/08/21 03:25 Patient Condition at Discharge: Stable Plan - Discharge Summary Discharge Rx Participant: No New Discharge Prescriptions: New DULoxetine HCL [Cymbalta] 30 mg PO BID 30 Days Lidocaine 5% Oint [Xylocaine 5% Oint] 1 applic TOPICAL BID 14 Days gm Bisoprolol-Hctz 5-6.25 mg [Ziac 5-6.25 MG] 1 each PO DAILY 30 Days tab ARIPiprazole [Abilify] 10 mg PO DAILY 30 Days tab Continue Insulin Glargine,Hum.rec.anlog [Lantus Solostar Pen] 35 unit SQ DAILY Pantoprazole [Protonix] 40 mg PO AC-BRKFST tab INSULIN ASPART (NovoLOG) [NovoLOG (formulary)] See Protocol SQ ACHS Discontinued Bisoprolol-Hctz 5-6.25 mg [Ziac 5-6.25 MG] 1 tab PO DAILY Discharge Medication List Insulin Glargine,Hum.rec.anlog [Lantus Solostar Pen] 35 unit SQ DAILY 01/05/21 [History] Pantoprazole [Protonix] 40 mg PO AC-BRKFST tab 01/07/21 [Rx] INSULIN ASPART (NovoLOG) [NovoLOG (formulary)] See Protocol SQ ACHS 01/08/21 [History] ARIPiprazole [Abilify] 10 mg PO DAILY 30 Days tab 01/10/21 [Rx] Bisoprolol-Hctz 5-6.25 mg [Ziac 5-6.25 MG] 1 each PO DAILY 30 Days tab 01/10/21 [Rx] DULoxetine HCL [Cymbalta] 30 mg PO BID 30 Days 01/10/21 [Rx] Lidocaine 5% Oint [Xylocaine 5% Oint] 1 applic TOPICAL BID 14 Days gm 01/10/21 [Rx] Follow up Appointment(s)/Referral(s): [facility] [Outside] - 01/15/21 2:00 pm (01-15-21 @ 2:00 with GALLO Valles at [facility] office 01-15-21 @ 3:00 with Eduar Madrid) [facility] [[facility]STAFF] - 1 Week Patient Instructions/Handouts: Mood Disorders (DC), Depression (DC) Activity/Diet/Wound Care/Special Instructions: Activity and diet as tolerated. Avoid the use of street drugs and alcohol. Take all medications as prescribed. When you are in need of refills on your medications please contact your medical provider and/or outpatient psychiatrist to have this done. Please go to scheduled outpatient appointment for aftercare treatment. If symptoms return or become worse, call the crisis line at and/or go to the nearest emergency room for evaluation. Discharge Disposition: HOME SELF-CARE
--- NOTE | 2021-01-10 13:35 | P.HPIM ---
History of Present Illness H&P Date: 01/09/21 Chief Complaint: Overdose This is a 55-year-old gentleman with past medical history of recent COVID-19 four and half weeks ago, uncontrolled diabetes, dementia, depression presented to the ER with intentional overdose of previously prescribed Seroquel, which he is no longer on. Patient had been taken off his Seroquel related to prior episodes of abuse. Per significant other patient took approximately 19 tablets. Unknown if he overdosed on any other medications, toxicology screen detected tricyclics, methamphetamines and cocaine. On admission CK was 4305, peaked at 4887 and trended down to 834, prior to discharge to inpatient mental health unit. Good diet intake with no nausea vomiting or diarrhea. Denies chest pain, palpitations or shortness of breath. Denies lightheadedness, dizziness or focal deficits. Afebrile, T-max 99. Review of Systems ROS Statement: Those systems with pertinent positive or pertinent negative responses have been documented in the HPI. ROS Other: All systems not noted in ROS Statement are negative. Past Medical History Past Medical History: Chest Pain / Angina, Dementia, Diabetes Mellitus, GERD/Reflux, Hyperlipidemia, Hypertension, Neurologic Disorder, Osteoarthritis (OA), Syncope Additional Past Medical History / Comment(s): Chronic Back Pain, Recently COVID + November 2020 History of Any Multi-Drug Resistant Organisms: None Reported Past Surgical History: Back Surgery, Cholecystectomy, Orthopedic Surgery Additional Past Surgical History / Comment(s): C3-C7 WITH HARDWARE,. DISC REPLACED IN LOWER BACK. Right ROTATOR CUFF REPAIR Past Anesthesia/Blood Transfusion Reactions: No Reported Reaction Past Psychological History: Anxiety, Depression Smoking Status: Never smoker Past Alcohol Use History: Abuse, Daily Additional Past Alcohol Use History / Comment(s): Pt. denies prior drug use. Pt. does admit to a history of ETOH abuse. Last drink was in 2006 Past Drug Use History: None Reported - Past Family History Mother Family Medical History: No Reported History Father Family Medical History: Coronary Artery Disease (CAD), Diabetes Mellitus, Deep Vein Thrombosis (DVT) Additional Family Medical History / Comment(s): paternal grandmother also had diabetes Sister(s) Family Medical History: Congestive Heart Failure (CHF) Medications and Allergies Home Medications Medication Instructions Recorded Confirmed Type Bisoprolol-Hctz 5-6.25 mg [Ziac 1 tab PO DAILY 01/05/21 01/08/21 History 5-6.25 MG] Insulin Glargine,Hum.rec.anlog 35 unit SQ DAILY 01/05/21 01/08/21 History [Lantus Solostar Pen] Pantoprazole [Protonix] 40 mg PO AC-BRKFST tab 01/07/21 01/08/21 Rx INSULIN ASPART (NovoLOG) [NovoLOG See Protocol SQ ACHS 01/08/21 01/08/21 History (formulary)] Allergies Allergy/AdvReac Type Severity Reaction Status Date / Time No Known Allergies Allergy Verified 01/08/21 18:07 Physical Exam Vitals: Vital Signs Temp Pulse Resp BP Pulse Ox 01/09/21 06:29 97.4 F L 70 16 135/82 01/08/21 18:17 99.0 F 78 20 151/88 98 01/08/21 18:08 99.0 F 78 20 151/88 98 Intake and Output 01/08/21 01/09/21 01/09/21 22:59 06:59 14:59 Other: Weight 88.451 kg - Exam General: The patient is awake and alert, no acute distress. Neck: Supple, no JVD Cardiovascular: S1S2 is normal, There is a regular rate and rhythm. No murmur, rub or gallop is appreciated. Respiratory: Nonlabored, minimally coarse to auscultation bilaterally. Gastrointestinal: Soft, non-distended, without masses or organomegaly noted. There is no rebound or guarding present. Positive bowel sounds. Musculoskeletal: Normal ROM, no tenderness, There is no pedal edema. There is no calf tenderness or swelling. Neurological: CN II-XII intact, there are no obvious motor or sensory deficits. Alert and oriented 3. No focal deficits. Skin: Skin is warm and dry and no rashes. Results Labs: Abnormal Lab Results - Last 24 Hours (Table) 01/08/21 01/08/21 01/09/21 Range/Units 03:25 20:10 07:43 POC Glucose (mg/dL) 233 H 270 H (75-99) mg/dL Triglycerides 242.0 H (0.0-149.0) mg/dL VLDL Cholesterol, Calc 48.40 H (5.00-40.00) mg/dL Thrombosis Risk Factor Assmnt - Choose All That Apply Any of the Below Risk Factors Present?: Yes Each Factor Represents 1 point: Age 41-60 years, Obesity (BMI >25) Other Risk Factors: No Other congenital or acquired thrombophilia - If yes, enter type in comment: No Thrombosis Risk Factor Assessment Total Risk Factor Score: 2 Thrombosis Risk Factor Assessment Level: Low Risk Assessment and Plan Assessment: Antipsychotic overdose Major depressive disorder Polysubstance abuse Diabetes mellitus type 2, uncontrolled, hyperglycemia Essential hypertension Hyperlipidemia Rhabdomyolysis, significantly improved Plan: Continue on current medication regime, monitoring and symptomatically treatment. Home meds have been reviewed and resumed accordingly .Hyperglycemic , additional Levemir insulin at night ordered. Hemoglobin A1c pending. Close monitoring of Accu-Cheks. PPI in place for GI prophylaxis. The impression and plan of care has been dictated as directed. : I performed a history and examination of this patient, discussed the same with the dictator. I agree with the dictator's note ,documented as a scribe. Any additional findings or plans will be noted.
== END 2021-01-10 11:28 | disposition home or self-care (01) | DRG 885 ==
LOC: 3MHU 17:41
PROVIDERS: ADMIT Psychiatry & Neurology Psychiatry; ATTEND Psychiatry & Neurology Psychiatry
DX: F33.2 Major depressive disorder, recurrent severe without psychotic features (principal); M62.82 Rhabdomyolysis; F41.9 Anxiety disorder, unspecified; E11.65 Type 2 diabetes mellitus with hyperglycemia; E78.5 Hyperlipidemia, unspecified; G89.29 Other chronic pain; I10 Essential (primary) hypertension; T43.592A Poisoning by other antipsychotics and neuroleptics, intentional self-harm, initial encounter; Z65.3 Problems related to other legal circumstances; Z79.4 Long term (current) use of insulin; Z79.899 Other long term (current) drug therapy; Z82.49 Family history of ischemic heart disease and other diseases of the circulatory system; Z86.16 Personal history of COVID-19; Z87.891 Personal history of nicotine dependence; Z91.5 Personal history of self-harm
CPT/HCPCS: 80061; 83036; 84443

== ENCOUNTER 2021-03-22 10:11 | Observation (INO) | payer MEDICARE, OTHER ==
[2021-03-22] MEDS ORDERED: SODIUM CHLORIDE 0.9% 500 ML 500 ML IV STA (10:40)
[2021-03-22] MEDS ORDERED: ASPIRIN 81 MG PO STA (10:40)
[2021-03-22] MEDS ORDERED: NITROGLYCERIN OINT 1 INCH/GM PACKET TOPICAL STA (10:40)
--- NOTE | 2021-03-22 10:58 | ED ---
General Adult HPI - General Chief complaint: Chest Pain Stated complaint: left arm numbness, chest pain Time Seen by Provider: 03/22/21 10:20 Source: patient, RN notes reviewed, old records reviewed Mode of arrival: ambulatory Limitations: no limitations - History of Present Illness Initial comments: This is a 55-year-old male with past medical history significant for diabetes and high blood pressure. Patient also states his family history positive for heart disease. Patient states he started having chest pain yesterday and it radiates down his left arm. Patient states the chest pain continues today. Patient states she also has stopped taking his diabetic medications because he has not been feeling well the last few days. Patient states his sugar today was over 500. Patient denies any nausea or vomiting. Patient states she does feel dehydrated. Patient denies any palpitations. Patient states he continues to have chest pain currently. Patient denies lightheadedness dizziness or near syncopal episode. - Related Data Home Medications Medication Instructions Recorded Confirmed Insulin Glargine,Hum.rec.anlog 35 unit SQ DAILY 01/05/21 01/08/21 [Lantus Solostar Pen] INSULIN ASPART (NovoLOG) [NovoLOG See Protocol SQ ACHS 01/08/21 01/08/21 (formulary)] Previous Rx's Medication Instructions Recorded Pantoprazole [Protonix] 40 mg PO AC-BRKFST tab 01/07/21 ARIPiprazole [Abilify] 10 mg PO DAILY 30 Days tab 01/10/21 Bisoprolol-Hctz 5-6.25 mg [Ziac 1 each PO DAILY 30 Days tab 01/10/21 5-6.25 MG] DULoxetine HCL [Cymbalta] 30 mg PO BID 30 Days 01/10/21 Lidocaine 5% Oint [Xylocaine 5% 1 applic TOPICAL BID 14 Days gm 01/10/21 Oint] Allergies Allergy/AdvReac Type Severity Reaction Status Date / Time No Known Allergies Allergy Verified 03/22/21 10:19 Review of Systems ROS Statement: Those systems with pertinent positive or pertinent negative responses have been documented in the HPI. ROS Other: All systems not noted in ROS Statement are negative. Past Medical History Past Medical History: Chest Pain / Angina, Dementia, Diabetes Mellitus, GERD/Reflux, Hyperlipidemia, Hypertension, Neurologic Disorder, Osteoarthritis (OA), Syncope Additional Past Medical History / Comment(s): Chronic Back Pain, Recently COVID + November 2020 History of Any Multi-Drug Resistant Organisms: None Reported Past Surgical History: Back Surgery, Cholecystectomy, Orthopedic Surgery Additional Past Surgical History / Comment(s): C3-C7 WITH HARDWARE,. DISC REPLACED IN LOWER BACK. Right ROTATOR CUFF REPAIR Past Anesthesia/Blood Transfusion Reactions: No Reported Reaction Past Psychological History: Anxiety, Depression Smoking Status: Never smoker Past Alcohol Use History: None Reported Past Drug Use History: None Reported - Past Family History Mother Family Medical History: No Reported History Father Family Medical History: Coronary Artery Disease (CAD), Diabetes Mellitus, Deep Vein Thrombosis (DVT) Additional Family Medical History / Comment(s): paternal grandmother also had diabetes Sister(s) Family Medical History: Congestive Heart Failure (CHF) General Exam - General Exam Comments Initial Comments: GENERAL: Patient is well-developed and well-nourished. Patient is nontoxic and well- hydrated and is in mild distress. ENT: Neck is soft and supple. No significant lymphadenopathy is noted. Oropharynx is clear. Moist mucous membranes. Neck has full range of motion without eliciting any pain. EYES: The sclera were anicteric and conjunctiva were pink and moist. Extraocular movements were intact and pupils were equal round and reactive to light. Eyelids were unremarkable. PULMONARY: Unlabored respirations. Good breath sounds bilaterally. No audible rales rhonchi or wheezing was noted. CARDIOVASCULAR: There is a regular rate and rhythm without any murmurs gallops or rubs. ABDOMEN: Soft and nontender with normal bowel sounds. SKIN: Skin is clear with no lesions or rashes and otherwise unremarkable. NEUROLOGIC: Patient is alert and oriented x3. Cranial nerves II through XII are grossly intact. Motor and sensory are also intact. Normal speech, volume and content. Symmetrical smile. Patient currently has an NIH of 0 MUSCULOSKELETAL: Normal extremities with adequate strength and full range of motion. LYMPHATICS: No significant lymphadenopathy is noted PSYCHIATRIC: Normal psychiatric evaluation. Limitations: no limitations Course Vital Signs 03/22/21 03/22/21 10:17 13:50 Temperature 97.6 F Pulse Rate 112 H 94 Respiratory 18 20 Rate Blood Pressure 142/99 116/79 O2 Sat by Pulse 100 98 Oximetry Medical Decision Making - Medical Decision Making EKG shows sinus tachycardia at 107 bpm NJ interval 258 QRSs 80 QT interval 338 QTC is 451. Patient's EKG shows no ST segment elevation or depression. Chest x-ray shows no acute abnormality. Patient's glucose was over 600/started the patient NovoLog. I spoke with Dr. Huang I admitted the patient I consult cardiology I continue the NovoLog sliding scale. I repeated troponins - Lab Data Result diagrams: 03/22/21 11:15 03/22/21 10:44 Lab Results 03/22/21 03/22/21 03/22/21 Range/Units 10:44 10:44 10:44 WBC (3.8-10.6) k/uL RBC (4.30-5.90) m/uL Hgb (13.0-17.5) gm/dL Hct (39.0-53.0) % MCV (80.0-100.0) fL MCH (25.0-35.0) pg MCHC (31.0-37.0) g/dL RDW (11.5-15.5) % Plt Count (150-450) k/uL MPV Neutrophils % % Lymphocytes % % Monocytes % % Eosinophils % % Basophils % % Neutrophils # (1.3-7.7) k/uL Lymphocytes # (1.0-4.8) k/uL Monocytes # (0-1.0) k/uL Eosinophils # (0-0.7) k/uL Basophils # (0-0.2) k/uL PT 9.8 (9.0-12.0) sec INR 0.9 (<1.2) APTT 22.0 (22.0-30.0) sec Sodium 126 L (137-145) mmol/L Potassium 5.1 (3.5-5.1) mmol/L Chloride 96 L (98-107) mmol/L Carbon Dioxide 18 L (22-30) mmol/L Anion Gap 12 mmol/L BUN 17 (9-20) mg/dL Creatinine 0.91 (0.66-1.25) mg/dL Est GFR (CKD-EPI)AfAm >90 (>60 ml/min/1.73 sqM) Est GFR (CKD-EPI)NonAf >90 (>60 ml/min/1.73 sqM) Glucose 640 H* (74-99) mg/dL Calcium 9.8 (8.4-10.2) mg/dL Magnesium 1.5 L (1.6-2.3) mg/dL Total Bilirubin 0.6 (0.2-1.3) mg/dL AST 22 (17-59) U/L ALT 22 (4-49) U/L Alkaline Phosphatase 118 (38-126) U/L Troponin I <0.012 (0.000-0.034) ng/mL Total Protein 7.0 (6.3-8.2) g/dL Albumin 3.9 (3.5-5.0) g/dL Acetone, Qual (Negative) Coronavirus (PCR) (Not Detectd) 03/22/21 03/22/21 03/22/21 Range/Units 11:00 11:00 11:15 WBC 9.6 (3.8-10.6) k/uL RBC 4.95 (4.30-5.90) m/uL Hgb 14.3 (13.0-17.5) gm/dL Hct 42.1 (39.0-53.0) % MCV 85.1 (80.0-100.0) fL MCH 29.0 (25.0-35.0) pg MCHC 34.1 (31.0-37.0) g/dL RDW 12.8 (11.5-15.5) % Plt Count 391 (150-450) k/uL MPV 8.4 Neutrophils % 69 % Lymphocytes % 24 % Monocytes % 4 % Eosinophils % 1 % Basophils % 1 % Neutrophils # 6.7 (1.3-7.7) k/uL Lymphocytes # 2.3 (1.0-4.8) k/uL Monocytes # 0.4 (0-1.0) k/uL Eosinophils # 0.1 (0-0.7) k/uL Basophils # 0.1 (0-0.2) k/uL PT (9.0-12.0) sec INR (<1.2) APTT (22.0-30.0) sec Sodium (137-145) mmol/L Potassium (3.5-5.1) mmol/L Chloride (98-107) mmol/L Carbon Dioxide (22-30) mmol/L Anion Gap mmol/L BUN (9-20) mg/dL Creatinine (0.66-1.25) mg/dL Est GFR (CKD-EPI)AfAm (>60 ml/min/1.73 sqM) Est GFR (CKD-EPI)NonAf (>60 ml/min/1.73 sqM) Glucose (74-99) mg/dL Calcium (8.4-10.2) mg/dL Magnesium (1.6-2.3) mg/dL Total Bilirubin (0.2-1.3) mg/dL AST (17-59) U/L ALT (4-49) U/L Alkaline Phosphatase (38-126) U/L Troponin I (0.000-0.034) ng/mL Total Protein (6.3-8.2) g/dL Albumin (3.5-5.0) g/dL Acetone, Qual Negative (Negative) Coronavirus (PCR) Not Detected (Not Detectd) Disposition Clinical Impression: Hyperglycemia, Chest pain, Hypomagnesemia Disposition: ADMITTED IP TO THIS HOSP Referrals: Kvng Huang Jr, [Primary Care Provider] - 1-2 days Time of Disposition: 14:09
[2021-03-22] MEDS ORDERED: SODIUM CHLORIDE 0.9% 1,000 ML IV ONE (10:59)
--- NOTE | 2021-03-22 11:24 | XR ---
EXAMINATION TYPE: XR chest 2V DATE OF EXAM: 03/22/2021 COMPARISON: 12/05/2020 INDICATION: Chest pain TECHNIQUE: Single frontal view of the chest is obtained. FINDINGS: The heart size is normal. The pulmonary vasculature is normal. The lungs are clear. Post anterior cervical fusion is evident. IMPRESSION: 1. No acute pulmonary process.
[2021-03-22 11:40] LABS: Basophils # (A) 0.1 k/uL (0-0.2); Basophils % (A) 1 %; Eosinophils # (A) 0.1 k/uL (0-0.7); Eosinophils % (A) 1 %; HCT 42.1 % (39.0-53.0); HGB 14.3 gm/dL (13.0-17.5); Lymphocytes # (A) 2.3 k/uL (1.0-4.8); Lymphocytes % (A) 24 %; MCHC 34.1 g/dL (31.0-37.0); MCV 85.1 fL (80.0-100.0); Mean Platelet Volume 8.4; Monocytes # (A) 0.4 k/uL (0-1.0); Monocytes % (A) 4 %; Neutrophils # (A) 6.7 k/uL (1.3-7.7); Neutrophils % (A) 69 %; Platelet Count 391 k/uL (150-450); RBC 4.95 m/uL (4.30-5.90); RDW 12.8 % (11.5-15.5); WBC 9.6 k/uL (3.8-10.6)
[2021-03-22 11:50] LABS: INR 0.9 (<1.2); Prothrombin Time 9.8 sec (9.0-12.0)
[2021-03-22 12:15] LABS: ALT 22 U/L (4-49); AST 22 U/L (17-59); African American GFR (CKD) >90 (>60 ml/min/1.73 sqM); Albumin 3.9 g/dL (3.5-5.0); Alkaline Phosphatase 118 U/L (38-126); Anion Gap 12 mmol/L; Blood Urea Nitrogen 17 mg/dL (9-20); Calcium 9.8 mg/dL (8.4-10.2); Carbon Dioxide 18 mmol/L (22-30); Chloride 96 mmol/L (98-107); Magnesium 1.5 mg/dL (1.6-2.3); Non-African American GFR(CKD) >90 (>60 ml/min/1.73 sqM); Potassium 5.1 mmol/L (3.5-5.1); Sodium 126 mmol/L (137-145); Total Bilirubin 0.6 mg/dL (0.2-1.3)
[2021-03-22 12:39] LABS: Glucose 640 mg/dL (74-99)
[2021-03-22] MEDS ORDERED: INSULIN ASPART (NovoLOG) 100 UNIT/ML VIAL SQ ONE (13:38)
[2021-03-22 13:51] VITALS: RESP 20
[2021-03-22] MEDS ORDERED: NITROGLYCERIN SL TABS 0.4 MG TAB SUBLINGUAL PRN (14:09)
[2021-03-22] MEDS ORDERED: ACETAMINOPHEN TAB 500 MG TAB PO STA (14:49)
[2021-03-22] MEDS: MAGNESIUM SULFATE-D5W PMX 1 GM in DEXTROSE/WATER 1 100ML.BAG IVPB SCH ×2 (16:44→19:01)
[2021-03-22] MEDS ORDERED: metFORMIN 500 MG TAB PO SCH (17:30)
[2021-03-22] MEDS ORDERED: INSULIN ASPART (NovoLOG) 100 UNIT/ML VIAL SQ SCH (17:30)
[2021-03-22] MEDS ORDERED: NITROGLYCERIN OINT 1 INCH/GM PACKET TOPICAL SCH (18:00)
[2021-03-22 18:02] LABS: African American GFR (CKD) >90 (>60 ml/min/1.73 sqM); Anion Gap 9 mmol/L; Blood Urea Nitrogen 17 mg/dL (9-20); Calcium 9.4 mg/dL (8.4-10.2); Carbon Dioxide 22 mmol/L (22-30); Chloride 100 mmol/L (98-107); Glucose 301 mg/dL (74-99); Non-African American GFR(CKD) >90 (>60 ml/min/1.73 sqM); Potassium 4.4 mmol/L (3.5-5.1); Sodium 131 mmol/L (137-145)
[2021-03-22 18:06] LABS: HGB 13.2 gm/dL (13.0-17.5); MCHC 34.8 g/dL (31.0-37.0); MCV 83.5 fL (80.0-100.0); Platelet Count 362 k/uL (150-450); RBC 4.54 m/uL (4.30-5.90); RDW 12.7 % (11.5-15.5); WBC 10.1 k/uL (3.8-10.6)
--- NOTE | 2021-03-22 18:24 | P.HPIM ---
History of Present Illness H&P Date: 03/22/21 Chief Complaint: Chest pain Mr. Menezes is a 55-year-old male known to the practice. Who presented to the emergency room with chest pain, and anxiety, patient also has left sided neck pain with numbness that radiates to her down the left arm to the fingertips patient has known history of cervical radiculopathy with previous neck surgery. 6 significant family history for cardiac disease, patient is extremely anxious, and has threatened to leave AGAINST MEDICAL ADVICE. His first 2 troponins are not elevated Patient currently states that he wishes to go home. Patient denies nausea denies vomiting denies shortness of breath denies heart palpitations. Does complain of chest pain that has been intermittent for 2 days. Review of Systems Constitutional: Reports as per HPI Ears, nose, mouth and throat: Reports ant. neck pain Cardiovascular: Reports chest pain, Reports high blood pressure Respiratory: Reports as per HPI Gastrointestinal: Reports as per HPI Genitourinary: Reports as per HPI, Reports polyuria Musculoskeletal: Reports arm numbness/tingling (Left arm known history of cervical radiculopathy), Reports neck pain, Reports neck stiffness Integumentary: Reports as per HPI Neurological: Reports paresthesias Psychiatric: Reports anxiety Endocrine: Reports as per HPI, Reports high blood sugars, Reports polydipsia, Reports polyphagia (Patient stopped taking his diabetic meds last 2 days), Reports polyuria Past Medical History Past Medical History: Chest Pain / Angina, Dementia, Diabetes Mellitus, GERD/Reflux, Hyperlipidemia, Hypertension, Neurologic Disorder, Osteoarthritis (OA), Syncope Additional Past Medical History / Comment(s): Chronic Back Pain, Recently COVID + November 2020 History of Any Multi-Drug Resistant Organisms: None Reported Past Surgical History: Back Surgery, Cholecystectomy, Orthopedic Surgery Additional Past Surgical History / Comment(s): C3-C7 WITH HARDWARE,. DISC REPLACED IN LOWER BACK. Right ROTATOR CUFF REPAIR Past Anesthesia/Blood Transfusion Reactions: No Reported Reaction Past Psychological History: Anxiety, Depression Smoking Status: Never smoker Past Alcohol Use History: None Reported Past Drug Use History: None Reported - Past Family History Mother Family Medical History: No Reported History Father Family Medical History: Coronary Artery Disease (CAD), Diabetes Mellitus, Deep Vein Thrombosis (DVT) Additional Family Medical History / Comment(s): paternal grandmother also had diabetes Sister(s) Family Medical History: Congestive Heart Failure (CHF) Medications and Allergies Home Medications Medication Instructions Recorded Confirmed Type Insulin Glargine,Hum.rec.anlog 35 unit SQ BID 01/05/21 03/22/21 History [Lantus Solostar Pen] Atorvastatin [Lipitor] 20 mg PO DAILY 03/22/21 03/22/21 History Bisoprolol-Hctz 5-6.25 mg [Ziac 1 tab PO DAILY 03/22/21 03/22/21 History 5-6.25 MG] Insulin Lispro [humaLOG Kwikpen] 10 unit SQ AC-TID 03/22/21 03/22/21 History Insulin Lispro [humaLOG Kwikpen] See Protocol SQ AC-TID 03/22/21 03/22/21 History buPROPion XL [Wellbutrin XL] 150 mg PO DAILY 03/22/21 03/22/21 History hydrOXYzine pamoate [Vistaril] 50 mg PO Q8H PRN 03/22/21 03/22/21 History metFORMIN HCL [Glucophage] 1,000 mg PO BID 03/22/21 03/22/21 History sitaGLIPtin [Januvia] 100 mg PO DAILY 03/22/21 03/22/21 History Allergies Allergy/AdvReac Type Severity Reaction Status Date / Time No Known Allergies Allergy Verified 03/22/21 10:19 Physical Exam Osteopathic Statement: *. No significant issues noted on an osteopathic structural exam other than those noted in the History and Physical/Consult. Vitals: Vital Signs Temp Pulse Resp BP Pulse Ox 03/22/21 16:50 99.0 F 90 20 115/77 97 03/22/21 13:50 94 20 116/79 98 03/22/21 10:17 97.6 F 112 H 18 142/99 100 Intake and Output 03/22/21 03/22/21 03/22/21 06:59 14:59 22:59 Other: Weight 89.358 kg General: [Patient awake, alert and oriented times 3. Patient in no acute distress.] Patient anxious HEENT: [PERRL. EOMI. No pharyngeal erythema or exudate.] Neck: [No adenopathy.] Cardiac: [Heart regular in rate and rhythm. No S3. No S4. No clicks, rubs. No murmur.] Lungs: [Clear to auscultation bilaterally.] Abdomen: [No mass. No organomegaly. Bowel sounds presnt and normoactive in all 4 quadrants.] Extremes: [No edema no cyanosis no claudication normal pulses] : Normal male genitalia Musculoskeletal: [No joint erythema, edema or tenderness.] Skin: [No rash.] Neurologic: [No lateralizing deficits. CN II - XII grossly intact.] Lymphatic: [No adenopathy.] Results CBC & Chem 7: 03/22/21 16:50 03/22/21 16:50 Labs: Abnormal Lab Results - Last 24 Hours (Table) 03/22/21 03/22/21 03/22/21 Range/Units 10:44 16:50 16:50 Hct 38.0 L (39.0-53.0) % Sodium 126 L 131 L (137-145) mmol/L Chloride 96 L (98-107) mmol/L Carbon Dioxide 18 L (22-30) mmol/L Glucose 640 H* 301 H (74-99) mg/dL Magnesium 1.5 L (1.6-2.3) mg/dL Assessment and Plan (1) Chest pain Current Visit: Yes Status: Acute Code(s): R07.9 - CHEST PAIN, UNSPECIFIED SNOMED Code(s): 26090759 (2) Hyperglycemia Current Visit: Yes Status: Acute Code(s): R73.9 - HYPERGLYCEMIA, UNSPECIFIED SNOMED Code(s): 12565559 (3) Hypomagnesemia Current Visit: Yes Status: Acute Code(s): E83.42 - HYPOMAGNESEMIA SNOMED Code(s): 777245576 (4) Anxiety disorder Current Visit: No Status: Acute Priority: High Code(s): F41.9 - ANXIETY DISORDER, UNSPECIFIED SNOMED Code(s): 180125665 Plan: First 2 troponins are not elevated No acute EKG changes Patient wishes to go home Significant discomfort left neck and arm history of surgical intervention C3 through 7 with hardware Will discharge patient home with instructions to resume home meds as scheduled Will see patient in office Thursday or Thursday Time with Patient: Greater than 30
[2021-03-22 19:14] VITALS: BP 120/77; PULSE 87; TEMP 98.7
[2021-03-23] MEDS ORDERED: ASPIRIN 325 MG TAB PO SCH (09:00)
[2021-03-23] MEDS ORDERED: BISOPROLOL-HCTZ 5-6.25 MG 1 EACH TAB PO SCH (09:00)
[2021-03-23] MEDS ORDERED: ATORVASTATIN 20 MG TAB PO SCH (09:00)
[2021-03-23] MEDS ORDERED: buPROPion XL 150 MG TAB.ER.24H PO SCH (09:00)
== END 2021-03-22 20:25 | disposition home or self-care (01) ==
LOC: EC 10:11 → 3SCARD 14:11 → INTOOBSV 14:11 → 3SCARD 18:13 → UNDODISIN 20:25
PROVIDERS: ADMIT Family Medicine; ATTEND Family Medicine
DX: R07.9 Chest pain, unspecified (principal); R20.0 Anesthesia of skin; E11.65 Type 2 diabetes mellitus with hyperglycemia; M54.12 Radiculopathy, cervical region; I10 Essential (primary) hypertension; F03.90 Unspecified dementia, unspecified severity, without behavioral disturbance, psychotic disturbance, mood disturbance, and anxiety; K21.9 Gastro-esophageal reflux disease without esophagitis; E78.5 Hyperlipidemia, unspecified; M19.90 Unspecified osteoarthritis, unspecified site; G89.29 Other chronic pain; M54.9 Dorsalgia, unspecified; F41.9 Anxiety disorder, unspecified; F32.A Depression, unspecified; R00.0 Tachycardia, unspecified; E83.42 Hypomagnesemia; Z86.16 Personal history of COVID-19; Z79.4 Long term (current) use of insulin; Z79.84 Long term (current) use of oral hypoglycemic drugs; Z79.899 Other long term (current) drug therapy; Z90.49 Acquired absence of other specified parts of digestive tract; Z82.49 Family history of ischemic heart disease and other diseases of the circulatory system; Z83.3 Family history of diabetes mellitus
CPT/HCPCS: 96361; 96365; 99285; 36415; 93005; 80053; 80048; 82009; 83735; 84443; 84484; 85025; 85027; 85610; 85730; 87635; 71046; G0378; J3475; 96360

== ENCOUNTER 2022-12-06 11:28 | Emergency (ER) | payer OTHER ==
[2022-12-06 11:33] VITALS: TEMP 98.3
[2022-12-06] MEDS ORDERED: KETOROLAC 15 MG/ML 1 ML VIAL IM STA (11:51)
[2022-12-06] MEDS ORDERED: ONDANSETRON 4 MG/2 ML VIAL IM STA (11:51)
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
--- NOTE | 2022-12-06 12:28 | CT ---
EXAMINATION TYPE: CT brain wo con CT DLP: 1099.4 mGycm, Automated exposure control for dose reduction was used. DATE OF EXAM: 12/06/2022 12:23 PM COMPARISON: CT brain 01/05/2021 CLINICAL INDICATION:Male, 57 years old with history of s/p fall head injury 7 days ago. VUONG/nausea, he adache after fall a week ago TECHNIQUE: Brain: Multiple axial CT images of the brain were obtained without IV contrast. Coronal and sagittal reformats reviewed. FINDINGS: Brain: Extra-axial spaces: No abnormal extra-axial fluid collections. Ventricular system: Within normal limits Cerebral parenchyma: No acute intraparenchymal hemorrhage or mass effect. The rebolledo-white junction is well differentiated. Cerebellum: Unremarkable. Mass effect: No evidence of midline shift. Intracranial vasculature: unremarkable Soft tissues: Normal. Calvarium/osseous structures: No depressed skull fracture. Paranasal sinuses and mastoid air cells: Clear Visualized orbits: Orbital contents are intact. IMPRESSION: No acute intracranial process.
--- NOTE | 2022-12-06 12:35 | XR ---
EXAMINATION TYPE: XR cervical spine comp DATE OF EXAM: 12/06/2022 12:32 PM INDICATION: Patient age:Male; 57 years old; Reason for study: s/p fall neck pain; PHH. COMPARISON: 09/28/2017 TECHNIQUE: The cervical spine was imaged in frontal, lateral, odontoid and bilateral oblique. FINDINGS: Postsurgical changes to C3 through C7. Hardware appears intact. The osseous structures show normal alignment without evidence of an acute fracture. No significant ve rtebral body osteophytes or facet joint arthropathy. The intervertebral disk spaces are preserved. Pe dicles are intact. Soft tissues are within normal limits. The odontoid appears intact. IMPRESSION: 1. No fracture or dislocation. 2. Post surgical changes with hardware intact. 3. Degenerative disc disease changes of the cervical spine.
--- NOTE | 2022-12-06 12:37 | XR ---
EXAMINATION TYPE: XR shoulder complete RT DATE OF EXAM: 12/06/2022 12:32 PM INDICATION: Patient age:Male; 57 years old; Reason for study: r shoulder pain s/p fall; COMPARISON: None TECHNIQUE: The right shoulder was examined in AP, internally rotated and scapular Y projections. FINDINGS: Remote injury to the right acromioclavicular joint. Anchoring in place. Heterotrophic calci fication around the site of injury. Mild degeneration of the glenohumeral joint. No evidence of acute osseous pathology, joint dislocation, or soft tissue swelling. The remaining por tions of the visualized chest are unremarkable. IMPRESSION: 1. No acute osseous pathology. 2. Remote injury to the right, clavicular joint with heterotrophic ossification. 3. Mild right glenohumeral joint osteoporosis.
[2022-12-06 13:09] LABS: Amorphous Sediment,Urine Rare /hpf; Appearance,Urine Cloudy (Clear); Bilirubin,Urine Negative (Negative); Blood,Urine Negative (Negative); Color,Urine Yellow; Glucose,Urine (UA) 4+ (Negative); Ketones,Urine Negative (Negative); Leukocyte Esterase,Urine Negative (Negative); Mucus,Urine Rare /hpf; Nitrite,Urine Negative (Negative); Protein,Urine Negative (Negative); RBC,Urine 1 /hpf (0-5); Specific Gravity,Urine 1.025 (1.001-1.035); Squamous Epithelial Cell,Urine <1 /hpf (0-4); Urobilinogen,Urine <2.0 mg/dL (<2.0); WBC,Urine 1 /hpf (0-5)
[2022-12-06 13:31] VITALS: BP 114/64; PULSE 65; RESP 16
== END 2022-12-06 13:43 | disposition home or self-care (01) ==
LOC: EC 11:28
DX: S06.0XAA Concussion with loss of consciousness status unknown, initial encounter (principal); M25.511 Pain in right shoulder; E11.9 Type 2 diabetes mellitus without complications; I10 Essential (primary) hypertension; E78.5 Hyperlipidemia, unspecified; F41.9 Anxiety disorder, unspecified; F32.A Depression, unspecified; Z90.49 Acquired absence of other specified parts of digestive tract; Z86.16 Personal history of COVID-19; Z79.4 Long term (current) use of insulin; Z79.84 Long term (current) use of oral hypoglycemic drugs; Z79.899 Other long term (current) drug therapy; W06.XXXA Fall from bed, initial encounter; Y92.812 Truck as the place of occurrence of the external cause
CPT/HCPCS: 99284; 96372 ×2; 81001; 72050; 73030; 70450; J2405; J1885

== ENCOUNTER 2023-01-22 16:59 | Inpatient (IN) | payer MEDICARE, OTHER ==
[2023-01-22 17:31] LABS: Glucose,Whole Blood >600 mg/dL (70-110)
[2023-01-22] MEDS ORDERED: SODIUM CHLORIDE 0.9% 500 ML 500 ML IV STA (17:55)
[2023-01-22] MEDS ORDERED: SODIUM CHLORIDE 0.9% 1,000 ML IV STA (17:55)
[2023-01-22 18:11] LABS: Basophils # (A) 0.1 k/uL (0-0.2); Basophils % (A) 1 %; Eosinophils # (A) 0.2 k/uL (0-0.7); Eosinophils % (A) 2 %; HCT 44.9 % (39.0-53.0); HGB 14.6 gm/dL (13.0-17.5); Lymphocytes % (A) 20 %; MCH 29.6 pg (25.0-35.0); MCHC 32.5 g/dL (31.0-37.0); MCV 91.1 fL (80.0-100.0); Mean Platelet Volume 8.9; Monocytes # (A) 0.5 k/uL (0-1.0); Monocytes % (A) 5 %; Neutrophils # (A) 7.2 k/uL (1.3-7.7); Neutrophils % (A) 71 %; Platelet Count 360 k/uL (150-450); RBC 4.93 m/uL (4.30-5.90); RDW 12.5 % (11.5-15.5); WBC 10.1 k/uL (3.8-10.6)
[2023-01-22 18:15] LABS: Appearance,Urine Clear (Clear); Bilirubin,Urine Negative (Negative); Blood,Urine Negative (Negative); Color,Urine Colorless; Glucose,Urine (UA) 4+ (Negative); Ketones,Urine Negative (Negative); Leukocyte Esterase,Urine Negative (Negative); Nitrite,Urine Negative (Negative); PH, Urine 5.5 (5.0-8.0); Protein,Urine Negative (Negative); Specific Gravity,Urine 1.027 (1.001-1.035); Urobilinogen,Urine <2.0 mg/dL (<2.0)
[2023-01-22 18:16] LABS: ALT 34 U/L (4-49); AST 49 U/L (17-59); African American GFR (CKD) >90 (>60 ml/min/1.73 sqM); Alkaline Phosphatase 162 U/L (38-126); Anion Gap 14 mmol/L; Blood Urea Nitrogen 23 mg/dL (9-20); Calcium 9.3 mg/dL (8.4-10.2); Carbon Dioxide 23 mmol/L (22-30); Chloride 87 mmol/L (98-107); Magnesium 1.8 mg/dL (1.6-2.3); Non-African American GFR(CKD) 80 (>60 ml/min/1.73 sqM); Potassium 5.1 mmol/L (3.5-5.1); Sodium 124 mmol/L (137-145); Total Bilirubin 0.4 mg/dL (0.2-1.3); Total Protein 6.9 g/dL (6.3-8.2)
--- NOTE | 2023-01-22 18:16 | ED ---
Recheck HPI - General Chief Complaint: Recheck/Abnormal Lab/Rx Stated Complaint: diabetic blood sugar level high Time Seen by Provider: 01/22/23 17:51 Source: patient, RN notes reviewed Mode of arrival: ambulatory Limitations: no limitations - History of Present Illness Initial Comments: 57-year-old male with a history depression and history of diabetes who states she's not had any of his medications for past 4 days he is not been able to get them filled at his local pharmacy he states she's had not feeling well. Urinary frequency polyuria some polydipsia pain his blood sugars been elevated was apparently 650 last week he was able get it down to a 425 evaluation and help. He denies any fevers chills sweats nausea vomiting no headaches or loss of function to his upper or lower extremities MD Complaint: other - Related Data Home Medications Medication Instructions Recorded Confirmed Insulin Glargine,Hum.rec.anlog 60 unit SQ BID 01/05/21 01/22/23 [Lantus Solostar Pen] Atorvastatin [Lipitor] 20 mg PO DAILY 03/22/21 01/22/23 metFORMIN HCL [Glucophage] 1,000 mg PO BID 03/22/21 01/22/23 DULoxetine HCL [Cymbalta] 60 mg PO DAILY 01/22/23 01/22/23 Dapagliflozin Propanediol [Farxiga] 10 mg PO DAILY 01/22/23 01/22/23 Dulaglutide [Trulicity] 3 mg SQ MO 01/22/23 01/22/23 Fenofibrate [Lofibra] 160 mg PO DAILY 01/22/23 01/22/23 Insulin Aspart [NovoLOG Flexpen] 10 units SQ TID-W/MEALS 01/22/23 01/22/23 Losartan Potassium 100 mg PO DAILY 01/22/23 01/22/23 Topiramate 100 mg PO DAILY 01/22/23 01/22/23 buPROPion XL [Wellbutrin XL] 300 mg PO DAILY 01/22/23 01/22/23 Previous Rx's Medication Instructions Recorded Ondansetron Odt [Zofran Odt] 4 mg PO Q8HR PRN #10 tab 12/06/22 Allergies Allergy/AdvReac Type Severity Reaction Status Date / Time No Known Allergies Allergy Verified 01/22/23 17:06 Review of Systems ROS Statement: Those systems with pertinent positive or pertinent negative responses have been documented in the HPI. ROS Other: All systems not noted in ROS Statement are negative. Past Medical History Past Medical History: Chest Pain / Angina, Dementia, Diabetes Mellitus, GERD/Reflux, Hyperlipidemia, Hypertension, Neurologic Disorder, Osteoarthritis (OA), Syncope Additional Past Medical History / Comment(s): Chronic Back Pain, Recently COVID + November 2020 History of Any Multi-Drug Resistant Organisms: None Reported Past Surgical History: Back Surgery, Cholecystectomy, Orthopedic Surgery Additional Past Surgical History / Comment(s): C3-C7 WITH HARDWARE,. DISC REPLACED IN LOWER BACK. Right ROTATOR CUFF REPAIR Past Anesthesia/Blood Transfusion Reactions: No Reported Reaction Past Psychological History: Anxiety, Depression Smoking Status: Never smoker Past Alcohol Use History: None Reported Past Drug Use History: None Reported - Past Family History Mother Family Medical History: No Reported History Father Family Medical History: Coronary Artery Disease (CAD), Diabetes Mellitus, Deep Vein Thrombosis (DVT) Additional Family Medical History / Comment(s): paternal grandmother also had diabetes Sister(s) Family Medical History: Congestive Heart Failure (CHF) General Exam - General Exam Comments Initial Comments: This is a well-developed well-nourished awake alert oriented 4 male Limitations: no limitations General appearance: alert, anxious Head exam: Present: atraumatic, normocephalic, normal inspection Eye exam: Present: normal appearance, PERRL, EOMI. Absent: scleral icterus, conjunctival injection, periorbital swelling ENT exam: Present: mucous membranes dry Neck exam: Present: normal inspection. Absent: tenderness, meningismus, lymphadenopathy Respiratory exam: Present: normal lung sounds bilaterally. Absent: respiratory distress, wheezes, rales, rhonchi, stridor Cardiovascular Exam: Present: normal rhythm, tachycardia, normal heart sounds. Absent: systolic murmur, diastolic murmur, rubs, gallop, clicks GI/Abdominal exam: Present: soft, normal bowel sounds. Absent: distended, tenderness, guarding, rebound, rigid Extremities exam: Present: normal inspection, full ROM, normal capillary refill. Absent: tenderness, pedal edema, joint swelling, calf tenderness Back exam: Present: normal inspection Neurological exam: Present: alert, oriented X3, CN II-XII intact Psychiatric exam: Present: normal affect, normal mood Skin exam: Present: warm, dry, intact, normal color. Absent: rash Course Vital Signs 01/22/23 01/22/23 17:02 20:50 Temperature 98.2 F 98.9 F Pulse Rate 130 H 101 H Respiratory 20 18 Rate Blood Pressure 165/100 137/90 O2 Sat by Pulse 96 98 Oximetry Medical Decision Making - Medical Decision Making Patient does demonstrate evidence of hyper glycemia dehydration acetone is negative. He does demonstrate hyponatremia patient will require admission to the hospital. Dr. Patel will be the admitting physician. Patient was started on insulin drip.Was pt. sent in by a medical professional or institution (, JORGE, ENERGY CONSERVATION ENGINEER, urgent care, hospital, or fci...) When possible be specific @ -No Did you speak to anyone other than the patient for history (EMS, parent, family, police, friend...)? What history was obtained from this source @ -No Did you review nursing and triage notes (agree or disagree)? Why? @ -I reviewed and agree with nursing and triage notes Were old charts reviewed (outside hosp., previous admission, EMS record, old EKG, old radiological studies, urgent care reports/EKG's, fci records)? Report findings @ - old charts were reviewed Differential Diagnosis (chest pain, altered mental status, abdominal pain women, abdominal pain men, vaginal bleeding, weakness, fever, dyspnea, syncope, headac he, dizziness, GI bleed, back pain, seizure, CVA, palpatations, mental health, musculoskeletal)? @ -Uncontrolled diabetes, hyperglycemia EKG interpreted by me (3pts min.). @ -As above EKG interpreted by me sinus tachycardia rate 102 DE interval 148 QRS duration 93 daily since QTC 338/[address]-T wave changes X-rays interpreted by me (1pt min.). @ -None done CT interpreted by me (1pt min.). @ -None done U/S interpreted by me (1pt. min.). @ -None done What testing was considered but not performed or refused? (CT, X-rays, U/S, labs)? Why? @ -None What meds were considered but not given or refused? Why? @ -None Did you discuss the management of the patient with other professionals (professionals i.e. , JORGE, ENERGY CONSERVATION ENGINEER, lab, RT, psych nurse, high school social studies teacher, cut off machine unloader, teacher, hydrographical technical officer, case finisher)? Give summary @ Dr Tavarez] Was smoking cessation discussed for >3mins.? @ -No Was critical care preformed (if so, how long)? @ -31 minutes Were there social determinants of health that impacted care today? How? (Homelessness, low income, unemployed, alcoholism, drug addiction, transportation, low edu. Level, literacy, decrease access to med. care, penitentiary, rehab)? @ -No Was there de-escalation of care discussed even if they declined (Discuss DNR or withdrawal of care, Hospice)? DNR status @ -No What co-morbidities impacted this encounter? (DM, HTN, Smoking, COPD, CAD, Cancer, CVA, ARF, Chemo, Hep., AIDS, mental health diagnosis, sleep apnea, morbid obesity)? @ -Obese Was patient admitted / discharged? Hospital course, mention meds given and route, prescriptions, significant lab abnormalities, going to OR and other pertinent info. @ -hospital course H was admitted to this facility he had been placed on insulin drip and will be kept on this as per Dr. Campo. Undiagnosed new problem with uncertain prognosis? @ -No Drug Therapy requiring intensive monitoring for toxicity (Heparin, Nitro, Insulin, Cardizem)? @ -[place]] Were any procedures done? @ -No Diagnosis/symptom? @ -Hyperglycemia, dehydration, hyponatremia, lactic acidosis no evidence of infectious process Acute, or Chronic, or Acute on Chronic? @ -Acute on chronic Uncomplicated (without systemic symptoms) or Complicated (systemic symptoms)? @ -Application Side effects of treatment? @ -No Exacerbation, Progression, or Severe Exacerbation? @ -Exacerbation Poses a threat to life or bodily function? How? (Chest pain, USA, SC, pneumonia, PE, COPD, DKA, ARF, appy, cholecystitis, CVA, Diverticulitis, Homicidal, Suicidal, threat to staff... and all critical care pts) @ -Uncontrolled diabetes, dehydration - Lab Data Result diagrams: 01/22/23 17:06 01/22/23 17:06 Lab Results 01/22/23 01/22/23 01/22/23 Range/Units 17:06 17:06 17:06 WBC 10.1 (3.8-10.6) k/uL RBC 4.93 (4.30-5.90) m/uL Hgb 14.6 (13.0-17.5) gm/dL Hct 44.9 (39.0-53.0) % MCV 91.1 (80.0-100.0) fL MCH 29.6 (25.0-35.0) pg MCHC 32.5 (31.0-37.0) g/dL RDW 12.5 (11.5-15.5) % Plt Count 360 (150-450) k/uL MPV 8.9 Neutrophils % 71 % Lymphocytes % 20 % Monocytes % 5 % Eosinophils % 2 % Basophils % 1 % Neutrophils # 7.2 (1.3-7.7) k/uL Lymphocytes # 2.0 (1.0-4.8) k/uL Monocytes # 0.5 (0-1.0) k/uL Eosinophils # 0.2 (0-0.7) k/uL Basophils # 0.1 (0-0.2) k/uL VBG pH (7.31-7.41) VBG pCO2 (37-51) mmHg VBG HCO3 (24-28) mmol/L Sodium 124 L (137-145) mmol/L Potassium 5.1 (3.5-5.1) mmol/L Chloride 87 L (98-107) mmol/L Carbon Dioxide 23 (22-30) mmol/L Anion Gap 14 mmol/L BUN 23 H (9-20) mg/dL Creatinine 1.04 (0.66-1.25) mg/dL Est GFR (CKD-EPI)AfAm >90 (>60 ml/min/1.73 sqM) Est GFR (CKD-EPI)NonAf 80 (>60 ml/min/1.73 sqM) Glucose 1005 H* (74-99) mg/dL POC Glucose (mg/dL) (70-110) mg/dL POC Glu Business Continuity Manager ID Lactic Ac Sepsis Rflx Plasma Lactic Acid Leonel (0.7-2.0) mmol/L Calcium 9.3 (8.4-10.2) mg/dL Magnesium 1.8 (1.6-2.3) mg/dL Total Bilirubin 0.4 (0.2-1.3) mg/dL AST 49 (17-59) U/L ALT 34 (4-49) U/L Alkaline Phosphatase 162 H (38-126) U/L Troponin I (0.000-0.034) ng/mL Total Protein 6.9 (6.3-8.2) g/dL Albumin 4.0 (3.5-5.0) g/dL Urine Color Colorless Urine Appearance Clear (Clear) Urine pH 5.5 (5.0-8.0) Ur Specific [place] 1.027 (1.001-1.035) Urine Protein Negative (Negative) Urine Glucose (UA) 4+ H (Negative) Urine Ketones Negative (Negative) Urine Blood Negative (Negative) Urine Nitrite Negative (Negative) Urine Bilirubin Negative (Negative) Urine Urobilinogen <2.0 (<2.0) mg/dL Ur Leukocyte Esterase Negative (Negative) Acetone, Qual Negative (Negative) 01/22/23 01/22/23 01/22/23 Range/Units 17:06 17:06 17:29 WBC (3.8-10.6) k/uL RBC (4.30-5.90) m/uL Hgb (13.0-17.5) gm/dL Hct (39.0-53.0) % MCV (80.0-100.0) fL MCH (25.0-35.0) pg MCHC (31.0-37.0) g/dL RDW (11.5-15.5) % Plt Count (150-450) k/uL MPV Neutrophils % % Lymphocytes % % Monocytes % % Eosinophils % % Basophils % % Neutrophils # (1.3-7.7) k/uL Lymphocytes # (1.0-4.8) k/uL Monocytes # (0-1.0) k/uL Eosinophils # (0-0.7) k/uL Basophils # (0-0.2) k/uL VBG pH (7.31-7.41) VBG pCO2 (37-51) mmHg VBG HCO3 (24-28) mmol/L Sodium (137-145) mmol/L Potassium (3.5-5.1) mmol/L Chloride (98-107) mmol/L Carbon Dioxide (22-30) mmol/L Anion Gap mmol/L BUN (9-20) mg/dL Creatinine (0.66-1.25) mg/dL Est GFR (CKD-EPI)AfAm (>60 ml/min/1.73 sqM) Est GFR (CKD-EPI)NonAf (>60 ml/min/1.73 sqM) Glucose (74-99) mg/dL POC Glucose (mg/dL) >600 H (70-110) mg/dL POC Glu Business Continuity Manager ID Maria E Lambert Lactic Ac Sepsis Rflx Plasma Lactic Acid Leonel 2.5 H* (0.7-2.0) mmol/L Calcium (8.4-10.2) mg/dL Magnesium (1.6-2.3) mg/dL Total Bilirubin (0.2-1.3) mg/dL AST (17-59) U/L ALT (4-49) U/L Alkaline Phosphatase (38-126) U/L Troponin I <0.012 (0.000-0.034) ng/mL Total Protein (6.3-8.2) g/dL Albumin (3.5-5.0) g/dL Urine Color Urine Appearance (Clear) Urine pH (5.0-8.0) Ur Specific [place] (1.001-1.035) Urine Protein (Negative) Urine Glucose (UA) (Negative) Urine Ketones (Negative) Urine Blood (Negative) Urine Nitrite (Negative) Urine Bilirubin (Negative) Urine Urobilinogen (<2.0) mg/dL Ur Leukocyte Esterase (Negative) Acetone, Qual (Negative) 01/22/23 01/22/23 01/22/23 Range/Units 18:20 18:27 20:01 WBC (3.8-10.6) k/uL RBC (4.30-5.90) m/uL Hgb (13.0-17.5) gm/dL Hct (39.0-53.0) % MCV (80.0-100.0) fL MCH (25.0-35.0) pg MCHC (31.0-37.0) g/dL RDW (11.5-15.5) % Plt Count (150-450) k/uL MPV Neutrophils % % Lymphocytes % % Monocytes % % Eosinophils % % Basophils % % Neutrophils # (1.3-7.7) k/uL Lymphocytes # (1.0-4.8) k/uL Monocytes # (0-1.0) k/uL Eosinophils # (0-0.7) k/uL Basophils # (0-0.2) k/uL VBG pH 7.34 (7.31-7.41) VBG pCO2 51 (37-51) mmHg VBG HCO3 27 (24-28) mmol/L Sodium (137-145) mmol/L Potassium (3.5-5.1) mmol/L Chloride (98-107) mmol/L Carbon Dioxide (22-30) mmol/L Anion Gap mmol/L BUN (9-20) mg/dL Creatinine (0.66-1.25) mg/dL Est GFR (CKD-EPI)AfAm (>60 ml/min/1.73 sqM) Est GFR (CKD-EPI)NonAf (>60 ml/min/1.73 sqM) Glucose (74-99) mg/dL POC Glucose (mg/dL) >600 H (70-110) mg/dL POC Glu Business Continuity Manager ID Milly Sánchez Lactic Ac Sepsis Rflx Y Plasma Lactic Acid Leonel (0.7-2.0) mmol/L Calcium (8.4-10.2) mg/dL Magnesium (1.6-2.3) mg/dL Total Bilirubin (0.2-1.3) mg/dL AST (17-59) U/L ALT (4-49) U/L Alkaline Phosphatase (38-126) U/L Troponin I (0.000-0.034) ng/mL Total Protein (6.3-8.2) g/dL Albumin (3.5-5.0) g/dL Urine Color Urine Appearance (Clear) Urine pH (5.0-8.0) Ur Specific [place] (1.001-1.035) Urine Protein (Negative) Urine Glucose (UA) (Negative) Urine Ketones (Negative) Urine Blood (Negative) Urine Nitrite (Negative) Urine Bilirubin (Negative) Urine Urobilinogen (<2.0) mg/dL Ur Leukocyte Esterase (Negative) Acetone, Qual (Negative) - EKG Data -: EKG Interpreted by Me (EKG reveals sinus tachycardia as interpreted by me rate 102 DE interval 148) Critical Care Time Critical Care Time: Yes Total Critical Care Time: 31 Disposition Clinical Impression: Hyperglycemia due to diabetes mellitus, Dehydration, Hyponatremia, Lactic acidosis Disposition: ADMITTED IP TO THIS HOSP Condition: Fair Referrals: Abelardo Tavarez MD [Primary Care Provider] - 1-2 days Decision Date: 01/22/23 Decision Time: 21:00
[2023-01-22 18:26] LABS: Glucose 1005 mg/dL (74-99)
[2023-01-22 18:31] LABS: VBG PH 7.34 (7.31-7.41)
[2023-01-22] MEDS ORDERED: Magnesium Replacement Protocol 1 EACH MISC MISCELLANE PRN (18:35)
[2023-01-22] MEDS ORDERED: INSULIN REGULAR BOLUS (FROM DRIP BAG) IV ONE (18:35)
[2023-01-22] MEDS ORDERED: DEXTROSE 50% SYRINGE 50 ML IVP PRN ×2 (18:35)
[2023-01-22] MEDS ORDERED: Potassium Replacement Protocol 1 EACH MISC MISCELLANE PRN (18:35)
[2023-01-22] MEDS: SODIUM CHLORIDE 0.9% 1,000 ML IV SCH (18:57)
[2023-01-22] MEDS: INSULIN REGULAR 100 UNIT in SODIUM CHLORIDE 0.9% 100 ML IV SCH ×2 (19:01→23:38)
[2023-01-22 20:04] LABS: Glucose,Whole Blood >600 mg/dL (70-110)
[2023-01-22] MEDS ORDERED: NALOXONE 0.4 MG/ML 1 ML VIAL IV PRN (21:09)
[2023-01-22] MEDS ORDERED: ONDANSETRON ODT 4 MG TAB PO PRN (21:10)
[2023-01-22 21:13] LABS: Glucose,Whole Blood 588 mg/dL (70-110)
[2023-01-22 22:10] LABS: Glucose,Whole Blood 452 mg/dL (70-110)
[2023-01-22 23:23] LABS: Glucose,Whole Blood 286 mg/dL (70-110)
[2023-01-23 00:28] LABS: African American GFR (CKD) >90 (>60 ml/min/1.73 sqM); Anion Gap 12 mmol/L; Blood Urea Nitrogen 21 mg/dL (9-20); Carbon Dioxide 22 mmol/L (22-30); Chloride 105 mmol/L (98-107); Glucose 136 mg/dL (74-99); Non-African American GFR(CKD) >90 (>60 ml/min/1.73 sqM); Phosphorus 3.4 mg/dL (2.5-4.5); Potassium 3.6 mmol/L (3.5-5.1); Sodium 139 mmol/L (137-145)
[2023-01-23 01:19] LABS: Glucose,Whole Blood 111 mg/dL (70-110)
[2023-01-23 02:25] LABS: Glucose,Whole Blood 148 mg/dL (70-110)
[2023-01-23 03:46] LABS: Glucose,Whole Blood 352 mg/dL (70-110)
[2023-01-23 05:35] LABS: Glucose,Whole Blood 398 mg/dL (70-110)
[2023-01-23 06:44] LABS: Glucose,Whole Blood 332 mg/dL (70-110)
[2023-01-23] MEDS: D5-0.45% NACL WITH KCL 20MEQ/L 1,000 ML IV SCH ×3 (07:04→18:46)
[2023-01-23] MEDS: metFORMIN 500 MG TAB PO SCH ×2 (07:07→17:38)
[2023-01-23 07:30] LABS: Glucose,Whole Blood 331 mg/dL (70-110)
[2023-01-23] MEDS: ATORVASTATIN 20 MG TAB PO SCH (08:24)
[2023-01-23] MEDS: DULoxetine HCL 60 MG CAPSULE.DR PO SCH (08:24)
[2023-01-23] MEDS: LOSARTAN 50 MG TAB PO SCH (08:24)
[2023-01-23] MEDS: FENOFIBRATE 160 MG TAB PO SCH (08:24)
[2023-01-23] MEDS: TOPIRAMATE 100 MG TAB PO SCH (08:25)
[2023-01-23 08:32] LABS: Glucose,Whole Blood 384 mg/dL (70-110)
[2023-01-23 09:29] LABS: Glucose,Whole Blood 370 mg/dL (70-110)
[2023-01-23 10:30] LABS: Glucose,Whole Blood 236 mg/dL (70-110)
[2023-01-23 11:30] LABS: Glucose,Whole Blood 242 mg/dL (70-110)
[2023-01-23] MEDS: DAPAGLIFLOZIN PROPANEDIOL 10 MG TABLET PO SCH (11:53)
[2023-01-23] MEDS: buPROPion XL 300 MG TAB.ER.24H PO SCH (11:53)
[2023-01-23 12:01] VITALS: BMI 29.4
[2023-01-23 12:02] LABS: African American GFR (CKD) >90 (>60 ml/min/1.73 sqM); Anion Gap 10 mmol/L; Blood Urea Nitrogen 21 mg/dL (9-20); Calcium 9.2 mg/dL (8.4-10.2); Carbon Dioxide 23 mmol/L (22-30); Chloride 103 mmol/L (98-107); Glucose 213 mg/dL (74-99); Non-African American GFR(CKD) 84 (>60 ml/min/1.73 sqM); Potassium 4.1 mmol/L (3.5-5.1); Sodium 136 mmol/L (137-145)
[2023-01-23 12:28] LABS: Glucose,Whole Blood 238 mg/dL (70-110)
[2023-01-23 13:26] LABS: Glucose,Whole Blood 290 mg/dL (70-110)
[2023-01-23 14:29] LABS: Glucose,Whole Blood 218 mg/dL (70-110)
[2023-01-23 15:25] LABS: Glucose,Whole Blood 186 mg/dL (70-110)
[2023-01-23 16:31] LABS: Glucose,Whole Blood 211 mg/dL (70-110)
[2023-01-23] MEDS: INSULIN REGULAR 100 UNIT in SODIUM CHLORIDE 0.9% 100 ML IV SCH (17:06)
[2023-01-23 17:33] LABS: Glucose,Whole Blood 179 mg/dL (70-110)
[2023-01-23] MEDS ORDERED: DEXTROSE 50% SYRINGE 50 ML IVP PRN ×2 (18:17)
[2023-01-23] MEDS: SODIUM CHLORIDE 0.9% 1,000 ML IV SCH ×2 (18:46→21:40)
[2023-01-23 20:30] LABS: Glucose,Whole Blood 328 mg/dL (70-110)
[2023-01-23] MEDS: INSULIN ASPART (NovoLOG) 100 UNIT/ML VIAL SQ SCH (21:33)
[2023-01-23] MEDS: INSULIN DETEMIR (LEVEMIR) 100 UNIT/ML SYR SQ SCH (21:34)
[2023-01-24 03:34] LABS: Glucose,Whole Blood 201 mg/dL (70-110)
[2023-01-24 06:14] LABS: Glucose,Whole Blood 179 mg/dL (70-110)
[2023-01-24] MEDS: SODIUM CHLORIDE 0.9% 1,000 ML IV SCH ×5 (06:32→16:29)
[2023-01-24] MEDS: metFORMIN 500 MG TAB PO SCH ×2 (06:40→17:00)
[2023-01-24] MEDS: INSULIN ASPART (NovoLOG) 100 UNIT/ML VIAL SQ SCH ×6 (06:41→16:59)
[2023-01-24] MEDS: INSULIN DETEMIR (LEVEMIR) 100 UNIT/ML SYR SQ SCH (09:33)
[2023-01-24] MEDS: LOSARTAN 50 MG TAB PO SCH (09:33)
[2023-01-24] MEDS: ATORVASTATIN 20 MG TAB PO SCH (09:33)
[2023-01-24] MEDS: FENOFIBRATE 160 MG TAB PO SCH (09:33)
[2023-01-24] MEDS: TOPIRAMATE 100 MG TAB PO SCH (09:33)
[2023-01-24] MEDS: DULoxetine HCL 60 MG CAPSULE.DR PO SCH (09:33)
[2023-01-24] MEDS: buPROPion XL 300 MG TAB.ER.24H PO SCH (09:34)
[2023-01-24] MEDS: DAPAGLIFLOZIN PROPANEDIOL 10 MG TABLET PO SCH (09:34)
[2023-01-24 11:54] LABS: Glucose,Whole Blood 224 mg/dL (70-110)
[2023-01-24 12:47] VITALS: RESP 16
[2023-01-24 16:53] LABS: Glucose,Whole Blood 152 mg/dL (70-110)
[2023-01-24 17:36] VITALS: BP 106/56; PULSE 88; TEMP 97.9
--- NOTE | 2023-01-25 23:26 | DS ---
DISCHARGE SUMMARY CHIEF COMPLAINT: Hyperglycemia. HISTORY OF PRESENT ILLNESS AND PHYSICAL EXAM: The details of this man's history and physical can be found in the initial workup. LABORATORY STUDIES: While he is in the hospital, he had laboratory studies, details of which can be found in the laboratory section of his chart. COURSE IN THE HOSPITAL: After admission, he was placed on bedrest, on intravenous fluids and blood sugars were brought down under control. He had no further difficulty and was doing well and felt that he could be discharged on the . He will go home on his regular activity, diet, medications and will be followed up in the office in several days. FINAL DIAGNOSES: Uncontrolled diabetes mellitus. OPERATIONS: None. CONSULTATIONS: None. He is improved. MMODL / IJN: [id number] /
--- NOTE | 2023-01-25 23:56 | HP ---
HISTORY AND PHYSICAL CHIEF COMPLAINT: Uncontrolled diabetes. HISTORY OF PRESENT ILLNESS: This is an another admission for this 57-year-old white male on numerous medications including insulin. He states that he was in the office and we were supposed to refill of his medications and this was not done. He came in to the hospital with significantly elevated blood sugar around 600. He was not ketotic. REVIEW OF SYSTEMS: He denies any nausea, vomiting, chest pain, shortness of breath, etc. Past medical history, family history and personal and social histories are all otherwise unremarkable and noncontributory. PHYSICAL EXAMINATION: VITAL SIGNS: Blood pressure is 165/100. Anion gap was 14. HEAD, EARS, EYES, NOSE, MOUTH AND THROAT: Normal. CHEST: Clear. CARDIAC: Normal. ABDOMEN: Soft, nontender. EXTREMITIES: Normal. ASSESSMENT: Admitted to the hospital with diagnoses, 1. Uncontrolled type 2 diabetes mellitus. 2. Hypertension. 3. History of depression. PLAN: 1. Bed rest. 2. IV fluids. 3. Control blood sugars. MMODL / IJN: [id number] /
--- NOTE | 2023-01-26 00:05 | PN ---
PROGRESS NOTE DATE OF SERVICE: 01/23/2023 CHIEF COMPLAINT: Uncontrolled diabetes. HISTORY OF PRESENT ILLNESS: This gentleman is doing well. His sugars are coming down. He has had no shortness of breath, nausea, chest pain, etc. PHYSICAL EXAMINATION: . IMPRESSION: 1. Uncontrolled diabetes. 2. Hypertension. PLAN: Continue to monitor blood sugars and resume all of his other medications and probably discharge in a day or 2. MMODL / IJN: [id number] /
== END 2023-01-24 17:40 | disposition home or self-care (01) | DRG 638 ==
LOC: EC 16:59 → 3SCARD 21:09
PROVIDERS: ADMIT Family Medicine; ATTEND Family Medicine
DX: E11.65 Type 2 diabetes mellitus with hyperglycemia (principal); E87.1 Hypo-osmolality and hyponatremia; E86.0 Dehydration; E66.9 Obesity, unspecified; E78.5 Hyperlipidemia, unspecified; M19.90 Unspecified osteoarthritis, unspecified site; Z86.16 Personal history of COVID-19; G89.29 Other chronic pain; M54.9 Dorsalgia, unspecified; K21.9 Gastro-esophageal reflux disease without esophagitis; F03.90 Unspecified dementia, unspecified severity, without behavioral disturbance, psychotic disturbance, mood disturbance, and anxiety; R35.0 Frequency of micturition; I10 Essential (primary) hypertension; Z79.4 Long term (current) use of insulin; Z79.84 Long term (current) use of oral hypoglycemic drugs; Z82.49 Family history of ischemic heart disease and other diseases of the circulatory system; I25.10 Atherosclerotic heart disease of native coronary artery without angina pectoris; Z86.718 Personal history of other venous thrombosis and embolism
CPT/HCPCS: 36415; 80048; 80051; 80053; 81003; 82009; 82565; 82803; 82947; 83605; 83735; 84100; 84484; 84520; 85025; 93005; 96360; 96361; 99285

== ENCOUNTER 2023-08-30 12:26 | Emergency (ER) | payer MEDICARE, OTHER ==
[2023-08-30 13:01] VITALS: TEMP 97.9
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
--- NOTE | 2023-08-30 14:11 | CT ---
EXAMINATION TYPE: CT brain cspine wo con DATE OF EXAM: 08/30/2023 COMPARISON: Head CT dated 12/06/2022 HISTORY: Pt fall, hit back of head 3 days ago, been vomiting, nauseated since. CT DLP: 1512.7 mGycm Automated exposure control for dose reduction was used. TECHNIQUE: CT scan of the head and cervical spine are performed without contrast. Findings: Head CT: Ventricles, basal cisterns and sulci over convexities within normal limits and there is no mass, mass effect or shift of midline structures. No abnormal density is seen throughout the brain parenchyma and there is no acute intra or extra-axia l hemorrhage. Posterior fossa including the brainstem, fourth ventricle and cerebellar pontine angles are grossly n ormal. The intraorbital contents appear normal and symmetric. Visualized paranasal sinuses are well aerated. CT cervical spine: Craniovertebral junction relationships and prevertebral soft tissues are normal. There is anterior metallic and intradisc fusion from C3 through C7. The craniovertebral junction relation to prevertebral soft tissues are normal. C2-3 disc space is well maintained. There is no cervical fracture. The facet joints are intact. There is no bony encroachment of the cerv ical canal. The paraspinal soft tissues unremarkable. IMPRESSION: 1. Head CT: No acute bleed or mass effect. 2. CT cervical spine: No acute trauma. Anterior and intradisc cervical fusion from C3 through C7.
[2023-08-30 14:59] VITALS: BP 130/76; PULSE 98; RESP 18
== END 2023-08-30 15:01 | disposition home or self-care (01) ==
LOC: EC 12:26
DX: S09.90XA Unspecified injury of head, initial encounter (principal); W18.09XA Striking against other object with subsequent fall, initial encounter
CPT/HCPCS: 70450; 72125; 99284

== ENCOUNTER 2023-12-31 12:16 | Emergency (ER) | payer MEDICARE, OTHER ==
[2023-12-31 12:22] LABS: Glucose,Whole Blood 565 mg/dL (70-110)
[2023-12-31] MEDS: ONDANSETRON 4 MG/2 ML VIAL IVP STA (13:43)
[2023-12-31] MEDS: SODIUM CHLORIDE 0.9% 2,000 ML IV STA (13:43)
--- NOTE | 2023-12-31 13:46 | ED ---
General Adult HPI - General Chief complaint: Recheck/Abnormal Lab/Rx Stated complaint: Dizziness/Numbness Time Seen by Provider: 12/31/23 12:31 Source: patient, RN notes reviewed Mode of arrival: ambulatory Limitations: no limitations - History of Present Illness Initial comments: 58-year-old male presents emergency department with chief complaint of hyp erglycemia. Patient states he has not felt well last few days. Patient states that he was at his primary care physician's office for follow-up and medications today but states he started to have increasing lightheadedness and nausea and he presented to the emergency department. He has no complaints of chest pain does have some chronic left shoulder issues chronic nausea. Patient denies any drug use no alcohol use. He does admit to urinary frequency and states that if he does not go when he has to go he has extreme urgency. - Related Data Home Medications Medication Instructions Recorded Confirmed Insulin Glargine,Hum.rec.anlog 60 unit SQ BID 01/05/21 12/31/23 [Lantus Solostar Pen] Atorvastatin [Lipitor] 20 mg PO DAILY 03/22/21 12/31/23 metFORMIN HCL [Glucophage] 1,000 mg PO BID 03/22/21 12/31/23 DULoxetine HCL [Cymbalta] 60 mg PO DAILY 01/22/23 12/31/23 Dapagliflozin Propanediol [Farxiga] 10 mg PO DAILY 01/22/23 12/31/23 Dulaglutide [Trulicity] 3 mg SQ FR 01/22/23 12/31/23 Fenofibrate [Lofibra] 160 mg PO DAILY 01/22/23 12/31/23 Insulin Aspart [NovoLOG Flexpen] 10 units SQ TID-W/MEALS 01/22/23 12/31/23 Losartan Potassium 100 mg PO DAILY 01/22/23 12/31/23 buPROPion XL [Wellbutrin XL] 300 mg PO DAILY 01/22/23 12/31/23 Ergocalciferol (Vitamin D2) 1,250 mcg PO Q30D 12/31/23 12/31/23 [Drisdol (50,000 Iu)] Allergies Allergy/AdvReac Type Severity Reaction Status Date / Time No Known Allergies Allergy Verified 12/31/23 13:47 Review of Systems ROS Statement: Those systems with pertinent positive or pertinent negative responses have been documented in the HPI. ROS Other: All systems not noted in ROS Statement are negative. Past Medical History Past Medical History: Chest Pain / Angina, Dementia, Diabetes Mellitus, GERD/Reflux, Hyperlipidemia, Hypertension, Neurologic Disorder, Osteoarthritis (OA), Syncope Additional Past Medical History / Comment(s): Chronic Back Pain, Recently COVID + November 2020 History of Any Multi-Drug Resistant Organisms: None Reported Past Surgical History: Back Surgery, Cholecystectomy, Orthopedic Surgery Additional Past Surgical History / Comment(s): C3-C7 WITH HARDWARE,. DISC REPLACED IN LOWER BACK. Right ROTATOR CUFF REPAIR Past Anesthesia/Blood Transfusion Reactions: No Reported Reaction Past Psychological History: Anxiety, Depression Smoking Status: Never smoker Past Alcohol Use History: None Reported Past Drug Use History: None Reported - Past Family History Mother Family Medical History: No Reported History Father Family Medical History: Coronary Artery Disease (CAD), Diabetes Mellitus, Deep Vein Thrombosis (DVT) Additional Family Medical History / Comment(s): paternal grandmother also had diabetes Sister(s) Family Medical History: Congestive Heart Failure (CHF) General Exam Limitations: no limitations General appearance: alert, in no apparent distress Head exam: Present: atraumatic, normocephalic, normal inspection Eye exam: Present: normal appearance, PERRL, EOMI. Absent: scleral icterus, conjunctival injection, periorbital swelling ENT exam: Present: normal exam, normal oropharynx, mucous membranes moist Neck exam: Present: normal inspection, full ROM. Absent: tenderness, meningismus, lymphadenopathy Respiratory exam: Present: normal lung sounds bilaterally. Absent: respiratory distress, wheezes, rales, rhonchi, stridor Cardiovascular Exam: Present: normal rhythm, tachycardia, normal heart sounds. Absent: systolic murmur, diastolic murmur, rubs, gallop, clicks GI/Abdominal exam: Present: soft, normal bowel sounds. Absent: distended, tenderness, guarding, rebound, rigid Course Vital Signs 12/31/23 12/31/23 12/31/23 12:18 13:51 15:42 Temperature 97.5 F L 98.5 F Pulse Rate 110 H 93 74 Respiratory 20 20 18 Rate Blood Pressure 149/81 144/83 132/79 O2 Sat by Pulse 96 98 99 Oximetry EKG Findings - EKG Comments: EKG Findings:: EKG performed at 13: 16 sinus rhythm rate of 85 IA 168 QRS 98 QT/QTc 359/401 - EKG Results: EKG: interpreted by [facility] Medical Decision Making - Medical Decision Making Was pt. sent in by a medical professional or institution (JORGE Ochoa, DAYCARE WORKER, urgent care, hospital, or penitentiary...) When possible be specific @ -No Did you speak to anyone other than the patient for history (EMS, parent, family, police, friend...)? What history was obtained from this source @ -No Did you review nursing and triage notes (agree or disagree)? Why? @ -I reviewed and agree with nursing and triage notes Were old charts reviewed (outside hosp., previous admission, EMS record, old EKG, old radiological studies, urgent care reports/EKG's, penitentiary records)? Report findings @ -No old charts were reviewed Differential Diagnosis (chest pain, altered mental status, abdominal pain women, abdominal pain men, vaginal bleeding, weakness, fever, dyspnea, syncope, headache, dizziness, GI bleed, back pain, seizure, CVA, palpatations, mental health, musculoskeletal)? @ -Hyperglycemia, DKA, HHS, UTI, URI EKG interpreted by me (3pts min.). @ -None X-rays interpreted by me (1pt min.). @ -None done CT interpreted by me (1pt min.). @ -None done U/S interpreted by me (1pt. min.). @ -None done What testing was considered but not performed or refused? (CT, X-rays, U/S, labs)? Why? @ -None What meds were considered but not given or refused? Why? @ -None Did you discuss the management of the patient with other professionals (professionals i.e. JORGE Ochoa, DAYCARE WORKER, lab, RT, psych nurse, social services director, billing machine operator, teacher, emergency response officer, adult protective caseworker)? Give summary @ -No Was smoking cessation discussed for >3mins.? @ -No Was critical care preformed (if so, how long)? @ -No Were there social determinants of health that impacted care today? How? (Homelessness, low income, unemployed, alcoholism, drug addiction, transportation, low edu. Level, literacy, decrease access to med. care, longterm, rehab)? @ -No Was there de-escalation of care discussed even if they declined (Discuss DNR or withdrawal of care, Hospice)? DNR status @ -No What co-morbidities impacted this encounter? (DM, HTN, Smoking, COPD, CAD, Cancer, CVA, ARF, Chemo, Hep., AIDS, mental health diagnosis, sleep apnea, morbid obesity)? @ -Diabetes Was patient admitted / discharged? Hospital course, mention meds given and route, prescriptions, significant lab abnormalities, going to OR and other pertinent info. @ -Discharge patient blood sugars improved. Patient states he feels greatly im proved at this time. He has discussed using insulin pump with his PCP and states he has a follow-up appointment for this. Undiagnosed new problem with uncertain prognosis? @ -No Drug Therapy requiring intensive monitoring for toxicity (Heparin, Nitro, Insulin, Cardizem)? @ -No Were any procedures done? @ -No Diagnosis/symptom? @ -Hyperglycemia Acute, or Chronic, or Acute on Chronic? @ -Acute Uncomplicated (without systemic symptoms) or Complicated (systemic symptoms)? @ -Uncomplicated Side effects of treatment? @ -No Exacerbation, Progression, or Severe Exacerbation? @ -No Poses a threat to life or bodily function? How? (Chest pain, [place], [place], pneumonia, PE, COPD, DKA, ARF, appy, cholecystitis, CVA, Diverticulitis, Homicidal, Suicidal, threat to staff... and all critical care pts) @ -No - Lab Data Result diagrams: 12/31/23 13:31 12/31/23 13:31 Lab Results 12/31/23 12/31/23 12/31/23 Range/Units 12:20 13:31 13:31 WBC 9.1 (3.8-10.6) k/uL RBC 5.26 (4.30-5.90) m/uL Hgb 14.8 (13.0-17.5) gm/dL Hct 45.6 (39.0-53.0) % MCV 86.7 (80.0-100.0) fL MCH 28.1 (25.0-35.0) pg MCHC 32.4 (31.0-37.0) g/dL RDW 12.9 (11.5-15.5) % Plt Count 322 (150-450) k/uL MPV 8.4 Neutrophils % 73 % Lymphocytes % 20 % Monocytes % 4 % Eosinophils % 1 % Basophils % 1 % Neutrophils # 6.6 (1.3-7.7) k/uL Lymphocytes # 1.8 (1.0-4.8) k/uL Monocytes # 0.4 (0-1.0) k/uL Eosinophils # 0.1 (0-0.7) k/uL Basophils # 0.1 (0-0.2) k/uL VBG pH (7.31-7.41) VBG pCO2 (37-51) mmHg VBG HCO3 (24-28) mmol/L Sodium (137-145) mmol/L Potassium (3.5-5.1) mmol/L Chloride (98-107) mmol/L Carbon Dioxide (22-30) mmol/L Anion Gap mmol/L BUN (9-20) mg/dL Creatinine (0.66-1.25) mg/dL Est GFR (CKD-EPI)AfAm (>60 ml/min/1.73 sqM) Est GFR (CKD-EPI)NonAf (>60 ml/min/1.73 sqM) Glucose (74-99) mg/dL POC Glucose (mg/dL) 565 H* (70-110) mg/dL POC Glu [employer] Window Clerk ID Lucinda Jolly Plasma Lactic Acid Leonel (0.7-2.0) mmol/L Calcium (8.4-10.2) mg/dL Magnesium (1.6-2.3) mg/dL Total Bilirubin (0.2-1.3) mg/dL AST (17-59) U/L ALT (4-49) U/L Alkaline Phosphatase (38-126) U/L Troponin I (0.000-0.034) ng/mL Total Protein (6.3-8.2) g/dL Albumin (3.5-5.0) g/dL Lipase (23-300) U/L Urine Color Colorless Urine Appearance Clear (Clear) Urine pH 6.0 (5.0-8.0) Ur Specific [place] 1.032 (1.001-1.035) Urine Protein Negative (Negative) Urine Glucose (UA) 4+ H (Negative) Urine Ketones Negative (Negative) Urine Blood Negative (Negative) Urine Nitrite Negative (Negative) Urine Bilirubin Negative (Negative) Urine Urobilinogen <2.0 (<2.0) mg/dL Ur Leukocyte Esterase Negative (Negative) Acetone, Qual (Negative) 12/31/23 12/31/23 12/31/23 Range/Units 13:31 13:31 13:31 WBC (3.8-10.6) k/uL RBC (4.30-5.90) m/uL Hgb (13.0-17.5) gm/dL Hct (39.0-53.0) % MCV (80.0-100.0) fL MCH (25.0-35.0) pg MCHC (31.0-37.0) g/dL RDW (11.5-15.5) % Plt Count (150-450) k/uL MPV Neutrophils % % Lymphocytes % % Monocytes % % Eosinophils % % Basophils % % Neutrophils # (1.3-7.7) k/uL Lymphocytes # (1.0-4.8) k/uL Monocytes # (0-1.0) k/uL Eosinophils # (0-0.7) k/uL Basophils # (0-0.2) k/uL VBG pH (7.31-7.41) VBG pCO2 (37-51) mmHg VBG HCO3 (24-28) mmol/L Sodium 133 L (137-145) mmol/L Potassium 4.7 (3.5-5.1) mmol/L Chloride 97 L (98-107) mmol/L Carbon Dioxide 29 (22-30) mmol/L Anion Gap 7 mmol/L BUN 20 (9-20) mg/dL Creatinine 1.13 (0.66-1.25) mg/dL Est GFR (CKD-EPI)AfAm 83 (>60 ml/min/1.73 sqM) Est GFR (CKD-EPI)NonAf 72 (>60 ml/min/1.73 sqM) Glucose 489 H (74-99) mg/dL POC Glucose (mg/dL) (70-110) mg/dL POC Glu [employer] Window Clerk ID Plasma Lactic Acid Leonel 1.5 (0.7-2.0) mmol/L Calcium 9.4 (8.4-10.2) mg/dL Magnesium 1.8 (1.6-2.3) mg/dL Total Bilirubin 0.8 (0.2-1.3) mg/dL AST 23 (17-59) U/L ALT 22 (4-49) U/L Alkaline Phosphatase 141 H (38-126) U/L Troponin I 0.018 (0.000-0.034) ng/mL Total Protein 7.2 (6.3-8.2) g/dL Albumin 4.1 (3.5-5.0) g/dL Lipase 453 H (23-300) U/L Urine Color Urine Appearance (Clear) Urine pH (5.0-8.0) Ur Specific [place] (1.001-1.035) Urine Protein (Negative) Urine Glucose (UA) (Negative) Urine Ketones (Negative) Urine Blood (Negative) Urine Nitrite (Negative) Urine Bilirubin (Negative) Urine Urobilinogen (<2.0) mg/dL Ur Leukocyte Esterase (Negative) Acetone, Qual Negative (Negative) 12/31/23 12/31/23 Range/Units 13:31 14:49 WBC (3.8-10.6) k/uL RBC (4.30-5.90) m/uL Hgb (13.0-17.5) gm/dL Hct (39.0-53.0) % MCV (80.0-100.0) fL MCH (25.0-35.0) pg MCHC (31.0-37.0) g/dL RDW (11.5-15.5) % Plt Count (150-450) k/uL MPV Neutrophils % % Lymphocytes % % Monocytes % % Eosinophils % % Basophils % % Neutrophils # (1.3-7.7) k/uL Lymphocytes # (1.0-4.8) k/uL Monocytes # (0-1.0) k/uL Eosinophils # (0-0.7) k/uL Basophils # (0-0.2) k/uL VBG pH 7.33 (7.31-7.41) VBG pCO2 58 H (37-51) mmHg VBG HCO3 30 H (24-28) mmol/L Sodium (137-145) mmol/L Potassium (3.5-5.1) mmol/L Chloride (98-107) mmol/L Carbon Dioxide (22-30) mmol/L Anion Gap mmol/L BUN (9-20) mg/dL Creatinine (0.66-1.25) mg/dL Est GFR (CKD-EPI)AfAm (>60 ml/min/1.73 sqM) Est GFR (CKD-EPI)NonAf (>60 ml/min/1.73 sqM) Glucose (74-99) mg/dL POC Glucose (mg/dL) 347 H (70-110) mg/dL POC Glu [employer] Window Clerk Jazmín Avila Plasma Lactic Acid Leonel (0.7-2.0) mmol/L Calcium (8.4-10.2) mg/dL Magnesium (1.6-2.3) mg/dL Total Bilirubin (0.2-1.3) mg/dL AST (17-59) U/L ALT (4-49) U/L Alkaline Phosphatase (38-126) U/L Troponin I (0.000-0.034) ng/mL Total Protein (6.3-8.2) g/dL Albumin (3.5-5.0) g/dL Lipase (23-300) U/L Urine Color Urine Appearance (Clear) Urine pH (5.0-8.0) Ur Specific [place] (1.001-1.035) Urine Protein (Negative) Urine Glucose (UA) (Negative) Urine Ketones (Negative) Urine Blood (Negative) Urine Nitrite (Negative) Urine Bilirubin (Negative) Urine Urobilinogen (<2.0) mg/dL Ur Leukocyte Esterase (Negative) Acetone, Qual (Negative) Disposition Clinical Impression: Hyperglycemia Disposition: HOME SELF-CARE Condition: Stable Instructions (If sedation given, give patient instructions): Diabetic Hyperglycemia (ED) Additional Instructions: Please return to the Emergency Department if symptoms worsen or any other concerns. Is patient prescribed a controlled substance at d/c from ED?: No Referrals: Abelardo Tavarez MD [Primary Care Provider] - 1-2 days Time of Disposition: 15:24
[2023-12-31 13:47] LABS: Basophils # (A) 0.1 k/uL (0-0.2); Basophils % (A) 1 %; Eosinophils # (A) 0.1 k/uL (0-0.7); Eosinophils % (A) 1 %; HCT 45.6 % (39.0-53.0); HGB 14.8 gm/dL (13.0-17.5); Lymphocytes # (A) 1.8 k/uL (1.0-4.8); Lymphocytes % (A) 20 %; MCH 28.1 pg (25.0-35.0); MCHC 32.4 g/dL (31.0-37.0); MCV 86.7 fL (80.0-100.0); Mean Platelet Volume 8.4; Monocytes # (A) 0.4 k/uL (0-1.0); Monocytes % (A) 4 %; Neutrophils # (A) 6.6 k/uL (1.3-7.7); Neutrophils % (A) 73 %; Platelet Count 322 k/uL (150-450); RBC 5.26 m/uL (4.30-5.90); RDW 12.9 % (11.5-15.5); WBC 9.1 k/uL (3.8-10.6)
[2023-12-31] MEDS: INSULIN REGULAR 100 UNIT/ML VIAL (IV) IV ONE ×2 (13:47→15:40)
[2023-12-31 13:50] LABS: Appearance,Urine Clear (Clear); Bilirubin,Urine Negative (Negative); Blood,Urine Negative (Negative); Color,Urine Colorless; Glucose,Urine (UA) 4+ (Negative); Ketones,Urine Negative (Negative); Leukocyte Esterase,Urine Negative (Negative); Nitrite,Urine Negative (Negative); Protein,Urine Negative (Negative); Specific Gravity,Urine 1.032 (1.001-1.035); Urobilinogen,Urine <2.0 mg/dL (<2.0)
[2023-12-31 13:53] VITALS: TEMP 98.5
[2023-12-31 14:05] LABS: ALT 22 U/L (4-49); AST 23 U/L (17-59); African American GFR (CKD) 83 (>60 ml/min/1.73 sqM); Albumin 4.1 g/dL (3.5-5.0); Alkaline Phosphatase 141 U/L (38-126); Anion Gap 7 mmol/L; Blood Urea Nitrogen 20 mg/dL (9-20); Calcium 9.4 mg/dL (8.4-10.2); Carbon Dioxide 29 mmol/L (22-30); Chloride 97 mmol/L (98-107); Glucose 489 mg/dL (74-99); Lipase 453 U/L (23-300); Magnesium 1.8 mg/dL (1.6-2.3); Non-African American GFR(CKD) 72 (>60 ml/min/1.73 sqM); Potassium 4.7 mmol/L (3.5-5.1); Sodium 133 mmol/L (137-145); Total Bilirubin 0.8 mg/dL (0.2-1.3); Total Protein 7.2 g/dL (6.3-8.2)
[2023-12-31 14:06] LABS: VBG PH 7.33 (7.31-7.41)
[2023-12-31 14:52] LABS: Glucose,Whole Blood 347 mg/dL (70-110)
[2023-12-31 15:43] VITALS: BP 132/79; PULSE 74; RESP 18
== END 2023-12-31 15:48 | disposition home or self-care (01) ==
LOC: EC 12:16
DX: E11.65 Type 2 diabetes mellitus with hyperglycemia (principal); Z86.16 Personal history of COVID-19
CPT/HCPCS: 36415; 93005; 80053; 82803; 82009; 83605; 83690; 83735; 84484; 85025; 81003; 99284; 96374; 96361 ×2; J2405

== ENCOUNTER 2024-01-27 20:04 | Emergency (ER) | payer MEDICARE, OTHER ==
--- NOTE | 2024-01-27 20:18 | ED ---
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 severe headache, [fever], inability to tolerate/keep down fluids or your medications, inability to follow up with outpatient providers as instructed and should you experience these symptoms or should you have any further concerns for your wellbeing please return to the ED or call 911 immediately. Please monitor your wound on your foot closely for signs of infection such as discharge or redness. Please keep clean and dry and wash daily with antibacterial soap. PLEASE call your primary care physician as soon as possible to arrange / discuss plan for followup appointment. Appointment in the next 1-3 days is strongly encouraged if possible. PLEASE let us know here before you leave if there is anything further we can do to be of any assistance. Take care and feel Better! Is patient prescribed a controlled substance at d/c from ED?: No Referrals: Abelardo Tavarez MD [Primary Care Provider] - 1-2 days
[2024-01-27 20:29] LABS: Glucose,Whole Blood 585 mg/dL (70-110)
[2024-01-27] MEDS: ACETAMINOPHEN TAB 500 MG TAB PO STA (20:31)
[2024-01-27] MEDS: SODIUM CHLORIDE 0.9% 1,000 ML IV STA (20:31)
[2024-01-27 20:40] LABS: ALT 24 U/L (4-49); AST 23 U/L (17-59); African American GFR (CKD) 86 (>60 ml/min/1.73 sqM); Albumin 3.6 g/dL (3.5-5.0); Alcohol <10 mg/dL; Alkaline Phosphatase 152 U/L (38-126); Anion Gap 8 mmol/L; Blood Urea Nitrogen 24 mg/dL (9-20); Calcium 9.2 mg/dL (8.4-10.2); Carbon Dioxide 21 mmol/L (22-30); Chloride 99 mmol/L (98-107); Magnesium 1.7 mg/dL (1.6-2.3); Non-African American GFR(CKD) 74 (>60 ml/min/1.73 sqM); Potassium 4.4 mmol/L (3.5-5.1); Sodium 128 mmol/L (137-145); Total Bilirubin 0.6 mg/dL (0.2-1.3); Total Protein 5.9 g/dL (6.3-8.2)
[2024-01-27 20:49] LABS: Basophils # (A) 0.1 k/uL (0-0.2); Basophils % (A) 1 %; Eosinophils # (A) 0.3 k/uL (0-0.7); Eosinophils % (A) 3 %; HCT 43.8 % (39.0-53.0); HGB 14.1 gm/dL (13.0-17.5); INR 0.9 (<1.2); Lymphocytes # (A) 1.5 k/uL (1.0-4.8); Lymphocytes % (A) 15 %; MCH 28.4 pg (25.0-35.0); MCHC 32.1 g/dL (31.0-37.0); MCV 88.3 fL (80.0-100.0); Mean Platelet Volume 8.2; Monocytes # (A) 0.5 k/uL (0-1.0); Monocytes % (A) 5 %; Neutrophils # (A) 7.7 k/uL (1.3-7.7); Neutrophils % (A) 76 %; Platelet Count 403 k/uL (150-450); Prothrombin Time 9.6 sec (10.0-12.5); RBC 4.97 m/uL (4.30-5.90); RDW 13.2 % (11.5-15.5); WBC 10.2 k/uL (3.8-10.6)
[2024-01-27 20:56] LABS: Amphetamine Screen,Urine Detected (NotDetected); Barbiturate Screen,Urine Not Detected (NotDetected); Benzodiazepines Screen,Urine Not Detected (NotDetected); Cocaine Screen,Urine Not Detected (NotDetected); Methadone Screen, Urine Not Detected (NotDetected); Opiate Screen,Urine Not Detected (NotDetected); Oxycodone Screen, Urine Not Detected (NotDetected); Phencyclidine Screen,Urine Not Detected (NotDetected); Tricyclic Antidepressant,Urine Not Detected (NotDetected); Urn Cannabinoid Scrn Not Detected (NotDetected)
[2024-01-27 20:57] LABS: Partial Thromboplastin Time 21.1 sec (22.0-30.0)
[2024-01-27 21:00] LABS: Glucose 594 mg/dL (74-99)
[2024-01-27 21:12] VITALS: RESP 18
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
[2024-01-27 21:29] LABS: VBG PH 7.33 (7.31-7.41)
[2024-01-27] MEDS: SODIUM CHLORIDE 0.9% 1,000 ML IV ONE (21:57)
[2024-01-27] MEDS: INSULIN DETEMIR (LEVEMIR) 100 UNIT/ML SYR SQ ONE (21:57)
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
[2024-01-27 22:58] LABS: Glucose,Whole Blood 517 mg/dL (70-110)
[2024-01-27] MEDS: INSULIN ASPART (NovoLOG) 100 UNIT/ML VIAL SQ ONE (23:05)
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
[2024-01-27] MEDS: SODIUM CHLORIDE 0.9% 500 ML 500 ML IV ONE (23:21)
--- NOTE | 2024-01-27 23:41 | XR ---
EXAMINATION TYPE: XR foot complete LT DATE OF EXAM: 01/27/2024 CLINICAL HISTORY: Pain at ball of foot. Recent injury. TECHNIQUE: Frontal, lateral, and oblique images of the left foot are obtained. COMPARISON: None FINDINGS: There is no acute fracture/dislocation evident in the left foot. The joint spaces in the left foot appear within normal limits. Enthesopathy at the distal Achilles tendon insertion is noted . The overlying soft tissue appears unremarkable. IMPRESSION: There is no acute fracture or dislocation in the left foot. [facility], , 01/27/2024 11:39 PM
[2024-01-28 00:06] LABS: Glucose,Whole Blood >600 mg/dL (70-110)
[2024-01-28 00:06] LABS: Glucose,Whole Blood 448 mg/dL (70-110)
[2024-01-28 00:37] VITALS: BP 129/89; PULSE 78; TEMP 98.3
== END 2024-01-28 00:30 | disposition home or self-care (01) ==
LOC: EC 20:04
CPT/HCPCS: 36415; 70450; 71045; 71260; 72125; 72170; 74177; 80053; 80306; 80320; 82009; 82803; 83605; 83735; 84484; 85025; 85610; 85730; 86850; 86900; 86901; 93005; 96360; 96361; 99285

== ENCOUNTER 2024-05-14 11:40 | Emergency (ER) | payer MEDICARE, OTHER ==
[2024-05-14 11:49] VITALS: RESP 18; TEMP 97.7
--- NOTE | 2024-05-14 12:06 | ED ---
General Adult HPI - General Chief complaint: Abdominal Pain Stated complaint: stomach pain vomiting Time Seen by Provider: 05/14/24 11:52 Source: patient, family, RN notes reviewed Mode of arrival: wheelchair Limitations: no limitations - History of Present Illness Initial comments: Patient is a 58-year-old male present to the emergency department with concerns for abdominal discomfort. Patient does have chronic problems however symptoms have worsened again over the past few days. Patient has associated nausea and vomiting. Last bowel movement was around 3 days ago however that is normal for him. Patient does have history of chronic abdominal problems, unclear what diagnosis is. Patient has had previous colon resection. Patient is also juan jose betic and has not checked his sugar lately. - Related Data Home Medications Medication Instructions Recorded Confirmed Insulin Glargine,Hum.rec.anlog 60 unit SQ BID 01/05/21 12/31/23 [Lantus Solostar Pen] Atorvastatin [Lipitor] 20 mg PO DAILY 03/22/21 12/31/23 metFORMIN HCL [Glucophage] 1,000 mg PO BID 03/22/21 12/31/23 DULoxetine HCL [Cymbalta] 60 mg PO DAILY 01/22/23 12/31/23 Dapagliflozin Propanediol [Farxiga] 10 mg PO DAILY 01/22/23 12/31/23 Dulaglutide [Trulicity] 3 mg SQ FR 01/22/23 12/31/23 Fenofibrate [Lofibra] 160 mg PO DAILY 01/22/23 12/31/23 Insulin Aspart [NovoLOG Flexpen] 10 units SQ TID-W/MEALS 01/22/23 12/31/23 Losartan Potassium 100 mg PO DAILY 01/22/23 12/31/23 buPROPion XL [Wellbutrin XL] 300 mg PO DAILY 01/22/23 12/31/23 Ergocalciferol (Vitamin D2) 1,250 mcg PO Q30D 12/31/23 12/31/23 [Drisdol (50,000 Iu)] Allergies Allergy/AdvReac Type Severity Reaction Status Date / Time No Known Allergies Allergy Verified 05/14/24 11:44 Review of Systems ROS Statement: Those systems with pertinent positive or pertinent negative responses have been documented in the HPI. ROS Other: All systems not noted in ROS Statement are negative. Constitutional: Denies: fever Eyes: Denies: eye pain ENT: Denies: ear pain Respiratory: Denies: dyspnea Cardiovascular: Denies: chest pain Gastrointestinal: Reports: as per HPI, abdominal pain, nausea, vomiting Musculoskeletal: Denies: back pain Past Medical History Past Medical History: Chest Pain / Angina, Dementia, Diabetes Mellitus, GERD/Reflux, Hyperlipidemia, Hypertension, Neurologic Disorder, Osteoarthritis (OA), Syncope Additional Past Medical History / Comment(s): Chronic Back Pain, Recently COVID + November 2020 History of Any Multi-Drug Resistant Organisms: None Reported Past Surgical History: Back Surgery, Cholecystectomy, Orthopedic Surgery Additional Past Surgical History / Comment(s): C3-C7 WITH HARDWARE,. DISC REPLACED IN LOWER BACK. Right ROTATOR CUFF REPAIR Past Anesthesia/Blood Transfusion Reactions: No Reported Reaction Past Psychological History: Anxiety, Depression Smoking Status: Never smoker Past Alcohol Use History: None Reported Past Drug Use History: None Reported - Past Family History Mother Family Medical History: No Reported History Father Family Medical History: Coronary Artery Disease (CAD), Diabetes Mellitus, Deep Vein Thrombosis (DVT) Additional Family Medical History / Comment(s): paternal grandmother also had diabetes Sister(s) Family Medical History: Congestive Heart Failure (CHF) General Exam Limitations: no limitations General appearance: alert Head exam: Present: normocephalic Eye exam: Present: normal appearance ENT exam: Present: mucous membranes dry Neck exam: Present: normal inspection Respiratory exam: Present: normal lung sounds bilaterally Cardiovascular Exam: Present: regular rate, normal rhythm Expanded Peripheral pulses: 2+: Dorsalis Pedis (R), Dorsalis Pedis (L) GI/Abdominal exam: Present: soft, tenderness (Left abdomen, moderate), normal tito wel sounds. Absent: distended, guarding, rebound, rigid, pulsatile mass Extremities exam: Present: normal inspection Neurological exam: Present: alert Psychiatric exam: Present: normal affect, normal mood Skin exam: Present: normal color Course Vital Signs 05/14/24 11:44 Temperature 97.7 F Pulse Rate 98 Respiratory 18 Rate Blood Pressure 147/93 O2 Sat by Pulse 97 Oximetry Medical Decision Making - Medical Decision Making Was pt. sent in by a medical professional or institution (, PA, DIRECTOR WORKFORCE MANAGEMENT, urgent care, hospital, or penitentiary...) When possible be specific @ -No Did you speak to anyone other than the patient for history (EMS, parent, family, police, friend...)? What history was obtained from this source @ -Family is present helps provide history of patient having previous colon resection Did you review nursing and triage notes (agree or disagree)? Why? @ -I reviewed and agree with nursing and triage notes Were old charts reviewed (outside hosp., previous admission, EMS record, old EKG, old radiological studies, urgent care reports/EKG's, penitentiary records)? Report findings @ -No old charts were reviewed Differential Diagnosis (chest pain, altered mental status, abdominal pain women, abdominal pain men, vaginal bleeding, weakness, fever, dyspnea, syncope, headache, dizziness, GI bleed, back pain, seizure, CVA, palpatations, mental health, musculoskeletal)? @ -Differential Abdominal Pain Men: Appendicitis, cholecystitis, diverticulosis, ischemic bowel, pancreatitis, hepatitis, UTI, gastroenteritis, AAA, incarcerated hernia, bowel obstruction, constipation, inflammatory bowel, hepatitis, peptic ulcer disease, splenic infarction, perforated viscus, testicular torsion, this is not meant to be an all-inclusive list EKG interpreted by me (3pts min.). @ -As above X-rays interpreted by me (1pt min.). @ -None done CT interpreted by me (1pt min.). @ -CT scan abdomen pelvis without acute abnormality U/S interpreted by me (1pt. min.). @ -None done What testing was considered but not performed or refused? (CT, X-rays, U/S, labs)? Why? @ -None What meds were considered but not given or refused? Why? @ -None Did you discuss the management of the patient with other professionals (professionals i.e. , PA, DIRECTOR WORKFORCE MANAGEMENT, lab, RT, psych nurse, clinical social work therapist, perforating machine operator, teacher, assistant chief nursing officer, mental health case manager)? Give summary @ -No Was smoking cessation discussed for >3mins.? @ -No Was critical care preformed (if so, how long)? @ -No Were there social determinants of health that impacted care today? How? (Homelessness, low income, unemployed, alcoholism, drug addiction, transportation, low edu. Level, literacy, decrease access to med. care, correction, rehab)? @ -No Was there de-escalation of care discussed even if they declined (Discuss DNR or withdrawal of care, Hospice)? DNR status @ -No What co-morbidities impacted this encounter? (DM, HTN, Smoking, COPD, CAD, Cancer, CVA, ARF, Chemo, Hep., AIDS, mental health diagnosis, sleep apnea, mo rbid obesity)? @ -History of chronic abdominal problem Was patient admitted / discharged? Hospital course, mention meds given and route, prescriptions, significant lab abnormalities, going to OR and other pertinent info. @ -Patient presents with abdominal discomfort and nausea and vomiting. Evalu ation unremarkable except for hyperglycemia. Patient given fluids and insulin. On reevaluation patient is feeling much better and is comfortable with discharge home. Patient does have appointment already set up with his doctor on Thursday. Patient updated on results and need for follow-up. Patient states he has plenty of nausea medication at home. Undiagnosed new problem with uncertain prognosis? @ -No Drug Therapy requiring intensive monitoring for toxicity (Heparin, Nitro, Insulin, Cardizem)? @ -No Were any procedures done? @ -No Diagnosis/symptom? @ -Abdominal pain, vomiting Acute, or Chronic, or Acute on Chronic? @ -Acute on chronic, acute Uncomplicated (without systemic symptoms) or Complicated (systemic symptoms)? @ -Complicated with hyperglycemia Side effects of treatment? @ -No Exacerbation, Progression, or Severe Exacerbation? @ -No Poses a threat to life or bodily function? How? (Chest pain, [place], [place], pneumonia, PE, COPD, DKA, ARF, appy, cholecystitis, CVA, Diverticulitis, Homicidal, Suicidal, threat to staff... and all critical care pts) @ -No - Lab Data Result diagrams: 05/14/24 12:10 05/14/24 12:10 Lab Results 05/14/24 05/14/24 05/14/24 Range/Units 12:10 12:10 12:10 WBC 7.0 (3.8-10.6) k/uL RBC 5.06 (4.30-5.90) m/uL Hgb 14.2 (13.0-17.5) gm/dL Hct 42.8 (39.0-53.0) % MCV 84.7 (80.0-100.0) fL MCH 28.0 (25.0-35.0) pg MCHC 33.1 (31.0-37.0) g/dL RDW 13.3 (11.5-15.5) % Plt Count 270 (150-450) k/uL MPV 8.5 Neutrophils % 69 % Lymphocytes % 21 % Monocytes % 6 % Eosinophils % 2 % Basophils % 1 % Neutrophils # 4.9 (1.3-7.7) k/uL Lymphocytes # 1.5 (1.0-4.8) k/uL Monocytes # 0.4 (0-1.0) k/uL Eosinophils # 0.1 (0-0.7) k/uL Basophils # 0.1 (0-0.2) k/uL PT 9.9 L (10.0-12.5) sec INR 0.9 (<1.2) APTT 21.1 L (22.0-30.0) sec Sodium 129 L (137-145) mmol/L Potassium 4.4 (3.5-5.1) mmol/L Chloride 93 L (98-107) mmol/L Carbon Dioxide 26 (22-30) mmol/L Anion Gap 10 mmol/L BUN 25 H (9-20) mg/dL Creatinine 0.95 (0.66-1.25) mg/dL Est GFR (CKD-EPI)AfAm >90 (>60 ml/min/1.73 sqM) Est GFR (CKD-EPI)NonAf 89 (>60 ml/min/1.73 sqM) Glucose 510 H* (74-99) mg/dL POC Glucose (mg/dL) (70-110) mg/dL POC Glu Inspector Rag Sorting ID Calcium 9.3 (8.4-10.2) mg/dL Total Bilirubin 0.6 (0.2-1.3) mg/dL AST 19 (17-59) U/L ALT 20 (4-49) U/L Alkaline Phosphatase 120 (38-126) U/L Total Protein 6.8 (6.3-8.2) g/dL Albumin 4.0 (3.5-5.0) g/dL Amylase 41 (30-110) U/L Lipase 388 H (23-300) U/L 05/14/24 Range/Units 14:07 WBC (3.8-10.6) k/uL RBC (4.30-5.90) m/uL Hgb (13.0-17.5) gm/dL Hct (39.0-53.0) % MCV (80.0-100.0) fL MCH (25.0-35.0) pg MCHC (31.0-37.0) g/dL RDW (11.5-15.5) % Plt Count (150-450) k/uL MPV Neutrophils % % Lymphocytes % % Monocytes % % Eosinophils % % Basophils % % Neutrophils # (1.3-7.7) k/uL Lymphocytes # (1.0-4.8) k/uL Monocytes # (0-1.0) k/uL Eosinophils # (0-0.7) k/uL Basophils # (0-0.2) k/uL PT (10.0-12.5) sec INR (<1.2) APTT (22.0-30.0) sec Sodium (137-145) mmol/L Potassium (3.5-5.1) mmol/L Chloride (98-107) mmol/L Carbon Dioxide (22-30) mmol/L Anion Gap mmol/L BUN (9-20) mg/dL Creatinine (0.66-1.25) mg/dL Est GFR (CKD-EPI)AfAm (>60 ml/min/1.73 sqM) Est GFR (CKD-EPI)NonAf (>60 ml/min/1.73 sqM) Glucose (74-99) mg/dL POC Glucose (mg/dL) 352 H (70-110) mg/dL POC Glu Inspector Rag Sorting ID Adames Shauna Calcium (8.4-10.2) mg/dL Total Bilirubin (0.2-1.3) mg/dL AST (17-59) U/L ALT (4-49) U/L Alkaline Phosphatase (38-126) U/L Total Protein (6.3-8.2) g/dL Albumin (3.5-5.0) g/dL Amylase (30-110) U/L Lipase (23-300) U/L Disposition Clinical Impression: Abdominal pain Disposition: HOME SELF-CARE Condition: Stable Instructions (If sedation given, give patient instructions): Abdominal Pain (ED), Acute Nausea and Vomiting (ED) Additional Instructions: Please follow-up with your primary care physician Thursday as scheduled. Return for fever, increased pain, uncontrolled vomiting, worsening or changing symptoms or any other concerns. Is patient prescribed a controlled substance at d/c from ED?: No Referrals: Abelardo Tavarez MD [Primary Care Provider] - 1-2 days Time of Disposition: 14:14
[2024-05-14] MEDS: SODIUM CHLORIDE 0.9% 1,000 ML IV STA (12:13)
[2024-05-14] MEDS: HYDROmorphone 1 MG/ML 1 ML SYRINGE IVP STA (12:15)
[2024-05-14] MEDS: ONDANSETRON 4 MG/2 ML VIAL IVP STA (12:15)
[2024-05-14] MEDS: FAMOTIDINE 20 MG/2 ML VIAL IV STA (12:15)
[2024-05-14 12:17] LABS: Basophils # (A) 0.1 k/uL (0-0.2); Basophils % (A) 1 %; Eosinophils # (A) 0.1 k/uL (0-0.7); Eosinophils % (A) 2 %; HCT 42.8 % (39.0-53.0); HGB 14.2 gm/dL (13.0-17.5); Lymphocytes # (A) 1.5 k/uL (1.0-4.8); Lymphocytes % (A) 21 %; MCHC 33.1 g/dL (31.0-37.0); MCV 84.7 fL (80.0-100.0); Mean Platelet Volume 8.5; Monocytes # (A) 0.4 k/uL (0-1.0); Monocytes % (A) 6 %; Neutrophils # (A) 4.9 k/uL (1.3-7.7); Neutrophils % (A) 69 %; Platelet Count 270 k/uL (150-450); RBC 5.06 m/uL (4.30-5.90); RDW 13.3 % (11.5-15.5)
[2024-05-14 12:35] LABS: ALT 20 U/L (4-49); AST 19 U/L (17-59); African American GFR (CKD) >90 (>60 ml/min/1.73 sqM); Alkaline Phosphatase 120 U/L (38-126); Amylase 41 U/L (30-110); Anion Gap 10 mmol/L; Blood Urea Nitrogen 25 mg/dL (9-20); Calcium 9.3 mg/dL (8.4-10.2); Carbon Dioxide 26 mmol/L (22-30); Chloride 93 mmol/L (98-107); Lipase 388 U/L (23-300); Non-African American GFR(CKD) 89 (>60 ml/min/1.73 sqM); Potassium 4.4 mmol/L (3.5-5.1); Sodium 129 mmol/L (137-145); Total Bilirubin 0.6 mg/dL (0.2-1.3); Total Protein 6.8 g/dL (6.3-8.2)
[2024-05-14 12:42] LABS: INR 0.9 (<1.2); Prothrombin Time 9.9 sec (10.0-12.5)
[2024-05-14 12:47] LABS: Partial Thromboplastin Time 21.1 sec (22.0-30.0)
[2024-05-14 12:52] LABS: Glucose 510 mg/dL (74-99)
[2024-05-14] MEDS: INSULIN REGULAR 100 UNIT/ML VIAL (IV) IV ONE ×2 (13:13→14:45)
--- NOTE | 2024-05-14 13:31 | CT ---
EXAMINATION TYPE: CT abdomen pelvis w con DATE OF EXAM: 05/14/2024 COMPARISON: 05/27/2019 CLINICAL INDICATION: Male, 58 years old with history of abdominal pain; [facility], abdominal pain TECHNIQUE: Performed without Oral Contrast and with IV Contrast, patient injected with 100 mL of Isovue 300. CT DLP: 1113.[address] CTDI: mGy Automated exposure control for dose reduction was used. FINDINGS: The lung bases are clear. There is surgical absence of the gallbladder. There is no biliary ductal dilatation. There is no focal mass or organomegaly involving the liver, pancreas, spleen or adrenal glands. There is mild liver steatosis. There is no solid renal mass or hydronephrosis and there is homogeneous contrast enhancement of the r enal parenchyma. The caliber the abdominal aorta is normal is no retroperitoneal adenopathy or hemorr zayra. The bowel loops are normal in caliber and there is no evidence of dilatation or obstruction. No infla mmatory changes are identified in the bowel wall or mesentery. There are anastomotic sutures in the t ransverse colon. There is no free intraperitoneal air or fluid. No pelvic mass, free fluid, abscess or adenopathy. The osseous structures and soft tissues are intact. IMPRESSION: No significant abnormality seen. No acute changes within the abdomen or pelvis. [facility], Workstation: ANA LAURA, 05/14/2024 1:28 PM
[2024-05-14 14:08] LABS: Glucose,Whole Blood 352 mg/dL (70-110)
[2024-05-14] MEDS: DICYCLOMINE 10 MG/ML 2 ML AMP IM STA (14:47)
[2024-05-14 14:57] VITALS: BP 134/78; PULSE 83
== END 2024-05-14 14:57 | disposition home or self-care (01) ==
LOC: EC 11:40
DX: G89.29 Other chronic pain (principal); R10.9 Unspecified abdominal pain; R11.2 Nausea with vomiting, unspecified; Z86.16 Personal history of COVID-19
CPT/HCPCS: 99284; 96372; 96374; 96375; 96361; 36415; 80053; 82150; 83690; 85025; 85610; 85730; 74177; J0500; J2405; J3490; J1171; Q9967